=== PATIENT | female | born 2000 | race Caucasian/White ===

== ENCOUNTER 2023-08-14 15:01 | Emergency (ER) | payer OTHER, SELFPAY ==
[2023-08-14 15:17] VITALS: BP 118/77; PULSE 85; RESP 16; TEMP 36.4; O2SAT 99
--- NOTE | 2023-08-14 15:20 | ED.GENADULT ---
HPI - General Adult General Chief complaint: Ear Stated complaint: Ear Infection Time Seen by Provider: 08/14/23 15:24 Source: patient, RN notes reviewed and old records reviewed Mode of arrival: ambulatory Limitations: no limitations Related Data Home Medications Medication Instructions Recorded Confirmed norethindrone (contraceptive) 0.35 0.35 mg PO DAILY 08/14/23 08/14/23 mg tablet Allergies Allergy/AdvReac Type Severity Reaction Status Date / Time No Known Allergies Allergy Verified 08/14/23 15:32 Review of Systems Review of Systems: 22-year-old female presents to [facility] with complaints of coughing and congestion for about 1 week with bilateral ear pressure and pain for the last 3-4 days. The patient taking rwik-jki-bqgykjt sinus medications with no relief patient denies fever chills headaches myalgias or any other complaints at this time Constitutional: Constitutional: Reports no additional constitutional complaints Eyes: Eyes: Reports no additional eye complaints ENT: Reports system reviewed and no additional complaints, except as documented, Reports otalgia, Reports nasal congestion and Reports nasal discharge Cardiovascular: Cardiovascular: Reports no additional cardiovascular complaints Respiratory: Respiratory: Reports no additional respiratory complaints and Reports cough Neurologic: Reports system reviewed and no additional complaints, except as documented PMFSH Comments At the time of my signature, I reviewed and agree with the nursing past medical, surgical, social, and family history. There is no relevant family history pertinent to the patient complaint. Exam Const: General: cooperative, healthy appearing, no acute distress and well nourished Nutritional Appearance: well nourished Orientation/consciousness: patient oriented x3 Limitations: no limitations HENMT: Head: normal to inspection and normocephalic Ears: external ears normal, EAC's normal, mastoids normal and TM abnormal with fluid behind the TM (Bilaterally) Face/Nose/Sinus: normal facial exam Face and sinus: normal facial exam Mouth: Yes Normal oral and palatal mucosa present, Yes oropharynx normal and Yes moist mucous membranes Throat: posterior oropharynx normal, tonsils normal, uvula midline and no uvular edema Eyes: General: appearance normal, both eyes and all related structures Sclera: sclerae normal Pupils: Equal, round and reactive pupils present Resp: Effort & Inspection: normal respiratory effort, able to speak in complete sentences, no audible wheezes, no cough, no respiratory distress and no retractions Auscultation: clear to auscultation bilaterally, no crackles, no rales, no rhonchi and no wheezes Cardio: Rate: regular rate Rhythm: regular rhythm Skin: General skin exam: normal color and no rashes or lesions noted Neuro: General: patient oriented x3 Cranial nerves: Yes Equal, round and reactive pupils present Psych: Appearance: grossly normal Course Course Emergency Course: Some parts of this dictation were generated by voice recognition software and may contain typographical and/or grammatical inaccuracies. Level of Care: Express Care Visit Vital Signs Vital signs: Vital Signs Temperature 97.6 F 08/14/23 15:17 Pulse Rate 85 08/14/23 15:17 Respiratory Rate 16 08/14/23 15:17 Blood Pressure 118/77 08/14/23 15:17 Pulse Oximetry 99 08/14/23 15:17 Temperature 97.6 F 08/14/23 15:17 Pulse Rate 85 08/14/23 15:17 Respiratory Rate 16 08/14/23 15:17 Blood Pressure 118/77 08/14/23 15:17 Pulse Oximetry 99 08/14/23 15:17 Reviewed Medical Decision Making MDM Narrative Medical decision making narrative: Patient complaining cough and congestion with ear pain and pressure for 1 week, patient denies fever chills shortness of breath productive. Patient's symptoms consistent with viral illness, foot noted and behind both TMs. Patient given S prescription
== END 2023-08-14 15:47 | disposition home or self-care (01) ==
PROVIDERS: Emergency Provider Registered Nurse; PCP Nurse Practitioner Family
DX: H74.8X3 Other specified disorders of middle ear and mastoid, bilateral (principal)
CPT/HCPCS: 99213; G0463

== ENCOUNTER 2025-01-11 03:59 | Emergency (ER) | payer OTHER, SELFPAY ==
--- OUTSIDE RECORDS SUMMARY | 2025-01-11 04:01 | XMS_ITS | Continuity of Care Document ---
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 [facility] [address], [place], [address], [place]. tel:[phone] Family History Family Member Type Diagnosis Age At Onset No Information Payers Payer name Insurance type Covered alliance party ID Authoriza tion(s) No Information Social History Type Description Quantity Date Captured Comments Sex Female Smoking Status No Information Chief Complaint And Reason For Visit No Information Reason For Referral Reason For Referral No Information History Of Present Illness Encounter Date Complaint History Of Prese nt Illness No Information Functional Status Date Functional Assessmen t No Information Instructions Date Instruction Additional Infor mation No Information Assessments Type Assessment Date No Information Patient Care Teams Name Effective Dates (start - stop) Status Members No Information
--- OUTSIDE RECORDS SUMMARY | 2025-01-11 04:01 | XMS_ITS | Data Portability ---
Author Organization [employer] , [facility]uz Address [address] [place] [address] Assessment No assessment recorded. Plan of Treatment Reminders Order Date Submit Date Provider Last Modified By Organization Details Last Modified Time Details Appointments None recorde d. Lab hemoglo bin A1c, QN, blood 2022 023 [facility], [address] [place] [address], [id number], 3 12:14:09 strepto coccus group B, culture , unspeci fied specime n 2022 023 [facility], [address] [facility], [place], [address], 3 11:46:54 Referral None recorde d. Procedures None recorde d. Surgeries None recorde d. Imaging non-str ess test 2022 023 [facility], [address] [place] [address], [id number], 3 14:19:20 non-str ess test 2022 023 [facility], [address] [place] [address], [id number], 3 14:19:20 Medication Orders cephale daren 500 mg tablet 2022 023 [place] [address] [facility][id number] [place], [place], [id number], 3 00:55:07 Slynd 4 mg (28) tablet 2022 023 [email or web address] [facility][id number], [address] [place], [place], [id number], 16:52:10 Ortho Microno r 0.35 mg tablet 2022 023 [id number] [facility][id number], [address] [place], [place], [id number], 15:52:36 Patient TargetsNo targets recorded. Patient Instructions Encounter Date Encounter Id Patient Instructions Last Modified By Organization Details Last Modified Time 11/11/2022 [id number] Care at Home With Your Baby: Care Instructions Not available 11/11/2022 16:28:32 edinburgh depression scale* [email or web address] Not available 11/14/2022 18:22:28 control after counseling Not available 11/11/2022 16:28:32 12/08/2022 [id number] Care at Home With Your Baby: Care Instructions [email or web address] Not available 12/08/2022 15:52:52 control after counseling [email or web address] Not available 12/08/2022 15:52:52 Reason for Referral None Reported. Results Created Date Observation Date Name Description Value Unit Range Abnormal Flag Note LastModifiedBy Organization Detail LastModifiedTime 09/15/20 22 09/16/2022 COMPR EHENS HUGO METAB OLIC PANEL sodium 141 mmol/ L 136 - 145 normal Not Available [facility] [address] [place], [address], 09/16/2022 12:28:22 09/15/20 22 09/16/2022 COMPR EHENS HUGO METAB OLIC PANEL potassium 3.7 mmol/ L 3.5 - 5.1 normal Not Available [facility] [address] [place], [address], 09/16/2022 12:28:22 09/15/20 22 09/16/2022 COMPR EHENS HUGO METAB OLIC PANEL chloride 104 mmol/ L 98 - 107 normal Not Available [address], [address], 09/16/2022 12:28:22 09/15/20 22 09/16/2022 COMPR EHENS HUGO METAB OLIC PANEL glucose 81 mg/dL 74 - 106 normal Not Available [address], [address], 09/16/2022 12:28:22 09/15/20 22 09/16/2022 COMPR EHENS HUGO METAB OLIC PANEL carbon dioxide 23 mmol/ L 20 - 32 normal Not Available [address], [address], 09/16/2022 12:28:22 09/15/20 22 09/16/2022 COMPR EHENS HUGO METAB OLIC PANEL calcium 9.5 mg/dL 8.5 - 10.1 normal Not Available [address], [address], 09/16/2022 12:28:22 09/15/20 22 09/16/2022 COMPR EHENS HUGO METAB OLIC PANEL creatinine 0.62 mg/dL 0.60 - 1.00 normal Not Available [address], [address], 09/16/2022 12:28:22 09/15/20 22 09/16/2022 COMPR EHENS HUGO METAB OLIC PANEL eGFR 129 mL/mi n/1.7 3m2 >60 normal The eGFR is based on the CKD-E PI 2020 annitaat jumana. To calcu late the new eGFR from a previ ous Creat inine or Cysta linden C resul t, go to https ://jaylan [email or web address].christopher yoo/pr ofess ional s/kdo qi/gf r_cal culat or Not Available [address], [address], 09/16/2022 12:28:22 09/15/20 22 09/16/2022 COMPR EHENS HUGO METAB OLIC PANEL AST 27 U/L 32 - 40 low Not Available [address], [address], 09/16/2022 12:28:22 09/15/20 22 09/16/2022 COMPR EHENS HUGO METAB OLIC PANEL ALT 31 U/L 14 - 59 normal Not Available [address], [address], 09/16/2022 12:28:22 09/15/20 22 09/16/2022 COMPR EHENS HUGO METAB OLIC PANEL alk phos 137 U/L 46 - 116 high Not Available [address], [address], 09/16/2022 12:28:22 09/15/20 22 09/16/2022 COMPR EHENS HUGO METAB OLIC PANEL albumin 2.8 g/dL 3.4 - 5.0 low Not Available [address], [address], 09/16/2022 12:28:22 09/15/20 22 09/16/2022 COMPR EHENS HUGO METAB OLIC PANEL protein, total 6.9 g/dL 6.4 - 8.2 normal Not Available [address], [address], 09/16/2022 12:28:22 09/15/20 22 09/16/2022 COMPR EHENS HUGO METAB OLIC PANEL bilirubin, total 0.7 mg/dL 0.2 - 1.0 normal Not Available [address], [address], 09/16/2022 12:28:22 09/15/20 22 09/16/2022 COMPR EHENS HUGO METAB OLIC PANEL urea nitrogen (BUN) 7 mg/dL 6 - 31 normal Not Available [address] [place], [address], 09/16/2022 12:28:22 09/15/20 22 09/16/2022 VAGIN ITIS PANEL bacterial vaginosis BV neg negati ve normal Not Available [address], [address], 09/17/2022 09:48:13 09/15/20 22 09/16/2022 VAGIN ITIS PANEL nathalie species C. spp neg negati ve normal Not Available [address], [address], 09/17/2022 09:48:13 09/15/20 22 09/16/2022 VAGIN ITIS PANEL nathalie glabrata C. gla neg negati ve normal Not Available [address], [address], 09/17/2022 09:48:13 09/15/20 22 09/16/2022 VAGIN ITIS PANEL trichomonas vaginalis CV/TV TRICH neg negati ve normal Not Available [address], [address], 09/17/2022 09:48:13 09/15/20 22 09/20/2022 BILE ACIDS , TOTAL bile acids, total 19 umol/ L 0-19 Not Available [facility] [address] [place], [address], 09/20/2022 04:01:28 09/15/20 22 09/20/2022 CULTU RE, URINE , ROUTI NE culture, urine, routine SEE NOTE CULTU RE, URINE , ROUTI NE Micro Numbe r: [id number] Test Statu s: Final Speci men Sourc e: Urine Speci men Quali ty: Adequ ate Resul t: No Growt h Not Available [address] [facility] [address] [place], [address], 09/20/2022 04:01:30 09/16/20 22 09/17/2022 (100G ) 3HR - GLUCO SE MAK ANCE TEST, GESTA ELVIS L SCREE N glucose (100g) fasting 89 mg/dL 74 - 106 normal Not Available [facility] [address] [place] [address], [address], 09/17/2022 14:50:11 09/16/20 22 09/17/2022 (100G ) 3HR - GLUCO SE MAK ANCE TEST, GESTA ELVIS L SCREE N glucose (100g) 1 hour 208 mg/dL <180 high Not Available [facility] [address] [place] [address], [address], 09/17/2022 14:50:11 09/16/20 22 09/17/2022 (100G ) 3HR - GLUCO SE MAK ANCE TEST, GESTA ELVIS L SCREE N glucose (100g) 2 hour 171 mg/dL <155 high Not Available [facility] [address] [place] [address], [address], 09/17/2022 14:50:11 09/16/20 22 09/17/2022 (100G ) 3HR - GLUCO SE MAK ANCE TEST, GESTA ELVIS L SCREE N glucose (100g) 3 hour 124 mg/dL <140 normal Not Available [facility] [address] [place] [address], [address], 09/17/2022 14:50:11 09/24/19 23 10/25/2022 BILE ACIDS , TOTAL bile acids, total TNP TEST NOT PERFO RMED Test cance lled for reord sameer silvero ses. Not Available [facility] [address] [place], [address], 10/25/2022 21:02:43 09/24/19 23 10/25/2022 BILE ACIDS , FRACT IONAT ED AND TOTAL cholic acid <0.5 umol/ L < or = 1.8 Not Available [address] [facility] [address] [place], [address], 10/25/2022 21:02:43 09/24/19 23 10/25/2022 BILE ACIDS , FRACT IONAT ED AND TOTAL deoxycholic acid <0.5 umol/ L < or = 2.4 Not Available [facility] [place] [address] [place], [address], 10/25/2022 21:02:43 09/24/19 23 10/25/2022 BILE ACIDS , FRACT IONAT ED AND TOTAL chenodeoxych olic acid <0.5 umol/ L < or = 3.1 Not Available [facility] [place] [address] [place], [address], 10/25/2022 21:02:43 09/24/19 23 10/25/2022 BILE ACIDS , FRACT IONAT ED AND TOTAL total bile acids <1.5 umol/ L < or = 6.8 This test was devel krishan and its deja tical perfo rmanc e toby cteri stics have been deter mined by [facility] mckenzie Quintanillai татьяна Edwardsnathanael boles . It has not been clear ed or appro larisa by FDA. This assay has been valid ated pursu ant to the CLIA regul ation s and is used for clini keily purpo ses. Not Available [facility] [place] [address] [place], [address], 10/25/2022 21:02:43 10/13/19 23 10/16/2022 STREP TOCOC CUS, GROUP B CULTU RE streptococcu s, group B culture SEE NOTE STREP TOCOC CUS, GROUP B CULTU RE Micro Numbe r: [id number] Test Statu s: Final Speci men Sourc e: Vagin al anore ctal Speci men Quali ty: Adequ ate Resul t: No group B Strep tococ cus isola cami Note per CDC guide lines optim al recov mraio is achie larisa by swabb ing both the lower vagin a and rectu m (thro ugh the anal sphin cter) . Not Available [facility] [place] [address] [place], [address], 10/16/2022 12:18:31 10/21/19 23 10/21/2022 UA REFLE X TO MICRO specimen type URINE CLEAN CATCH Not Available [facility] (Lab) [address] [place] [place], [address], 10/21/2022 10:46:40 10/21/19 23 10/21/2022 UA REFLE X TO MICRO color YELLOW Not Available [facility] (Lab) [place], [address], 10/21/2022 10:46:40 10/21/19 23 10/21/2022 UA REFLE X TO MICRO clarity CLEAR Not Available [facility] (Lab) [place], [address], 10/21/2022 10:46:40 10/21/19 23 10/21/2022 UA REFLE X TO MICRO specific gravity 1.022 1.001- 1.030 Not Available [facility] (Lab) [place], [address], 10/21/2022 10:46:40 10/21/19 23 10/21/2022 UA REFLE X TO MICRO pH, urine 6.5 5.0-9. 0 Not Available [facility] (Lab) [place], [address], 10/21/2022 10:46:40 10/21/19 23 10/21/2022 UA REFLE X TO MICRO leukocytes NEGATI VE neg Not Available [facility] (Lab) [place], [address], 10/21/2022 10:46:40 10/21/19 23 10/21/2022 UA REFLE X TO MICRO nitrite NEGATI VE neg Not Available [facility] (Lab) [address] [place], [address], 10/21/2022 10:46:40 10/21/19 23 10/21/2022 UA REFLE X TO MICRO protein 10 mg/dL <30 Not Available [facility] (Lab) [place], [address], 10/21/2022 10:46:40 10/21/19 23 10/21/2022 UA REFLE X TO MICRO glucose NORMAL mg/dL norm Not Available [facility] (Lab) [place], [address], 10/21/2022 10:46:40 10/21/19 23 10/21/2022 UA REFLE X TO MICRO ketone NEGATI VE mg/dL neg Not Available [facility] (Lab) [place], [address], 10/21/2022 10:46:40 10/21/19 23 10/21/2022 UA REFLE X TO MICRO urobilinogen NORMAL mg/dL norm Not Available [facility] (Lab) [place], [address], 10/21/2022 10:46:40 10/21/19 23 10/21/2022 UA REFLE X TO MICRO bilirubin NEGATI VE mg/dL neg Not Available [facility] (Lab) [place], [address], 10/21/2022 10:46:40 10/21/19 23 10/21/2022 UA REFLE X TO MICRO blood NEGATI VE neg Not Available [facility] (Lab) [place], [address], 10/21/2022 10:46:40 10/21/19 23 10/21/2022 CBC WITH DIFF WBC 8.0 x10'3 /uL 4.5-11 .0 Not Available [facility] (Lab) [address], [place], [address], 10/21/2022 10:47:40 10/21/19 23 10/21/2022 CBC WITH DIFF RBC 4.10 x10'6 /uL 4.20-5 .40 low Not Available [facility] (Lab) [address] [facility], [place], [address], 10/21/2022 10:47:40 10/21/19 23 10/21/2022 CBC WITH DIFF hemoglobin 13.2 g/dL 12.0-1 6.0 Not Available [facility] (Lab) [address], [place], [address], 10/21/2022 10:47:40 10/21/19 23 10/21/2022 CBC WITH DIFF hematocrit 37.7 % 38.0-4 8.0 low Not Available [facility] (Lab) [address], [place], [address], 10/21/2022 10:47:40 10/21/19 23 10/21/2022 CBC WITH DIFF MCV 92.0 fL 81.0-9 9.0 Not Available [facility] (Lab) [address], [place], [address], 10/21/2022 10:47:40 10/21/19 23 10/21/2022 CBC WITH DIFF MCH 32.2 pg 27.0-3 1.0 high Not Available [facility] (Lab) [address], [place], [address], 10/21/2022 10:47:40 10/21/19 23 10/21/2022 CBC WITH DIFF MCHC 35.0 g/dL 32.0-3 6.0 Not Available [facility] (Lab) [address] [facility], [place], [address], 10/21/2022 10:47:40 10/21/1910/21/2022 CBC WITH DIFF RDW 13.4 % 11.5-1 4.5 Not Available [facility] (Lab) [address] [facility], [place], [address], 10/21/2022 10:47:40 10/21/19 23 10/21/2022 CBC WITH DIFF platelet count 218 x10'3 /uL 130-40 0 Not Available [facility] (Lab) [address], [place], [address], 10/21/2022 10:47:40 10/21/19 23 10/21/2022 CBC WITH DIFF MPV 10.8 fL 9.3-12 .2 Not Available [facility] (Lab) [address] [facility], [place], [address], 10/21/2022 10:47:40 10/21/1910/21/2022 CBC WITH DIFF diff type AUTOMA CAMI DIFFER ENTIAL Not Available [facility] (Lab) [address], [place], [address], 10/21/2022 10:47:40 10/21/19 23 10/21/2022 CBC WITH DIFF neutrophils 70.9 % Not Available [facility] (Lab) [address] [facility], [place], [address], 10/21/2022 10:47:40 10/21/19 23 10/21/2022 CBC WITH DIFF lymphocytes 22.4 % Not Available [facility] (Lab) [address], [place], [address], 10/21/2022 10:47:40 10/21/19 23 10/21/2022 CBC WITH DIFF monocytes 5.4 % Not Available [facility] (Lab) [address], [place], [address], 10/21/2022 10:47:40 10/21/19 23 10/21/2022 CBC WITH DIFF eosinophils 0.6 % Not Available [facility] (Lab) [address], [place], [address], 10/21/2022 10:47:40 10/21/19 23 10/21/2022 CBC WITH DIFF basophils 0.3 % Not Available [facility] (Lab) [address], [place], [address], 10/21/2022 10:47:40 10/21/19 23 10/21/2022 CBC WITH DIFF immature granulocytes 0.4 % Not Available [facility] (Lab) [address], [place], [address], 10/21/2022 10:47:40 10/21/19 23 10/21/2022 CBC WITH DIFF abs. neutrophils 5.65 x10'3 /uL 1.80-7 .70 Not Available [facility] (Lab) [address], [place], [address], 10/21/2022 10:47:40 10/21/19 23 10/21/2022 CBC WITH DIFF abs. lymphocytes 1.78 x10'3 /uL 1.00-4 .80 Not Available [facility] (Lab) [address], [place], [address], 10/21/2022 10:47:40 10/21/19 23 10/21/2022 CBC WITH DIFF abs. monocytes 0.43 x10'3 /uL 0.24-0 .86 Not Available [facility] (Lab) [place], [address], 10/21/2022 10:47:40 10/21/19 23 10/21/2022 CBC WITH DIFF abs. eosinophils 0.05 x10'3 /uL 0.04-0 .36 Not Available [facility] (Lab) [place], [address], 10/21/2022 10:47:40 10/21/19 23 10/21/2022 CBC WITH DIFF abs. basophils 0.02 x10'3 /uL 0.01-0 .08 Not Available [facility] (Lab) [address], [place], [address], 10/21/2022 10:47:40 10/21/19 23 10/21/2022 CBC WITH DIFF abs. immature grans 0.03 x10'3 /uL 0.00-0 .49 Not Available [facility] (Lab) [place], [address], 10/21/2022 10:47:40 10/21/19 23 10/21/2022 TYPE AND SCREE N ABO/Rh(D) O POSITI VE Not Available [facility] (Lab) [place], [address], 10/21/2022 11:24:23 10/21/19 23 10/21/2022 TYPE AND SCREE N antibody screen NEGATI VE Not Available [facility] (Lab) [place], [address], 10/21/2022 11:24:23 10/21/19 23 10/21/2022 TYPE AND SCREE N xm expiration 2022,2 359 Not Available [facility] (Lab) [address] [facility], [place], [address], 10/21/2022 11:24:23 10/21/19 23 10/21/2022 DRUGS OF ABUSE PANEL , URINE amphetamines , urine NEGATI VE neg Not Available [facility] (Lab) [address] [facility], [place], [address], 10/21/2022 11:41:20 10/21/19 23 10/21/2022 DRUGS OF ABUSE PANEL , URINE barbituates, urine NEGATI VE neg Not Available [facility] (Lab) [address], [place], [address], 10/21/2022 11:41:20 10/21/19 23 10/21/2022 DRUGS OF ABUSE PANEL , URINE benzodiazapi bradly, urine NEGATI VE neg Not Available [facility] (Lab) [address] [facility], [place], [address], 10/21/2022 11:41:20 10/21/19 23 10/21/2022 DRUGS OF ABUSE PANEL , URINE cannabinoids /THC, urine NEGATI VE neg Not Available [facility] (Lab) [address] [facility], [place], [address], 10/21/2022 11:41:20 10/21/19 23 10/21/2022 DRUGS OF ABUSE PANEL , URINE cocaine, urine NEGATI VE neg Not Available [facility] (Lab) [place], [address], 10/21/2022 11:41:20 10/21/19 23 10/21/2022 DRUGS OF ABUSE PANEL , URINE methadone, urine NEGATI VE neg Not Available [facility] (Lab) [place], [address], 10/21/2022 11:41:20 10/21/19 23 10/21/2022 DRUGS OF ABUSE PANEL , URINE opiates, urine NEGATI VE neg Not Available [facility] (Lab) [address], [place], [address], 10/21/2022 11:41:20 10/21/19 23 10/21/2022 DRUGS OF ABUSE PANEL , URINE phencyclidin es, urine NEGATI VE neg NOTE: RESUL TS OF THIS DRUG SCREE N SHOUL D BE USED FOR MEDIC AL PURPO SES ONLY AND NOT FOR LEGAL OR EMPLO YMENT PURPO SES. POSIT HUGO RESUL TS ARE NOT CONFI RMED. MEDIC ATION S CONTA INING EPHED RINE MAY CAUSE FALSE POSIT HUGO AMPHE TAMIN E CALL [phone], LAB, TO REQUE ST CONFI RMATI ON TESTI NG. IF CREAT ININE IS <40 mg/dL . RECOL LECTI ON IS IFEOMA MCCORD. AMPHE TAMIN E- 500 NG/ML HAMMAD TURAT E- 200 NG/ML BENZO DIAZE PINES - 200 NG/ML THC- 50 NG/ML COCAI NE- 150 NG/ML METHA DONE- 300 NG/ML OPIAT E- 300 MG/ML PCP- 25 NG/ML Not Available [facility] (Lab) [place], [address], 10/21/2022 11:41:20 10/21/19 23 10/21/2022 DRUGS OF ABUSE PANEL , URINE creatinine, urine 185.0 mg/dL 28-217 Not Available [facility] (Lab) [place], [address], 10/21/2022 11:41:20 10/22/19 23 10/26/2022 TYRON SURGI KEILY PATHO LOGY path report [facility] [address] [place] [address] Phone : [phone] Fax: Depar tment of Patho logy Patho logy Repor t SURGI KEILY FINAL REPOR T Celia nt Name: JEANA NORIEGA Accaleshia amado# : [id number] : [birth year] (Age: 22) Locat ion: [facility] IF Gende r: F Colle cted Date: 023 Med Rec #: [id number] Date Recei larisa: 023 Date Repor cami: 023 Provi uriel: ANGEL MONTES DO ALMA ENGEL MD Speci men(s ) Place nta and Umbil ical Cord Final Patho logic Diagn osis PLACE NTA AND UMBIL ICAL CORD, VAGIN AL DELIV MARIO: 432-G [address] NTA (NORM AL WEIGH T FOR GESTA ELVIS L AGE) THREE -VESS EL UMBIL ICAL CORD WITH NO HISTO PATHO LOGIC ABNOR MALIT Y MEMBR ANES WITH NO HISTO PATHO LOGIC ABNOR MALIT Y MATUR E VILLO US MORPH OLOGY María ctron icall y Lillie d Out JADIEL LANGLEY MD Patho logis t SMO:p b Micro scopi c Descr iptio n: Micro scopi c exami natio n subst antia amanda the above diagn osis. Clini keily Histo ry GDM, robin stasi s, 37w4d ega Gross Descr iptio n Recei larisa is a singl e forma shady-f illed conta iner label ed with the patie nt's name (Melinda jimenez), date of (08/19 1200 0) (mayda ectio n time 10/22 at 2307) and addit ional ly label ed plac enta. The speci men consi sts of a singl eton place nta, measu ring 19.5 x 16.5 x 3.5 cm with an eccen trica lly inser cami umbil ical cord that is 3 cm from the disc edge and measu res 34.5 cm in lengt h with a diame ter up to 1.7 cm. The cord appea rs sligh tly edema tous. Secti oning of the cord revea ls three -vess els and there are no ident ifiab le true or false knots prese nt. The membr anes are purpl e-ruth semit ransl ucent and have benson nal inser tion. The surfa ce is purpl e-ruth with marian l to sligh tly narro wed vascu latur e. The mater nal surfa ce is red-t an with intac t cotyl edons . The noy ed disc weigh s 432 grams . Secti oning of the disc revea ls a prima rily red-t an homog enous cut surfa ce. There are areas of pin-p oint white -ruth, gritt y calci fied tissu e upon secti oning , equal ing less than 5% of the place ntal disc gross ly. Repre senta tive secti ons are submi tted as follo ws: 1 - Membr ane roll 2 - Repre senta tive cord 3 - Repre senta tive full thick ness place ntal disc to inclu de repre senta tive areas of pin-p oint calci fied tissu e 4-5 - Repre senta tive remai hammad place ntal disc :pb Ld ng Fee Code( s): 84507 Not Available [facility] (Lab) [address] [facility], [place], [address], 10/26/2022 16:23:58 12/09/19 23 12/09/2022 HEMOG LOBIN A1C hemoglobin A1C 5.8 % <5.7 high The refer ence range for HbA1c is indic ated in the table below . Sugge sted Diagn osis =6.5% Consi stent with diabe amanda 5.7 6.4% Consi stent with incre ased risk for diabe amanda (pred iabet ic) <5.7% Consi stent with the absen ce of diabe amanda Not Available Pierce Jose L [address] [facility], [place], [address], 12/09/2022 12:14:09 09/22/19 US, obste tric, bioph ysica l profi le No observ ation record ed. [facility] [address] [place], [address], 09/24/2022 09:48:14 09/27/19 23 09/24/2022 US, obste tric, bioph ysica l profi le No observ ation record ed. joycelyn Becke [address], [place], [address], 09/27/2022 21:44:45 09/27/19 23 09/27/2022 US, obste tric, bioph ysica l profi le No observ ation record ed. [facility] [address], [address], 09/28/2022 10:21:20 09/27/19 23 09/27/2022 US, obste tric No observ ation record ed. [facility] [address], [address], 09/28/2022 10:21:48 10/04/19 23 10/04/2022 US, obste tric No observ ation record ed. [facility] [address], [address], 10/05/2022 15:30:12 10/04/19 23 10/04/2022 US, obste tric, limit ed No observ ation record ed. janen Sharlene [address], [place], [address], 10/06/2022 08:07:18 10/08/19 23 10/08/2022 US, obste tric No observ ation record ed. [facility] [place] [address] [place] [address], [address], 10/11/2022 08:54:51 10/14/19 23 10/14/2022 US, obste tric No observ ation record ed. [facility] [address] [place] [address], [address], 10/15/2022 11:03:01 Result Notes None recorded. Problems Name Problem SNOMED Code Status Onset Date Resolution Date Notes Provider Name and Address Organization Details Recorded Time Pregnanc y 96594504 Completed 202112/08/2022 Crystal lee, Pikum IV 3 15:35:31 Cystic fibrosis screenin g Completed +CF screenin g. FOB negative Crystal lee, Pikum IV 3 15:35:27 High risk pregnanc y [id number] Completed O+/RI/NR x4. Last Pap: No pap on file; plan post collecti on. GTT: Failed; see below POC. GBS: Aneuploi dy screenin g: QNatal WNL. Anatomy Scan: Complete as of 07/02/22 . Crystal lee, [facility] IV 3 15:35:27 Gestatio nal diabetes mellitus [id number] Completed H/O PCOS. Early screenin g recommen ded. HgA1C on intake 4.7. Early 1 hr GTT 122. 28 wk 1 hr GTT: 156, Failed 3 hr GTT. U/S: 07/02 86.2%, 07/13 63%, 08/10 66%. --> Update 09/24/22: GDM Ed visit done. BG log reviewed . All readings WNL except for single pp reading at 140. Discusse d dietary recommen dations and plan to review at each visit. 12. 7%. Serial growth U/S needed. LD ASA daily [facility] ed. Crystal lee, Pik[facility] IV 3 15:35:27 Cholesta sis of pregnanc y [id number] Completed Bile acids 19 on 09/15/22 ; lab received 09/20/22. AST 27 (L), ALT 31, Alk Phos 137 (H). --> Updated on 09/24/22: Pt states itching much improved since last visit, and urine is not as dark. Pt reports focusing on pushing p.o. water intake daily. Pt has not used any medicati on for ICP sx. Repeat bile acids ordered. Antenata l testing twice weekly and serial growth U/S through remainde r of pregnanc y. [facility] contacte d to schedule imaging appts with their office per pt request. BPP 04/26. Pt educated on [facility] and discusse d when to notify HCP/go to L&D. Pt to see MD's for remainde r of pregnanc y and discuss delivery POC. Crystal Maciel rosa, [employer] 3 15:35:27 Cervical incompet ence [id number] Completed C.L. 1.6 cm with rebekah roman on anatomy. Prometri um Rx'd. S/P MFM Referral . 07/13/22 C.L. 2.3 cm. Recommen dation for vag progeste susanna through 36 wks. Crystal Maciel rosa, [facility] IV 3 15:35:27 Anti-nuc lear factor detected [id number] Completed Saw Rheumato logist in 03/2022. Labs all WNL except for elevated CRP. --> Update 09/24/22: Pt states no official autoimmu ne diagnosi s. Pt [facility] ed F/U with provider after pregnanc y has ended. Crystal Raheem rosa, [facility] IV 3 15:35:27 COVID-19 [id number] Completed Dx in 01/2022. 03/31/22: Pt [facility] ed to take LD ASA daily in 2nd trimeste r and to consider booster MAIKOL. --> Update 09/24/22: Boosters recommen ded, LD ASA daily [facility] ed. Crystal lee, [facility] IV 3 15:35:27 Influenz a [id number] Completed Dx 09/07/22 . Discusse d Influenz a vaccine. --> Update 09/24/22: Influenz a vaccine [facility] ed. Crystal Raheem lee, [employer] [facility] IV 3 15:35:27 Varicell a non-immu ne [id number] Completed plan for Varicell a vaccine post . notified 05/03/22. Crystal lee, [employer] [facility] IV 3 15:35:27 Carrier of cystic fibrosis gene mutation [id number] Completed Fam Hx of CF. Pt is a carrier. FOB is not a carrier; his serum testing reviewed and discusse d at 05/17/22 OBV. Crystal lee, [employer] [facility] IV 3 15:35:27 Family history of trisomy 18 [id number] 108 Completed QNatal WNL. Crystal lee, [employer] [facility] IV 3 15:35:27 Family history of Spina bifida [id number] Completed Fam H/O Spina Bifida - X 2 on FOB side. Crystal Maciel rosa, [employer] [facility] IV 3 15:35:27 Problem Notes None recorded. Procedures Surgical History Date Name Laterality Status Provider Name and Address Organization Details Recorded Time 3 NST completed ISAC TALAMANTES MD [address] [place] [address], [phone], [employer] [facility] IV 10/13/2022 16:33:43 3 NST completed ISAC TALAMANTES MD [address] [place] [address], [phone], [employer] [facility] IV 10/13/2022 16:28:41 2 Date of Last Pap Smear completed Chelsea Cornell [employer] [facility] IV 03/31/2022 14:06:05 extraction of wisdom tooth completed Crystal Maciel [facility] 03/15/2022 15:21:10 Imaging Results Imaging Date Name Status LastModified by Organiz ation Details LastModified Time 09/22/2022 US, obstetric, biophysical profile [facility] [address] [place], [address], 09/24/2022 09:48:14 09/24/2022 US, obstetric, biophysical profile completed [facility] [address]arlene [address] [place], [address], 09/27/2022 21:44:45 09/27/2022 US, obstetric, biophysical profile completed [facility] [address], [address], 09/28/2022 10:21:20 09/27/2022 US, obstetric completed [facility] [address], [address], 09/28/2022 10:21:48 10/04/2022 US, obstetric completed [facility] [address], [address], 10/05/2022 15:30:12 10/04/2022 US, obstetric, limited completed [facility] Sharlene [address], [place], [address], 10/06/2022 08:07:18 10/08/2022 US, obstetric completed [facility] [address], [address], 10/11/2022 08:54:51 10/14/2022 US, obstetric completed [facility] [address], [address], 10/15/2022 11:03:01 Procedure Notes None recorded. Medical Equipment None Reported. Allergies No known drug allergies Medications Name Sig Start Date Stop Date Status Note LastModified by Organization Details LastModified Time multivitami n tablet TAKE 1 TABLET BY MOUTH EVERY DAY active Not Available Not Available No t Available metformin 500 mg tablet TAKE 1 TABLET BY MOUTH TWICE DAILY 03/31 completed Not Available Not Available Not Available ibuprofen 800 mg tablet TAKE 1 TABLET BY MOUTH EVERY 6 HOURS FOR 5 DAYS THEN 1 EVERY 6 HOURS NEEDED FOR PAIN 03/15 completed Not Available Not Available Not Available fluconazole 150 mg tablet TAKE 1 TABLET BY MOUTH NOW 07/30 completed Not Available Not Available Not Available ondansetron HCl 4 mg tablet TAKE 1 TABLET BY MOUTH EVERY DAY NEEDED 03/15 completed Not Available Not Available Not Available simvastatin 10 mg tablet TAKE 1 TABLET BY MOUTH EVERY DAY 03/15 completed Not Available Not Available Not Available metronidazo le 500 mg tablet TAKE 1 TABLET BY MOUTH TWICE DAILY. DO NOT CONSUME ALCOHOL WHILE TAKING THIS MEDICATIO N 03/15 completed Not Available Not Available Not Available acetaminoph en 300 mg-codeine 30 mg tablet TAKE 1-2 TABLETS BY MOUTH EVERY 6 HOURS NEEDED FOR PAIN 03/15 completed Not Available Not Available Not Available hydrocortis one 2.5 % topical cream with perineal applicator APPLY THIN LAYER TOPICALLY TO THE AFFECTED AREA 2 TO 4 TIMES DAILY NEEDED 03/31 completed Not Available Not Available Not Available OneTouch Ultra Test strips 11/11 completed Not Available Not Available Not Available cephalexin 500 mg capsule TAKE 1 TABLET BY MOUTH EVERY 8 HOURS FOR 10 DAYS active Not Available Not Available No t Available simvastatin 20 mg tablet TAKE 1 TABLET BY MOUTH EVERY DAY 03/31 completed Not Available Not Available Not Available progesteron e micronized 200 mg capsule TAKE 1 CAPSULE BY MOUTH EVERY DAY 11/11 completed Not Available Not Available Not Available docusate sodium 100 mg capsule TAKE 1 CAPSULE BY MOUTH EVERY 12 HOURS FOR 10 DAYS 11/11 completed Not Available Not Available Not Available omeprazole 20 mg capsule,del ayed release TAKE 1 CAPSULE BY MOUTH TWICE DAILY BEFORE MEALS 03/31 completed Not Available Not Available Not Available cephalexin 500 mg tablet Take 1 tablet every 8 hours by oral route for 10 days. 2022 active Not Available Not Available Not Avai lable ibuprofen 600 mg tablet 11/11 completed Not Available Not Available Not Available norethindro ne (contracept hugo) 0.35 mg tablet TAKE 1 TABLET BY MOUTH EVERY DAY 12/08 completed Not Available Not Available Not Available spironolact one 50 mg tablet TAKE 1 TABLET BY MOUTH EVERY MORNING 03/31 completed Not Available Not Available Not Available Vitamin 27 mg iron-0.8 mg tablet TAKE 1 TABLET BY MOUTH EVERY DAY active Not Available Not Available No t Available chlorhexidi ne gluconate 0.12 % mouthwash SWISH AND SPIT 10-15 ML BY MOUTH TWICE DAILY 03/15 completed Not Available Not Available Not Available Oysco 500/D 04/19 completed Not Available Not Available Not Available 04/19 completed Not Available Not Available Not Available Oysco 500/D 500 mg-5 mcg (200 unit) tablet TAKE 1 TABLET BY MOUTH DAILY active Not Available Not Available No t Available 28 mg iron-800 mcg tablet TAKE 1 TABLET BY MOUTH EVERY DAY 11/11 completed Not Available Not Available Not Available 28 mg-800 mcg tablet Take 1 tablet every day by oral route. 12/13 completed Not Available Not Available Not Available OneTouch Ultra2 Meter 11/11 completed Not Available Not Available Not Available OneTouch Delica Plus Lancet 30 gauge 11/11 completed Not Available Not Available Not Available Slynd 4 mg (28) tablet Take 1 tablet every day by oral route. active Not Available Not Available No t Available WesTab Plus 27 mg iron-1 mg tablet TAKE 1 TABLET BY MOUTH EVERY DAY active Not Available Not Available No t Available Zafemy 150 mcg-35 mcg/24 hr transdermal patch 03/15 completed Not Available Not Available Not Available Vitals Date Recorded Body height Provider Name an d Address Organization Details Last Updated DateTime 10/07/2022 154.94 cm Dariela Villaseñor [facility] [employer] IV 10/07/2022 17:17:39 Date Recorded Body mass index (BMI) Body temperature Systolic blood pressure Diastolic blood pressure Provider Name and Address Organization Details Last Updated DateTime 10/07/2022 32.1 kg/m2 96.8 [degF] 110 mm[Hg] 72 mm[Hg] Marlin Pearson [facility] [employer] IV 10/07/2022 17:31:35 Date Recorded Body weight Provider Name an d Address Organization Details Last Updated DateTime 10/07/[phone] jessie TALAMANTES MD [address] [place], [address], [place] [facility] 10/07/2022 18:18:35 Date Recorded Body height Body mass index (BMI) Body temperature Systolic blood pressure Diastolic blood pressure Provider Name and Address Organization Details Last Updated DateTime 10/12/2022 154.94 cm 32.1 kg/m2 97.6 [degF] 102 mm[Hg] 86 mm[Hg] Pamela Eppst [place] [facility] IV 3 17:15:08 Date Recorded Body weight Provider Name an d Address Organization Details Last Updated DateTime 10/12/2022 [id number] jessie TALAMANTES MD [address] [place], [address], [place] [facility] 10/12/2022 17:53:01 Date Recorded Body height Body mass index (BMI) Body weight Body temperature Systolic blood pressure Diastolic blood pressure Provider Name and Address Organization Details Last Updated DateTime 154.94 cm 28.5 kg/m2 61651.4 4787 g 98.7 [degF] 110 mm[Hg] 72 mm[Hg] Dariela Villaseñor [place] [facility] 3 16:11:16 Date Recorded Body height Body mass index (BMI) Body weight Systolic blood pressure Diastolic blood pressure Provider Name and Address Organization Details Last Updated DateTime 12/08/2022 154.94 cm 28.7 kg/m2 11847.04 024 g 122 mm[Hg] 80 mm[Hg] Crystal Maciel [place] [facility] 3 15:34:49 Date Recorded Body height Body mass index (BMI) Body weight Provider Name and Address Organization Details Last Updated DateTime 12/13/2022 154.94 cm 29.1 kg/m2 45179.22 g Asia Maciel [place] [facility] 12/13/2022 13:21:32 Social History Question Answer Notes LastModified by Organizat ion Details LastModified Time Tobacco Smoking Status Never Smoker Chelsea lee, [employer] [facility] 03/31/2022 14:06:06 What Is Your Level Of Alcohol Consumption? None Information not available 03/31/2022 Are You Blind Or Do You Have Difficulty Seeing? No Information not available 05/17/2022 Are You Currently Employed? No Information not available 09/15/2022 Are You Deaf Or Do You Have Serious Difficulty Hearing? No Information not available 05/17/2022 What Type Of Diet Are You Following? REGULAR Information not available 03/31/2022 Do You Or Have You Ever Used E-cigarettes Or Vape? Never Used Electronic Cigarettes Information not available 03/31/2022 How Many Children Do You Have? 0 [email or web address] Information not available 03/15/2022 What Is Your Relationship Status? Single [email or web address] Information not available 03/15/2022 Are You Sexually Active? Yes [email or web address] Information not available 03/15/2022 Do You Use Any Illicit Or Recreational Drugs? No Information not available 05/17/2022 Sex: Female Functional Status Question Answer Note LastModified by Organization D etails LastModified Time What is your exercise level? Moderate Information not available 03/31/2022 Mental Status None recorded. Family History Relationship Description Onset Age of this Age Resolved Age Notes LastModified by Organization Details LastModified Time Father Neoplasm of brain stem Not available 14:20:07 Father Irritable bowel syndrome Not available 03/19 14:06:05 Father Malignant neoplastic disease Not available 03/19 14:06:05 Sister Family history of trisomy 18 awittler Not available 03/31 15:46:06 Mother Carrier of cystic fibrosis gene mutation awittler Not available 2021 15:46:19 Mother Systemic lupus erythematosu s awittler Not available 2022 09:47:54 Medical History Condition Response Other Cancer N High Blood Pressure N Colon Cancer N Cytomegalovirus N Hyperthyroidism N Breast Cancer N Herpes (HSV) N MRSA N Blood Transfusion N Lung Cancer N Hypothyroidism N Depression N Incontinence N Panic Attacks N Neurological Disorder N Deep Vein Thrombosis N Anxiety Disorder N Autoimmune disease Y Arthritis N Tuberculosis/Positive PPD N Shingles N Polycystic Ovarian Syndrome Y Cervical Cancer N Hematuria N Chlamydia N Varicosities N Stroke N Crohn's Disease N Seasonal allergies N Alzheimer's/Dementia N COPD/Emphysema N HPV/Genital Warts N Endometriosis N IBS (Irritable Bowel Syndrome) N History of Abnormal Pap N High Cholesterol N Liver Disease N Fibromyalgia N Kidney Infection N Ulcer N Kidney Disease N HIV N Gallbladder disease N Von Willebrand disease N Sickle Cell Disease/Trait N ADD/ADHD N Eating Disorder N Diabetes Mellitus (non-insulin dependent ) N Anemia N Ovarian Problems N Multiple Sclerosis N Gonorrhea N Frequent Urinary Tract infections N Osteopenia N Headaches/migraines N GERD (reflux) N Ovarian Cancer N Diabetes (insulin dependent) N Seizures/Epilepsy N Fibroids N Asthma N Heart Attack N Endometrial Cancer N Lupus N Rubella N Blood Clotting Disorder N Bipolar Disorder N Diabetes Mellitus (during ) N Ulcerative Colitis N Hepatitis N Heart Disease N Pulmonary Embolism N RPR N Chicken Pox N Osteoporosis N Gynecological History Statement/Question Response Flow Moderate Frequency of Cycle (Q days) 28 Date of LMP 12/02/2022 Date of Last Pap Smear 03/11/2022 Duration of Flow (days) 5-6 Most Recent Mammogram Current Control Method BCPs Age at Menarche 13 Obstetrics History GPAL:G 2 P 1 0 1 1 Type Value Full Term 1 Induced 1 Living 1 Total 2 Past Encounters Encounter ID Performer Location Encounter Start Date Encounter Closed Date Diagnosis/Indication Diagnosis SNOMED-CT Code Diagnosis ICD10 Code Diagnosis Note [id number] HASMUKH De León [facility] [address] [place] [address] 03/15/2022 15:11:23 03/15/2022 15:47:50 test positive 510106535 Z32.01 BSUS revealed yolk sac but unable to determine viability d/t early gestationa l age. Will schedule in [place] for formal scan and confirmati on visit. [id number] HASMUKH Teixeira [facility] h [address] [place] [address] 03/31/2022 13:58:53 04/01/2022 12:39:14 Uncertain viability of 918900017 O36.80X9 UPT in office was +. LMP: 12/22/2021. BSUS on 03/15/22 unable to view FHT's. TVUS today: 8 2/7 wk IUP. EDC based on U/S. Rx for PNV sent. Pt to schedule NOB appt in 2 weeks. S/P Pfizer vaccines; last dose 01/2021. Routine an tenatal care 525534446 Z34.81 COVID-19 517371882 U07.1 Dx in 01/2022. Pt encouraged to take LD ASA daily in 2nd trimester and to consider booster MAIKOL. Family his tory of trisomy 18 [id number] 9108 Z82.79 PA sent for QNatal. Planning sneak peek if not covered. Family his tory of cystic fibrosis 796841252 Z83.49 CF carrier screening added to NOB labs. Polycystic ovary syndrome 650477564 E28.2 HgA1C and Early 1 hr GTT added to NOB labs. Anti-nucle ar factor detected 337327427 R76.8 Pt saw rheumatolo gist on 03/24/22, and given serum labs to have drawn. Pt encouraged to complete with NOB serum testing before next visit. If r/i for autoimmune disorder, plan referral to MFM at [facility] as Rheumatolo gist already located at [facility]. [id number] Cha Kimbrough CNM [facility] [address] [place] [address] 04/19/2022 14:51:49 04/20/2022 09:12:53 High risk 99771322 O09.90 Routine an tenatal care 011189718 Z34.01 Z34.[id number] [facility] [address] [place] [address] 05/17/2022 16:38:50 05/21/2022 14:50:32 Gestation period, 14 weeks 04554225 Z3A.14 Normal pre gnancy in multigravida 5174330847 52913 Z34.82 [id number] HASMUKH De León [facility] [address] [place] [address] 06/16/2022 14:44:25 06/16/2022 15:15:23 Routine care 256640979 Z34.02 [id number]M [facility] [address] [place] [address] 07/02/2022 16:04:23 07/02/2022 17:55:21 Venereal disease screening 731595656 Z11.3 thick white vaginal discharge rx and swab sent,. Gestation period, 21 weeks 05914296 Z3A.21 anatomy complete, cervix 1.6cm with funneling with fundal pressure.d enies s/s of ptl.[facility] referral sent and prometrium started. Short cerv ical length in 903532058 O26.879 plan per roxy. [facility] referral and progestero ne daily [id number] MELINA AMRITALulu SOUZA, [facility] [address] [place] [address] 07/30/2022 15:50:15 07/30/2022 16:53:26 Gestation period, 25 weeks 10261628 Z3A.25 Normal pre gnancy in multigravida 6882269149 28298 Z34.82 [id number] HASMUKH [facility] [address] [facility] [address] 08/27/2022 16:07:04 08/30/2022 10:47:39 Routine care 705190939 Z34.83 Depression screening 171 849508 Z13.31 Gestation period, 29 weeks 19862163 Z3A.29 [id number] Cha Kimbrough, [facility] [address] [facility] [place] [address] 09/15/2022 15:10:02 09/15/2022 15:59:38 Gestation period, 32 weeks 5095401 Z3A.32 Pruritic disorder 637273 002 L29.9 Vaginal discharge 475539 006 N89.8 Dark yellow urine 357840 001 R39.89 [id number] HASMUKH Teixeira [facility] [address] [facility] [place] [address] 09/24/2022 09:48:10 09/24/2022 13:54:13 High risk 57845526 O09.93 1. IUP FWB reassuring by BPP 04/26 in office today. Aneuploidy screening: QNatal WNL. Anatomy Scan: Complete as of 07/02/22.2 . O+/RI/NRx4 . Last Pap: No pap on file; plan post collection . GTT: Failed; see below POC. GBS:3. GDM - H/O PCOS. Early screening recommende d. HgA1C on intake 4.7. Early 1 hr GTT 122. 28 wk 1 hr GTT: 156, Failed 3 hr GTT. U/S: 07/02 86.2%, 07/13 63%, 08/10 66%. --> Update 09/24/22: GDM Ed visit done. BG log reviewed. All readings WNL except for single pp reading at 140. Discussed dietary recommenda tions and plan to review at each visit. 12. 7%. Serial growth U/S needed. LD ASA daily reinforced .4. Cholestasi s - Bile acids 19 on 09/15/22; lab received 09/20/22. AST 27 (L), ALT 31, Alk Phos 137 (H). --> Updated on 09/24/22: Pt states itching much improved since last visit, and urine is not as dark. Pt reports focusing on pushing p.o. water intake daily. Pt has not used any medication for ICP sx. Repeat bile acids ordered. testing twice weekly and serial growth U/S through remainder of . MFM contacted to schedule imaging appts with their office per pt request. BPP 04/26. Pt educated on FKC and discussed when to notify HCP/go to L&D. Pt to see MD's for remainder of and discuss delivery POC.5. Cervical Incompeten ce - C.L. 1.6 cm with funneling on anatomy. Prometrium Rx'd. S/P MFM Referral. 07/13/22 C.L. 2.3 cm. Recommenda tion for vag progestero ne through 36 wks.6. KOTA+ - Saw Rheumatolo gist in 03/2022. Labs all WNL except for elevated CRP. --> Update 09/24/22: Pt states no official autoimmune diagnosis. Pt encouraged F/U with provider after has ended.7. COVID-19 - Dx in 01/2022. 03/31/22: Pt encouraged to take LD ASA daily in 2nd trimester and to consider booster MAIKOL. --> Update 09/24/22: Boosters recommende d, LD ASA daily reinforced .8. Influenza - Dx 09/07/22. Discussed Influenza vaccine.-- > Update 09/24/22: Influenza vaccine reinforced .9. VZV NI - plan for Varicella vaccine post . notified 05/03/22.10 . CF Carrier - Fam Hx of CF. Pt is a carrier. FOB is not a carrier; his serum testing reviewed and discussed at 05/17/22 OBV.11. Fam H/O Trisomy 18 - QNatal WNL.12. Fam H/O Spina Bifida - X 2 on FOB side.13. TDap vaccinatio n education given on 08/27/22.-- > Update 09/24/22: TDap vaccinatio n reinforced .14. Delivery Plans: Pt to see MD's for remainder of and discuss delivery POC.15. PP Contracept ion Plans: Follow up in 4 days. Gestationa l diabetes mellitus complicating 3487710111 9106 O24.419 Cholestasi s of 606438496 O26.878 [id number] Sebastián Triplett DO [facility] [address] [place] [address] 10/04/2022 17:12:26 10/06/2022 09:43:52 79930921 Z33.1 [id number] ISAC KWAN MD [address] [address] 10/07/2022 17:16:44 10/19/2022 12:21:36 High risk 46570038 O09.93 Gestationa l diabetes mellitus complicating 9173101652 9106 O24.419 Cholestasi s of 431073728 O26.619 Gestation period, 36 weeks 98391237 Z3A.36 [id number] ISAC KWAN MD [address] [address] 10/12/2022 16:57:23 10/19/2022 12:27:55 Gestation period, 36 weeks 54967957 Z3A.36 Routine an tenatal care 235303298 Z34.83 High risk 4720 0007 O09.93 Gestationa l diabetes mellitus complicating 6088455820 9106 O24.419 Cholestasi s of 871912396 O26.532 [id number] Sebastián Triplett DO [facility] [address] [place] [address] 11/11/2022 15:55:22 11/11/2022 17:02:03 state 20411798 Z39.2 [id number] HASMUKH De León [address] [address] 12/08/2022 15:19:25 12/08/2022 15:57:11 state 25975632 Z39.2 Contracept ion care management 904089023 Z30.9 Maternal p ostpartum depression screening 7827738084 04852 Z13.32 EPDS: Pt educated on normal EPDS scoring, and discussed depression precaution s and when to notify HCP/go to ER. Past pregn andrei history of gestational diabetes mellitus 733534318 Z86.32 [id number] Vangie Nuñez MD [address] [address] 12/13/2022 12:41:36 12/14/2022 00:57:49 Mastitis associated with 768526213 O91.23 discussed mastitis assoc with breast feeding. possible blocked duct, urged to continue pumping and massage, warm compresses . Will begin abx and urge follow up 10 - 14 d Health Concerns Section Related Observation LastModified by Organization Detai ls LastModified Time None Recorded Concern Status LastModified by Organization Details LastModified Time None Recorded Advance Directives Directive None Recorded Payers Encounter Date Sequence Insurance Name Policy Number Policy Hung Covered Member ID Hung Member ID Guarantor Name 10/07/2022 1 [facility] (MEDICAID HM) [id number] Jenniffer Gustafson [id number] Jenniffer Gustafson 10/12/2022 1 [facility] ([employer]ICAID [place]) [id number] Jenniffer Gustafson [id number] Jenniffer Gustafson 11/11/2022 1 [facility] (MEDICAID [place]) [id number] 0003 Jenniffer Gustafson [id number] Jenniffer Gustafson 12/08/2022 1 [facility] (MEDICAID HMO) [id number] Jenniffer Gustafson [id number] Jenniffer Gustafson 12/13/2022 1 [facility] (MEDICAID HMO) [id number] 0003 Jenniffer Gustafson [id number] Jenniffer Sj Notes Date Note Type Note Provider Name and Address Organization Details Recorded Time 10/07/2022 text/html 22 year old [id number] and cholestasis of - routine OB visit.She is currently at 35.2 weeks gestation. She is taking vitamins. She has felt movement. She denies the presence of vaginal bleed, leaking fluid, abdominal cramps, nausea, vomiting. Pt has NST today prior visit. Pt had US and NST with MFM on 10/04/22 with BPP 10/10 and amniotic fluids is within normal limits and FHR is 130 bpm.Pt have a follow up with MFM for BPP and NST on 10/07/22. Pt states this morning when she woke up half her underwear was wet and she has been having some cramps. ISAC TALAMANTES MD [address] [place] [address], [place], [address], [employer] [facility] 10/13/2022 16:29:52 10/12/2022 text/html 36.1 weeks 10 here for SANJEEV.Perceives active movements. Denies contractions, vaginal bleeding or leakage of fluid. No s/s of PIH. ISAC TALAMANTES MD [address] [place] [address], [place], [address], [facility] [employer] IV 10/13/2022 16:34:02 11/11/2022 text/html VisitReported bypatient.Associate d Symptoms:no abnormal bleeding; no vaginal discharge; no pelvic pain; laceration well healed; no constipation; no fecal incontinence; no dysuria; no urinary incontinence; no fever; no problems; no mastitis; normal mood Jenniffer is here for her post check up. She is now _3_ weeks . She delivered with Cha Kimbrough CNM 's assistance on _10/22/22 _via spontaneous vaginal delivery. Episiotomy was not performed . Labor was __induced_ and her labor course was uncomplicated. She had _epidural_anesthesi a. Her course was uncomplicated. She delivered a female named Janell weight was _6_ pounds and _8_ ounces. _No__complications were encountered, and no anomalies were identified. The was sent home with mother.Pt is .Pt has no concerns today. Sebastián Triplett DO [facility], [place], [address], [facility] [employer] 11/11/2022 16:28:49 12/08/2022 text/html VisitReported bypatient.Associate d Symptoms:no abnormal bleeding; no vaginal discharge; no pelvic pain; laceration well healed; no constipation; no fecal incontinence; no dysuria; no urinary incontinence; no fever; no problems; no mastitis; normal mood Jenniffer is here for her post visit. She is currently on Ana Paula for control but would like to switch to Slynd d/t 24hr shannon period if she misses an OCP. She was GDM, diet controlled. She denies post depression. She is UTD on her pap. She is currently breast feeding. HASMUKH De León [facility], [place], [address], [facility] [employer] 12/08/2022 16:52:16 12/13/2022 text/html Jenniffer 22 y/o h ere due to right breast pain, patient is breast feeding, delivery was on 10/22/2022, patient states on Tuesday12/10/2022 was c/o cold sweats and rt breast tender on the inner area. She has applied warm compresses. She notes decr production of milk from that breast also Vangie Nuñez MD [address] [place] [address], [place], [address], [facility] [employer] 12/14/2022 00:57:39 OBGyn Episode Ob Episode Information Episode Created Date Number of Fetuses Patient Bloodtype Patient rh Status Prepregnancy Weight lbs Domestic Partner Domestic Partner Phone Father Name Digital Marketing Officer Status 04/29/20 22 1 O Positive CLOSED Fetus Data First Name Last Name Admitted to NICU Weight (g) Sex Living Outcome Pediatric Complications Fetus ID Race Codes Race Delivery Type Janell false 2954.01 79 F true Full Term [id number] Problems Problem Notes Problem Name Start Date End Date Resolution Snomed Code Not e Cystic fibrosis screening 769916405 +CF screening. FOB negative High risk 25753531 O+/RI/NRx4. Las t Pap: No pap on file; plan post collection. GTT: Failed; see below POC. GBS: Aneuploidy screening: QNatal WNL. Anatomy Scan: Complete as of 07/02/22. Varicella non-immune [id number] plan for Varice lla vaccine post . notified 05/03/22. Family history of Spina bifida [id number] Fam H/O Spina B ifida - X 2 on FOB side. Gestational diabetes mellitus 40033024 H/O PCOS. Early screening recommended. HgA1C on intake 4.7. Early 1 hr GTT 122. 28 wk 1 hr GTT: 156, Failed 3 hr GTT. U/S: 07/02 86.2%, 07/13 63%, 08/10 66%. --> Update 09/24/22: GDM Ed visit done. BG log reviewed. All readings WNL except for single pp reading at 140. Discussed dietary recommendations and plan to review at each visit. 12. 7%. Serial growth U/S needed. LD ASA daily reinforced. Family history of trisomy 18 [id number] QNatal WNL. Influenza [id number] Dx 2. Discussed Influenza vaccine.--> Update 09/24/22: Influenza vaccine reinforced. Cervical incompetence [id number] C.L. 1.6 cm wit h funneling on anatomy. Prometrium Rx'd. S/P MFM Referral. 07/13/22 C.L. 2.3 cm. Recommendation for vag progesterone through 36 wks. Anti-nuclear factor detected [id number] Saw Rheumato logist in 03/2022. Labs all WNL except for elevated CRP. --> Update 09/24/22: Pt states no official autoimmune diagnosis. Pt encouraged F/U with provider after has ended. Cholestasis of [id number] Bile acids 19 o n 09/15/22; lab received 09/20/22. AST 27 (L), ALT 31, Alk Phos 137 (H). --> Updated on 09/24/22: Pt states itching much improved since last visit, and urine is not as dark. Pt reports focusing on pushing p.o. water intake daily. Pt has not used any medication for ICP sx. Repeat bile acids ordered. testing twice weekly and serial growth U/S through remainder of . MFM contacted to schedule imaging appts with their office per pt request. BPP 04/26. Pt educated on [facility] and discussed when to notify HCP/go to L&D. Pt to see MD's for remainder of and discuss delivery POC. COVID-19 [id number] Dx in 02/05 22. 03/31/22: Pt encouraged to take LD ASA daily in 2nd trimester and to consider booster MAIKOL. --> Update 09/24/22: Boosters recommended, LD ASA daily reinforced. Carrier of cystic fibrosis gene mutation [id number] Fam Hx of CF. P t is a carrier. FOB is not a carrier; his serum testing reviewed and discussed at 05/17/22 OBV. Som Calculation Initial Som Date Initial Exam Date Initial Exam Provider Initial Ultrasound Date Last Menstrual Period Date Ultra Sound Weeks Gestation 11/08/2022 04/29/2022 03/31/2022 12/22/2021 8 Eighteen To Twenty Week Som Update Ultra Sound Date Fundal Height At Umbil Quickening Date Ultra Sound Latest Weeks Gestation Final Som Confirmed By Final Som Confirmed Date Final Som Date Ultra Sound Latest Days Gestation 0 [email or web address] 09/22/2022 11/08/19 23 0 Pre-hope Flowsheet Flowsheet Date 04/19/2022 Gallegos Score Blood Edema Fundus Height Fundus Units Glucose Ketones Leukocytes Nitrite Labor Signs Protein Cervic Dilation Cervic Effacement Cervic Station Type Weight in lbs Pre/Post Dialysis Refused Weight 155.78029482728 BP Diastolic BP Location Tested BP Systolic BP Type 70 112 Fetus Heart Rate Present A 164 Fetus Movement Comments Denies questions or concerns . NOB labs today. Flowsheet Date 05/17/2022 Gallegos Score Blood Edema Fundus Height Fundus Units Glucose Ketones Leukocytes Nitrite Labor Signs Protein Cervic Dilation Cervic Effacement Cervic Station none none none neg Type Weight in lbs Pre/Post Dialysis Refused Weight 154.567053408603 BP Diastolic BP Location Tested BP Systolic BP Type 70 110 sitting Fetus Heart Rate Present A 156 Present Fetus Movement A Yes Comments Reviewed CF partner screen n egative. SAB precautions reviewed. RTC 5 weeks SANJEEV and anatomy. PA sent. Flowsheet Date 06/16/2022 Gallegos Score Blood Edema Fundus Height Fundus Units Glucose Ketones Leukocytes Nitrite Labor Signs Protein Cervic Dilation Cervic Effacement Cervic Station none none none neg Type Weight in lbs Pre/Post Dialysis Refused With clothes 156.405067245070 BP Diastolic BP Location Tested BP Systolic BP Type 78 L arm 116 sitting Fetus Heart Rate Present A 149 Fetus Movement Comments Early 1hr 122Anatomy scan ne xt visitPatient is KOTA+. 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 Labs were drawn with NOB panel. No results in chart. Message sent to obtain results Flowsheet Date 07/02/2022 Gallegos Score Blood Edema Fundus Height Fundus Units Glucose Ketones Leukocytes Nitrite Labor Signs Protein Cervic Dilation Cervic Effacement Cervic Station none none Type Weight in lbs Pre/Post Dialysis Refused Weight 158.173391725615 BP Diastolic BP Location Tested BP Systolic BP Type 68 122 Fetus Heart Rate Present A Present Fetus Movement A Yes Comments anatomy complete, cervix 1.6 cm with funneling with fundal pressure. denies s/s of ptl. MFM referral sent and perimetrium started. 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 encouraged to discuss with job MAIKOL and stop high risk activity immediately. PTL and preeclampsia precautions reviewed. Flowsheet Date 08/27/2022 Gallegos Score Blood Edema Fundus Height Fundus Units Glucose Ketones Leukocytes Nitrite Labor Signs Protein Cervic Dilation Cervic Effacement Cervic Station 29 cm none Type Weight in lbs Pre/Post Dialysis Refused With clothes 166.588908787515 BP Diastolic BP Location Tested BP Systolic BP Type 70 R arm 110 sitting Fetus Heart Rate Present A 135 Present Fetus Movement A Yes Comments No complaints. 28 week labs today. TDAP education given. Failed 1 hour gtt- will need to do 3 hour. Flowsheet Date 09/15/2022 Gallegos Score Blood Edema Fundus Height Fundus Units Glucose Ketones Leukocytes Nitrite Labor Signs Protein Cervic Dilation Cervic Effacement Cervic Station 31 cm Type Weight in lbs Pre/Post Dialysis Refused With clothes 166.781973270077 BP Diastolic BP Location Tested BP Systolic BP Type 80 R arm 110 sitting Fetus Heart Rate Present A 140 Fetus Movement A Yes Comments Requesting swab to make sure yeast is gone. Complains of dark colored urine this morning and requesting test for UTI. Also noted increased itching of hands and feet. CMP and CBC today. Stressed importance of returning for fasting 3 hour gtt. Needs 4d ultrasound scheduled. Flowsheet Date 09/24/2022 Gallegos Score Blood Edema Fundus Height Fundus Units Glucose Ketones Leukocytes Nitrite Labor Signs Protein Cervic Dilation Cervic Effacement Cervic Station none none Other (see comments ) neg Type Weight in lbs Pre/Post Dialysis Refused With clothes 169.390285233589 BP Diastolic BP Location Tested BP Systolic BP Type 70 102 sitting Fetus Heart Rate Present A 144 Present Fetus Movement A Yes Comments See Visit Plan. GDMA1 & ICP. BPP 04/26. Flowsheet Date 10/04/2022 Gallegos Score Blood Edema Fundus Height Fundus Units Glucose Ketones Leukocytes Nitrite Labor Signs Protein Cervic Dilation Cervic Effacement Cervic Station Type Weight in lbs Pre/Post Dialysis Refused BP Diastolic BP Location Tested BP Systolic BP Type Fetus Heart Rate Present A 144 Present Fetus Movement Comments Flowsheet Date 10/07/2022 Gallegos Score Blood Edema Fundus Height Fundus Units Glucose Ketones Leukocytes Nitrite Labor Signs Protein Cervic Dilation Cervic Effacement Cervic Station 35 wks none 0cm Type Weight in lbs Pre/Post Dialysis Refused With clothes 170.634827591090 BP Diastolic BP Location Tested BP Systolic BP Type 72 110 sitting Fetus Heart Rate Present A 140 Present Fetus Movement A Yes Comments ROM ruled out. Nitrazine neg GDMA1: BS reviewed on glucometer- all wnl. Cholestasis- clinically asymptomatic. Plan IOL @ 37 weeks- req St.E. Flowsheet Date 10/12/2022 Gallegos Score Blood Edema Fundus Height Fundus Units Glucose Ketones Leukocytes Nitrite Labor Signs Protein Cervic Dilation Cervic Effacement Cervic Station none 1cm Type Weight in lbs Pre/Post Dialysis Refused With clothes 169.608160697419 BP Diastolic BP Location Tested BP Systolic BP Type 86 L arm 102 sitting Fetus Heart Rate Present A 140 Present Fetus Movement A Yes Comments nst categ 1BS reviewed- wnl- rare 140GBS done todayAwaiting induction date.Labor/ PIH precautionsDFKC Flowsheet Date 11/11/2022 Gallegos Score Blood Edema Fundus Height Fundus Units Glucose Ketones Leukocytes Nitrite Labor Signs Protein Cervic Dilation Cervic Effacement Cervic Station Type Weight in lbs Pre/Post Dialysis Refused With clothes 151.145664900536 BP Diastolic BP Location Tested BP Systolic BP Type 72 L arm 110 sitting Fetus Heart Rate Present Fetus Movement Comments Flowsheet Date 12/08/2022 Gallegos Score Blood Edema Fundus Height Fundus Units Glucose Ketones Leukocytes Nitrite Labor Signs Protein Cervic Dilation Cervic Effacement Cervic Station Type Weight in lbs Pre/Post Dialysis Refused Weight 152.931383202701 BP Diastolic BP Location Tested BP Systolic BP Type 80 122 Fetus Heart Rate Present Fetus Movement Comments Menstrual History Last Menstrual Date Menses Monthly On Bcp Conception Prior Menses Frequency Hcg Plus Date Menarche Onset Age 0412/22/2021 Genetic Screening And Infection History Question Response Note Recent Travel History Outside of Country false Cystic Fibrosis false Any Other Genetic History false Miguel Angel Disease false Other Infection History false Thalassemia (Sami, Uzbek, Mediterranean, Or Background): MCV < 80 false Patient Or Baby's Father Had A Child With Defects Not Listed Above false Live With Someone With TB Or Exposed To TB false Patient's Age Will Be 35 Years Or Older At Estim ated Date of Delivery false Recurrent Loss, Or A Stillbirth false Hemoglobinopathy Or Carrier false Patient Or Partner Has History Of Genital Herpes false Intellectual Disability/Autism false Maternal Metabolic Disorder (eg, Type 1 Diabetes , PKU) false History of Hepatitis false Arnaldo-Sachs (eg, Taoism, Cajun, Burmese-Fortine) f alse History Of STD, Gonorrhea, Chlamydia, HPV, Syphi lis false Prior GBS-infected child false History of HIV false Personal or Family History o f Neural Tube Defect (Meningomyelocele, Spina Bifida, Or Anencephaly) false Hemophilia Or Other Blood Disorders false Mental Retardation/Autism false Carole's Chorea false If Yes, Was Person Tested For Fragile X? false Other Inherited Genetic Or Chromosomal Disorder false If Yes, Agent(s) And Strength/Dosage false Sickle Cell Disease Or Trait () false Personal or Family History of Congenital Heart D efect false Rash Or Viral Illness Since Last Menstrual Perio d false Muscular Dystrophy false Medications (including Suppl ements, Vitamins, Herbs, OTC Drugs), Illicit/Recreational Drugs, Alcohol false Other Structural Defect false Down Syndrome false Delivery Information Delivery Date Delivery Type Labor Anesthesia Weeks Gestation Incision Type Labor Labor Length Hrs Delivered By Post Complications Tubal Sterilization Discharge Date Comments 3 Induce d Regional-Ep idural 37.4 false Cha Kimbrough CNM None false 10/24/2022 Discharge Information Feeding Method Contraceptive Method Maternal HG B and HCT Levels Breast
--- OUTSIDE RECORDS SUMMARY | 2025-01-11 04:01 | XMS_ITS | Data Portability ---
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 Lab HbA1c (hemoglobi n A1c), blood 2023 024 [facility], [address] [place], [address], 4 08:41:43 vitamin D, 25-hydroxy , total, serum 2023 024 [facility], [address] [place], [address], 4 08:41:43 lipid panel, serum 2023 024 [facility], [address] [place], [address], 4 08:41:42 CMP, serum or plasma 2023 024 [facility], [address] [place], [address], 4 08:41:42 CBC w/ auto diff 2023 024 [facility], [address] [place], [address], 4 08:41:42 TSH + free T4, serum 2023 024 [facility], [address] [place], [address], 4 08:41:42 vitamin D, 25-hydroxy , total, serum [address] (Lab), [address] [place], [address], 3 09:21:08 glycohemog lobin, total, blood [address] (Lab), [address] [place], [address], 3 09:21:08 lipid panel, serum [address] (Lab), [address] [place], [address], 3 09:21:07 TSH, serum or plasma [address] (Lab), [address] [place], [address], 3 09:21:08 CBC w/ auto diff [address] (Lab), [address] [place], [address], 3 09:21:07 CMP, serum or plasma [address] (Lab), [address] [place], [address], 3 09:21:07 Referral None recorded. Procedures None recorded. Surgeries None recorded. Imaging None recorded. Medication Orders metformin ER 500 mg tablet,ext ended release 24 hr 2023 024 [facility] #[id number], [address] [place], [address], 4 15:19:49 omeprazole 20 mg capsule,de layed release 2023 [facility] #[id number], [address] [place], [address], 4 15:19:49 Oysco 500/D 500 mg-5 mcg (200 unit) tablet 2023 [facility]armacy #[id number], [address] [place], [address], 4 15:19:48 Patient TargetsNo targets recorded. Patient Instructions Encounter Date Encounter Id Patient Instructions Last Modified By Organization Details Last Modified Time 12/28/2022 [id number] INFLUENZA VACCIN E TD/TDAP Recommended today, patient declined Ordered P atient will get at local pharmacy/health department MAMMOGRAM Recommended today, but patient declined Ordered N o screening indicated at this time/ no family history CERVICAL SCREENING/PELVIC EXAMINATION No screening necessary patient is up to date COLORECTAL SCREENING Recommended today, but patient declined Ordered C olonoscopy declined. Cologuard ordered No screening necessary until age 45 DEPRESSION SCREENING Negative BMI Overweight Appropr iate Continue healthy eating & exercise NUTRITION Continue healthy eating & exercise PHYSICAL ACTIVITY Need more activity Recommendation of 10-20 minutes of activity that causes mild breathlessness daily Recommendati on of 30 minutes of daily activity VISION Ordered Recommende d today ALCOHOL USE No alcohol use Occasional/Soc ial Use TOBACCO USE non smoker SEXUALLY ACTIVE Yes, Patient is in monogamous relationship GLUCOSE SCREENING Ordered LIPID SCREENING Ordered [email or web address] Not available 12/28/2022 15:09:38 02/23/2024 [id number] Follow up in 4 months Obtain labs Prescriptions sent to pharmacy [email or web address] Not available 02/23/2024 15:15:31 Reason for Referral None Reported. Results Created Date Observation Date Name Description Value Unit Range Abnormal Flag Note LastModifiedBy Organization Detail LastModifiedTime 11/06/19 22 11/07/2021 THYRO ID PEROX IDASE (TPO) AB thyroid peroxidase (tpo) Ab <8 IU/mL 0-34 Perfo rmed at: [facility] n [address] [place] [address] Lab Direc tor: Josue mireles PhD, Phone : [phone] Not Available [facility] (Lab) [address] [place] [address], [address], 11/07/2021 08:14:21 11/06/19 22 11/09/2021 KOAT/A NTINU CLEAR ANTIB ODIES ,IFA antinuclear antibodies, ifa positi ve abnormal Negat hugo <1:80 Borde rline 1:80 Posit hugo >1:80 Perfo rmed at: [facility] [address] [place] [address] Lab Direc tor: Josue mireles PhD, Phone : [phone] Not Available [facility] (Lab) [address] [place] [address], [address], 11/09/2021 22:06:56 11/06/19 22 11/09/2021 KOTA/A NTINU CLEAR ANTIB ODIES ,IFA homogeneous pattern 1:160 high ICAP nomen clatu re: AC-1 Not Available [facility] (Lab) [address] [place], [address], 11/09/2021 22:06:56 11/06/19 22 11/09/2021 KOTA/A NTINU CLEAR ANTIB ODIES ,IFA note: franklin Hoffman For more infor jennifer n about Hep-2 cell patte rns use ANApa ttern s.org , the offic iahosea gonzalez te for the Inter natio nal Conse nsus on Antin uclea r Antib serena (KOTA) Patte rns (ICAP ). ----- ----- ----- ----- ----- ----- ----- ----- ----- ----- ----- ----- A posit hugo KOTA resul t may occur in healt hy indiv idual s (low titer ) or be assoc iated with a varie ty of disea ses. See inter preta tion chart which is not all inclu sive: . Stella dickinson Antig en Detec kiah Sugelisabet sted Disea se Assoc iatio n ----- ----- - ----- ----- ----- - ----- ----- ----- ----- ----- ---- Homog eneou s DNA(d s,ss) , SLE - High titer s Nucle osome s, Histo bradly Drug- induc ed SLE ----- ----- - ----- ----- ----- - ----- ----- ----- ----- ----- ---- Speck led Sm, MEAT APPRENTICE, SCL-7 0, SLE,M CTD,P SS (diff use form) , SS-A/ SS-B Sjogr ens ----- ----- - ----- ----- ----- - ----- ----- ----- ----- ----- ---- Nucle olar SCL-7 0, PM-1/ SCL High titer s Scler oderm a, PM/DM ----- ----- - ----- ----- ----- - ----- ----- ----- ----- ----- ---- Centr omere Centr omere PSS (limi kiah form) w/Cre st syndr ome varia ble ----- ----- - ----- ----- ----- - ----- ----- ----- ----- ----- ---- Nucle ar Dot Sp100 ,p80- coili n Prima ry Cezaria ry Cirrh osis ----- ----- - ----- ----- ----- - ----- ----- ----- ----- ----- ---- Nucle ar GP210 , Prima ry Cezaria ry Cirrh osis Membr ane raiela A,B,C ----- ----- - ----- ----- ----- - ----- ----- ----- ----- ----- ---- Perfo rmed at: [facility] [id number] [place] [address] Lab Direc tor: Josue mireles PhD, Phone : [phone] Not Available [facility] (Lab) [address] [place], [address], 11/09/2021 22:06:56 11/06/19 22 11/07/2021 INSUL IN insulin 12.0 uIU/m L 2.6-24 .9 Perfo rmed at: [facility] [id number] [place] [address] Lab Direc tor: Josue mireles PhD, Phone : [phone] Not Available [facility] (Lab) [address] [place], [address], 11/07/2021 12:10:03 11/06/19 22 11/06/2021 FOLAT E, SERUM /PLAS MA folate 11.1 NG/mL 2.76- Not Available [facility] (Lab) [address] [place], [address], 11/06/2021 17:28:34 11/06/19 22 11/06/2021 VITAM IN B12 (VIRIDIANA ARIELA ) vb12 >1000 pg/mL 239-93 1 high RESUL T IS GREAT ER THAN REPOR TABLE RANGE OF ASSAY . Not Available [facility] (Lab) [address] [place], [address], 11/06/2021 17:28:29 11/06/19 22 11/06/2021 VITAM IN D 25-HY DROXY vd25oh 40.5 NG/mL 30-100 Vitam in D Statu s: Defic ient: <20 ng/mL Insuf ficie nt: 20-29 ng/mL Suffi cient : 30-10 0 ng/mL Not Available [facility] (Lab) [address] [place], [address], 11/06/2021 16:38:55 11/06/19 22 11/06/2021 DANIELLE TIN ferritin 37 NG/mL 6.24-1 37 Not Available [facility] (Lab) [address] [place], [address], 11/06/2021 16:37:09 11/06/19 22 11/06/2021 TSH thyroid-stim ulating hormone 1.030 uIU/m L 0.465- 4.680 Not Available [facility] (Lab) [address] [place], [address], 11/06/2021 16:37:05 11/06/19 22 11/06/2021 T3 FREE free T3 4.2 pg/mL 2.77-5 .27 Not Available [facility] (Lab) [address] [place], [address], 11/06/2021 16:27:46 11/06/19 22 11/06/2021 T4 FREE free T4 1.15 NG/dL 0.78-2 .19 Not Available [facility] (Lab) [address] [place], [address], 11/06/2021 16:27:44 11/06/19 22 11/06/2021 IRON/ TIBC PANEL total iron binding capacity 372 mcg/d L 265-47 5 Not Available [facility] (Lab) [address] [place], [address], 11/06/2021 16:26:29 11/06/19 22 11/06/2021 IRON/ TIBC PANEL % transferrin saturation 51 % 20-55 Not Available [facility] (Lab) [address] [place], [address], 11/06/2021 16:26:29 11/06/19 22 11/06/2021 IRON/ TIBC PANEL unsaturated iron bind capacity 182 mcg/d L 126-38 2 Not Available [facility] (Lab) [address] [place], [address], 11/06/2021 16:26:29 11/06/19 22 11/06/2021 IRON/ TIBC PANEL iron 190 mcg/d L 42-175 high Not Available [facility] (Lab) [address] [place], [address], 11/06/2021 16:26:29 11/06/19 22 11/06/2021 LIPAS E SERUM lipase 71 U/L 23-300 Not Available [facility] (Lab) [address] [place], [address], 11/06/2021 16:23:01 11/06/19 22 11/06/2021 COMPR EHENS HUGO METAB OLIC PANEL carbon dioxide 26 mmol/ L 22-30 Not Available [facility] (Lab) [address] [place], [address], 11/06/2021 16:22:57 11/06/19 22 11/06/2021 COMPR EHENS HUGO METAB OLIC PANEL sodium 141 mmol/ L 137-14 5 Not Available [facility] (Lab) [address] [place], [address], 11/06/2021 16:22:57 11/06/19 22 11/06/2021 COMPR EHENS HUGO METAB OLIC PANEL potassium 4.3 mmol/ L 3.5-5. 1 Not Available [facility] (Lab) [address] [place], [address], 11/06/2021 16:22:57 11/06/19 22 11/06/2021 COMPR EHENS HUGO METAB OLIC PANEL chloride 104 mmol/ L 98-107 Not Available [facility] (Lab) [address] [place], [address], 11/06/2021 16:22:57 11/06/19 22 11/06/2021 COMPR EHENS HUGO METAB OLIC PANEL agap 15.3 mmol/ L 14-22 Not Available [facility] (Lab) [address] [place], [address], 11/06/2021 16:22:57 11/06/19 22 11/06/2021 COMPR EHENS HUGO METAB OLIC PANEL glucose 87 mg/dL 70-99 Not Available [facility] (Lab) [address] [place], [address], 11/06/2021 16:22:57 11/06/19 22 11/06/2021 COMPR EHENS HUGO METAB OLIC PANEL alkaline phosphatase 73 U/L 38-126 Not Available [facility] (Lab) [address] [place], [address], 11/06/2021 16:22:57 11/06/19 22 11/06/2021 COMPR EHENS HUGO METAB OLIC PANEL BUN 13 mg/dL 8-19 Not Available [facility] (Lab) [address] [place], [address], 11/06/2021 16:22:57 11/06/19 22 11/06/2021 COMPR EHENS HUGO METAB OLIC PANEL creatinine 0.78 mg/dL 0.66-1 .25 Not Available [facility] (Lab) [address] [place], [address], 11/06/2021 16:22:57 11/06/19 22 11/06/2021 COMPR EHENS HUGO METAB OLIC PANEL GFR >60 Refer ence Range : [place] ge GFR Healt hy Adult : >60 mL/mi n/1.7 3 m2 Chron ic Kidne y Disea se: 15-60 mL/mi n/1.7 3 m2 Kidne y Failu re: <15/m L/min /1.73 m2 www.n iddk. nih.g ov The MDRD study equat ion has not been valid ated in child chen <18 years of age; pregn ant women ; the elder ly >85 years of age; or in some racia l or ethni c subgr oups, such as Effie nics. Outsi de the valid ated tory eters , estim ated GFR is less accur ate, requi ring clini nell judgm ent on a case- by-ca se basis . Clini nell inter preta tion for other races and ages must be made by the clini rafael. The MDRD study equat ion has not been valid ated for the evalu ation of serum creat inine relat ed to nutri senia l statu s or medic ation usage . For perso ns <18 years of age, a pedia tric GFR calcu lator is avail able on the [facility] websi te: https :[email or web address] bautista.christopher rg/pr ofess ional s/kdo qi/gf r_cal culat or Not Available [facility] (Lab) [address] [place], [address], 11/06/2021 16:22:57 11/06/19 22 11/06/2021 COMPR EHENS HUGO METAB OLIC PANEL alanine aminotransfe rase 31 U/L 0-[address] [facility] (Lab) [address] [place], [address], 11/06/2021 16:22:57 11/06/19 22 11/06/2021 COMPR EHENS HUGO METAB OLIC PANEL aspartate aminotransfe rase 28 U/L 15-[address] [facility] (Lab) [address] [place], [address], 11/06/2021 16:22:57 11/06/19 22 11/06/2021 COMPR EHENS HUGO METAB OLIC PANEL bilirubin, total 0.90 mg/dL 0.20-1 .30 Not Available [facility] (Lab) [address] [place], [address], 11/06/2021 16:22:57 11/06/19 22 11/06/2021 COMPR EHENS HUGO METAB OLIC PANEL calcium 9.5 mg/dL 8.4-10 .2 Not Available [facility] (Lab) [address] [place], [address], 11/06/2021 16:22:57 11/06/19 22 11/06/2021 COMPR EHENS HUGO METAB OLIC PANEL total protein 7.6 g/dL 6.3-8. 2 Not Available [facility] (Lab) [address] [place], [address], 11/06/2021 16:22:57 11/06/19 22 11/06/2021 COMPR EHENS HUGO METAB OLIC PANEL albumin 4.8 g/dL 3.4-5. 0 Not Available [facility] (Lab) [address] [place], [address], 11/06/2021 16:22:57 11/06/19 22 11/06/2021 COMPR EHENS HUGO METAB OLIC PANEL globulin 2.8 g/dL 2.6-4. 2 Not Available [facility] (Lab) [address] [place], [address], 11/06/2021 16:22:57 11/06/19 22 11/06/2021 COMPR EHENS HUGO METAB OLIC PANEL A/G ratio 1.7 ratio 1.0-2. 0 Not Available [facility] (Lab) [address] [place], [address], 11/06/2021 16:22:57 11/06/19 22 11/06/2021 LIPID PANEL LDL cholesterol, calculated 21 mg/dL 0-130 NIH SAM NSUS REPOR T RECOM MENDA TIONS FOR LDL: ADULT CHILD LOW RISK <130 <110 (OPTI MAL LDL) <100 ----- BORDE RLINE : 130-1 59 ----- HIGH RISK: >160 >130 A TRIGL YCERI DE RESUL T >400 INVAL IDATE S THE CALCU LATIO N FOR LDL FRACT IONAT ION - THE LDL RESUL T WILL NOT BE REPOR KIAH. Not Available [facility] (Lab) [address] [place], [address], 11/06/2021 16:22:55 11/06/19 22 11/06/2021 LIPID PANEL cholesterol 106 mg/dL 140-19 9 low NIH SAM NSUS RECOM MENDA TION FOR JOHN STERO L: ADULT CHILD LOW RISK: <200 <170 BORDE RLINE : <200- 239 ----- HIGH RISK: >240 >200 Not Available [facility] (Lab) [address] [place], [address], 11/06/2021 16:22:55 11/06/19 22 11/06/2021 LIPID PANEL triglyceride s 93 mg/dL 0-150 NIH SAM NSUS REPOR T RECOM MENDA TION FOR TRIGL YCERI LETITIA: ADULT CHILD LOW RISK: <150 ----- BODER LINE: 150-1 99 ----- HIGH RISK: >200 ----- Not Available [facility] (Lab) [address] [place], [address], 11/06/2021 16:22:55 11/06/19 22 11/06/2021 LIPID PANEL HDL cholesterol 66 mg/dL 40- Not Available [facility] (Lab) [address] [place], [address], 11/06/2021 16:22:55 11/06/19 22 11/06/2021 HEMOG LOBIN A1C HA1C 4.9 % 4.0-6. 0 Diabe amanda Scree hammad Crite zhao: <5.7% Consi stent with absen ce of diabe amanda 5.7-6 .4% Consi stent with incre ased risk for diabe amanda (pred iabet es) >OR=6 .5% Consi stent with diabe amanda REFER ENCE: Diabe amanda Care 2016, 39( ppl.1 ):s13 -s22 Not Available [facility] (Lab) [address] [place], [address], 11/06/2021 16:11:00 11/06/19 22 11/06/2021 URINA LYSIS COMPL ETE/I RIS W/RFX pH 6.5 pH_un its 5.0-9. 0 Not Available [facility] (Lab) [address] [place], [address], 11/06/2021 15:56:12 11/06/19 22 11/06/2021 URINA LYSIS COMPL ETE/I RIS W/RFX color yellow Not Available [facility] (Lab) [address] [place], [address], 11/06/2021 15:56:12 11/06/19 22 11/06/2021 URINA LYSIS COMPL ETE/I RIS W/RFX appear clear Not Available [facility] (Lab) [address] [place], [address], 11/06/2021 15:56:12 11/06/19 22 11/06/2021 URINA LYSIS COMPL ETE/I RIS W/RFX specific gravity 1.028 1.001- 1.030 Not Available [facility] (Lab) [address] [place], [address], 11/06/2021 15:56:12 11/06/19 22 11/06/2021 URINA LYSIS COMPL ETE/I RIS W/RFX leukocytes negati ve magdalena/u L negati ve- Not Available [facility] (Lab) [address] [place], [address], 11/06/2021 15:56:12 11/06/19 22 11/06/2021 URINA LYSIS COMPL ETE/I RIS W/RFX nitrite negati ve negati ve- Not Available [facility] (Lab) [address] [place], [address], 11/06/2021 15:56:12 11/06/19 22 11/06/2021 URINA LYSIS COMPL ETE/I RIS W/RFX protein 10 mg/dL negati ve- abnormal Not Available [facility] (Lab) [address] [place], [address], 11/06/2021 15:56:12 11/06/19 22 11/06/2021 URINA LYSIS COMPL ETE/I RIS W/RFX glucose normal mg/dL normal - Not Available [facility] (Lab) [address] [facility] [place], [address], 11/06/2021 15:56:12 11/06/19 22 11/06/2021 URINA LYSIS COMPL ETE/I RIS W/RFX ketones negati ve mg/dL negati ve- Not Available [facility] (Lab) [address] [place], [address], 11/06/2021 15:56:12 11/06/19 22 11/06/2021 URINA LYSIS COMPL ETE/I RIS W/RFX urobilinogen normal mg/dL normal - Not Available [facility] (Lab) [address] [place], [address], 11/06/2021 15:56:12 11/06/19 22 11/06/2021 URINA LYSIS COMPL ETE/I RIS W/RFX bilirubin negati ve mg/dL negati ve- Not Available [facility] (Lab) [address] [place], [address], 11/06/2021 15:56:12 11/06/19 22 11/06/2021 URINA LYSIS COMPL ETE/I RIS W/RFX blood negati ve mg/dL negati ve- Not Available [facility] (Lab) [address] [place], [address], 11/06/2021 15:56:12 11/06/19 22 11/06/2021 URINA LYSIS COMPL ETE/I RIS W/RFX white blood cells 0-8 /i??h pfi?? 0-8 Not Available [facility] (Lab) [address] [place], [address], 11/06/2021 15:56:12 11/06/19 22 11/06/2021 URINA LYSIS COMPL ETE/I RIS W/RFX red blood cells 0-4 /i??h pfi?? 0-4 Not Available [facility] (Lab) [address] [place], [address], 11/06/2021 15:56:12 11/06/19 22 11/06/2021 URINA LYSIS COMPL ETE/I RIS W/RFX bacteria none Not Available [facility] (Lab) [address] [place], [address], 11/06/2021 15:56:12 11/06/19 22 11/06/2021 URINA LYSIS COMPL ETE/I RIS W/RFX mucous modera te /i??l pfi?? abnormal Not Available [facility] (Lab) [address] [place], [address], 11/06/2021 15:56:12 11/06/19 22 11/06/2021 URINA LYSIS COMPL ETE/I RIS W/RFX squamous epithelial few /i??l pfi?? abnormal Not Available [facility] (Lab) [address] [place], [address], 11/06/2021 15:56:12 11/06/19 22 11/06/2021 URINA LYSIS COMPL ETE/I RIS W/RFX hyaline cast occasi onal /i??l pfi?? none seen- abnormal Not Available [facility] (Lab) [address] [place], [address], 11/06/2021 15:56:12 11/06/19 22 11/06/2021 CBC/C OMPLE TE BLD COUNT W/DIF F mean red cell volume 91.7 fL 82.0-9 9.0 Not Available [facility] (Lab) [address] [place], [address], 11/06/2021 15:44:55 11/06/19 22 11/06/2021 CBC/C OMPLE TE BLD COUNT W/DIF F white blood cells 7.7 x10'3 /uL 4.2-10 .8 Not Available [facility] (Lab) [address] [facility] [place], [address], 11/06/2021 15:44:55 11/06/19 22 11/06/2021 CBC/C OMPLE TE BLD COUNT W/DIF F red blood cells 4.80 x10'6 /uL 3.80-5 .20 Not Available [facility] (Lab) [address] [place], [address], 11/06/2021 15:44:55 11/06/19 22 11/06/2021 CBC/C OMPLE TE BLD COUNT W/DIF F hemoglobin 15.0 g/dL 12.0-1 5.6 Not Available [facility] (Lab) [address] [place], [address], 11/06/2021 15:44:55 11/06/19 22 11/06/2021 CBC/C OMPLE TE BLD COUNT W/DIF F hematocrit 44.0 % 35.7-4 5.7 Not Available [facility] (Lab) [address] [place], [address], 11/06/2021 15:44:55 11/06/19 22 11/06/2021 CBC/C OMPLE TE BLD COUNT W/DIF F mean red cell hemoglobin 31.3 pg 27.0-3 3.0 Not Available [facility] (Lab) [address] [place], [address], 11/06/2021 15:44:55 11/06/19 22 11/06/2021 CBC/C OMPLE TE BLD COUNT W/DIF F mean RBC HGB concentratio n 34.1 g/dL 31.0-3 6.0 Not Available [facility] (Lab) [address] [place], [address], 11/06/2021 15:44:55 11/06/19 22 11/06/2021 CBC/C OMPLE TE BLD COUNT W/DIF F red cell distribution width 11.9 % 11.8-1 5.5 Not Available [facility] (Lab) [address] [place], [address], 11/06/2021 15:44:55 11/06/19 22 11/06/2021 CBC/C OMPLE TE BLD COUNT W/DIF F platelets 229 x10'3 /uL 150-40 0 Not Available [facility] (Lab) [address] [place], [address], 11/06/2021 15:44:55 11/06/19 22 11/06/2021 CBC/C OMPLE TE BLD COUNT W/DIF F mean platelet volume 11.0 fL 9.0-12 .4 Not Available [facility] (Lab) [address] [place], [address], 11/06/2021 15:44:55 11/06/19 22 11/06/2021 CBC/C OMPLE TE BLD COUNT W/DIF F neutrophils 63.1 % 39.0-7 2.0 Not Available [facility] (Lab) [address] [place], [address], 11/06/2021 15:44:55 11/06/19 22 11/06/2021 CBC/C OMPLE TE BLD COUNT W/DIF F basophils 0.3 % 0.0-2. 0 Not Available [facility] (Lab) [address] [place], [address], 11/06/2021 15:44:55 11/06/19 22 11/06/2021 CBC/C OMPLE TE BLD COUNT W/DIF F lymphocytes 27.3 % 16.0-4 7.0 Not Available [facility] (Lab) [address] [place], [address], 11/06/2021 15:44:55 11/06/19 22 11/06/2021 CBC/C OMPLE TE BLD COUNT W/DIF F monocytes 6.2 % 5.0-12 .0 Not Available [facility] (Lab) [address] [place], [address], 11/06/2021 15:44:55 11/06/19 22 11/06/2021 CBC/C OMPLE TE BLD COUNT W/DIF F eosinophils 2.7 % 1.0-7. 0 Not Available [facility] (Lab) [address] [place], [address], 11/06/2021 15:44:55 11/06/19 22 11/06/2021 CBC/C OMPLE TE BLD COUNT W/DIF F immature granulocytes 0.4 % 0.00-0 .50 Not Available [facility] (Lab) [address] [place], [address], 11/06/2021 15:44:55 11/06/19 22 11/06/2021 CBC/C OMPLE TE BLD COUNT W/DIF F neutrophils, absolute count 4.86 x10'3 /uL 1.5-8. 0 Not Available [facility] (Lab) [address] [place], [address], 11/06/2021 15:44:55 11/06/19 22 11/06/2021 CBC/C OMPLE TE BLD COUNT W/DIF F lymphocytes, absolute count 2.10 x10'3 /uL 1.07-3 .43 Not Available [facility] (Lab) [address] [facility] [place], [address], 11/06/2021 15:44:55 11/06/19 22 11/06/2021 CBC/C OMPLE TE BLD COUNT W/DIF F monocytes, absolute count 0.48 x10'3 /uL 0.29-0 .99 Not Available [facility] (Lab) [address] [place], [address], 11/06/2021 15:44:55 11/06/19 22 11/06/2021 CBC/C OMPLE TE BLD COUNT W/DIF F eosinophils, absolute count 0.21 x10'3 /uL 0.02-0 .53 Not Available [facility] (Lab) [address] [place], [address], 11/06/2021 15:44:55 11/06/19 22 11/06/2021 CBC/C OMPLE TE BLD COUNT W/DIF F basophils, absolute count 0.02 x10'3 /uL 0.01-0 .08 Not Available [facility] (Lab) [address] [place], [address], 11/06/2021 15:44:55 11/06/19 22 11/06/2021 CBC/C OMPLE TE BLD COUNT W/DIF F immature granulocytes ,absolute 0.03 x10'3 /uL 0.00-0 .05 Not Available [facility] (Lab) [address] [place], [address], 11/06/2021 15:44:55 11/06/19 22 11/06/2021 CBC/C OMPLE TE BLD COUNT W/DIF F nucleated red blood cells 0.0 % -[address] [facility] (Lab) [address] [place], [address], 11/06/2021 15:44:55 11/06/19 22 11/06/2021 CBC/C OMPLE TE BLD COUNT W/DIF F NRBC# 0.00 x10'3 /uL Not Available [facility] (Lab) [address] [place], [address], 11/06/2021 15:44:55 11/21/19 22 11/20/2021 US, pelvi s, trans abdom inal + trans vagin al [facility] [address] [place] [address] Patien t Name: SHILOH MEADE E Access ion #: [id number] Sex: F : 1999 2 Locati on: RAD Attend ing Physic niesha: HAYLEE RUTHERFORD Orderi Physic niesha: HAYLEE RUTHERFORD Exam Date: 11/21/19 22 8:58 AM Exam Name: US PELVIS NON OB TRANSV AGINAL Admitt ing Diagno sis(es ): RADIOL OGY REPORT - FINAL EXAM: US PELVIS NON OB TRANSV AGINAL HISTOR Y: pcos COMPAR PHIL: None availa ble. TECHNI QUE: Transv aginal and transa bdomin al pelvic ultras ound was perfor med. FINDIN GS: Uterus : The uterus measur es 7.2 x 3.2 x 4.2 cm. The myomet rial echo appear ance ishomo geneou s. The endome trium measur es 4.4 mm in thickn ess. Right ovary: The right ovary measur es 3.2 x 2.5 x 1.9 cm cm. Multip le tiny follic les are presen t the right ovary is otherw ise normal in appear ance and demons trates normal color Dopple r blood flow. Page 1 of 2 [facility] Patien t Name: SHILOH MEADE Access ion #: [id number] Sex: F : 1999 2 Exam Date: 11/21/19 8:58 AM Exam Name: US PELVIS NON OB TRANSV AGINAL Admitt ing Diagno sis(es ): Left ovary: The area of the right adnexa demons trates a domina nt cyst measur ing 4.7 cm, left ovaria n tissue appear s to outlin e this cyst, these dimens ions would measur e 5.8 x 3.8 cm. Normal color flow. Cul-de -sac: No free fluid. IMPRES KOLBY: 1. The right ovary demons trates findin gs consis tent with PCOS, correl ate. 2. There is a large domina nt cyst presen t on the right Create d and electr onical ly signed by: Carlos ashley MD Signed Date: 11/21/19 2:10 PM (CT) Dictat ed by: Carlos ashley MD (CT) (CT) Page 2 of 2 [id number] [facility] (Imaging) [address] [place], [address], 11/18/2022 00:32:53 11/21/19 22 11/20/2021 US, abdom en, limit ed [facility] [address] [place] [address] Patien t Name: SHILOH MEADE Access ion #: [id number] Sex: F : 1999 2 Locati on: RAD Attend ing Physic niesha: HAYLEE RUTHERFORD Orderi ng Physic niesha: HAYLEE RUTHERFORD Exam Date: 11/21/19 8:58 AM Exam Name: US ABDOME N SINGLE ORGAN Admitt ing Diagno sis(es ): RADIOL OGY REPORT - FINAL EXAM: US ABDOME N SINGLE ORGAN HISTOR Y: abd pain/n ausea COMPAR PHIL: None. TECHNI QUE: Abdomi nal ultras ound imagin g of the right upper quadra nt is perfor med. Dopple r imagin g of the vascul ar struct ures is perfor med. FINDIN GS: Liver: Echoge tg liver. Biliar y system : The common bile duct measur ement is 0.48 cm, the upper limit of normal is 0.6 cm Page 1 of 2 [facility] Name: SHILOH MEADE Access ion #: [id number] Sex: F : 1999 2 Exam Date: 11/21/19 8:58 AM Exam Name: US ABDOME N SINGLE ORGAN Admitt ing Diagno sis(es ): Gallbl adder: The gallbl adder wall measur ement is 0.198 cm. The gallbl adder appear s within normal limits Marcum 's sign was Absent . Pancre as: Screen ing, within normal limits Right kidney : Dimens ions of the right kidney are 10.4 x 4 x 5.1 cm. The right kidney appear s unrema rkable . Vascul ature: The aorta and inferi or vena cava are unrema rkable . Portal vein: Hepato petal flow IMPRES KOLBY: Fatty liver parenc hymal replac ement residu als. Create d and electr onical ly signed by: Carlos ashley MD Signed Date: 11/21/19 2:06 PM (CT) Dictat ed by: Carlos ashley MD (CT) (CT) Page 2 of 2 [id number] [facility] (Imaging) [address] [place], [address], 11/18/2022 00:32:53 04/22/20 22 01/08/2022 NM, hepat obili christian scan, w/pha rm [facility] [address], [place] [address] Yen t Name: SHILOH MEADE Access ion #: [id number] Sex: F : 1999 8 Locati on: RAD Attend ing Physic niesha: HAYLEE RUTHERFORD Orderi ng Physic niesha: HAYLEE RUTHERFORD Exam Date: 9:39 AM Exam Name: NM HEPATO BILIAR Y W PHARM Admitt ing Diagno sis(es ): RADIOL OGY REPORT - FINAL EXAM: NM HEPATO BILIAR Y W PHARM HISTOR Y: nausea COMPAR PHIL: None. Dose: 8.0 mCi techne tium labele d Cholet ec. Five mcg Kineva c. TECHNI QUE: Imagin g of the right upper quadra nt is perfor med follow ing the intrav enous inject ion of the above activi ty does. 1 hour follow ing the inject ion of the above dose of activi ty, the Kineva c dose was inject ed and a gallbl adder ejecti on fracti on calcul ated. FINDIN GS: Uptake in activi ty by the liver is noted with prompt excret ion of activi ty Page 1 of 2 [facility] Yen t Name: SHILOH MEADE Access ion #: [id number] Sex: F : 1999 8 Exam Date: 9:39 AM Exam Name: NM HEPATO BILIAR Y W PHARM Admitt ing Diagno sis(es ): the of the biliar y system . The small bowel is visual ized at the approp riate time withou t eviden ce of obstru ction. The cystic duct is patent . The gallbl adder is visual ized appear ing grossl y within limits . A gallbl adder ejecti on fracti on is calcul ated follow ing the inject ion of the Kineva c dose. The gallbl adder ejecti on fracti on is 86% %. The normal range is 35% or greate r. IMPRES KOLBY: 1. Normal hepato biliar y scan withou t eviden ce of cystic duct obstru ction. 2. Normal gallbl adder ejecti on fracti on value of 86% %. See above. Create d and electr onical ly signed by: Carlos ashley MD Signed Date: 12:33 PM (CT) Dictat ed by: Carlos ashley MD DD: 12:33 PM (CT) DT: 12:33 PM (CT) Page 2 of 2 [id number] [facility] (Imaging) [address], [place], [address], 11/18/2022 00:32:53 Result Notes None recorded. Problems Name Problem SNOMED Code Status Onset Date Resolution Date Notes Provider Name and Address Organization Details Recorded Time Nausea 465949213 Active 2021 Not Available [facility] 3 00:30:02 Hyperlipidemi a 85908323 Active 2022 Maria Dockery APRN [address], [address], [place], [address] , [employer] [facility] [employer] 4 14:42:33 Polycystic ovary syndrome 354228088 Active 2022 Maria Dockery APRN [address], [place] [address], [place], [address] , [employer] [place] 4 14:42:37 Anti-nuclear factor detected 752495950 Active 2022 CHAPARRO Palacios [address], [address], [place], [address] , [employer] [facility] [employer] 3 20:53:14 Hemorrhoids 81474993 Active 2022 Maria Dockery APRN [address], [address], [place], [address] , [employer] [facility] [employer] 4 14:42:30 Gastroesophag eal reflux disease 826951729 Active 2023 Maria OMAR Dockery [address] [facility], [address], [place], [address] , [facility] 15:11:00 Problem Notes None recorded. Procedures Surgical History None recorded. Imaging Results Imaging Date Name Status LastModified by Organization Details LastModified Time 01/08/2022 NM, hepatobiliary scan, w/pharm completed [id number] [facility] (Imaging) [address] [place], [address], 11/18/2022 00:32:53 11/20/2021 US, pelvis, transabdominal + transvaginal completed [id number] [facility] (Imaging) [address] [place], [address], 11/18/2022 00:32:53 11/20/2021 US, abdomen, limited completed [id number] [facility] (Imaging) [address] [place], [address], 11/18/2022 00:32:53 Procedure Notes None recorded. Medical Equipment None Reported. Allergies No known drug allergies Medications Name Sig Start Date Stop Date Status Note LastModified by Organization Details LastModified Time multivitami n tablet TAKE 1 TABLET BY MOUTH EVERY DAY active Not Available Not Available No t Available metformin 500 mg tablet TAKE 1 TABLET BY MOUTH TWICE DAILY 04/02 completed Not Available Not Available Not Available cetirizine 10 mg tablet 10 MG ORALLY DAILY 02/22 completed Not Available Not Available Not Available ibuprofen 800 mg tablet TAKE 1 TABLET BY MOUTH EVERY 6 HOURS FOR 5 DAYS THEN 1 EVERY 6 HOURS NEEDED FOR PAIN 11/06 completed Not Available Not Available Not Available fluconazole 150 mg tablet TAKE 1 TABLET BY MOUTH NOW 12/28 completed Not Available Not Available Not Available ondansetron HCl 4 mg tablet TAKE 1 TABLET BY MOUTH EVERY DAY NEEDED 2023 active Not Available Not Available Not Avai lable simvastatin 10 mg tablet TAKE 1 TABLET BY MOUTH EVERY DAY 12/04 completed Not Available Not Available Not Available metronidazo le 500 mg tablet TAKE 1 TABLET BY MOUTH TWICE DAILY. DO NOT CONSUME ALCOHOL WHILE TAKING THIS MEDICATIO N 04/02 completed Not Available Not Available Not Available acetaminoph en 300 mg-codeine 30 mg tablet TAKE 1-2 TABLETS BY MOUTH EVERY 6 HOURS NEEDED FOR PAIN 11/06 completed Not Available Not Available Not Available sulfamethox azole 800 mg-trimetho prim 160 mg tablet TAKE 1 TABLET BY MOUTH TWICE DAILY FOR 7 DAYS 11/06 completed Not Available Not Available Not Available hydrocortis one 2.5 % topical cream with perineal applicator APPLY THIN LAYER TOPICALLY TO THE AFFECTED AREA 2 TO 4 TIMES DAILY NEEDED 04/02 completed Not Available Not Available Not Available OneTouch Ultra Test strips 12/28 completed Not Available Not Available Not Available cephalexin 500 mg capsule TAKE 1 TABLET BY MOUTH EVERY 8 HOURS FOR 10 DAYS 12/28 completed Not Available Not Available Not Available simvastatin 20 mg tablet TAKE 1 TABLET BY MOUTH DAILY 12/04 completed Not Available Not Available Not Available progesteron e micronized 200 mg capsule TAKE 1 CAPSULE BY MOUTH EVERY DAY 12/28 completed Not Available Not Available Not Available docusate sodium 100 mg capsule TAKE 1 CAPSULE BY MOUTH EVERY 12 HOURS FOR 10 DAYS 12/28 completed Not Available Not Available Not Available omeprazole 20 mg capsule,del ayed release TAKE 1 CAPSULE BY MOUTH TWICE DAILY BEFORE MEALS active Not Available Not Available No t Available ibuprofen 600 mg tablet 12/28 completed Not Available Not Available Not Available norethindro ne (contracept hugo) 0.35 mg tablet TAKE 1 TABLET BY MOUTH EVERY DAY active Not Available Not Available No t Available fluticasone propionate 50 mcg/actuati on nasal spray,suspe nsion 2 SPRAY INTRANASA LLY DAILY ADMINISTE R INTO EACH NOSTRIL 02/22 completed Not Available Not Available Not Available metformin ER 500 mg tablet,exte nded release 24 hr TAKE 1 TABLET BY MOUTH EVERY DAY DIRECTED active Not Available Not Available No t Available spironolact one 50 mg tablet TAKE 1 TABLET BY MOUTH EVERY DAY active Not Available Not Available No t Available Vitamin 27 mg iron-0.8 mg tablet TAKE 1 TABLET BY MOUTH EVERY DAY 12/28 completed Not Available Not Available Not Available metronidazo le 1 % topical gel APPLY SMALL AMOUNT TO FACE TWICE PER DAY 02/22 completed Not Available Not Available Not Available chlorhexidi ne gluconate 0.12 % mouthwash SWISH AND SPIT 10-15 ML BY MOUTH TWICE DAILY 11/06 completed Not Available Not Available Not Available Oysco 500/D 500 mg-5 mcg (200 unit) tablet TAKE 1 TABLET BY MOUTH EVERY DAY DIRECTED active Not Available Not Available No t Available 28 mg iron-800 mcg tablet TAKE 1 TABLET BY MOUTH EVERY DAY 12/28 completed Not Available Not Available Not Available OneTouch Ultra2 Meter 12/28 completed Not Available Not Available Not Available OneTouch Delica Plus Lancet 30 gauge 12/28 completed Not Available Not Available Not Available Slynd 4 mg (28) tablet TAKE 1 TABLET BY MOUTH EVERY DAY 02/22 completed Not Available Not Available Not Available WesTab Plus 27 mg iron-1 mg tablet TAKE 1 TABLET BY MOUTH EVERY DAY 02/22 completed Not Available Not Available Not Available Zafemy 150 mcg-35 mcg/24 hr transdermal patch APPLY 1 PATCH TO THE SKIN ONCE EVERY WEEK FOR 3 WEEKS THEN OFF FOR 1 WEEK. 11/06 completed Not Available Not Available Not Available Vitals Date Recorded Body mass index (BMI) Body height Oxygen saturation Oxygen saturation in Arterial blood by Pulse oximetry Heart rate Body temperature Body weight Systolic blood pressure Diastolic blood pressure Provider Name and Address Organization Details Last Updated DateTime 2 29.7 kg/m2 154.94 cm 98 % 98 % 74 /min 97.6 [degF] 33554 g 116 mm[Hg] 78 mm[Hg] Not Available [facility] 3 00:29:38 Date Recorded Body mass index (BMI) Body height Oxygen saturation Oxygen saturation in Arterial blood by Pulse oximetry Heart rate Body temperature Body weight Systolic blood pressure Diastolic blood pressure Provider Name and Address Organization Details Last Updated DateTime 2 30.2 kg/m2 154.94 cm 98 % 98 % 108 /min 97.6 [degF] 54431.7 8 g 122 mm[Hg] 80 mm[Hg] Not Available [facility] 3 00:29:38 Date Recorded Body mass index (BMI) Body height Oxygen saturation Oxygen saturation in Arterial blood by Pulse oximetry Heart rate Body temperature Body weight Systolic blood pressure Diastolic blood pressure Provider Name and Address Organization Details Last Updated DateTime 2 29.1 kg/m2 154.94 cm 99 % 99 % 104 /min 97.6 [degF] 42618.2 2 g 114 mm[Hg] 72 mm[Hg] Not Available [facility] 3 00:29:38 Date Recorded Body height Body mass index (BMI) Body weight Body temperature Heart rate Oxygen saturation Oxygen saturation in Arterial blood by Pulse oximetry Systolic blood pressure Diastolic blood pressure Provider Name and Address Organization Details Last Updated DateTime 3 154.94 cm 29.9 kg/m2 21340.5 9 g 97.6 [degF] 98 /min 99 % 99 % 126 mm[Hg] 78 mm[Hg] Gabriella Ragland MA [employer] [place] 3 14:50:49 Date Recorded Body height Body mass index (BMI) Body weight Body temperature Heart rate Oxygen saturation Oxygen saturation in Arterial blood by Pulse oximetry Systolic blood pressure Diastolic blood pressure Provider Name and Address Organization Details Last Updated DateTime 4 154.94 cm 34 kg/m2 03170.6 3 g 97.5 [degF] 107 /min 97 % 97 % 104 mm[Hg] 66 mm[Hg] Nancy Meade MA [employer] [place] 4 14:41:47 Social History Question Answer Notes LastModified by Organization Details LastModified Time Tobacco Smoking Status Never Smoker Not Available [facility] 11/18/2022 00:27:49 What Is Your Level Of Alcohol Consumption? None MIGRATION.0301 [id number] Information not available 11/18/2022 Do You Wear A Helmet When Biking? No Doesn't Bike MIGRATION.030 [id number] Information not available 11/18/2022 What Is Your Level Of Caffeine Consumption? None MIGRATION.0301 [id number] Information not available 11/18/2022 In The 14 Days Before Symptom Onset, Have You Had Close Contact With A Laboratory-confi rmed COVID-19 While That Case Was Ill? No MIGRATION.0301 [id number] Information not available 11/18/2022 In The 14 Days Before Symptom Onset, Have You Had Close Contact With A Person Who Is Under Investigation For COVID-19 While That Person Was Ill? No MIGRATION.0301 [id number] Information not available 11/18/2022 Are You Currently Employed? Yes Information not available 02/23/2024 What Type Of Diet Are You Following? REGULAR MIGRATION.0301 [id number] Information not available 11/18/2022 What Is The Highest Grade Or Level Of School You Have Completed Or The Highest Degree You Have Received? 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 No MIGRATION.0301 [id number] Information not available 11/18/2022 Are There Any Guns Present In Your Home? No MIGRATION.0301 [id number] Information not available 11/18/2022 Do You Use Insect Repellent Routinely? No MIGRATION.0301 [id number] Information not available 11/18/2022 Where Do You Live? SingleLevelHouse MIGRATION.0301 [id number] Information not available 11/18/2022 Are You Following A Low Salt Diet? Yes MIGRATION.0301 553326 Information not available 11/18/2022 What Was The Date Of Your Most Recent Tobacco Screening? 02/23/2024 Information not available 02/23/2024 How Many Children Do You Have? 1 Information not available 02/23/2024 Do You Have Any Pets? Yes Dog And Cat MIGRATION.0301 205473 Information not available 11/18/2022 What Is Your Relationship Status? Single MIGRATION.0301 630793 Information not available 11/18/2022 Do You Use Your Seat Belt Or Car Seat Routinely? Yes MIGRATION.0301 407011 Information not available 11/18/2022 Do You Have Smoke And Carbon Monoxide Detectors In Your Home? Yes MIGRATION.0301 702729 Information not available 11/18/2022 Are You Passively Exposed To Smoke? No MIGRATION.0301 978515 Information not available 11/18/2022 Are There Any Smokers In Your House? No MIGRATION.0301 840812 Information not available 11/18/2022 Do You Feel Stressed (tense, Restless, Nervous, Or Anxious, Or Unable To Sleep At Night)? 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 No MIGRATION.0301 970865 Information not available 11/18/2022 Do You Use Sunscreen Routinely? No MIGRATION.0301 132229 Information not available 11/18/2022 Has Tobacco Cessation Counseling Been Provided? No MIGRATION.0301 549227 Information not available 11/18/2022 Have You Recently Traveled Abroad? No MIGRATION.0301 330961 Information not available 11/18/2022 Do You Have Any Dietary Restrictions? Yes Has Pcos MIGRATION.0301 892660 Information not available 11/18/2022 Do You Or Have You Ever Used Any Other Forms Of Tobacco Or Nicotine? No MIGRATION.0301 911702 Information not available 11/18/2022 Sex: Female Functional Status Question Answer Note LastModified by Organizat ion Details LastModified Time What is your exercise level? None [id number] Information not available 11/18/2022 Mental Status None recorded. Family History Relationship Description Onset Age of this Age Resolved Age Notes LastModified by Organization Details LastModified Time Father Family history of malignant neoplasm of brain [id number] Not available 11/18/2022 00:28:01 Medical History No medical history recorded. Gynecological History Statement/Question Response How many live births 1 Date of Last Pap Current Control Method BCPs Date of LMP Obstetrics History GPAL:G 1 P 1 0 0 1 Type Value Multiple Births 0 Full Term 1 Induced 0 Spontaneous 0 Premature 0 Living 1 Ectopics 0 Total 1 Immunizations Vaccine Type Date Status Note Provider Nam e and Address Organization Details Recorded Time COVID-19, mRNA, LNP-S, PF, 30 mcg/0.3 mL dose 1 completed Maira Dockery APRN [address] [facility], [place] [address] [address], [place], [address], [employer] [facility] [employer] 02/22/2024 14:42:46 COVID-19, mRNA, LNP-S, PF, 30 mcg/0.3 mL dose 1 completed Maria Dockery APRN [address], [place], [address], [facility] [employer] 02/22/2024 14:42:46 Hib, unspecified formulation 1 completed Maria Dockery, DIRECTOR OF FUNDRAISING [address], [place], [address], [employer] 02/22/2024 14:42:46 Hib, unspecified formulation 1 completed Maria Dockery, DIRECTOR OF [employer]DR[employer]ISING [address], [address], [place], [address], [employer] 02/22/2024 14:42:46 Hib, unspecified formulation 2 completed Maria Dockery, DIRECT[employer] OF [employer]ISING [address], [address], [place], [address], [employer] 02/22/2024 14:42:46 Hib, unspecified formulation 1 completed Maria Dockery, [employer] [address], [address], [place], [address], [employer] 02/22/2024 14:42:46 HPV9 0 completed Maria Dockery, [employer] [address], [address], [place], [address], [employer] 02/22/2024 14:42:46 HPV9 0 completed Maria Dockery, DIRECT[employer]ISING [address], [address], [place], [address], [employer] 02/22/2024 14:42:46 HPV9 5 completed Maria Dockery DIRECTOR OF [employer]DRAISING [address], [address], [place], [address], [employer] [facility] 02/22/2024 14:42:46 HPV9 6 completed Maria Dockery DIRECTOR OF FUNDRAISING [address], [address], [place], [address], [employer] 02/22/2024 14:42:46 HPV9 5 completed Maria Dockery DIRECTOR OF [employer]DRAISING [address], [address], [place], [address], [facility] 02/22/2024 14:42:46 IPV 1 completed Maria Dockery APRN [address], [address], [place], [address], [facility] [employer] [facility] 02/22/2024 14:42:46 IPV 1 completed Maria Dockery APRN [address], [address], [place], [address], [facility] [employer] [facility] 02/22/2024 14:42:46 IPV 6 completed Maria Dockery APRN [address], [address], [place], [address], [facility] [employer] [facility] 02/22/2024 14:42:46 IPV 2 completed Maria Dockery APRN [address], [address], [place], [address], [facility] [employer] [facility] 02/22/2024 14:42:46 Influenza, live, trivalent, intranasal 2 completed Maria Dockery APRN [address], [address], [place], [address], [facility] [employer] [facility] 02/22/2024 14:42:46 MMR [address], [place], [address], [facility] [employer] [facility] 02/22/2024 14:42:46 MMR 6 completed Maria Dockery APRN [address], [address], [place], [address], [facility] [employer] [facility] 02/22/2024 14:42:46 pneumococcal conjugate PCV 7 1 completed Maria Dockery APRN [address], [address], [place], [address], [facility] [employer] [facility] 02/22/2024 14:42:46 pneumococcal conjugate PCV 7 2 scott Dockery APRN [address], [address], [place], [address], [facility] [employer] [facility] 02/22/2024 14:42:46 pneumococcal conjugate PCV 7 1 completed Maria Dockery APRN [address], [address], [place], [address], [facility] [employer] [facility] 02/22/2024 14:42:46 pneumococcal conjugate PCV 7 1 completed Maria Dockery APRN [address], [address], [place], [address], [facility] [employer] [facility] 02/22/2024 14:42:46 Tdap 3 completed Maria Dockery APRN [address], [address], [place], [address], [facility] [employer] [facility] 02/22/2024 14:42:46 Tdap [address], [place], [address], [facility] [employer] [facility] 02/22/2024 14:42:46 varicella 2 completed Maria Dockery APRN [address], [address], [place], [address], [employer] [facility] [employer] [facility] 05/01/2024 13:51:11 varicella 8 completed [address]MAR [address], [place], [address], [employer] [facility] 02/22/2024 14:42:46 influenza, split (incl. purified surface antigen) 9 completed Maria Dockrey APRN [address], [address], [place], [address], [facility] [employer] [facility] 02/22/2024 14:42:46 Hep B, adolescent or pediatric [address], [place], [address], [facility] [employer] [facility] 02/22/2024 14:42:46 Hep B, adolescent or pediatric 1 scott Dockery APRN [address], [address], [place], [address], [employer] [facility] 02/22/2024 14:42:46 Hep B, adolescent or pediatric 0 completed Maria Dockery APRN [address], [place], [address], [place] [facility] [employer] [facility] 02/22/2024 14:42:46 Hep A, pediatric, unspecified formulation 4 completed Maria Dockery APRN [address], [address], [place], [address], [employer] [facility] 02/22/2024 14:42:46 Hep A, pediatric, unspecified formulation 3 completed Maria Dockery APRN [address], [address], [place], [address], [employer] [facility] 02/22/2024 14:42:46 meningococcal MCV4P 5 completed Maria Dockery APRN [address], [address], [place], [address], [employer] 02/22/2024 14:42:46 DTaP 1 completed Maria Dockery APRN [address], [place], [address], [employer] [facility] 02/22/2024 14:42:46 DTaP 1 completed Maria Dockery APRN [address], [address], [place], [address], [employer] [facility] 02/22/2024 14:42:46 DTaP 6 completed Maria Dockery APRN [address], [place], [address], [employer] [facility] 02/22/2024 14:42:46 DTaP 2 completed Maria Dockery APRN [address], [place], [address], [facility]I [facility] [employer] 02/22/2024 14:42:46 DTaP 1 completed Maria Dockery APRN [address], [place], [address], [facility] [employer] [facility] [employer] 02/22/2024 14:42:46 Influenza, split virus, quadrivalent, PF 3 completed Maria Dockery APRN [address], [place], [address], [facility] 02/22/2024 14:42:46 IPV 1 completed Maria Dockery APRN [address], [place], [address], [facility] [employer] 05/01/2024 13:51:11 pneumococcal conjugate PCV 7 1 completed Maria Dockery APRN [address], [place], [address], [employer] [facility] [employer] 05/01/2024 13:51:11 Hib (HbOC) 1 completed Maria Dockery APRN [address], [place], [address], [employer] 05/01/2024 13:51:11 DTaP 1 scott Dockery APRN [address], [place], [address], [employer] [facility] [employer] 05/01/2024 13:51:11 Past Encounters Encounter ID Performer Location Encounter Start Date Encounter Closed Date Diagnosis/Indication Diagnosis SNOMED-CT Code Diagnosis ICD10 Code Diagnosis Note [id number] Guillermo hernandez MD [facility] [address] [place] [address] 11/06/2021 00:00:00 11/06/2021 13:59:58 [id number] MD NURIA Teixeira_G Internal [facility] [address] [place] [address] 12/04/2021 00:00:00 12/04/2021 13:52:17 [id number] Guillermo hernandez MD [facility] Internal Med [facility] [address] [facility] [address] [address] 12/29/2021 00:00:00 12/29/2021 16:19:39 [id number] CHAPARRO Palacios [facility] Internal Med [facility] [address] [place], [place] [address]e., [address] [address] 04/02/2022 00:00:00 04/02/2022 13:16:25 [id number] Guillermo hernandez MD [facility] Internal Med [facility] [address] [facility] [address] [address] 12/28/2022 14:42:17 12/28/2022 15:10:48 Hyperlipidemia 26187223 E78.5 now off the simvastati n Polycystic ovary syndrome 560567408 E28.2 follows [facility], on POPs Nausea 767830731 R11.0 s/p gallbladde r u/shas order for HIDA-she decided not to get this done as her nausea was improved Anti-nucle ar factor detected [id number] R76.8 [facility] follow [facility]- has orders Hemorrhoids 68080701 K64 .9 on anusollife style measures discussed- wet wipes with tolieting, avoid straining, push fluid and fiber in diet, avoid soap to rectal area, avoid shaving Adult heal th examination 603533109 Z00.01 Screening for disorder 904267333 Z13.9 check labs in about 2 months to recheck her A1c/check other screening labs Depression screening 171 171851 Z13.31 Body mass index 25-29 - overweight 180416640 Z68.29 encouraged her to be gentle with herself as she is still in the periodfocu s on getting good nutritious food with lots of vitamins and minerals to helps support breastfeed ingrecomme nd healthy, well balanced mealsfocus on lean meats, fresh vegetables , fresh fruits, whole grainsredu ce fast/proce ssed foods or eating out to no more than 1-2 times per weekaim to get 30 min of exercise most days of the week- walking is a great choicealso recommend resistance training 2-3 times per week [id number] Guillermo hernandez MD [facility] Internal Med [facility] 15 [address] [facility], [address] [place] [address] 02/23/2024 14:27:24 02/23/2024 15:23:17 Polycystic ovary syndrome 458512735 E28.2 Hyperlipidemia 83822072 E78.5 Gastroesop hageal reflux disease 363652156 K21.9 Screening for disorder 672994303 Z13.9 Health Concerns Section Related Observation LastModified by Organization Detai ls LastModified Time None Recorded Concern Status LastModified by Organization Details LastModified Time None Recorded Advance Directives Directive None Recorded Payers Encounter Date Sequence Insurance Name Policy Number Policy Hung Covered Member ID Hung Member ID Guarantor Name 12/28/2022 1 [facility] (MEDICAID HMO) [id number] Jenniffer Meade [id number] Jenniffer Meade 02/23/2024 1 [facility] (MEDICAID HMO) [id number] Jenniffer Meade [id number] Jenniffer Meade Notes Date Note Type Note Provider Name and Address Organization Details Recorded Time 12/28/2022 text/html Jenniffer presents for follow-up. She is also due for annual wellness exam. She delivered her daughter, Janell, in early October. Baby is here today as well. She has been doing well. She is nursing the baby. Feeding has been going well. She feels like she is coping well in adjusting well. Baby is growing, initial weight was 6 lb and she is now up to 10 lb. She reports she did have gestational diabetes during . She reports her vocational nurse lvn did check her A1c at her 6 week follow-up and she was in the prediabetic range. She notes her eating has not been the best, so she plans to try to work on cleaning up her diet. She is still taking her vitamin. She did have mastitis a few weeks ago, but that is now resolved. She did get started on progesterone only pills. For now, she remains off the statin. She has not had any more nausea after eating. She is due for her regular screening labs. SUZY Palacios-C [address], [facility] [address], [place], [address], [employer] 12/28/2022 15:10:25 02/23/2024 text/html Jenniffer presents today to establish care. She states that her CARCASS SPLITTER and her previous provider had all of her straightened out and then she became and needs to place back on her medications so she can feel better again. Maria Dockery APRN [address], [facility] [address], [place], [address], [employer] 02/23/2024 15:21:50 OBGyn Episode No OBEpisode recorded.
--- NOTE | 2025-01-11 04:07 | ED.GENADULT ---
HPI - General Adult General Chief complaint: Ear Stated complaint: ear pain Time Seen by Provider: 01/11/25 04:03 History of Present Illness HPI narrative: This is a 24-year-old female presenting with left ear pain. Patient has had URI symptoms for last 2 or 3 days. This evening she developed a sharp pain in her ear with a sensation of fullness. She denies fevers chills chest pain difficulty breathing nausea vomiting diarrhea. Related Data Home Medications ?Medication ?Instructions ?Recorded ?Confirmed ?Last Taken ?Type norethindrone (contraceptive) 0.35 0.35 mg PO DAILY 08/14/23 08/14/23 Unknown History mg tablet Allergies Allergy/AdvReac Type Severity Reaction Status Date / Time No Known Allergies Allergy Verified 01/11/25 04:00 Exam Narrative: APPEARANCE: No apparent distress. Ears: Left tympanic membrane is erythematous and bulging, right tympanic membrane is normal EYES: EOMI, NOSE: Atraumatic NECK: Trachea midline RESPIRATORY: No increased rate of breathing CARDIOVASCULAR: RRR, ABDOMINAL: Non-distended MUSCULOSKELETAl: No obvious deformities NEURO: Alert. Moving 4/4 extremities SKIN:: Warm, dry. Normal color PSYCHIATRIC: Normal affect Medical Decision Making MDM Narrative Medical decision making narrative: -Course: 24-year-old female presenting with left ear pain. TM is erythematous and edematous on the left side. Findings consistent with acute otitis media. She will be treated with a 10 day course of Augmentin. Primary care follow-up return precautions given. -DDX includes but is not limited to: Acute otitis media, serous effusion, bullous myringitis Discharge Plan Discharge Clinical Impression: Otitis media Patient Disposition: Home Condition: Stable Instructions: Antibiotic Form, Ear Infection (ED) Additional Instructions: You were seen in the emergency department for an ear infection. Please use Motrin Tylenol for pain. Complete a 10 day course of Augmentin. Follow-up with your primary care physician for further management. If you develop severe pain loss of hearing return to the ED. Patient Language: Chinese Prescriptions: New ibuprofen 800 mg tablet 800 mg PO TID PRN (Reason: pain) 7 Days Qty: 21 0RF acetaminophen 500 mg tablet 1,000 mg PO TID PRN (Reason: loi) 7 Days Qty: 42 0RF amoxicillin-pot clavulanate 875-125 mg tablet 1 tablet PO Q12H Qty: 20 0RF No Action norethindrone (contraceptive) 0.35 mg tablet 0.35 mg PO DAILY fluticasone propionate [Flonase Allergy Relief] 50 mcg/actuation spray,suspension 2 spray intranasal DAILY Qty: 16 0RF Rx Instructions: administer into each nostril cetirizine 10 mg tablet 10 mg PO DAILY Qty: 14 0RF Follow-up/Referrals: PHYSICIAN,ROUGHER [facility] [Primary Care Provider] -
[2025-01-11 04:13] VITALS: BP 113/76; PULSE 88; RESP 16; TEMP 36.8; O2SAT 100
--- OUTSIDE RECORDS SUMMARY | 2025-01-11 04:15 | XMS_ITS | Continuity of Care Document ---
Author Organization [facility] Address [address] [place] [address] [facility] [address] [place] [address] Phone Care Team Providers Care Hedis Specialist Name Role Phone Neil Bryant Unavailable Unavailable Procedures Procedure Date Office/outpatient Visit, Est Advance Directives Directive Yes / No Effective Date File Name No Information Encounters Encounter Description Practice Location Reason(s) For Visit Diagnoses Date Provider Providers Copied on Encounter Office/outpat ient Visit, Est [facility], [address], [place], [place], [id number], [place] tel:[phone] [facility] No Information [address] [facility] [address], [place], [address], [place]. tel:[phone] Family History Family Member Type Diagnosis Age At Onset No Information Payers Payer name Insurance type Covered libertarian ID Authoriza tion(s) No Information Social History [...]
--- OUTSIDE RECORDS SUMMARY | 2025-01-11 04:15 | XMS_ITS | Clinical Summary ---
Author Organization [facility] [employer] Address [address] [place] [address] Care Team Providers Care Supervisor Customer Records Division Name Role Phone Radha Mahan OMAR-REWINDER OPERATOR HELPER Primary Care Provider [phone] Source Comments [facility],non-owned Affiliates and Associated Physician Practices is amultiple site organization consisting of ambulatory clinics and hospital sitesin [place], [place], [place] and [place]. This disclosure is being madepursuant to the Care Everywhere program and may not contain all information available regarding this patient. Last updated 18.[facility] [employer] Allergies No known active allergies Medications * Be aware that medications may not be up to date on this document. Alwaysverify current medications with the patient. multivitamin (OPURITY) CHEW tablet multivitamin tablet TAKE 1 TABLET BY MOUTH EVERY DAY Active Vit-Fe Fumarate-FA ( VITAMINS PO) Active magnesium oxide (Mag-Ox) 400 MG tablet Take 1 (one) tablet by mouth once daily Active aspirin EC (Ecotrin) 81 MG tablet Take 1 (one) tablet by mouth once daily Active oyster shell calcium 500 MG tablet Take 1 (one) tablet by mouth 2 times daily Active Progesterone 100 MG capsule Take 2 (two) capsules by mouth at bedtime Active Active Problems Problem Noted Date Diagnosed Date Second 10/08/2022 Gestational diabetes mellitus (GDM), antepartum 10/08/2022 COVID-19 affecting in first trimester 10/08/2022 Short cervix, antepartum 10/08/2022 PCOS (polycystic ovarian syndrome) 10/08/2022 Cholestasis during in third trimester 10/08/2022 KOTA positive 10/08/2022 Family History Medical History Relation Name Comments Cancer - Other Father Other Father brain tumor Lupus Mother Other - Genetic Sister Relation Name Status Comments Father Mother Alive Sister Social History Tobacco Use Types Packs/Day Years Used Date Smoking Tobacco: Never Smokeless Tobacco: Never Tobacco Cessation:Counseling Given: Not Answered Comments:non smoking home Alcohol Use Standard Drinks/Week Comments Not Currently 0 (1 standard drink = 0.6 oz pur e alcohol) Comments No Sex and Gender Information Value Date Recorded Sex Assigned at Not on file Legal Sex Female 5:42 AM MANAGER BIOSTATISTICS Gender Identity Not on file Sexual Orientation Not on file Last Filed Vital Signs Vital Sign Reading Time Taken Comments Blood Pressure 131/64 10/18/2022 1:08 PM MANAGER [employer]IOSTATISTICS Pulse 115 10/18/2022 1:08 PM MANAGER [employer]STATISTICS Temperature 37.2 C (98.9 F) 03/24/2022 2:18 PM CDT Respiratory Rate 18 10/11/2022 11:24 AM MANAGER BIOSTATISTICS Oxygen Saturation 98% 01/16/2018 12:05 PM CDT Inhaled Oxygen Concentration - - Weight 75.8 kg (167 lb) 10/14/2022 10:00 AM MANAGER BIOSTATISTICS Height 154.9 cm (5' 1 ) 09/30/2022 1:40 PM MANAGER BIOSTATISTICS Body Mass Index 31.55 09/30/2022 1:40 PM MANAGER [employer]IOSTATISTICS Plan of Treatment Health Maintenance Due Date Last Done Comments PAP SMEAR 2000 HPV VACCINE (1 - 3-dose series) 2015 DTAP/TDAP/TD VACCINES (1 - Tdap) 2019 HEPATITIS B VACCINE (1 of 3 - 19+ 3-dose series) 2019 CHLAMYDIA/GONORRHEA SCREENING 10/13/2023 10/13/2022 COVID-19 VACCINE (3 - 2023-2 5 season) 2024 02/08/2021, 01/16/2021 DEPRESSION SCREENING 09/19/2024 INFLUENZA VACCINE (Season Ended) 2025 10/24/2022 ZOSTER VACCINE (1 of 2) 2050 HEPATITIS C SCREENING Completed 04/19/2022 HIV SCREENING Completed 09/15/2022, 08/26/2022, 04/19/2022 HIB VACCINE Aged Out No longer eligi ble based on patient's age to complete this topic MENINGOCOCCAL (Group B) VACCINE SHARED DECISION-MAKING Aged Out No longer eligible based on patient's age to complete this topic MENINGOCOCCAL GROUPS A/C/Y/W VACCINE Aged Out No longer eligible b ased on patient's age to complete this topic PNEUMOCOCCAL VACCINE Aged Out No long er eligible based on patient's age to complete this topic Insurance MEDICAID - OUT OF STATE MEDICAID - OUT OF [facility] MEDICAID - OUT OF STATE [address] Care Teams Supervisor Customer Records Division Relationship Specialty Start Date End Date Radha Mahan APRN-YONATAN [address] [phone] PCP - General Nurse Practitioner Family 04/14/22
--- OUTSIDE RECORDS SUMMARY | 2025-01-11 04:15 | XMS_ITS | Clinical Summary ---
Author Organization [facility] Address [facility] [place] [place] [address] Care Team Providers Care Clerical Proofreader Name Role Phone Jacinta Herron MD Primary Care Provider + Allergies No known active allergies Medications Blood Glucose Monitoring Suppl (ONE TOUCH ULTRA 2) w/Device Kit 09/21/2022 Act rosalina OYSCO 500 + D 500-5 MG-MCG Tab tablet Take 1 tablet by mouth daily. 10/01/2022 Active calcium carbonate-vitami n D (OYSCO 500 + D) 500-5 MG-MCG Tab tablet Oysco 500/D 500 mg-5 mcg (200 unit) tablet TAKE 1 TABLET BY MOUTH DAILY Active magnesium oxide (MAG-OX) 400 MG tablet Take 400 mg by mouth daily. Active Vit-Fe Fumarate-FA (WESTAB PLUS) 27-1 MG Tab Take 1 tablet by mouth daily. 09/03/2022 Active Active Problems Problem Noted Date Diagnosed Date ([facility]) 10/21/2022 Immunizations Immunization Administration Dates Next Due Fluzone 6 Months+ Quad (0.5 mL Prefilled Syringe ) 10/24/2022 Tdap (Boostrix) 10/24/2022 Family History Medical History Relation Comments Brain cancer Father Relation Status Comments Father Social History Tobacco Use Types Packs/Day Years Used Date Smoking Tobacco: Never Smokeless Tobacco: Never Tobacco Cessation:Counseling Given: Not Answered Alcohol Use Standard Drinks/Week Comments Not Currently 0 (1 standard drink = 0.6 oz pur e alcohol) Humiliation, Afraid, Rape, and Kick questionnair e Answer Date Recorded Within the last year, have y ou been afraid of your partner or ex-partner? No 10/21/2022 Within the last year, have y ou been humiliated or emotionally abused in other ways by your partner or ex-partner? No Within the last year, have y ou been kicked, hit, slapped, or otherwise physically hurt by your partner or ex-partner? No 10/21/2022 Within the last year, have y ou been raped or forced to have any kind of sexual activity by your partner or ex-partner? No 10/21/2022 Social Connection and Isolat ion Panel [NHANES] Answer Date Recorded In a typical week, how many times do you talk on the phone with family, friends, or neighbors? More than three times a week 10/21/2022 How often do you get togethe r with friends or relatives? More than three times a week 10/21/2022 How often do you attend chur or holiness services? Never 10/21/2022 Do you belong to any clubs o r organizations such as jewish groups, unions, fraternal or athletic groups, or school groups? Yes 10/21/2022 How often do you attend meet ings of the clubs or organizations you belong to? Never 10/21/2022 Are you , , di vorced, , never , or living with a partner? Living with partner 10/21/2022 AUDIT-C Answer Date Recorded Q1: How often do you have a drink containing alcohol? Never 10/21/2022 Q2: How many drinks containi ng alcohol do you have on a typical day when you are drinking? Patient does not drink Q3: How often do you have si x or more drinks on one occasion? Never 10/21/2022 Overall Financial Resource Strain (CARDIA) Answe r Date Recorded How hard is it for you to pa y for the very basics like food, housing, medical care, and heating? Not hard at all 10/21/2022 [facility] - Occupational Stress Questionnaire Answer Date Recorded Do you feel stress - tense, restless, nervous, or anxious, or unable to sleep at night because your mind is troubled all the time - these days? Only a little 10/21/2022 Exercise Vital Sign Answer Date Recorde d On average, how many days pe r week do you engage in moderate to strenuous exercise (like a brisk walk)? 0 days 10/21/2022 On average, how many minutes do you engage in exercise at this level? 0 min 10/21/2022 Hunger Vital Sign Answer Date Recorded Within the past 12 months, y ou worried that your food would run out before you got the money to buy more. Never true 10/21/19 23 Within the past 12 months, t he food you bought just didn't last and you didn't have money to get more. Never true 10/21/2022 PRAPARE - Transportation Answer Date Re corded In the past 12 months, has l ack of transportation kept you from medical appointments or from getting medications? No 10/2022 In the past 12 months, has l ack of transportation kept you from meetings, work, or from getting things needed for daily living? No 10/21/2022 Housing Stability Vital Sign Answer Arturo e Recorded In the last 12 months, was t here a time when you were not able to pay the mortgage or rent on time? No 10/21/2022 In the last 12 months, how many places have you lived? 1 10/21/2022 In the last 12 months, was t here a time when you did not have a steady place to sleep or slept in a residential (including now)? No 10/21/2022 Comments No Sex and Gender Information Value Date Recorded Sex Assigned at Not on file Legal Sex Female 1:54 PM CDT Gender Identity Not on file Sexual Orientation Not on file Last Filed Vital Signs Vital Sign Reading Time Taken Comments Blood Pressure 114/80 10/24/2022 7:05 AM FLAVORING OIL FILTERER Pulse 100 10/24/2022 7:05 AM FLAVORING OIL FILTERER Temperature 36.7 C (98 F) 10/24/2022 7:05 AM FLAVORING OIL FILTERER Respiratory Rate 16 10/24/2022 7:05 AM FLAVORING OIL FILTERER Oxygen Saturation 100% 10/24/2022 7:05 AM FLAVORING OIL FILTERER Inhaled Oxygen Concentration - - Weight 72.6 kg (160 lb) 10/21/2022 8:00 AM FLAVORING OIL FILTERER Height 154.9 cm (5' 1 ) 10/21/2022 8:00 AM FLAVORING OIL FILTERER Body Mass Index 30.23 10/21/2022 8:00 AM FLAVORING OIL FILTERER Plan of Treatment Health Maintenance Due Date Last Done Comments Cervical Cancer Screening Pap Smear (Age 21 to 29) Every 3 Years 2000 Cervical Cancer Screening 2000 Annual Physical 2003 Chlamydia Screening Females ages 16-24 2016 Hepatitis C 2018 Hepatitis B Vaccines (1 of 3 - 19+ 3-dose series) 2019 COVID-19 Vaccine ( - 2023- season) 2024 DTaP, Tdap and Td Vaccines (7 - Td or Tdap) 10/24/2032 10/24/2022, 02/09/2006, 02/28/2002, Additional history exists Meningococcal Vaccine Aged Out 03/24/2015 No iggy mariana eligible based on patient's age to complete this topic HPV Vaccines Completed 10/31/2019, 09/19, 04/01/2016, Additional history exists Meningococcal B Vaccine Aged Out No l onger eligible based on patient's age to complete this topic Pneumococcal Vaccine: Pediatrics (0 to 5 Years) and At-Risk Patients (6 to 49 Years) Aged Out No longer eligible based on patient's age to complete this topic RSV Immunizations Under 20 Months Aged Out No longer eligible based on patient's age to complete this topic Insurance [employer] Advance Directives * Full Code (Latest Code Status on File) Date Activated Date Inactivated Comments 10/21/2022 7:47 AM 10/24/2022 5:35 PM Care Teams Clerical Proofreader Relationship Specialty Start Date End Date Jacinta Herron MD [address] [place] [id number] [facility] - General OBGYN 12/31/20
[2025-01-11] MEDS: KETOROLAC 30 MG/ML VIAL (*BKC) IM (04:16)
[2025-01-11] MEDS: ACETAMINOPHEN 500 MG TABLET 1000 MG PO (04:16)
[2025-01-11] MEDS: AMOXICILLIN/CLAVULANATE K 875-125 MG TAB 1 TABLET PO (04:16)
[2025-01-11 04:24] VITALS: BP 113/74; PULSE 64; RESP 16; TEMP 36.6; O2SAT 98
== END 2025-01-11 04:25 | disposition home or self-care (01) ==
LOC: ANHED 04:13
PROVIDERS: Emergency Provider Emergency Medicine
DX: H66.91 Otitis media, unspecified, right ear (principal)
CPT/HCPCS: 99283; A9270; J1885

== ENCOUNTER 2025-02-13 16:31 | Emergency (ER) | payer OTHER, SELFPAY ==
--- OUTSIDE RECORDS SUMMARY | 2025-02-13 16:35 | XMS_ITS | Continuity of Care Document ---
Author Organization [facility] Address [address] [place] [address] [facility] [address] [place] [address] Phone Care Team Providers Care Smoking Tobacco Packing Machine Hand Name Role Phone Neil Bryant Unavailable Unavailable Procedures Procedure Date Office/outpatient Visit, Est Advance Directives Directive Yes / No Effective Date File Name No Information Encounters Encounter Description Practice Location Reason(s) For Visit Diagnoses Date Provider Providers Copied on Encounter Office/outpat ient Visit, Est [facility], [address], [place], [place], [id number], [place] tel:[phone] [facility] No Information [address] [facility] [address], [address], [place]. tel:[phone] Family History Family Member Type Diagnosis Age At Onset No Information Payers Payer name Insurance type Covered green party ID Authoriza tion(s) No Information Social [...]
--- OUTSIDE RECORDS SUMMARY | 2025-02-13 16:35 | XMS_ITS | Data Portability ---
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 Lab HbA1c (hemoglobi n A1c), blood 2023 024 [facility], [address] [place], [address], 4 08:41:43 vitamin D, 25-hydroxy , total, serum 2023 024 [facility], [address] [place], [address], 4 08:41:43 lipid panel, serum 2023 024 [facility], [address] [place], [address], 4 08:41:42 CMP, serum or plasma 2023 024 [facility], [address] [place], [address], 4 08:41:42 CBC w/ auto diff 2023 024 [facility], [address] [place], [address], 4 08:41:42 TSH + free T4, serum 2023 024 [facility], [address] [place], [address], 4 08:41:42 vitamin D, 25-hydroxy , total, serum [address] (Lab), [address] [place], [address], 3 09:21:08 glycohemog lobin, total, blood [address] (Lab), [address] [place], [address], 3 09:21:08 lipid panel, serum [address] (Lab), [address] [place], [address], 3 09:21:07 TSH, serum or plasma [address] (Lab), [address] [place], [address], 3 09:21:08 CBC w/ auto diff [address] (Lab), [address] [place], [address], 3 09:21:07 CMP, serum or plasma [address] (Lab), [address] [place], [address], 3 09:21:07 Referral None recorded. Procedures None recorded. Surgeries None recorded. Imaging None recorded. Medication Orders metformin ER 500 mg tablet,ext ended release 24 hr 2023 [facility]/Pharmacy #[id number], [address] [place], [address], 4 15:19:49 omeprazole 20 mg capsule,de layed release 2023 [facility]/Pharmacy #[id number], [address] [place], [address], 4 15:19:49 Oysco 500/D 500 mg-5 mcg (200 unit) tablet 2023 [facility]/Pharmacy #[id number], [address] [place], [address], 4 15:19:48 Patient TargetsNo targets recorded. Patient Instructions Encounter Date Encounter Id Patient Instructions Last Modified By Organization Details Last Modified Time 12/28/2022 [id number] INFLUENZA VACCIN E Recommended today, but patient declined Ordered P atient will get at local pharmacy/health department Patient has egg allergy Your next one in the fall of Your next one in the fall of 2022 TD/TDAP Patient will get at local pharmacy/health department MAMMOGRAM No screening indicated at this time/ no family history CERVICAL SCREENING/PELVIC EXAMINATION No screening necessary patient is up to date COLORECTAL SCREENING No screening necessary until age 45 DEPRESSION SCREENING Negative BMI Appropriate Continue healthy eating & exercise NUTRITION Continue healthy eating & exercise PHYSICAL ACTIVITY Need more activity Recommendation of 30 minutes of daily activity VISION Recommended today ALCOHOL USE Occasional/Social Use TOBACCO USE non smoker SEXUALLY ACTIVE Yes, Patient is in monogamous relationship GLUCOSE SCREENING Ordered LIPID SCREENING Ordered [email or web address] Not available 12/28/2022 15:09:38 02/23/2024 [id number] Follow up in 4 months Obtain labs Prescriptions sent to pharmacy [email or web address] Not available 02/23/2024 15:15:31 Reason for Referral None Reported. Results Created Date Observation Date Name Description Value Unit Range Abnormal Flag Note LastModifiedBy Organization Detail LastModifiedTime 11/06/19 22 11/07/2021 THYRO ID PEROX IDASE (TPO) AB thyroid peroxidase (tpo) Ab <8 IU/mL 0-34 Perfo rmed at: [facility] n [address] [place] [address] Lab Direc tor: Josue mireles PhD, Phone : [phone] Not Available [facility] (Lab) [address] [place], [address], 11/07/2021 08:14:21 11/06/19 22 11/09/2021 KOTA/A NTINU CLEAR ANTIB ODIES ,IFA antinuclear antibodies, ifa positi ve abnormal Negat hugo <1:80 Borde rline 1:80 Posit hugo >1:80 Perfo rmed at: [facility] [address] [place] [address] Lab Direc tor: Josue mireles PhD, Phone : [phone] Not Available [facility] (Lab) [address] [place], [address], 11/09/2021 22:06:56 11/06/19 22 11/09/2021 KOTA/A NTINU CLEAR ANTIB ODIES ,IFA homogeneous pattern 1:160 high ICAP nomen estelatu re: AC-1 Not Available [facility] (Lab) [address] [place], [address], 11/09/2021 22:06:56 11/06/19 22 11/09/2021 KOTA/A NTINU CLEAR ANTIB ODIES ,IFA note: franklin Hoffman For more infor jennifer jimenez about Hep-2 cell patte rns use ANApa ttern s.org , the offic arron sandra for the Inter natio nal Conse nsus [...] Stella dickinson Antig en Detec kiah Sugelisabet miranda Disea se Assoc iatio n ----- ----- - ----- ----- ----- - ----- ----- ----- ----- ----- ---- Homog eneou s DNA(d s,ss) , SLE - High titer s Nucle osome s, Histo bradly Drug- induc ed SLE ----- ----- - ----- ----- ----- - ----- ----- ----- ----- ----- ---- Speck led Sm, BLINTZE ROLLER, SCL-7 0, SLE,M CTD,P SS (diff use [...] Dot Sp100 ,p80- coili n Prima ry Bilia ry Cirrh osis ----- ----- - ----- ----- ----- - ----- ----- ----- ----- ----- ---- Nucle ar GP210 , Prima ry Bilia ry Cirrh osis Membr ane ariela A,B,C ----- ----- - ----- ----- ----- - ----- ----- ----- ----- ----- ---- Perfo rmed at: [address] [address] Lab Direc tor: Josue mireles PhD, Phone : [phone] Not Available [facility] (Lab) [address] [place], [address], 11/09/2021 22:06:56 11/06/19 22 11/07/2021 INSUL IN insulin 12.0 uIU/m L 2.6-24 .9 Perfo rmed at: [address] [address] Lab Direc tor: Josue mireles PhD, Phone : [phone] Not Available [facility] (Lab) [address] [place], [address], 11/07/2021 12:10:03 11/06/19 22 11/06/2021 FOLAT E, SERUM /PLAS MA folate 11.1 NG/mL 2.76- Not Available [facility] (Lab) [address] [place], [address], 11/06/2021 17:28:34 11/06/19 22 11/06/2021 VITAM IN B12 (VIRIDIANA ARIELA ) vb12 >1000 pg/mL 239-93 1 high RESUL T IS GREAT ER THAN REPOR TABLE RANGE OF ASSAY . Not Available [facility] (Lab) [address] [place], [address], 11/06/2021 17:28:29 11/06/19 22 11/06/2021 VITAM IN D 25-HY DROXY vd25oh 40.5 NG/mL 30-100 Vitam in D Statu s: Defic ient: <20 ng/mL Insuf ficie nt: 20-29 ng/mL Suffi cient : 30-10 0 ng/mL Not Available [facility] (Lab) [address] [place], [address], 11/06/2021 16:38:55 11/06/19 22 11/06/2021 DANIELLE TIN ferritin 37 NG/mL 6.24-1 37 Not Available [facility] (Lab) [address] [place], [address], 11/06/2021 16:37:09 11/06/19 22 11/06/2021 TSH thyroid-stim ulating hormone 1.030 uIU/m L 0.465- 4.680 Not Available [facility] (Lab) [address] [place], [address], 11/06/2021 16:37:05 11/06/19 22 11/06/2021 T3 FREE free T3 4.2 pg/mL 2.77-5 .27 Not Available [facility] (Lab) [address] [place], [address], 11/06/2021 16:27:46 11/06/19 22 11/06/2021 T4 FREE free T4 1.15 NG/dL 0.78-2 .19 Not Available [facility] (Lab) [address] [place], [address], 11/06/2021 16:27:44 11/06/19 22 11/06/2021 IRON/ TIBC PANEL total iron binding capacity 372 mcg/d L 265-47 5 Not Available [facility] (Lab) [address] [place], [address], 11/06/2021 16:26:29 11/06/19 22 11/06/2021 IRON/ TIBC PANEL % transferrin saturation 51 % 20-55 Not Available [facility] (Lab) [address] [place], [address], 11/06/2021 16:26:29 11/06/19 22 11/06/2021 IRON/ TIBC PANEL unsaturated iron bind capacity 182 mcg/d L 126-38 2 Not Available [facility] (Lab) [address] [place], [address], 11/06/2021 16:26:29 11/06/19 22 11/06/2021 IRON/ TIBC PANEL iron 190 mcg/d L 42-175 high Not Available [facility] (Lab) [address] [place], [address], 11/06/2021 16:26:29 11/06/19 22 11/06/2021 LIPAS E SERUM lipase 71 U/L 23-300 Not Available [facility] (Lab) [address] [place], [address], 11/06/2021 16:23:01 11/06/19 22 11/06/2021 COMPR EHENS HUGO METAB OLIC PANEL carbon dioxide 26 mmol/ L 22-30 Not Available [facility] (Lab) [address] [place], [address], 11/06/2021 16:22:57 11/06/19 22 11/06/2021 COMPR EHENS HUGO METAB OLIC PANEL sodium 141 mmol/ L 137-14 5 Not Available [facility] (Lab) [address] [place], [address], 11/06/2021 16:22:57 11/06/19 22 11/06/2021 COMPR EHENS HUGO METAB OLIC PANEL potassium 4.3 mmol/ L 3.5-5. 1 Not Available [facility] (Lab) [address] [place], [address], 11/06/2021 16:22:57 11/06/19 22 11/06/2021 COMPR EHENS HUGO METAB OLIC PANEL chloride 104 mmol/ L 98-107 Not Available [facility] (Lab) [address] [place], [address], 11/06/2021 16:22:57 11/06/19 22 11/06/2021 COMPR EHENS HUGO METAB OLIC PANEL agap 15.3 mmol/ L 14-22 Not Available [facility] (Lab) [address] [place], [address], 11/06/2021 16:22:57 11/06/19 22 11/06/2021 COMPR EHENS HUGO METAB OLIC PANEL glucose 87 mg/dL 70-99 Not Available [facility] (Lab) [address] [place], [address], 11/06/2021 16:22:57 11/06/19 22 11/06/2021 COMPR EHENS HUGO METAB OLIC PANEL alkaline phosphatase 73 U/L 38-126 Not Available [facility] (Lab) [address] [place], [address], 11/06/2021 16:22:57 11/06/19 22 11/06/2021 COMPR EHENS HUGO METAB OLIC PANEL BUN 13 mg/dL 8-19 Not Available [facility] (Lab) [address] [place], [address], 11/06/2021 16:22:57 11/06/19 22 11/06/2021 COMPR EHENS HUGO METAB OLIC PANEL creatinine 0.78 mg/dL 0.66-1 .25 Not Available [facility] (Lab) [address] [place], [address], 11/06/2021 16:22:57 11/06/19 22 11/06/2021 COMPR EHENS HUGO METAB OLIC PANEL GFR >60 Refer ence Range : [place] ge GFR Healt hy Adult : >60 mL/mi n/1.7 3 m2 Chron ic Kidne y Disea se: 15-60 mL/mi n/1.7 3 m2 Kidne y Failu re: <15/m L/min /1.73 m2 www.n iddk. [facility].g ov The MDRD study equat ion has not been valid ated in child chen <18 years of age; pregn ant women ; the elder ly >85 years of age; or in some racia l or ethni c subgr oups, such as Hisjazmín nics. Outsi de the valid ated tory [...] calcu lator is avail able on the [facility] websi te: https ://jaylan bautista.o fredo/pr ofess ional s/kdo qi/gf r_cal culat or Not Available [facility] (Lab) [address] [place], [address], 11/06/2021 16:22:57 11/06/19 22 11/06/2021 COMPR EHENS HUGO METAB OLIC PANEL alanine aminotransfe rase 31 U/L 0-35 Not Available [facility] (Lab) [address] [place], [address], 11/06/2021 16:22:57 11/06/19 22 11/06/2021 COMPR EHENS HUGO METAB OLIC PANEL aspartate aminotransfe rase 28 U/L 15-37 Not Available [facility] (Lab) [address] [place], [address], 11/06/2021 16:22:57 11/06/19 22 11/06/2021 COMPR EHENS HUGO METAB OLIC PANEL bilirubin, total 0.90 mg/dL 0.20-1 .30 Not Available [facility] (Lab) [address] [place], [address], 11/06/2021 16:22:57 11/06/19 22 11/06/2021 COMPR EHENS HUGO METAB OLIC PANEL calcium 9.5 mg/dL 8.4-10 .2 Not Available [facility] (Lab) [address] [place], [address], 11/06/2021 16:22:57 11/06/19 22 11/06/2021 COMPR EHENS HUGO METAB OLIC PANEL total protein 7.6 g/dL 6.3-8. 2 Not Available [facility] (Lab) [address] [place], [address], 11/06/2021 16:22:57 11/06/19 22 11/06/2021 COMPR EHENS HUGO METAB OLIC PANEL albumin 4.8 g/dL 3.4-5. 0 Not Available [facility] (Lab) [address] [place], [address], 11/06/2021 16:22:57 11/06/19 22 11/06/2021 COMPR EHENS HUGO METAB OLIC PANEL globulin 2.8 g/dL 2.6-4. 2 Not Available [facility] (Lab) [address] [place], [address], 11/06/2021 16:22:57 11/06/19 22 11/06/2021 COMPR EHENS HUGO METAB OLIC PANEL A/G ratio 1.7 ratio 1.0-2. 0 Not Available [facility] (Lab) [address] [place], [address], 11/06/2021 16:22:57 11/06/19 22 11/06/2021 LIPID PANEL [...] WILL NOT BE REPOR KIAH. Not Available [facility] (Lab) [address] [place], [address], 11/06/2021 16:22:55 11/06/19 22 11/06/2021 LIPID PANEL cholesterol 106 mg/dL 140-19 9 low NIH SAM NSUS RECOM MENDA TION FOR JOHN STERO L: ADULT CHILD LOW RISK: <200 <170 BORDE RLINE : <200- 239 ----- HIGH RISK: >240 >200 Not Available [facility] (Lab) [address] [place], [address], 11/06/2021 16:22:55 11/06/19 22 11/06/2021 LIPID PANEL triglyceride s 93 mg/dL 0-150 NIH SAM NSUS REPOR T RECOM MENDA TION FOR TRIGL YCERI LETITIA: ADULT CHILD LOW RISK: <150 ----- BODER LINE: 150-1 99 ----- HIGH RISK: >200 ----- Not Available [facility] (Lab) [address] [place], [address], 11/06/2021 16:22:55 11/06/19 22 11/06/2021 LIPID PANEL HDL cholesterol 66 mg/dL 40- Not Available [facility] (Lab) [address] [place], [address], 11/06/2021 16:22:55 02/18/20 22 11/06/2021 HEMOG LOBIN A1C HA1C 4.9 % 4.0-6. 0 Diabe amanda Scree hammad Crite zhao: <5.7% Consi stent with absen ce of diabe amanda 5.7-6 .4% Consi stent with incre ased risk for diabe amanda (pred iabet es) >OR=6 .5% Consi stent with diabe amanda REFER ENCE: Diabe amanda Care 2016, 39(Howell ppl.1 ):s13 -s22 Not Available [facility] (Lab) [address] [place], [address], 11/06/2021 16:11:00 11/06/19 22 11/06/2021 URINA LYSIS COMPL ETE/I RIS W/RFX pH 6.5 pH_un its 5.0-9. 0 Not Available [facility] (Lab) [address] [place], [address], 11/06/2021 15:56:12 11/06/19 22 11/06/2021 URINA LYSIS COMPL ETE/I RIS W/RFX color yellow Not Available [facility] (Lab) [address] [place], [address], 11/06/2021 15:56:12 11/06/19 22 11/06/2021 URINA LYSIS COMPL ETE/I RIS W/RFX appear clear Not Available [facility] (Lab) [address] [place], [address], 11/06/2021 15:56:12 11/06/19 22 11/06/2021 URINA LYSIS COMPL ETE/I RIS W/RFX specific gravity 1.028 1.001- 1.030 Not Available [facility] (Lab) [address] [place], [address], 11/06/2021 15:56:12 11/06/19 22 11/06/2021 URINA LYSIS COMPL ETE/I RIS W/RFX leukocytes negati ve magdalena/u L negati ve- Not Available [facility] (Lab) [address] [place], [address], 11/06/2021 15:56:12 11/06/19 22 11/06/2021 URINA LYSIS COMPL ETE/I RIS W/RFX nitrite negati ve negati ve- Not Available [facility] (Lab) [address] [place], [address], 11/06/2021 15:56:12 11/06/19 22 11/06/2021 URINA LYSIS COMPL ETE/I RIS W/RFX protein 10 mg/dL negati ve- abnormal Not Available [facility] (Lab) [address] [facility] [place], [address], 11/06/2021 15:56:12 11/06/19 22 11/06/2021 URINA LYSIS COMPL ETE/I RIS W/RFX glucose normal mg/dL normal - Not Available [facility] (Lab) [address] [place], [address], 11/06/2021 15:56:12 11/06/19 22 11/06/2021 URINA LYSIS COMPL ETE/I RIS W/RFX ketones negati ve mg/dL negati ve- Not Available [facility] (Lab) [address] [place], [address], 11/06/2021 15:56:12 11/06/19 22 11/06/2021 URINA LYSIS COMPL ETE/I RIS W/RFX urobilinogen normal mg/dL normal - Not Available [facility] (Lab) [address] [place], [address], 11/06/2021 15:56:12 11/06/19 22 11/06/2021 URINA LYSIS COMPL ETE/I RIS W/RFX bilirubin negati ve mg/dL negati ve- Not Available [facility] (Lab) [address] [place], [address], 11/06/2021 15:56:12 11/06/19 22 11/06/2021 URINA LYSIS COMPL ETE/I RIS W/RFX blood negati ve mg/dL negati ve- Not Available [facility] (Lab) [address] [place], [address], 11/06/2021 15:56:12 11/06/19 22 11/06/2021 URINA LYSIS COMPL ETE/I RIS W/RFX white blood cells 0-8 /i??h pfi?? 0-8 Not Available [facility] (Lab) [address] [place], [address], 11/06/2021 15:56:12 11/06/19 22 11/06/2021 URINA LYSIS COMPL ETE/I RIS W/RFX red blood cells 0-4 /i??h pfi?? 0-4 Not Available [facility] (Lab) [address] [place], [address], 11/06/2021 15:56:12 11/06/19 22 11/06/2021 URINA LYSIS COMPL ETE/I RIS W/RFX bacteria none Not Available [facility] (Lab) [address] [place], [address], 11/06/2021 15:56:12 11/06/19 22 11/06/2021 URINA LYSIS COMPL ETE/I RIS W/RFX mucous modera te /i??l pfi?? abnormal Not Available [facility] (Lab) [address] [place], [address], 11/06/2021 15:56:12 11/06/19 22 11/06/2021 URINA LYSIS COMPL ETE/I RIS W/RFX squamous epithelial few /i??l pfi?? abnormal Not Available [facility] (Lab) [address] [place], [address], 11/06/2021 15:56:12 11/06/19 22 11/06/2021 URINA LYSIS COMPL ETE/I RIS W/RFX hyaline cast occasi onal /i??l pfi?? none seen- abnormal Not Available [facility] (Lab) [address] [place], [address], 11/06/2021 15:56:12 11/06/19 22 11/06/2021 CBC/C OMPLE TE BLD COUNT W/DIF F mean red cell volume 91.7 fL 82.0-9 9.0 Not Available [facility] (Lab) [address] [place], [address], 11/06/2021 15:44:55 11/06/19 22 11/06/2021 CBC/C OMPLE TE BLD COUNT W/DIF F white blood cells 7.7 x10'3 /uL 4.2-10 .8 Not Available [facility] (Lab) [address] [place], [address], 11/06/2021 15:44:55 11/06/19 22 11/06/2021 CBC/C OMPLE TE BLD COUNT W/DIF F red blood cells 4.80 x10'6 /uL 3.80-5 .20 Not Available [facility] (Lab) [address] [place], [address], 11/06/2021 15:44:55 11/06/19 22 11/06/2021 CBC/C OMPLE TE BLD COUNT W/DIF F hemoglobin 15.0 g/dL 12.0-1 5.6 Not Available [facility] (Lab) [address] [place], [address], 11/06/2021 15:44:55 11/06/19 22 11/06/2021 CBC/C OMPLE TE BLD COUNT W/DIF F hematocrit 44.0 % 35.7-4 5.7 Not Available [facility] (Lab) [address] [place], [address], 11/06/2021 15:44:55 11/06/19 22 11/06/2021 CBC/C OMPLE TE BLD COUNT W/DIF F mean red cell hemoglobin 31.3 pg 27.0-3 3.0 Not Available [facility] (Lab) [address] [place], [address], 11/06/2021 15:44:55 11/06/19 22 11/06/2021 CBC/C OMPLE TE BLD COUNT W/DIF F mean RBC HGB concentratio n 34.1 g/dL 31.0-3 6.0 Not Available [facility] (Lab) [address] [place], [address], 11/06/2021 15:44:55 11/06/19 22 11/06/2021 CBC/C OMPLE TE BLD COUNT W/DIF F red cell distribution width 11.9 % 11.8-1 5.5 Not Available [facility] (Lab) [address] [place], [address], 11/06/2021 15:44:55 11/06/19 22 11/06/2021 CBC/C OMPLE TE BLD COUNT W/DIF F platelets 229 x10'3 /uL 150-40 0 Not Available [facility] (Lab) [address] [place], [address], 11/06/2021 15:44:55 11/06/19 22 11/06/2021 CBC/C OMPLE TE BLD COUNT W/DIF F mean platelet volume 11.0 fL 9.0-12 .4 Not Available [facility] (Lab) [address] [place], [address], 11/06/2021 15:44:55 11/06/19 22 11/06/2021 CBC/C OMPLE TE BLD COUNT W/DIF F neutrophils 63.1 % 39.0-7 2.0 Not Available [facility] (Lab) [address] [place], [address], 11/06/2021 15:44:55 11/06/19 22 11/06/2021 CBC/C OMPLE TE BLD COUNT W/DIF F basophils 0.3 % 0.0-2. 0 Not Available [facility] (Lab) [address] [place], [address], 11/06/2021 15:44:55 11/06/19 22 11/06/2021 CBC/C OMPLE TE BLD COUNT W/DIF F lymphocytes 27.3 % 16.0-4 7.0 Not Available [facility] (Lab) [address] [place], [address], 11/06/2021 15:44:55 11/06/19 22 11/06/2021 CBC/C OMPLE TE BLD COUNT W/DIF F monocytes 6.2 % 5.0-12 .0 Not Available [facility] (Lab) [address] [place], [address], 11/06/2021 15:44:55 11/06/19 22 11/06/2021 CBC/C OMPLE TE BLD COUNT W/DIF F eosinophils 2.7 % 1.0-7. 0 Not Available [facility] (Lab) [address] [place], [address], 11/06/2021 15:44:55 11/06/19 22 11/06/2021 CBC/C OMPLE TE BLD COUNT W/DIF F immature granulocytes 0.4 % 0.00-0 .50 Not Available [facility] (Lab) [address] [place], [address], 11/06/2021 15:44:55 11/06/19 22 11/06/2021 CBC/C OMPLE TE BLD COUNT W/DIF F neutrophils, absolute count 4.86 x10'3 /uL 1.5-8. 0 Not Available [facility] (Lab) [address] [place], [address], 11/06/2021 15:44:55 11/06/19 22 11/06/2021 CBC/C OMPLE TE BLD COUNT W/DIF F lymphocytes, absolute count 2.10 x10'3 /uL 1.07-3 .43 Not Available [facility] (Lab) [address] [place], [address], 11/06/2021 15:44:55 11/06/19 22 11/06/2021 CBC/C OMPLE TE BLD COUNT W/DIF F monocytes, absolute count 0.48 x10'3 /uL 0.29-0 .99 Not Available [facility] (Lab) [address] [place], [address], 11/06/2021 15:44:55 11/06/19 22 11/06/2021 CBC/C OMPLE TE BLD COUNT W/DIF F eosinophils, absolute count 0.21 x10'3 /uL 0.02-0 .53 Not Available [facility] (Lab) [address] [place], [address], 11/06/2021 15:44:55 11/06/19 22 11/06/2021 CBC/C OMPLE TE BLD COUNT W/DIF F basophils, absolute count 0.02 x10'3 /uL 0.01-0 .08 Not Available [facility] (Lab) [address] [place], [address], 11/06/2021 15:44:55 11/06/19 22 11/06/2021 CBC/C OMPLE TE BLD COUNT W/DIF F immature granulocytes ,absolute 0.03 x10'3 /uL 0.00-0 .05 Not Available [facility] (Lab) [address] [place], [address], 11/06/2021 15:44:55 11/06/19 22 11/06/2021 CBC/C OMPLE TE BLD COUNT W/DIF F nucleated red blood cells 0.0 % -0 Not Available [facility] (Lab) [address] [place], [address], 11/06/2021 15:44:55 11/06/19 22 11/06/2021 CBC/C OMPLE TE BLD COUNT W/DIF F NRBC# 0.00 x10'3 /uL Not Available [facility] (Lab) [address] [place], [address], 11/06/2021 15:44:55 11/21/19 22 11/20/2021 US, pelvi s, trans abdom inal + trans vagin al [facility] [address] [place] [address] [phone] Patien t Name: CHERYLE MEADEIAN Irvin E Access ion #: [id number] Sex: F : 1999 2 Locati [...] r blood flow. Page 1 of 2 [facility] Patikamryn t Name: SHILOH MEADE Access ion #: [id number] Sex: F : 1999 2 Exam Date: [...] MD (CT) (CT) Page 2 of 2 [id number] [facility] ([facility]) [address] [place], [address], 11/18/2022 00:32:53 11/21/19 22 11/20/2021 US, abdom en, limit ed [facility] [address] [facility] [place] [address] Patikamryn t Name: SHILOH MEADE E Access ion #: [id number] Sex: F : 1999 2 Locati on: RAD Attend ing Physic niesha: HAYLEE RUTHERFORD Orderi ng Physic niesha: HAYLEE RUTHERFORD Exam Date: 11/21/19 22 8:58 AM Exam Name: US ABDOME N [...] is 0.6 cm Page 1 [facility] 2 [facility] Patikamryn t Name: SHILOH MEADE Access ion #: [id number] Sex: F : 1999 2 Exam [...] MD (CT) (CT) Page 2 of 2 [id number] [place] ([facility]) [address] [place], [address], 11/18/2022 00:32:53 01/09/20 22 01/08/2022 NM, hepat obili christian scan, w/pha rm [facility] [address] [facility] [place] [address] Yen t Name: SHILOH MEADE Access ion #: [id number] Sex: F : 1999 8 Locati on: RAD Attend ing Physic niesha: HAYLEE RUTHERFORD Orderi ng Physic niesha: HAYLEE RUTHERFORD Exam Date: 022 9:39 AM Exam Name: NM HEPATO BILIAR [...] of activi ty Page 1 of 2 [facility] Yen t Name: SHILOH MEADE Access ion #: [id number] Sex: F : 1999 8 Exam Date: 022 9:39 AM Exam Name: NM HEPATO BILIAR [...] 12:33 PM (CT) Page 2 of 2 [id number] [place] [facility] [address] [place], [address], 11/18/2022 00:32:53 Result Notes None recorded. Problems Name Problem SNOMED Code Status Onset Date Resolution Date Notes Provider Name and Address Organization Details Recorded Time Nausea 533185565 Active 2021 Not Available [employer] 3 00:30:02 Hyperlipidemi a 89777764 Active 2022 Maria Dockery APRN [address] [facility], [address], [address] , [employer] 4 14:42:33 Polycystic ovary syndrome 215194990 Active 2022 Maria Dockery APRN [address] [facility], [address], [address] , [employer] 4 14:42:37 Anti-nuclear factor detected 475555711 Active 2022 CHAPARRO Palacios [address] [facility], [place] [address], [place], [address] , [place] [facility] [employer] 3 20:53:14 Hemorrhoids 48007056 Active 2022 Maria Dockery APRN [address] [facility], [address], [address] , [place] [facility] [employer] [facility] 4 14:42:30 Gastroesophag eal reflux disease 337850563 Active 2023 Maria Dockery APRN [address] [facility], [address], [place], [address] , [place] [facility] 15:11:00 Problem Notes None recorded. Medical Equipment None Reported. [...] % 98 % 74 /min 97.6 [degF] 15911 g 116 mm[Hg] 78 mm[Hg] Not Available [facility] 3 00:29:38 Date Recorded Body height Body mass index (BMI) Body weight Body temperature Heart rate Oxygen saturation Oxygen saturation in Arterial blood by Pulse oximetry Systolic blood pressure Diastolic blood pressure Provider Name and Address Organization Details Last Updated DateTime 3 154.94 cm 29.9 kg/m2 59640.5 9 g 97.6 [degF] 98 /min 99 % 99 % 126 mm[Hg] 78 mm[Hg] Gabriella Ragland MA [facility] [employer] 3 14:50:49 Date Recorded Body mass index (BMI) Body height Oxygen saturation Oxygen saturation in Arterial blood by Pulse oximetry Heart rate Body temperature Body weight Systolic blood pressure Diastolic blood pressure Provider Name and Address Organization Details Last Updated DateTime 2 30.2 kg/m2 154.94 cm 98 % 98 % 108 /min 97.6 [degF] 47242.7 8 g 122 mm[Hg] 80 mm[Hg] Not Available [facility] 3 00:29:38 Date Recorded Body height Body mass index (BMI) Body weight Body temperature Heart rate Oxygen saturation Oxygen saturation in Arterial blood by Pulse oximetry Systolic blood pressure Diastolic blood pressure Provider Name and Address Organization Details Last Updated DateTime 4 154.94 cm 34 kg/m2 40357.6 3 g 97.5 [degF] 107 /min 97 % 97 % 104 mm[Hg] 66 mm[Hg] Nancy Meade MA [facility] [employer] 4 14:41:47 Date Recorded Body mass index (BMI) Body height Oxygen saturation Oxygen saturation in Arterial blood by Pulse oximetry Heart rate Body temperature Body weight Systolic blood pressure Diastolic blood pressure Provider Name and Address Organization Details Last Updated DateTime 2 29.1 kg/m2 154.94 cm 99 % 99 % 104 /min 97.6 [degF] 67776.2 2 g 114 mm[Hg] 72 mm[Hg] Not Available [facility] 00:29:38 Social History Question Answer Notes LastModified by Organizat ion Details LastModified Time Tobacco Smoking Status Never Smoker Not Available [facility] 11/18/2022 00:27:49 Do You Wear A Helmet When Biking? No Doesn't Bike MIGRATION.63613 [id number] Information not available 11/18/2022 What Is Your Level Of Caffeine Consumption? None MIGRATION.07824 60208 Information not available 11/18/2022 In The 14 Days Before Symptom Onset, Have You Had Close Contact With A Laboratory-confi rmed COVID-19 While That Case Was Ill? No MIGRATION.89655 82895 Information not available 11/18/2022 In The 14 Days Before Symptom Onset, Have You Had Close Contact With A Person Who Is Under Investigation For COVID-19 While That Person Was Ill? No MIGRATION.59973 94805 Information not available 11/18/2022 What Type Of Diet Are You Following? REGULAR MIGRATION.18356 63008 Information not available 11/18/2022 What Is The Highest Grade Or Level Of School You Have Completed Or The Highest Degree You Have Received? [id number] MIGRATION.94786 40505 Information not available 11/18/2022 Have There Been Any Changes To Your Family Or Social Situation? No MIGRATION.92003 23008 Information not available 11/18/2022 Are There Any Guns Present In Your Home? No MIGRATION.27297 33891 Information not available 11/18/2022 Do You Use Insect Repellent Routinely? No MIGRATION.22824 50866 Information not available 11/18/2022 Where Do You Live? [place]House MIGRATION.96035 86474 Information not available 11/18/2022 Are You Following A Low Salt Diet? Yes MIGRATION.38162 60731 Information not available 11/18/2022 What Was The Date Of Your Most Recent Tobacco Screening? 02/23/2024 Information not available 02/23/2024 How Many Children Do You Have? 1 Information not available 02/23/2024 Do You Have Any Pets? Yes Dog And Cat MIGRATION.78294 75275 Information not available 11/18/2022 What Is Your Relationship Status? Single MIGRATION.25230 40186 Information not available 11/18/2022 Do You Use Your Seat Belt Or Car Seat Routinely? Yes MIGRATION.07909 26547 Information not available 11/18/2022 Do You Have Smoke And Carbon Monoxide Detectors In Your Home? Yes MIGRATION.29833 52110 Information not available 11/18/2022 Are You Passively Exposed To Smoke? No MIGRATION.61425 46443 Information not available 11/18/2022 Are There Any Smokers In Your House? No MIGRATION.07115 25607 Information not available 11/18/2022 Do You Use Sunscreen Routinely? No MIGRATION.28542 75343 Information not available 11/18/2022 Has Tobacco Cessation Counseling Been Provided? No MIGRATION.64009 34707 Information not available 11/18/2022 Have You Recently Traveled Abroad? No MIGRATION.11999 19071 Information not available 11/18/2022 Do You Have Any Dietary Restrictions? Yes Has Pcos MIGRATION.50272 50823 Information not available 11/18/2022 Sex: Female Functional Status Question Answer Note LastModified by Organizat ion Details LastModified Time Do you use any illicit or recreational drugs? No MIGRATION.1002125 026 Information not available 11/18/2022 Do you or have you ever used any other forms of tobacco or nicotine? No MIGRATION.4701558 026 Information not available 11/18/2022 What is your level of alcohol consumption? None MIGRATION.6366079 026 Information not available 11/18/2022 Are you currently employed? Yes Information not available 02/23/2024 What is your occupation? [employer] Information not available 02/23/2024 What is your exercise level? None MIGRATION.7764316 026 Information not available 11/18/2022 Mental Status Question Answer Note LastModified by Organizat ion Details LastModified Time Do you feel stressed (tense, restless, nervous, or anxious, or unable to sleep at night)? 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 MIGRATION.[id number] 026 Information not available 11/18/2022 Family History Relationship Description Onset Age of this Age Resolved Age Notes LastModified by Organization Details LastModified Time Father Family history of malignant neoplasm of brain MIGRATION.[id number] Not available 11/18/2022 00:28:01 Medical History No [...] dose 1 completed Maria Dockery APRN [address], [address], [place], [address], [employer] [facility] [employer] 02/22/2024 14:42:46 COVID-19, mRNA, LNP-S, PF, 30 mcg/0.3 mL dose 1 completed Maria Dockery APRN [address], [address], [place], [address], [employer] [facility] [employer] 02/22/2024 14:42:46 Hib, unspecified formulation 1 completed Maria Dockery APRN [address], [address], [place], [address], [employer] [facility] [employer] [facility] 02/22/2024 14:42:46 Hib, unspecified formulation 1 completed Maria Dockery APRN [address], [address], [place], [address], [employer] [facility] [employer] [facility] 02/22/2024 14:42:46 Hib, unspecified formulation 2 completed Maria Dockery APRN [address], [address], [place], [address], [employer] [facility] [employer] 02/22/2024 14:42:46 Hib, unspecified formulation 1 completed Maria Dockery APRN [address], [address], [place], [address], [employer] [facility] [employer] [facility] 02/22/2024 14:42:46 HPV9 0 completed Maria Dockery, VENTILATION EQUIPMENT TENDER [address], [address], [place], [address], [facility] [employer] [facility] 02/22/2024 14:42:46 HPV9 0 completed Maria Dockery, VENTILATION EQUIPMENT TENDER [address], [address], [place], [address], [facility] 02/22/2024 14:42:46 HPV9 5 completed Maria Dockery, VENTILATION EQUIPMENT TENDER [address], [address], [place], [address], [facility] [employer] [facility] [employer] [facility] 02/22/2024 14:42:46 HPV9 6 completed Maria Dockery APRN [address], [address], [place], [address], [facility] [employer] [facility] [employer] [facility] 02/22/2024 14:42:46 HPV9 5 completed Maria Dockery APRN [address], [address], [place], [address], [facility] [employer] [facility] [employer] [facility] 02/22/2024 14:42:46 IPV 1 completed Maria Dockery APRN [address], [place], [address], [facility] [employer] [facility] 02/22/2024 14:42:46 IPV 1 completed Maria Dockery APRN [address], [address], [place], [address], [facility] [employer] [facility] 02/22/2024 14:42:46 IPV 6 completed Maria Dockery VENTILATION EQUIPMENT TENDER [address], [address], [place], [address], [facility] [employer] [facility] 02/22/2024 14:42:46 IPV 2 completed Maria Dockery APRN [address], [address], [place], [address], [facility] [employer] [facility] 02/22/2024 14:42:46 Influenza, live, trivalent, intranasal 2 completed Maria Dockery APRN [address], [address], [place], [address], [employer] [facility] 02/22/2024 14:42:46 MMR 2 completed Maria Dockery APRN [address], [place], [address], [employer] [facility] 02/22/2024 14:42:46 MMR 6 completed Maria Dockery APRN [address], [place], [address], [employer] [place] [facility] 02/22/2024 14:42:46 pneumococcal conjugate PCV 7 1 completed Maria Dockery APRN [address], [place], [address], [employer] [place] [facility] 02/22/2024 14:42:46 pneumococcal conjugate PCV 7 2 completed Maria Dockery APRN [address], [place], [address], [employer] [place] [facility] 02/22/2024 14:42:46 pneumococcal conjugate PCV 7 1 completed Maria Dockery APRN [address], [place], [address], [employer] [place] [employer] [facility] 02/22/2024 14:42:46 pneumococcal conjugate PCV [address], [place], [address], [employer] [facility] 02/22/2024 14:42:46 Tdap [address], [place], [address], [employer] [facility] 02/22/2024 14:42:46 Tdap [address], [place], [address], [employer] [facility] 02/22/2024 14:42:46 varicella 2 completed Maria Dockery APRN [address], [place], [address], [employer] [facility] 05/01/2024 13:51:11 varicella 8 completed Maria Dockery APRN [address], [place], [address], [employer] [facility] 02/22/2024 14:42:46 influenza, split (incl. purified surface antigen) 9 completed Maria Dockery APRN [address], [place], [address], [employer] [facility] 02/22/2024 14:42:46 Hep B, adolescent or pediatric 1 completed Maria Dockery APRN [address], [place], [address], [employer] [facility] 02/22/2024 14:42:46 Hep B, adolescent or pediatric 1 completed Maria Dockery APRN [address], [place], [address], [employer] [facility] 02/22/2024 14:42:46 Hep B, adolescent or pediatric 0 completed Maria Dockery APRN [address], [place], [address], [employer] [facility] 02/22/2024 14:42:46 Hep A, pediatric, unspecified formulation 4 completed Maria Dockery APRN [address], [place], [address], [employer] [facility] 02/22/2024 14:42:46 Hep A, pediatric, unspecified formulation 3 completed Maria Dockery APRN [address], [place], [address], [employer] [facility] 02/22/2024 14:42:46 meningococcal MCV4P 5 completed Maria Dockery APRN [address], [place], [address], [facility] [employer] [facility] [employer] [facility] 02/22/2024 14:42:46 DTaP 1 completed Maria Dockery APRN [address], [place], [address], [facility] [employer] [facility] 02/22/2024 14:42:46 DTaP 1 completed Maria Dockery APRN [address], [place], [address], [facility] [employer] [facility] [employer] [facility] 02/22/2024 14:42:46 DTaP 6 completed Maria Dockery APRN [address], [place], [address], [facility] [employer] [facility] [employer] [facility] 02/22/2024 14:42:46 DTaP 2 completed Maria Dockery APRN [address], [place], [address], [employer] [facility] [employer] [facility] 02/22/2024 14:42:46 DTaP 1 scott Dockery APRN [address], [place], [address], [employer] [facility] [employer] [facility] 02/22/2024 14:42:46 Influenza, split virus, quadrivalent, PF 3 scott Dockery APRN [address], [place], [address], [employer] [facility] [employer] [facility] 02/22/2024 14:42:46 IPV 1 scott Dockery APRN [address], [place], [address], [employer] [facility] [employer] [facility] 05/01/2024 13:51:11 pneumococcal conjugate PCV 7 1 scott Dockery APRN [address], [place], [address], [employer] [facility] [employer] [facility] 05/01/2024 13:51:11 Hib (HbOC) 1 completed Maria Dockery, VENTILATION EQUIPMENT TENDER [address], [place], [address], [facility] [employer] [facility] [employer] [facility] 05/01/2024 13:51:11 DTaP 1 completed Maria Dockery APRN [address], [place], [address], [facility] [employer] [facility] 05/01/2024 13:51:11 Past Encounters Encounter ID Performer Location Encounter Start Date Encounter Closed Date Diagnosis/Indication Diagnosis SNOMED-CT Code Diagnosis ICD10 Code Diagnosis Note [id number] Guillermo hernandez MD S_[facility] Internal Med [facility] [address] [place] [address] [address] [address] 11/06/2021 00:00:00 11/06/2021 13:59:58 [id number] Guillermo hernandez MD [facility] Internal Med [facility] [address] [place] [address] [address] [address] 12/04/2021 00:00:00 12/04/2021 13:52:17 [id number] Guillermo hernandez MD [facility] Internal Med [facility] [address] [place] [address] [address] [address] 12/29/2021 00:00:00 12/29/2021 16:19:39 [id number] CHAPARRO Palacios S_[facility] Internal Med [facility] [address] [place] [address] [address] [address] 04/02/2022 00:00:00 04/02/2022 13:16:25 [id number] Guillermo hernandez MD S_[facility] Internal Med [facility] [address] [place] [address] [address] [address] 12/28/2022 14:42:17 12/28/2022 15:10:48 Hyperlipidemia 84624459 E78.5 now off the simvastati n Polycystic ovary syndrome 979340320 E28.2 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 SCANNING TECH, on POPs Nausea 097259175 R11.0 s/p gallbladde r u/shas order for HIDA-she decided not to get this done as her nausea was improved Anti-nucle ar factor detected 361518689 R76.8 now follow [facility] get [facility] labs done from them- has orders Hemorrhoids 56352992 K64 .9 on anusollife style measures discussed- wet wipes with tolieting, avoid straining, push fluid and fiber in diet, avoid soap to rectal area, avoid shaving Adult heal th examination 917147080 Z00.01 Screening for disorder 249336735 Z13.9 check labs in about 2 months to recheck her A1c/check other screening labs Depression screening 171 669970 Z13.31 Body mass index 25-29 - overweight 448131014 Z68.29 encouraged her to be gentle with [...] recommend resistance training 2-3 times per week [id number] Guillermo hernandez MD S_[facility] Internal Med [facility] [address] [facility] [address] [place] [address] 02/23/2024 14:27:24 02/23/2024 15:23:17 Polycystic ovary syndrome 121412644 E28.2 Hyperlipidemia 54781231 E78.5 Gastroesop hageal reflux disease 630498975 K21.9 Screening for disorder 755158170 Z13.9 Health Concerns Section Related Observation LastModified by Organization Detai ls LastModified Time None Recorded Concern Status LastModified by Organization Details LastModified Time None Recorded Advance Directives Directive None Recorded Payers Encounter Date Sequence Insurance Name Policy Number Policy Hung Covered Member ID Hung Member ID Guarantor Name 12/28/2022 1 [facility] (MEDICAID HMO) [id number] Jenniffer Meade [id number] Jenniffer Meade 02/23/2024 1 [facility] (MEDICAID HMO) [id number] Jenniffer Meade [id number] Jenniffer Meade Notes Date Note Type Note [...] gestational diabetes during . She reports her scale model maker did check her A1c at her 6 [...] is due for her regular screening labs. CHAPARRO Palacios [address], [address], [place], [address], [employer] 12/28/2022 15:10:25 02/23/2024 text/html Jenniffer presents today to establish care. 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 Maria Dockery APRN [email or web address], [address], [place], [address], [employer] 02/23/2024 15:21:50 OBGyn Episode No OBEpisode recorded.
--- OUTSIDE RECORDS SUMMARY | 2025-02-13 16:35 | XMS_ITS | Referral Summary ---
Author Organization [facility] Address [facility] [place] [address] Care Team Providers Care Medical Device Name Role Phone Gabriella Beckham NP Primary Care Provider Jacinta Herron MD Unavailable [phone]- [phone] Encounters Date Type Department Care Team Description 01/31/2025 Results Follow-Up [facility] Medical [facility] Primary Care at [address] [id number] Gabriella Beckham NP Hepatitis C antibody Blood, Hemoglobin A1c, Thyroid Function [place], Additional followed-up results: 4 01/30/2025 1:20 PM CDT Lab [facility] Outpatient Lab - Outpatient Center at [place] [id number] Encounter for hepatitis C screening test for low risk patient; Screening for diabetes mellitus; Screening for thyroid disorder; Screening for hyperlipidemia; Moderate major depression (HCC); Polycystic ovary syndrome 01/30/2025 12:30 PM CDT Office Visit [facility] Primary Care at [address] [place] [phone] Gabriella Beckham NP Moderate major depression (HCC) (Primary Dx); Irritability; Polycystic ovary syndrome; Antinuclear antibody (KOTA) positive; Screening for hyperlipidemia; Screening for thyroid disorder; Screening for diabetes mellitus; Encounter for hepatitis C screening test for low risk patient from Last 3 Months Allergies No known active allergies Medications norethindrone (MICRONOR) 0.35 mg tabletIndications: Contraception Take 1 tablet (0.35 mg total) by mouth daily Active multivitamin tabletIndications: Vitamin Deficiency Prevention Take 1 tablet by mouth daily Active escitalopram (LEXAPRO) 5 mg tabletIndications: Moderate major depression (HCC) Take 1 tablet (5 mg total) by mouth daily 30 tablet 3 Active Active Problems Problem Noted Date Diagnosed Date Moderate major depression 01/30/2025 Assessment & Plan (01/30/2025 2:11 PM CDT): Ongoing, and affecting relationships currently. Reports a lot of irritability. We will trial Lexapro 5 mg daily. Irritability 01/30/2025 Assessment & Plan (01/30/2025 2:11 PM CDT): We will start Lexapro 5 mg daily. Educated that it may take 4-6 weeks to take full effect. Hemorrhoids 12/12/2022 Hyperlipidemia 12/12/2022 Antinuclear antibody (KOTA) positive 10/08/2022 Assessment & Plan (01/30/2025 2:11 PM CDT): This was found a few years ago, and she was seeing a specialist at [facility], but stopped seeing them due to her getting . She reports her symptoms and issues at that time have resolved. Gastroesophageal reflux disease 10/22/2020 Polycystic ovary syndrome 10/22/2020 Assessment & Plan (01/30/2025 2:10 PM CDT): Patient follows with Dr. Jacinta Herron, in [facility]. Was previously on metformin and spironolactone, but not anymore. She does take the mini pill control pill, and thinking about stopping to try to get . Resolved Problems Problem Noted Date Diagnosed Date Resolved Date Gestational diabetes mellitu s (GDM), antepartum 10/08/2022 01/30/2025 Immunizations Immunization Administration Dates Next Due DTaP 02/09/2006, 2,03/06/2001,01/03,2000,2000 HPV9 10/31/2019, 0,04/01/2016,05/29,03/24/2015 Hep A, Ped Unspecified 02/06/2004,08/08/2003 Hep B, Adolescent or Pediatric 06/06/2001,2000,2000 HiB 02/28/2002, 1,01/03/2001,11/02 Hib (HbOC) 03/06/2001,2000,2000 IPV 02/09/2006, 2,01/03/2001,12/24,2000 Influenza LAIV (Nasal) 07/27/2012 Influenza, Live, Trivalent, Intranasal 2 Influenza, Quadrivalent, Spl it, Preservative Free, Intramuscular 10/24/2022 Influenza, Split 07/01/2009 MMR 02/09/2006,11/30/2001 Meningococcal MCV4P (Menactra) 03/24/2015 Pneumococcal Conjugate 7-Valent 12/01/19 02,03/06/2001,01/03/2001,12/24,2000 Tdap 10/24/2022,07/27/2012 Varicella 08/27/2008,09/21/2001 Social History Tobacco Use Types Packs/Day Years Used Date Smoking Tobacco: Never Tobacco Cessation:Counseling Given: Not Answered PHQ-2 Answer Date Recorded PHQ-2 Total Score (If total score is 3 or more points, staff should administer the PHQ-9) 2 01/30/2025 PHQ-9 Answer Date Recorded PHQ-9 Total Score 11 01/30/2025 Comments Unknown Sex and Gender Information Value Date Recorded Sex Assigned at Not on file 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 Gender Identity Not on file Sexual Orientation Not on file Last Filed Vital Signs Vital Sign Reading Time Taken Comments Blood Pressure 110/76 01/30/2025 12:40 PM CDT Pulse 108 01/30/2025 12:40 PM CDT Temperature 36.7 C (98 F) 01/30/2025 12:40 PM CDT Respiratory Rate - - Oxygen Saturation 98% 01/30/2025 12:40 PM CDT Inhaled Oxygen Concentration - - Weight 59.4 kg (131 lb) 01/30/2025 12:40 PM CDT Height 157.5 cm (5' 2) 01/30/2025 12:40 PM CDT Body Mass Index 23.96 01/30/2025 12:40 PM CDT Plan of Treatment Not on file Procedures Procedure Name Priority Date/Time Associated Diagnosis Comments EGFR Routine 01/30/2025 1:16 PM CDT Moderate major depression (HCC) Polycystic ovary syndrome CBC WITHOUT DIFFERENTIAL Routine 01/30/2025 1:16 PM CDT Moderate major depression (HCC) Polycystic ovary syndrome COMPREHENSIVE METABOLIC PANEL Routine 01/30/2025 1:16 PM CDT Moderate major depression (HCC) Polycystic ovary syndrome LIPID PANEL Routine 01/30/2025 1:16 PM CDT Screening for hyperlipidemia THYROID FUNCTION CASCADE Routine 01/30/2025 1:16 PM CDT Screening for thyroid disorder HEMOGLOBIN A1C Routine 01/30/2025 1:16 PM CDT Screening for diabetes mellitus HEPATITIS C ANTIBODY Routine 01/30/2025 1:16 PM CDT Encounter for hepatitis C screening test for low risk patient from Last 3 Months Results * eGFR (01/30/2025 1:16 PM CDT) eGFR >90 >=60 mL/min/1. 73 m2 Comment: Interpretive Data Reference Interval Normal >/= 90 mL/min/1.73m2 Mildly decreased* 60 - 89 mL/min/1.73m2 Mildly to moderately decreased 45 - 59 mL/min/1.73m2 Moderately to severely decreased 30 - 44 mL/min/1.73m2 Severely decreased 15 - 29 mL/min/1.73m2 Kidney Failure < 15 mL/min/1.73m2 *Relative to young adult level Estimated glomerular filtration rate is determined by the 2020 CKD-EPI equation recommended by the National Kidney Foundation (A Unifying Approach to GFR Estimation: Recommendations of the NKF-ASK Task Force on Reassessing the Inclusion of Race in Diagnosing Kidney Disease, JASN 2020). The CKD-EPI equation should not be used for patients with unstable renal function and has not been validated in children and those over 70. Current interpretive data was last reviewed 2021. Testing performed by: [facility], [address] [place] [address]., [address] Blood 01/30/2025 1:16 PM CDT 01/30/2025 9:47 PM CDT Gabriella Beckahm HR PAYROLL COORDINATOR LAB BLOOD ORDERABLES Fi nal Result Performing Organization Address [facility] Co de Phone Number [place] [phone] [facility] [place] [place] [address] * Thyroid Function [place] (01/30/2025 1:16 PM CDT) TSH 0.66 0.30 - 4.20 mcIUnit/mL Comment:Testing performed by : [facility], [address] [place] [address]., [id number] Blood 01/30/2025 1:16 PM CDT 01/30/2025 9:40 PM CDT Gabriella Beckham HR PAYROLL COORDINATOR LAB BLOOD ORDERABLES Fi nal Result Performing Organization Address [facility] de Phone Number [place] [phone] [place] [address] * Hepatitis C antibody Blood (01/30/2025 1:16 PM CDT) Hep C Ab Nonreactive Nonreactive Comment: Interpretive Data Nonreactive: Antibodies to HCV not detected. Does NOT exclude the possibility of recent exposure to HCV. Equivocal: Equivocal for HCV antibodies. Supplemental molecular testing will be automatically performed to determine infection status in accordance with current CDC screening recommendations. Reactive: Positive for HCV antibodies. This may represent current or past HCV infection. Supplemental molecular testing will be automatically performed to determine current infection status in accordance with current CDC screening recommendations. Interpretive data was last revised on 2019. Testing performed by: [facility], [address] [place] [address]., [address] Blood 01/30/2025 1:16 PM CDT 01/30/2025 9:40 PM CDT Gabriella Beckham HR PAYROLL COORDINATOR LAB MICROBIOLOGY - GENE RAL ORDERABLES Final Result [address] Department [place] [address] * CBC without differential (01/30/2025 1:16 PM CDT) WBC 6.62 3.80 - 9.90 K/cumm Comment:Testing performed by : [address], [address] Hgb 13.7 11.9 - 15.5 g/dL CERNER CH Comment:Testing performed by : [address], [address] Hct 42.1 35.6 - 45.5 % [facility] CH Comment:Testing performed by : [address], [address] Plt 238 150 - 400 K/cumm [facility] CH Comment:Testing performed by : [address], [address] MPV 11.4 9.1 - 12.3 fL [facility] Comment:Testing performed by : [address], [address] RBC 4.49 3.90 - 5.20 M/cumm [facility] CH Comment:Testing performed by : [address], [address] MCV 93.8 81.3 - 96.4 fL [facility] CH Comment:Testing performed by : [address], [address] MCH 30.5 27.1 - 33.3 pg [facility] CH Comment:Testing performed by : [address], [address] MCHC 32.5 32.3 - 35.7 g/dL [facility] CH Comment:Testing performed by : [address], [address] RDW CV 12.7 11.1 - 14.9 % [facility] CH Comment:Testing performed by : [address] [place] [address] [address] RDW SD 43.7 35.7 - 48.1 fL TRICIA YAP Comment:Testing performed by : [address] [place] [address] [address] NRBC abs 0.00 0.00 - 0.01 K/cumm TR[facility]IA YAP Comment:Testing performed by : [address] [place] [address] [address] Blood 01/30/2025 1:16 PM CDT 01/30/2025 9:40 PM CDT Gabriella Beckham HR PAYROLL COORDINATOR LAB BLOOD ORDERABLES Fi nal Result Performing Organization Address [facility] Co de Phone Number [address] [place] [address] * Hemoglobin A1c (01/30/2025 1:16 PM CDT) Hgb A1C 4.9 4.0 - 5.6 % Comment:Testing performed by : [address] [place] [address] [address] Estimated Average Glucose 94 mg/dL TR[facility]IA YAP Comment: The ADA recommends reporting an estimated Average Glucose (eAG) with all Hemoglobin A1c results using the equation derived from a study of 507 normal and diabetic adults. Minority populations were underrepresented and children were not included. (Diabetes Care 31:6968-6018, 2008). The eAG is not equivalent to a fasting glucose. Testing performed by: [address] [place] [address] [address] Blood 01/30/2025 1:16 PM CDT 01/30/2025 9:40 PM CDT Gabriella Beckham HR PAYROLL COORDINATOR LAB BLOOD ORDERABLES Fi nal Result Performing Organization Address [facility] Co de Phone Number [facility] [address] [facility] [place] [employer] [place] [address] * Lipid panel (01/30/2025 1:16 PM CDT) Pathologist [facility] Cholesterol 108 30 - 199 mg/dL Comment: Interpretive Data Ages < or = 19 years Acceptable: <170 mg/dL Borderline high: 170-199 mg/dL High: >or= 200 mg/dL Ages > or = 20 years Desirable: <200 mg/dL Borderline high: 200-239 mg/dL High: >or= 240 mg/dL Literature References: 1. Expert Panel on Integrated Guidelines for Cardiovascular Health and Risk Reduction in Children and Adolescents. Pediatrics 2011;128:S213 2. NCEP Expert Panel. Circulation 2004;110:227 Current Interpretive Data was last revised on 2018. Testing performed by: [facility], [address] [place] [address]., [address] Triglycerides 62 <=149 mg/dL TRICIA Comment: Interpretive Data Ages < or = 9 years Acceptable: <75 mg/dL Borderline high: 75-99 mg/dL High: >or= 100 mg/dL Ages 10 to 20 years Acceptable: <90 mg/dL Borderline high: 90-129 mg/dL High: >or= 130 mg/dL Ages > or = 20 years Desirable: <150 mg/dL Borderline high: 150-199 mg/dL High: 200-499 mg/dL Very high: >or= 499 mg/dL Literature References: 1. Expert Panel on Integrated Guidelines for Cardiovascular Health and Risk Reduction in Children and Adolescents. Pediatrics 2011;128:S213 2. NCEP Expert Panel. Circulation 2004;110:227 Current Interpretive Data was last revised on 2018. Testing performed by: [facility], [address] [place] [address]., [address] HDL 48 >=40 mg/dL TRICIA Comment: Interpretive Data Ages < or = 19 years Acceptable: >45 mg/dL Borderline low: 40-45 mg/dL Low: <40 mg/dL Ages > or = 20 years Desirable: >or= 60 mg/dL Low: <40 mg/dL Literature References: 1. Expert Panel on Integrated Guidelines for Cardiovascular Health and Risk Reduction in Children and Adolescents. Pediatrics 2011;128:S213 2. NCEP Expert Panel. Circulation 2004;110:227 Current Interpretive Data was last revised on 2018. Testing performed by: [address] [place] [address] [address] LDL, calculated 46 <=129 mg/dL TRICIA Comment: Interpretive Data Ages < or = 19 years Acceptable: <110 mg/dL Borderline high: 110-129 mg/dL High: >or= 130 mg/dL Ages > or = 20 years Optimal: <100 mg/dL Near optimal: 100-129 mg/dL Borderline high: 130-159 mg/dL High: >160 mg/dL Calculated using the Junito LDL-C estimating equation. This equation was implemented on 2024. Prior to this date LDL-C was estimated using the Friedewald equation. Literature References: 1. Expert Panel on Integrated Guidelines for Cardiovascular Health and Risk Reduction in Children and Adolescents. Pediatrics 2011;128:S213 2. NCEP Expert Panel. Circulation 2004;110:227 3. Junito Castrejon et al. MARISA Cardiol. 2020 January 17;5(5):540-548. doi: 10.1001/jamacardio.2020.0013 Current Interpretive Data was last revised on 2024. Testing performed by: [address] [place] [address] [address] Non-HDL Cholesterol 60 mg/dL TRICIA Comment: Interpretive Data Ages < or = 19 years Acceptable: <120 mg/dL Borderline high: 120-144 mg/dL High: >145 mg/dL Ages > or = 20 years When triglycerides are >200 mg/dL, Non-HDL cholesterol is a secondary target of therapy with treatment goals that are 30 mg/dL greater than the LDL cholesterol target. Literature References: 1. Expert Panel on Integrated Guidelines for Cardiovascular Health and Risk Reduction in Children and Adolescents. Pediatrics 2011;128:S213 2. NCEP Expert Panel. Circulation 2004;110:227 Current Interpretive Data was last revised on 2018. Testing performed by: [address] [place] [address] [address] Chol/HDL ratio 2 TRICIA Comment:Testing performed by : [address] [place] [address] [address] Blood 01/30/2025 1:16 PM CDT 01/30/2025 9:40 PM CDT Gabriella Beckham HR PAYROLL COORDINATOR LAB BLOOD ORDERABLES Fi nal Result TRICIA [address] Department [place] [address] * (ABNORMAL) Comprehensive metabolic panel (01/30/2025 1:16 PM CDT) Sodium 141 135 - 145 mmol/L Comment:Testing performed by : [facility], [address] [place] [address]., [address] Potassium, pl 3.8 3.3 - 4.9 mmol/L [facility] Comment:Testing performed by : [facility], [address] [place] [address]., [address] Chloride 105 97 - 110 mmol/L [facility] Comment:Testing performed by : [address] [address] CO2 27 22 - 32 mmol/L [facility] Comment:Testing performed by : [address] [address] Anion gap 9 2 - 15 mmol/L [facility] Comment:Testing performed by : [address] [address] BUN 9 6 - 25 mg/dL [facility] Comment:Testing performed by : [address], [address] Creatinine 0.72 0.60 - 1.10 mg/dL [facility] Comment:Testing performed by : [address] [place] [address] [address] Glucose 81 70 - 199 mg/dL [facility] Comment: Interpretive Data Fasting glucose >/= 126 mg/dl is diagnostic for diabetes. Fasting is defined as no caloric intake for at least 8 hours. Fasting glucose between 100 mg/dl to 125 mg/dl is diagnostic of prediabetes. In a patient with classic symptoms of hyperglycemia or hyperglycemic crisis, a random glucose >/= 200 mg/dl is diagnostic for diabetes. In the absence of unequivocal hyperglycemia, results should be confirmed by repeat testing. The classification and Diagnosis of Diabetes Diabetes Care 202; 46: S19-S40. Current interpretive data was last revised 2022. Testing performed by: [facility], [address] [place] [address]., [address] Calcium 9.4 8.5 - 10.3 mg/dL [facility] Comment:Testing performed by : [address], [place]., [address] Bilirubin, total 0.5 0.1 - 1.2 mg/dL [facility] Comment:Testing performed by : [address], [address] Protein, pl 7.7 6.5 - 8.5 g/dL [facility] Comment:Testing performed by : [facility], [address] [place] [address], [address] Albumin 4.6 3.5 - 5.0 g/dL [facility] Comment:Testing performed by : [facility], [address] [place] [address], [address] Alk phos 59 40 - 130 Units/L [facility] Comment:Testing performed by : [address], [address] ALT 5(L) 7 - 45 Units/L [facility] Comment:Testing performed by : [address], [address] AST 24 10 - 45 Units/L [facility] Comment:Testing performed by : [address], [address] Blood 01/30/2025 1:16 PM CDT 01/30/2025 9:40 PM CDT Gabriella Beckham HR PAYROLL COORDINATOR LAB BLOOD ORDERABLES Fi nal Result Performing Organization Address City/State/[facility] de Phone Number [address] [place] [address] from Last 3 Months Insurance [facility] Care Teams Medical Device Relationship Specialty Start Date End Date Gabriella Beckham NP [address] [facility] [address] [place] [address] PCP - General Nurse Practitioner 01/30/25 Jacinta Herron MD [address] [place] [address] Consulting Physician Obstetrics and Gynecology 01/30/25
--- OUTSIDE RECORDS SUMMARY | 2025-02-13 16:35 | XMS_ITS | Encounter Summary ---
Author Organization [facility] Healthcare Address [address] [place] [address] Care Team Providers Care Product Advisor Name Role Phone Gabriella Beckham NP Primary Care Provider Jacinta Herron MD Unavailable [phone]- [phone] Encounter Details Date Type Department Care Team (Late st Contact Info) Description 01/31/2025 Results Follow-Up [facility] Medical Group Primary Care at [place] [address] [place] [address] [address] [place] [id number] Gabriella Beckham NP [address] [place] [address] Hepatitis C antibody Blood, Hemoglobin A1c, Thyroid Function [place], Additional followed-up results: 4 Social History Tobacco Use Types Packs/Day Years Used Date Smoking Tobacco: Never PHQ-2 Answer Date Recorded PHQ-2 Total Score (If total score is 3 or more points, staff should administer the PHQ-9) 2 01/30/2025 PHQ-9 Answer Date Recorded PHQ-9 Total Score 11 01/30/2025 Comments Unknown Sex and Gender Information Value Date Recorded Sex Assigned at Not on file 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 Gender Identity Not on file Sexual Orientation Not on file documented as of this encounter Plan of Treatment Not on file documented as of this encounter Visit Diagnoses Not on filedocumented in this encounter Care Teams Product Advisor Relationship Specialty Start Date End Date Gabriella Beckham NP [address] [place] [address] PCP - General Nurse Practitioner 01/30/25 Jacinta Herron MD [address] 234 BEDS AT [facility] [address] [place] [address] Consulting Physician Obstetrics and Gynecology 01/30/25 documented as of this encounter
--- OUTSIDE RECORDS SUMMARY | 2025-02-13 16:35 | XMS_ITS | Data Portability ---
Author Organization [employer] , [facility] Address [address] [place] [address] Assessment No assessment recorded. Plan of Treatment Reminders Order Date Submit Date Provider Last Modified By Organization Details Last Modified Time Details Appointments None recorde d. Lab hemoglo bin A1c, QN, blood [address] [facility], [address] [place] [address], [address], 3 12:14:09 strepto coccus group B, culture , unspeci fied specime n 2022 023 [facility], [address] [facility], [place], [address], 3 11:46:54 Referral None recorde d. Procedures None recorde d. Surgeries None recorde d. Imaging non-str ess test 2022 023 [facility], [address] [place] [address], [phone], 3 14:19:20 non-str ess test 2022 023 [facility], [address] [place] [address], [phone], 3 14:19:20 Medication Orders cephale daren 500 mg tablet 2022 023 [place] [address] [employer] [facility] [facility][id number] [place], [place], [id number], 3 00:55:07 Slynd 4 mg (28) tablet 2022 023 [email or web address] [facility] #53875, [address] [place], [place], [id number], 16:52:10 Ortho Microno r 0.35 mg tablet 2022 023 [email or web address] [facility] #50369, [address] [place], [place], [id number], 15:52:36 Patient TargetsNo targets recorded. Patient Instructions Encounter Date Encounter Id Patient Instructions Last Modified By Organization Details Last Modified Time 11/11/2022 [id number] Care at Home With Your Baby: Care Instructions Not available 11/11/2022 16:28:32 edinburgh depression scale* [email or web address] Not available 11/14/2022 18:22:28 control after counseling Not available 11/11/2022 16:28:32 12/08/2022 [id number] Care at Home With Your Baby: Care Instructions [email or web address] Not available 12/08/2022 15:52:52 control after counseling [email or web address] Not available 12/08/2022 15:52:52 Reason for Referral None Reported. Results Created Date Observation Date Name Description Value Unit Range Abnormal Flag Note LastModifiedBy Organization Detail LastModifiedTime 09/15/20 22 09/16/2022 COMPR EHENS HUGO METAB OLIC PANEL sodium 141 mmol/ L 136 - 145 normal Not Available [facility] [address] [place], [address], 09/16/2022 12:28:22 09/15/20 22 09/16/2022 COMPR EHENS HUGO METAB OLIC PANEL potassium 3.7 mmol/ L 3.5 - 5.1 normal Not Available [facility] [address] [place], [address], 09/16/2022 12:28:22 09/15/20 22 09/16/2022 COMPR EHENS HUGO METAB OLIC PANEL chloride 104 mmol/ L 98 - 107 normal Not Available [address], [address], 09/16/2022 12:28:22 09/15/20 22 09/16/2022 COMPR EHENS HUGO METAB OLIC PANEL glucose 81 mg/dL 74 - 106 normal Not Available [address], [address], 09/16/2022 12:28:22 09/15/20 22 09/16/2022 COMPR EHENS HUGO METAB OLIC PANEL carbon dioxide 23 mmol/ L 20 - 32 normal Not Available [address], [address], 09/16/2022 12:28:22 09/15/20 22 09/16/2022 COMPR EHENS HUGO METAB OLIC PANEL calcium 9.5 mg/dL 8.5 - 10.1 normal Not Available [address], [address], 09/16/2022 12:28:22 09/15/20 22 09/16/2022 COMPR EHENS HUGO METAB OLIC PANEL creatinine 0.62 mg/dL 0.60 - 1.00 normal Not Available [address], [address], 09/16/2022 12:28:22 09/15/20 22 09/16/2022 COMPR EHENS HUGO METAB OLIC PANEL eGFR 129 mL/mi n/1.7 3m2 >60 normal The eGFR is based on the CKD-E PI 2020 annitaat jumana. To calcu late the new eGFR from a previ ous Creat inine or Cysta linden C resul t, go to https ://jaylan bautista.christopher yoo/pr ofess ional s/kdo qi/gf r_cal culat or Not Available [address], [address], 09/16/2022 12:28:22 09/15/20 22 09/16/2022 COMPR EHENS HUGO METAB OLIC PANEL AST 27 U/L 32 - 40 low Not Available [address], [address], 09/16/2022 12:28:22 09/15/20 22 09/16/2022 COMPR EHENS UHGO METAB OLIC PANEL ALT 31 U/L 14 - 59 normal Not Available [address], [address], 09/16/2022 12:28:22 09/15/20 22 09/16/2022 COMPR EHENS HUGO METAB OLIC PANEL alk phos 137 U/L 46 - 116 high Not Available [address], [address], 09/16/2022 12:28:22 09/15/20 22 09/16/2022 COMPR EHENS HUGO METAB OLIC PANEL albumin 2.8 g/dL 3.4 - 5.0 low Not Available [address], [address], 09/16/2022 12:28:22 09/15/20 22 09/16/2022 COMPR EHENS HUGO METAB OLIC PANEL protein, total 6.9 g/dL 6.4 - 8.2 normal Not Available [address], [address], 09/16/2022 12:28:22 09/15/20 22 09/16/2022 COMPR EHENS HUGO METAB OLIC PANEL bilirubin, total 0.7 mg/dL 0.2 - 1.0 normal Not Available [address], [address], 09/16/2022 12:28:22 09/15/20 22 09/16/2022 COMPR EHENS HUGO METAB OLIC PANEL urea nitrogen (BUN) 7 mg/dL 6 - 31 normal Not Available [address] [place], [address], 09/16/2022 12:28:22 09/15/20 22 09/16/2022 VAGIN ITIS PANEL bacterial vaginosis BV neg negati ve normal Not Available [address], [address], 09/17/2022 09:48:13 09/15/20 22 09/16/2022 VAGIN ITIS PANEL nathalie species C. spp neg negati ve normal Not Available [address], [address], 09/17/2022 09:48:13 09/15/20 22 09/16/2022 VAGIN ITIS PANEL nathalie glabrata C. gla neg negati ve normal Not Available [address], [address], 09/17/2022 09:48:13 09/15/20 22 09/16/2022 VAGIN ITIS PANEL trichomonas vaginalis CV/TV TRICH neg negati ve normal Not Available [address], [address], 09/17/2022 09:48:13 09/15/20 22 09/20/2022 BILE ACIDS , TOTAL bile acids, total 19 umol/ L 0-19 Not Available [facility] [address] [place], [address], 09/20/2022 04:01:28 09/15/20 22 09/20/2022 CULTU RE, URINE , ROUTI NE culture, urine, routine SEE NOTE CULTU RE, URINE , ROUTI NE Micro Numbe r: [id number] Test Statu s: Final Speci men Sourc e: Urine Speci men Quali ty: Adequ ate Resul t: No Growt h Not Available [employer] [facility] [address] [place], [address], 09/20/2022 04:01:30 09/16/20 22 09/17/2022 (100G ) 3HR - GLUCO SE MAK ANCE TEST, GESTA ELVIS L SCREE N glucose (100g) fasting 89 mg/dL 74 - 106 normal Not Available [facility] [address] [place] [address], [address], 09/17/2022 14:50:11 09/16/20 22 09/17/2022 (100G ) 3HR - GLUCO SE MAK ANCE TEST, GESTA ELVIS L SCREE N glucose (100g) 1 hour 208 mg/dL <180 high Not Available [facility] [address] [place] [address], [address], 09/17/2022 14:50:11 09/16/20 22 09/17/2022 (100G ) 3HR - GLUCO SE MAK ANCE TEST, GESTA ELVIS L SCREE N glucose (100g) 2 hour 171 mg/dL <155 high Not Available [facility] [address] [place] [address], [address], 09/17/2022 14:50:11 09/16/20 22 09/17/2022 (100G ) 3HR - GLUCO SE MAK ANCE TEST, GESTA ELVIS L SCREE N glucose (100g) 3 hour 124 mg/dL <140 normal Not Available [facility] [address] [place] [address], [address], 09/17/2022 14:50:11 09/24/19 23 10/25/2022 BILE ACIDS , TOTAL bile acids, total TNP TEST NOT PERFO RMED Test cance lled for reord sameer silvero ses. Not Available [facility] [address] [place], [address], 10/25/2022 21:02:43 09/24/19 23 10/25/2022 BILE ACIDS , FRACT IONAT ED AND TOTAL cholic acid <0.5 umol/ L < or = 1.8 Not Available [employer] [facility] [address] [place], [address], 10/25/2022 21:02:43 09/24/19 23 10/25/2022 BILE ACIDS , FRACT IONAT ED AND TOTAL deoxycholic acid <0.5 umol/ L < or = 2.4 Not Available [facility] [place] [address] [place], [address], 10/25/2022 21:02:43 09/24/19 23 10/25/2022 BILE ACIDS , FRACT IONAT ED AND TOTAL chenodeoxych olic acid <0.5 umol/ L < or = 3.1 Not Available [facility] [place] [address] [place], [address], 10/25/2022 21:02:43 09/24/19 23 10/25/2022 BILE ACIDS , FRACT IONAT ED AND TOTAL total bile acids <1.5 umol/ L < or = 6.8 This test was devel krishan and its deja tical perfo rmanc e toby cteri stics have been deter mined by [facility] mckenzie Quintanillai татьяна Amitenathanael boles . It has not been clear ed or appro larisa by FDA. This assay has been valid ated pursu ant to the CLIA regul ation s and is used for clini keily purpo ses. Not Available [facility] [place] [address] [place], [address], 10/25/2022 21:02:43 10/13/19 23 10/16/2022 STREP TOCOC CUS, GROUP B CULTU RE streptococcu s, group B culture SEE NOTE STREP TOCOC CUS, GROUP B CULTU RE Micro Numbe r: [id number] Test Statu s: Final Speci men Sourc e: Vagin al anore ctal Speci men Quali ty: Adequ ate Resul t: No group B Strep tococ cus isola cami Note per CDC guide lines optim al recov mario is achie larisa by swabb ing both the lower vagin a and rectu m (thro ugh the anal sphin cter) . Not Available [facility] [place] [address] [place], [address], 10/16/2022 12:18:31 10/21/19 23 10/21/2022 UA REFLE X TO MICRO specimen type URINE CLEAN CATCH Not Available [facility] (Lab) [address] [place], [address], 10/21/2022 10:46:40 10/21/19 23 10/21/2022 UA REFLE X TO MICRO color YELLOW Not Available [facility] (Lab) [place], [address], 10/21/2022 10:46:40 10/21/19 23 10/21/2022 UA REFLE X TO MICRO clarity CLEAR Not Available [facility] (Lab) [place], [address], 10/21/2022 10:46:40 10/21/19 23 10/21/2022 UA REFLE X TO MICRO specific gravity 1.022 1.001- 1.030 Not Available [facility] (Lab) [place], [address], 10/21/2022 10:46:40 10/21/19 23 10/21/2022 UA REFLE X TO MICRO pH, urine 6.5 5.0-9. 0 Not Available [facility] (Lab) [place], [address], 10/21/2022 10:46:40 10/21/19 23 10/21/2022 UA REFLE X TO MICRO leukocytes NEGATI VE neg Not Available [facility] (Lab) [place], [address], 10/21/2022 10:46:40 10/21/19 23 10/21/2022 UA REFLE X TO MICRO nitrite NEGATI VE neg Not Available [facility] (Lab) [address] [place], [address], 10/21/2022 10:46:40 10/21/19 23 10/21/2022 UA REFLE X TO MICRO protein 10 mg/dL <30 Not Available [facility] (Lab) [place], [address], 10/21/2022 10:46:40 10/21/19 23 10/21/2022 UA REFLE X TO MICRO glucose NORMAL mg/dL norm Not Available [facility] (Lab) [place], [address], 10/21/2022 10:46:40 10/21/19 23 10/21/2022 UA REFLE X TO MICRO ketone NEGATI VE mg/dL neg Not Available [facility] (Lab) [place], [address], 10/21/2022 10:46:40 10/21/19 23 10/21/2022 UA REFLE X TO MICRO urobilinogen NORMAL mg/dL norm Not Available [facility] (Lab) [place], [address], 10/21/2022 10:46:40 10/21/19 23 10/21/2022 UA REFLE X TO MICRO bilirubin NEGATI VE mg/dL neg Not Available [facility] (Lab) [place], [address], 10/21/2022 10:46:40 10/21/19 23 10/21/2022 UA REFLE X TO MICRO blood NEGATI VE neg Not Available [facility] (Lab) [place], [address], 10/21/2022 10:46:40 10/21/19 23 10/21/2022 CBC WITH DIFF WBC 8.0 x10'3 /uL 4.5-11 .0 Not Available [facility] (Lab) [address], [place], [address], 10/21/2022 10:47:40 10/21/19 23 10/21/2022 CBC WITH DIFF RBC 4.10 x10'6 /uL 4.20-5 .40 low Not Available [facility] (Lab) [address] [facility], [place], [address], 10/21/2022 10:47:40 10/21/19 23 10/21/2022 CBC WITH DIFF hemoglobin 13.2 g/dL 12.0-1 6.0 Not Available [facility] (Lab) [address], [place], [address], 10/21/2022 10:47:40 10/21/19 23 10/21/2022 CBC WITH DIFF hematocrit 37.7 % 38.0-4 8.0 low Not Available [facility] (Lab) [address], [place], [address], 10/21/2022 10:47:40 10/21/19 23 10/21/2022 CBC WITH DIFF MCV 92.0 fL 81.0-9 9.0 Not Available [facility] (Lab) [address], [place], [address], 10/21/2022 10:47:40 10/21/19 23 10/21/2022 CBC WITH DIFF MCH 32.2 pg 27.0-3 1.0 high Not Available [facility] (Lab) [address], [place], [address], 10/21/2022 10:47:40 10/21/19 23 10/21/2022 CBC WITH DIFF MCHC 35.0 g/dL 32.0-3 6.0 Not Available [facility] (Lab) [address] [facility], [place], [address], 10/21/2022 10:47:40 10/21/1910/21/2022 CBC WITH DIFF RDW 13.4 % 11.5-1 4.5 Not Available [facility] (Lab) [address] [facility], [place], [address], 10/21/2022 10:47:40 10/21/19 23 10/21/2022 CBC WITH DIFF platelet count 218 x10'3 /uL 130-40 0 Not Available [facility] (Lab) [address], [place], [address], 10/21/2022 10:47:40 10/21/19 23 10/21/2022 CBC WITH DIFF MPV 10.8 fL 9.3-12 .2 Not Available [facility] (Lab) [address] [facility], [place], [address], 10/21/2022 10:47:40 10/21/1910/21/2022 CBC WITH DIFF diff type AUTOMA CAMI DIFFER ENTIAL Not Available [facility] (Lab) [address], [place], [address], 10/21/2022 10:47:40 10/21/19 23 10/21/2022 CBC WITH DIFF neutrophils 70.9 % Not Available [facility] (Lab) [address] [facility], [place], [address], 10/21/2022 10:47:40 10/21/19 23 10/21/2022 CBC WITH DIFF lymphocytes 22.4 % Not Available [facility] (Lab) [address], [place], [address], 10/21/2022 10:47:40 10/21/19 23 10/21/2022 CBC WITH DIFF monocytes 5.4 % Not Available [facility] (Lab) [address], [place], [address], 10/21/2022 10:47:40 10/21/19 23 10/21/2022 CBC WITH DIFF eosinophils 0.6 % Not Available [facility] (Lab) [address], [place], [address], 10/21/2022 10:47:40 10/21/19 23 10/21/2022 CBC WITH DIFF basophils 0.3 % Not Available [facility] (Lab) [address], [place], [address], 10/21/2022 10:47:40 10/21/19 23 10/21/2022 CBC WITH DIFF immature granulocytes 0.4 % Not Available [facility] (Lab) [address], [place], [address], 10/21/2022 10:47:40 10/21/19 23 10/21/2022 CBC WITH DIFF abs. neutrophils 5.65 x10'3 /uL 1.80-7 .70 Not Available [facility] (Lab) [address], [place], [address], 10/21/2022 10:47:40 10/21/19 23 10/21/2022 CBC WITH DIFF abs. lymphocytes 1.78 x10'3 /uL 1.00-4 .80 Not Available [facility] (Lab) [address], [place], [address], 10/21/2022 10:47:40 10/21/19 23 10/21/2022 CBC WITH DIFF abs. monocytes 0.43 x10'3 /uL 0.24-0 .86 Not Available [facility] (Lab) [place], [address], 10/21/2022 10:47:40 10/21/19 23 10/21/2022 CBC WITH DIFF abs. eosinophils 0.05 x10'3 /uL 0.04-0 .36 Not Available [facility] (Lab) [place], [address], 10/21/2022 10:47:40 10/21/19 23 10/21/2022 CBC WITH DIFF abs. basophils 0.02 x10'3 /uL 0.01-0 .08 Not Available [facility] (Lab) [address], [place], [address], 10/21/2022 10:47:40 10/21/19 23 10/21/2022 CBC WITH DIFF abs. immature grans 0.03 x10'3 /uL 0.00-0 .49 Not Available [facility] (Lab) [place], [address], 10/21/2022 10:47:40 10/21/19 23 10/21/2022 TYPE AND SCREE N ABO/Rh(D) O POSITI VE Not Available [facility] (Lab) [place], [address], 10/21/2022 11:24:23 10/21/19 23 10/21/2022 TYPE AND SCREE N antibody screen NEGATI VE Not Available [facility] (Lab) [place], [address], 10/21/2022 11:24:23 10/21/19 23 10/21/2022 TYPE AND SCREE N xm expiration 2022,2 359 Not Available [facility] (Lab) [address] [facility], [place], [address], 10/21/2022 11:24:23 10/21/19 23 10/21/2022 DRUGS OF ABUSE PANEL , URINE amphetamines , urine NEGATI VE neg Not Available [facility] (Lab) [address] [facility], [place], [address], 10/21/2022 11:41:20 10/21/19 23 10/21/2022 DRUGS OF ABUSE PANEL , URINE barbituates, urine NEGATI VE neg Not Available [facility] (Lab) [address], [place], [address], 10/21/2022 11:41:20 10/21/19 23 10/21/2022 DRUGS OF ABUSE PANEL , URINE benzodiazapi bradly, urine NEGATI VE neg Not Available [facility] (Lab) [address] [facility], [place], [address], 10/21/2022 11:41:20 10/21/19 23 10/21/2022 DRUGS OF ABUSE PANEL , URINE cannabinoids /THC, urine NEGATI VE neg Not Available [facility] (Lab) [address] [facility], [place], [address], 10/21/2022 11:41:20 10/21/19 23 10/21/2022 DRUGS OF ABUSE PANEL , URINE cocaine, urine NEGATI VE neg Not Available [facility] (Lab) [place], [address], 10/21/2022 11:41:20 10/21/19 23 10/21/2022 DRUGS OF ABUSE PANEL , URINE methadone, urine NEGATI VE neg Not Available [facility] (Lab) [place], [address], 10/21/2022 11:41:20 10/21/19 23 10/21/2022 DRUGS OF ABUSE PANEL , URINE opiates, urine NEGATI VE neg Not Available [facility] (Lab) [address], [place], [address], 10/21/2022 11:41:20 10/21/19 23 10/21/2022 DRUGS OF [...] 300 MG/ML PCP- 25 NG/ML Not Available [facility] (Lab) [place], [address], 10/21/2022 11:41:20 10/21/19 23 10/21/2022 DRUGS OF ABUSE PANEL , URINE creatinine, urine 185.0 mg/dL 28-217 Not Available [facility] (Lab) [place], [address], 10/21/2022 11:41:20 10/22/19 23 10/26/2022 TYRON SURGI KEILY PATHO LOGY path report [facility] [address] [facility] [address] [place] [address] Phone : [phone] Fax: Depar tment of Patho logy Patho logy Repor t SURGI KEILY FINAL REPOR T Celia nt Name: JEANA NORIEGA Accaleshia amado# : [id number] : [birth year] (Age: 22) Locat ion: [facility] IF Gende r: F Colle cted Date: 023 Med Rec #: [id number] Date Recei larisa: 023 Date Repor [...] disc :pb Ld ng Fee Code( s): 12585 Not Available [facility] (Lab) [facility], [place], [address], 10/26/2022 16:23:58 12/09/19 23 12/09/2022 HEMOG LOBIN [...] absen ce of diabe amanda Not Available [facility] [address] [facility], [place], [address], 12/09/2022 12:14:09 09/22/19 US, obste tric, bioph ysica l profi le No observ ation record ed. [facility] [address] [place], [address], 09/24/2022 09:48:14 09/27/19 23 09/24/2022 US, obste tric, bioph ysica l profi le No observ ation record ed. joycelyn Becke [address], [place], [address], 09/27/2022 21:44:45 09/27/19 23 09/27/2022 US, obste tric, bioph ysica l profi le No observ ation record ed. [facility] [address], [address], 09/28/2022 10:21:20 09/27/19 23 09/27/2022 US, obste tric No observ ation record ed. [facility] [address], [address], 09/28/2022 10:21:48 10/04/19 23 10/04/2022 US, obste tric No observ ation record ed. [facility] [address], [address], 10/05/2022 15:30:12 10/04/19 23 10/04/2022 US, obste tric, limit ed No observ ation record ed. janen Sharlene [address], [place], [address], 10/06/2022 08:07:18 10/08/19 23 10/08/2022 US, obste tric No observ ation record ed. [facility] [place] [address] [place] [address], [address], 10/11/2022 08:54:51 10/14/19 23 10/14/2022 US, obste tric No observ ation record ed. [facility] [address] [place] [address], [address], 10/15/2022 11:03:01 Result Notes None recorded. Problems Name Problem SNOMED Code Status Onset Date Resolution Date Notes Provider Name and Address Organization Details Recorded Time Pregnanc y 34687963 Completed 202112/08/2022 Crystal lee, CIBDO IV 3 15:35:31 Cystic fibrosis screenin g Completed +CF screenin g. FOB negative Crystal lee, CIBDO IV 3 15:35:27 High risk pregnanc y 27750939 Completed O+/RI/NR x4. Last Pap: No pap on file; plan post collecti on. GTT: Failed; see below POC. GBS: Aneuploi dy screenin g: QNatal WNL. Anatomy Scan: Complete as of 07/02/22 . Crystal lee, CIBDO IV 3 15:35:27 Gestatio nal diabetes mellitus 19362013 Completed H/O PCOS. Early screenin g recommen [...] Serial growth U/S needed. LD A[facility]. Crystal lee, CIBDO IV 3 15:35:27 Cholesta sis of pregnanc y 744001907 Completed Bile acids 19 on 09/15/22 ; [...] and discuss delivery POC. Crystal Maciel rosa, CIBDO 3 15:35:27 Cervical incompet ence [id number] Completed C.L. 1.6 cm with rebekah roman on anatomy. Prometri um Rx'd. S/P MFM Referral . 07/13/22 C.L. 2.3 cm. Recommen dation for vag progeste susanna through 36 wks. Crystal Maciel rosa, CIBDO IV 3 15:35:27 Anti-nuc lear factor detected [id number] Completed Saw Rheumato logist in 03/2022. Labs all WNL except for elevated CRP. --> Update 09/24/22: Pt states no official autoimmu ne diagnosi s. Pt [facility] ed F/U with provider after pregnanc y has ended. Crystal Raheem rosa, CIBDO IV 3 15:35:27 COVID-19 [id number] Completed Dx in 01/2022. 03/31/22: Pt [facility] ed to take LD ASA daily in 2nd trimeste r and to consider booster MAIKOL. --> Update 09/24/22: Boosters recommen ded, LD ASA daily [facility]. Crystal lee, CIBDO IV 3 15:35:27 Influenz a [id number] Completed Dx 09/07/22 . Discusse d Influenz a vaccine. --> Update 09/24/22: Influenz a vaccine [facility]. Crystal lee, [facility] IV 3 15:35:27 Varicell a non-immu ne [id number] Completed plan for Varicell a vaccine post . notified 05/03/22. Crystal lee, [facility] [employer] IV 3 15:35:27 Carrier of cystic fibrosis gene mutation [id number] Completed Fam Hx of CF. Pt is a carrier. FOB is not a carrier; his serum testing reviewed and discusse d at 05/17/22 OBV. Crystal Maciel rosa, [facility] IV 3 15:35:27 Family history of trisomy 18 [id number] 108 Completed QNatal WNL. Crystal lee, [employer] [employer] IV 3 15:35:27 Family history of Spina bifida [id number] Completed Fam H/O Spina Bifida - X 2 on FOB side. Crystalkaila Maciel rosa, [facility] IV 3 15:35:27 Problem Notes None recorded. Procedures Surgical History Date Name Laterality Status Provider Name and Address Organization Details Recorded Time 3 NST completed ISAC TALAMANTES MD [address] [place] [address], [phone], [email or web address] [facility] IV 10/13/2022 16:33:43 3 NST completed ISAC TALAMANTES MD [address] [place] [address], [phone], CIBDO IV 10/13/2022 16:28:41 2 Date of Last Pap Smear completed Chelsea Cornell CIBDO IV 03/31/2022 14:06:05 extraction of wisdom tooth completed Crystal Maciel CIBDO IV 03/15/2022 15:21:10 Imaging Results None recorded. Procedure Notes None recorded. Medical Equipment None [...] Available Not Available Vitals Date Recorded Body weight Provider Name an d Address Organization Details Last Updated DateTime 10/07/2022 96592.7029 g ISAC TALAMANTES MD [address] [facility], [place], [address], [facility] [employer] IV 10/07/2022 18:18:35 Date Recorded Body height Provider Name an d Address Organization Details Last Updated DateTime 10/07/2022 154.94 cm Dariela Villaseñor [facility] [employer] [facility] 10/07/2022 17:17:39 Date Recorded Body mass index (BMI) Body temperature Systolic blood pressure Diastolic blood pressure Provider Name and Address Organization Details Last Updated DateTime 10/07/2022 32.1 kg/m2 96.8 [degF] 110 mm[Hg] 72 mm[Hg] Marlin Pearson [facility] 10/07/2022 17:31:35 Date Recorded Body weight Provider Name an d Address Organization Details Last Updated DateTime 10/12/2022 78788.360470 g ISAC TALAMANTES MD [address] [place], [address], [place] - [facility] 10/12/2022 17:53:01 Date Recorded Body height Body mass index (BMI) Body temperature Systolic blood pressure Diastolic blood pressure Provider Name and Address Organization Details Last Updated DateTime 10/12/2022 154.94 cm 32.1 kg/m2 97.6 [degF] 102 mm[Hg] 86 mm[Hg] Pamela Eppst [facility] 17:15:08 Date Recorded Body height Body mass index (BMI) Body weight Body temperature Systolic blood pressure Diastolic blood pressure Provider Name and Address Organization Details Last Updated DateTime 154.94 cm 28.5 kg/m2 73796.4 4787 g 98.7 [degF] 110 mm[Hg] 72 mm[Hg] Darieladavid Villaseñor [place] [facility] 16:11:16 Date Recorded Body height Body mass index (BMI) Body weight Systolic blood pressure Diastolic blood pressure Provider Name and Address Organization Details Last Updated DateTime 12/08/2022 154.94 cm 28.7 kg/m2 70992.04 024 g 122 mm[Hg] 80 mm[Hg] Crystal Raheem [facility] 15:34:49 Date Recorded Body height Body mass index (BMI) Body weight Provider Name and Address Organization Details Last Updated DateTime 12/13/2022 154.94 cm 29.1 kg/m2 [address]5924.[address] [facility] 12/13/2022 13:21:32 Social History Question Answer Notes LastModified by Organizat ion Details LastModified Time Tobacco Smoking Status Never Smoker Chelsea lee, [place] [facility] 03/31/2022 14:06:06 Are You Blind Or Do You Have Difficulty Seeing? No Information not available 05/17/2022 Are You Deaf Or Do You Have Serious Difficulty Hearing? No Information not available 05/17/2022 What Type Of Diet Are You Following? REGULAR Information not available 03/31/2022 How Many Children Do You Have? 0 [email or web address] Information not available 03/15/2022 What Is Your Relationship Status? Single [email or web address] Information not available 03/15/2022 Are You Sexually Active? Yes [email or web address] Information not available 03/15/2022 Sex: Female Functional Status Question Answer Note LastModified by Organizat ion Details LastModified Time Do you use any illicit or recreational drugs? No Information not available 05/17/2022 What is your level of alcohol consumption? None Information not available 03/31/2022 Are you currently employed? No [email or web address] Information not available 09/15/2022 Do you or have you ever used e-cigarettes or vape? Never used electronic cigarettes Information not available 03/31/2022 What is your exercise level? Moderate Information [...] Colon Cancer N Cytomegalovirus N Hyperthyroidism N MRSA N Blood Transfusion N Herpes (HSV) N Breast Cancer N Lung Cancer N Depression N Hypothyroidism N Incontinence N Panic Attacks N Neurological Disorder N Deep Vein Thrombosis N Anxiety Disorder N Autoimmune disease Y Arthritis N Shingles N Tuberculosis/Positive PPD N Polycystic Ovarian Syndrome Y Cervical Cancer N Chlamydia N Hematuria N Stroke N Varicosities N Seasonal allergies N Crohn's Disease N Alzheimer's/Dementia N COPD/Emphysema N Endometriosis N HPV/Genital Warts N IBS (Irritable Bowel Syndrome) N History of Abnormal Pap N High Cholesterol N Liver Disease N Kidney Infection N Fibromyalgia N Ulcer N Kidney Disease N HIV [...] SNOMED-CT Code Diagnosis ICD10 Code Diagnosis Note [id number] HASMUKH De León [facility] [address] [place] [address] 03/15/2022 15:11:23 03/15/2022 15:47:50 test positive 843854391 Z32.01 BSUS revealed yolk sac but unable to determine viability d/t early gestationa l age. Will schedule in [place] for formal scan and confirmati on visit. [id number] HASMUKH Teixeira [facility] [address] [place] [address] 03/31/2022 13:58:53 04/01/2022 12:39:14 Uncertain viability of 479463438 O36.80X9 UPT in office was +. LMP: 12/22/2021. BSUS on 03/15/22 unable to view FHT's. TVUS today: 8 2/7 wk IUP. EDC based on U/S. Rx for PNV sent. Pt to schedule NOB appt in 2 weeks. S/P Pfizer vaccines; last dose 01/2021. Routine an tenatal care 591922254 Z34.81 COVID-19 097683511 U07.1 Dx in 01/2022. Pt encouraged to take LD ASA daily in 2nd trimester and to consider booster MAIKOL. Family his tory of trisomy 18 [id number] 9108 Z82.79 PA sent for QNatal. Planning sneak peek if not covered. Family his tory of cystic fibrosis 801218530 Z83.49 CF carrier screening added to NOB labs. Polycystic ovary syndrome 953187865 E28.2 HgA1C and Early 1 hr GTT added to NOB labs. Anti-nucle ar factor detected 177657185 R76.8 Pt saw rheumatolo gist on 03/24/22, and given serum labs to have drawn. Pt encouraged to complete with NOB serum testing before next visit. If r/i for autoimmune disorder, plan referral to MFM at [facility] as Rheumatolo gist already located at [facility]. [id number] Cha Kimbrough CNM [facility] [address] [place] [address] 04/19/2022 14:51:49 04/20/2022 09:12:53 High risk 02527893 O09.90 Routine an tenatal care 222178183 Z34.01 Z34.81 [id number] MELINA AMRITA SOUZA CNM [facility] [address] [place] [address] 05/17/2022 16:38:50 05/21/2022 14:50:32 Gestation period, 14 weeks 17539170 Z3A.14 Normal pre gnancy in multigravida 7449157655 57465 Z34.82 [id number] HASMUKH De León [facility] [address] [place] [address] 06/16/2022 14:44:25 06/16/2022 15:15:23 Routine care 174388672 Z34.02 [id number] YAS SORIANOM [facility] [address] [facility] [place] [address] 07/02/2022 16:04:23 07/02/2022 17:55:21 Venereal disease screening 254665746 Z11.3 thick white vaginal discharge rx and swab sent,. Gestation period, 21 weeks 53607883 Z3A.21 anatomy complete, cervix 1.6cm with funneling with fundal pressure.d enies s/s of ptl.MFM referral sent and prometrium started. Short cerv ical length in 006730719 O26.879 plan per roxy. mfm referral and progestero ne daily [id number] MELINASHELBY SOUZA, [facility] [address] [facility] [place] [address] 07/30/2022 15:50:15 07/30/2022 16:53:26 Gestation period, 25 weeks 77728467 Z3A.25 Normal pre gnancy in multigravida 8834367438 13163 Z34.82 [id number] [facility] [address] [facility] [place] [address] 08/27/2022 16:07:04 08/30/2022 10:47:39 Routine care 993669263 Z34.83 Depression screening 171 028712 Z13.31 Gestation period, 29 weeks 58072015 Z3A.29 [id number] Cha Kimbrough, [facility] [address] [facility] [place] [address] 09/15/2022 15:10:02 09/15/2022 15:59:38 Gestation period, 32 weeks 4278595 Z3A.32 Pruritic disorder 596272 002 L29.9 Vaginal discharge 161481 006 N89.8 Dark yellow urine 935006 001 R39.89 [id number] Melissa Marte EDUARDO [facility] [address] [place] [address] 09/24/2022 09:48:10 09/24/2022 13:54:13 High risk 21792811 O09.93 1. IUP FWB reassuring by [facility] 04/26 in office today. Aneuploidy screening: QNatal [...] appts with their office per pt request. [facility] 04/26. Pt educated on FKC and discussed [...] 4 days. Gestationa l diabetes mellitus complicating 0699991394 9106 O24.419 Cholestasi s of 806766249 O26.189 [id number] Sebastián Triplett DO [facility] [address] [place] [address] 10/04/2022 17:12:26 10/06/2022 09:43:52 57737951 Z33.1 [id number] ISAC KWAN MD [address] [address] 10/07/2022 17:16:44 10/19/2022 12:21:36 High risk 68807950 O09.93 Gestationa l diabetes mellitus complicating 6408744729 9106 O24.419 Cholestasi s of 817797921 O26.619 Gestation period, 36 weeks 06499337 Z3A.36 [id number] ISAC KWAN MD [facility] [address] [place] [address] 10/12/2022 16:57:23 10/19/2022 12:27:55 Gestation period, 36 weeks 69500838 Z3A.36 Routine an tenatal care 712888595 Z34.83 High risk 4720 0007 O09.93 Gestationa l diabetes mellitus complicating 5806133785 9106 O24.419 Cholestasi s of 456114409 O26.763 [id number] Sebastián Triplett, [facility] h [address] [place] [address] 11/11/2022 15:55:22 11/11/2022 17:02:03 state 81000752 Z39.2 [id number] HASMUKH De León [address] [address] 12/08/2022 15:19:25 12/08/2022 15:57:11 state 01881482 Z39.2 Contracept ion care management 516724617 Z30.9 Maternal p ostpartum depression screening 8231199387 58372 Z13.32 EPDS: Pt educated on normal EPDS scoring, and discussed depression precaution s and when to notify HCP/go to ER. Past pregn andrei history of gestational diabetes mellitus 012840034 Z86.32 [id number] Vangie Nuñez MD [address] [address] 12/13/2022 12:41:36 12/14/2022 00:57:49 Mastitis associated with 184243991 O91.23 discussed mastitis assoc with breast feeding. possible blocked duct, urged to continue pumping and massage, warm compresses . Will begin abx and urge follow up 10 - 14 d Health Concerns Section Related Observation LastModified by Organization Detai ls LastModified Time None Recorded Concern Status LastModified by Organization Details LastModified Time None Recorded Advance Directives Directive None Recorded Payers Insurance Date Sequence Insurance Name Policy Number Policy Hung Covered Member ID Hung Member ID Guarantor Name 12/13/2022 1 [facility] (MEDICAID HMO) [id number] Jenniffer Gustafson [id number] Jenniffer Gustafson Notes Date Note Type Note Provider Name and Address Organization Details Recorded Time 10/07/2022 text/html 22 year old [id number] and cholestasis of - routine OB [...] been having some cramps. ISAC TALAMANTES MD [address] [place] [address], [phone], [facility] 10/13/2022 16:29:52 10/12/2022 text/html 36.1 weeks 10 here for SANJEEV.Perceives active movements. Denies contractions, vaginal bleeding or leakage of fluid. No s/s of PIH. ISAC TALAMANTES MD [address] [place] [address], [phone], [facility] 10/13/2022 16:34:02 11/11/2022 text/html VisitReported bypatient.Associate [...] course was uncomplicated. She delivered a female infant named Janell weight was _6_ pounds and _8_ ounces. _No__complications were encountered, and no anomalies were identified. The was sent home with mother.Pt is .Pt has no concerns today. Sebastián Triplett DO [address] [place] [address], [phone], [facility] 11/11/2022 16:28:49 12/08/2022 text/html VisitReported bypatient.Associate [...] HASMUKH De León [facility], [place], [address], [facility] [employer] [facility] 12/08/2022 16:52:16 12/13/2022 text/html Jenniffer 22 y/o h ere due to right breast pain, patient is breast feeding, delivery was on 10/22/2022, patient states on Tuesday12/10/2022 was c/o cold sweats and rt breast tender on the inner area. She has applied warm compresses. She notes decr production of milk from that breast also Vangie Nuñez MD [address] [place] [address], [place], [address], [facility] [employer] [facility] 12/14/2022 00:57:39 OBGyn Episode Ob Episode Information Episode Created Date Number of Fetuses Patient Bloodtype Patient rh Status Prepregnancy Weight lbs Domestic Partner Domestic Partner Phone Father Name Scout Status 04/29/20 22 1 O Positive CLOSED Fetus Data First Name Last Name Admitted to NICU Weight (g) Sex Living Outcome Pediatric Complications Fetus ID Race Codes Race Delivery Type [place] false 2954.01 79 F true Full Term [id number] Problems Problem Notes Problem Name Start Date End Date Resolution Snomed Code Not e Cystic fibrosis screening 742182839 +CF screening. FOB negative High risk 28669277 O+/RI/NRx4. Las t Pap: No pap on file; plan post collection. GTT: Failed; see below POC. GBS: Aneuploidy screening: QNatal WNL. Anatomy Scan: Complete as of 07/02/22. Varicella non-immune 013310018 plan for Varice lla vaccine post . notified 05/03/22. Family history of Spina bifida 461409832 Fam H/O Spina B ifida - X 2 on FOB side. Gestational diabetes mellitus 34054158 H/O PCOS. Early screening recommended. HgA1C on [...] daily reinforced. Family history of trisomy 18 [id number] QNatal WNL. Influenza 6865359 Dx 2. Discussed Influenza vaccine.--> Update 09/24/22: Influenza vaccine reinforced. Cervical incompetence 98431661 C.L. 1.6 cm wit h funneling on anatomy. Prometrium Rx'd. S/P MFM Referral. 07/13/22 C.L. 2.3 cm. Recommendation for vag progesterone through 36 wks. Anti-nuclear factor detected 080333867 Saw Rheumato logist in 03/2022. Labs all WNL except for elevated CRP. --> Update 09/24/22: Pt states no official autoimmune diagnosis. Pt encouraged F/U with provider after has ended. Cholestasis of 668812489 Bile acids 19 o n 09/15/22; lab [...] with their office per pt request. BPP 8/8. Pt educated on FKC and discussed when to notify HCP/go to L&D. Pt to see MD's for remainder of and discuss delivery POC. COVID-19 896770764 Dx in 02/05 22. 03/31/22: Pt encouraged to take LD ASA daily in 2nd trimester and to consider booster MAIKOL. --> Update 09/24/22: Boosters recommended, LD ASA daily reinforced. Carrier of cystic fibrosis gene mutation 986120381 Fam Hx of CF. P t is [...] Gestation 0 [email or web address] 09/22/2022 11/08/19 23 0 Pre- Flowsheet Flowsheet Date 04/19/2022 Gallegos Score Blood Edema Fundus Height Fundus Units Glucose Ketones Leukocytes Nitrite Labor Signs Protein Cervic Dilation Cervic Effacement Cervic Station Type Weight in lbs Pre/Post Dialysis Refused Weight 155.50848111742 BP Diastolic BP Location Tested BP Systolic [...] Weight in lbs Pre/Post Dialysis Refused Weight 154.415697759307 BP Diastolic BP Location Tested BP Systolic [...] in lbs Pre/Post Dialysis Refused With clothes 156.115575974236 BP Diastolic BP Location Tested BP Systolic BP Type 78 L arm 116 sitting Fetus Heart Rate Present A 149 Fetus Movement Comments Early 1hr 122Anatomy scan ne xt visitPatient is KOTA+. She saw Metal Dealer. Labs were drawn with NOB panel. No results in chart. Message sent to obtain results Flowsheet Date 07/02/2022 Gallegos Score Blood Edema Fundus Height Fundus Units Glucose Ketones Leukocytes Nitrite Labor Signs Protein Cervic Dilation Cervic Effacement Cervic Station none none Type Weight in lbs Pre/Post Dialysis Refused Weight 158.089718399157 BP Diastolic BP Location Tested BP Systolic [...] in lbs Pre/Post Dialysis Refused With clothes 164.498070442225 BP Diastolic BP Location Tested BP Systolic [...] in lbs Pre/Post Dialysis Refused With clothes 166.092652348384 BP Diastolic BP Location Tested BP Systolic [...] in lbs Pre/Post Dialysis Refused With clothes 166.771386543750 BP Diastolic BP Location Tested BP Systolic [...] in lbs Pre/Post Dialysis Refused With clothes 169.880328028268 BP Diastolic BP Location Tested BP Systolic [...] in lbs Pre/Post Dialysis Refused With clothes 170.368221990926 BP Diastolic BP Location Tested BP Systolic [...] in lbs Pre/Post Dialysis Refused With clothes 169.685710871278 BP Diastolic BP Location Tested BP Systolic [...] in lbs Pre/Post Dialysis Refused With clothes 151.727730270256 BP Diastolic BP Location Tested BP Systolic BP Type 72 L arm 110 sitting Fetus Heart Rate Present Fetus Movement Comments Flowsheet Date 12/08/2022 Gallegos Score Blood Edema Fundus Height Fundus Units Glucose Ketones Leukocytes Nitrite Labor Signs Protein Cervic Dilation Cervic Effacement Cervic Station Type Weight in lbs Pre/Post Dialysis Refused Weight 152.457782559006 BP Diastolic BP Location Tested BP Systolic [...] Disease false Other Infection History false Thalassemia (Bolivian, Kittitian, Mediterranean, Or Background): MCV < 80 false [...] false History of Hepatitis false Arnaldo-Sachs (eg, Faith, Cajun, Turkmen-[place]) f alse History Of STD, Gonorrhea, Chlamydia, HPV, Syphi lis false Prior GBS-infected child false History of HIV false Personal or Family History o f Neural Tube Defect (Meningomyelocele, Spina Bifida, Or Anencephaly) false Hemophilia Or Other Blood Disorders false Mental Retardation/Autism false Mon[place]'s Chorea false If Yes, Was Person Tested [...]
--- OUTSIDE RECORDS SUMMARY | 2025-02-13 16:35 | XMS_ITS | Clinical Summary ---
Author Organization [facility] Address [address] [place] [address] Care Team Providers Care Is Architect Name Role Phone Bhavani, Gabriella Nunez NP Primary Care Provider Jacinta Herron MD Unavailable [phone] Allergies No known active allergies Medications norethindrone [...] and she was seeing a specialist at [facility], but stopped seeing them due to her getting . She reports her symptoms and issues at that time have resolved. Gastroesophageal reflux disease 10/22/2020 Polycystic ovary syndrome 10/22/2020 Assessment & Plan (01/30/2025 2:10 PM CDT): Patient follows with Dr. Jacinta Herron, in [facility]. Was previously on metformin and spironolactone, but not anymore. She does take the mini pill control pill, and thinking about stopping to try to get . Resolved Problems Problem Noted Date Diagnosed Date Resolved Date Gestational diabetes mellitu s (GDM), antepartum 10/08/2022 01/30/2025 Encounters Date Type Department Care Team Description 01/31/2025 Results Follow-Up [facility] Medical [facility] Primary Care at [address] [phone] Gabriella Beckham NP Hepatitis C antibody Blood, Hemoglobin A1c, Thyroid Function Posey, Additional followed-up results: 4 01/30/2025 1:20 PM CDT Lab [facility] - Outpatient Center at [address] [address] Encounter for hepatitis C screening test for low risk patient; Screening for diabetes mellitus; Screening for thyroid disorder; Screening for hyperlipidemia; Moderate major depression (HCC); Polycystic ovary syndrome 01/30/2025 12:30 PM CDT Office Visit [facility] Primary Care at [address] [phone] Gabriella Beckham NP Moderate major depression (HCC) (Primary Dx); Irritability; Polycystic ovary syndrome; Antinuclear antibody (KOTA) positive; Screening for hyperlipidemia; Screening for thyroid disorder; Screening for diabetes mellitus; Encounter for hepatitis C screening test for low risk patient from Last 3 Months Immunizations Immunization Administration Dates Next Due DTaP [...] 7-Valent 12/01/19 02,03/06/2001,01/03/2001,12/24,2000 Tdap 10/24/2022,07/27/2012 Varicella 08/27/2008,09/21/2001 Medical History Medical History Date Comments Gestational diabetes mellitus (GDM), antepartum 10/08/2022 Social History Tobacco Use Types Packs/Day Years [...] on file 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 Gender Identity Not on file Sexual Orientation Not on file Obstetrics History Last Filed Vital Signs Vital Sign Reading [...] 01/30/2025 12:40 PM CDT Plan of Treatment Health Maintenance Due Date Last Done Comments Cervical Cancer Screening 2000 Regular Well Visit/Exam 18-64 2018 Covid-19 Vaccine (2023-2 5 season) 2024 02/08/2021, 01/16/2021 Influenza Vaccine (Season Ended) 2025 10/24/2022, 07/27/2012, 07/27/2012, Additional history exists Depression Screening 01/30/2026 01/30/2025, 01/31/20 25 DTaP/Tdap/Td Vaccine (8 - Td or Tdap) 10/24/2032 10/24/2022, 07/27/2012, 02/09/2006, Additional history exists Hepatitis B Screening Completed 06/06/2001 , 2000, 2000 Pneumococcal vaccine <65 Completed 002, 03/06/2001, 01/03/2001, Additional history exists Varicella Vaccines Completed 08/27/2008, 09/21/2001 HPV Vaccines Completed 10/31/2019, 09/19, 04/01/2016, Additional history exists Hepatitis C Screening Completed 01/30/2025 Procedures Procedure Name Priority Date/Time Associated Diagnosis [...] was last reviewed 2021. Testing performed by: [address] [address] Blood 01/30/2025 1:16 PM CDT 01/30/2025 9:47 PM CDT us Gabriella Beckham MICROARRAY ANALYST LAB BLOOD ORDERABLES Fi nal Result TRICIA [id number] [facility] Department [place] [address] * Thyroid Function Posey (01/30/2025 1:16 PM CDT) TSH 0.66 0.30 - 4.20 mcIUnit/mL Comment:Testing performed by : [address] [address] Blood 01/30/2025 1:16 PM CDT 01/30/2025 9:40 PM CDT Gabriella Beckham MICROARRAY ANALYST LAB BLOOD ORDERABLES Fi nal Result Performing Organization Address [facility] Co de Phone Number [place] [phone] [facility] [place] [address] * Hepatitis C antibody Blood (01/30/2025 1:16 [...] last revised on 2019. Testing performed by: [address], [address] Blood 01/30/2025 1:16 PM CDT 01/30/2025 9:40 PM CDT Gabriella Beckham NP LAB MICROBIOLOGY - GENE RAL ORDERABLES Final Result Performing Organization Address [facility] Co de Phone Number [place] [phone] [facility] [place] [address] * CBC without differential (01/30/2025 1:16 PM CDT) Pathologist [facility] WBC 6.62 3.80 - 9.90 K/cumm Comment:Testing performed by : [address], [address] Hgb 13.7 11.9 - 15.5 g/dL TRICIA Comment:Testing performed by : [address], [address] Hct 42.1 35.6 - 45.5 % TRICIA Comment:Testing performed by : [address] [place]., [address] Plt 238 150 - 400 K/cumm CERNER Comment:Testing performed by : [facility], [address] [place] [address], [address] MPV 11.4 9.1 - 12.3 fL CERNER CH Comment:Testing performed by : [address], [address] RBC 4.49 3.90 - 5.20 M/cumm CERNER CH Comment:Testing performed by : [facility], [address] [place] [address], [address] MCV 93.8 81.3 - 96.4 fL CERNER CH Comment:Testing performed by : [address], [address] MCH 30.5 27.1 - 33.3 pg CERNER Comment:Testing performed by : [address], [address] MCHC 32.5 32.3 - 35.7 g/dL CERNER Comment:Testing performed by : [address], [address] RDW CV 12.7 11.1 - 14.9 % CERNER Comment:Testing performed by : [address], [address] RDW SD 43.7 35.7 - 48.1 fL CERNER Comment:Testing performed by : [address], [address] NRBC abs 0.00 0.00 - 0.01 K/cumm CERNER Comment:Testing performed by : [address], [address] Blood 01/30/2025 1:16 PM CDT 01/30/2025 9:40 PM CDT Gabriella Beckham MICROARRAY ANALYST LAB BLOOD ORDERABLES Fi nal Result [address] Department [place] [address] * Hemoglobin A1c (01/30/2025 1:16 PM CDT) Hgb A1C 4.9 4.0 - 5.6 % Comment:Testing performed by : [facility], [address] [place] [address]., [address] Estimated Average Glucose 94 mg/dL TRICIA YAP Comment: The ADA recommends reporting an estimated Average Glucose (eAG) with all Hemoglobin A1c results using the equation derived from a study of 507 normal and diabetic adults. Minority populations were underrepresented and children were not included. (Diabetes Care 31:1992-5050, 2008). The eAG is not equivalent to a fasting glucose. Testing performed by: [facility], [address] [place] [address]., [address] Blood 01/30/2025 1:16 PM CDT 01/30/2025 9:40 PM CDT Gabriella Beckham MICROARRAY ANALYST LAB BLOOD ORDERABLES Fi nal Result TRICIA [address] Department of Laboratories [place], [place] [id number] * Lipid panel (01/30/2025 1:16 PM CDT) Cholesterol 108 30 - 199 mg/dL Comment: [...] last revised on 2018. Testing performed by: [facility], [address] [place] [address]., [address] Triglycerides 62 <=149 mg/dL TRICIA YAP Comment: Interpretive Data Ages < or = [...] last revised on 2018. Testing performed by: [address] [address] HDL 48 >=40 mg/dL [facility] Comment: Interpretive Data Ages < or = [...] last revised on 2018. Testing performed by: [address] [address] LDL, calculated 46 <=129 mg/dL [facility] Comment: Interpretive Data Ages < or = [...] NCEP Expert Panel. Circulation 2004;110:227 3. Junito Ball al. MARISA Cardiol. 2020 January 17;5(5):540-548. doi: 10.1001/[email or web address].[email or web address] Current Interpretive Data was last revised on 2024. Testing performed by: [address] [address] Non-HDL Cholesterol 60 mg/dL CERNER Comment: Interpretive Data Ages < or = [...] last revised on 2018. Testing performed by: [address] [address] Chol/HDL ratio 2 CERNER Comment:Testing performed by : [address] [address] Blood 01/30/2025 1:16 PM CDT 01/30/2025 9:40 PM CDT Gabriella Beckham MICROARRAY ANALYST LAB BLOOD ORDERABLES nal Result [address] Department [place] [address] * (ABNORMAL) Comprehensive metabolic panel (01/30/2025 1:16 PM CDT) Sodium 141 135 - 145 mmol/L Comment:Testing performed by : [address] [address] Potassium, pl 3.8 3.3 - 4.9 mmol/L CERNER Comment:Testing performed by : [address] [address] Chloride 105 97 - 110 mmol/L CERNER Comment:Testing performed by : [address] [address] CO2 27 22 - 32 mmol/L CERNER CH Comment:Testing performed by : [address] [address] Anion gap 9 2 - 15 mmol/L CERNER Comment:Testing performed by : [facility], [address] [place] [address]., [address] BUN 9 6 - 25 mg/dL CERNER CH Comment:Testing performed by : [address] [address] Creatinine 0.72 0.60 - 1.10 mg/dL CERNER CH Comment:Testing performed by : [address], [address] Glucose 81 70 - 199 mg/dL CERNER CH Comment: Interpretive Data Fasting glucose >/= 126 [...] classification and Diagnosis of Diabetes Diabetes Care 2021; 46: S19-S40. Current interpretive data was last revised 2022. Testing performed by: [address] [address] Calcium 9.4 8.5 - 10.3 mg/dL CERNER CH Comment:Testing performed by : [address] [address] Bilirubin, total 0.5 0.1 - 1.2 mg/dL CERNER CH Comment:Testing performed by : [address] [address] Protein, pl 7.7 6.5 - 8.5 g/dL CERNER CH Comment:Testing performed by : [address] [address] Albumin 4.6 3.5 - 5.0 g/dL CERNER CH Comment:Testing performed by : [address] [address] Alk phos 59 40 - 130 Units/L CERNER CH Comment:Testing performed by : [address], [address] ALT 5(L) 7 - 45 Units/L CERNER CH Comment:Testing performed by : [address], [address] AST 24 10 - 45 Units/L CERNER CH Comment:Testing performed by : [facility], [address] [facility] [place]., [address] Blood 01/30/2025 1:16 PM CDT 01/30/2025 9:40 PM CDT Gabriella Beckham MICROARRAY ANALYST LAB BLOOD ORDERABLES Fi nal Result TRICIA YAP [address] [address] Department [place] [address] from Last 3 Months Insurance [facility] Care Teams Is Architect Relationship Specialty Start Date End Date Gabriella Beckham NP [address] [place] [address] PCP - General Nurse Practitioner 01/30/25 Jacinta Herron MD [address] [place] [address] Consulting Physician Obstetrics and Gynecology 01/30/25
--- OUTSIDE RECORDS SUMMARY | 2025-02-13 16:35 | XMS_ITS | Clinical Summary ---
Author Organization [facility] Address [address] [place] [address] Care Team Providers Care Prison Guard Supervisor Name Role Phone Radha Mahan OMAR-FENCE MANUFACTURE SUPERVISOR Primary Care Provider [phone] Source Comments [facility],non-owned Affiliates and Associated Physician Practices is amultiple site organization consisting of ambulatory clinics and hospital sitesin [place], [place], [place] and [place]. This disclosure is being madepursuant to the Care Everywhere program and may not contain all information available regarding this patient. 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 Gender Identity Not on file Sexual Orientation Not on file Last Filed Vital Signs Vital Sign Reading Time Taken Comments Blood Pressure 131/64 10/18/2022 1:08 PM SHANK BREAKER Pulse 115 10/18/2022 1:08 PM SHANK BREAKER Temperature 37.2 C (98.9 F) 03/24/2022 2:18 PM CDT Respiratory Rate 18 10/11/2022 11:24 AM SHANK BREAKER Oxygen Saturation 98% 01/16/2018 12:05 PM CDT Inhaled Oxygen Concentration - - Weight 75.8 kg (167 lb) 10/14/2022 10:00 AM SHANK BREAKER Height 154.9 cm (5' 1) 09/30/2022 1:40 PM SHANK BREAKER Body Mass Index 31.55 09/30/2022 1:40 PM SHANK BREAKER Plan of Treatment Health Maintenance Due Date [...] OUT OF STATE MEDICAID - OUT OF [facility] MEDICAID - OUT OF STATE [address] Care Teams Prison Guard Supervisor Relationship Specialty Start Date End Date Radha Mahan APRN-YONATAN [address] [phone] PCP - General Nurse Practitioner Family 04/14/22
--- OUTSIDE RECORDS SUMMARY | 2025-02-13 16:39 | XMS_ITS | Continuity of Care Document ---
Author Organization [facility] Address [address] [place] [address] [facility] [address] [place] [address] Phone Care Team Providers Care Mapping Engineer Name Role Phone Neil Bryant Unavailable Unavailable Procedures Procedure Date Office/outpatient Visit, Est Advance Directives Directive Yes / No Effective Date File Name No Information Encounters Encounter Description Practice Location Reason(s) For Visit Diagnoses Date Provider Providers Copied on Encounter Office/outpat ient Visit, Est [facility], [address] [place], [place], [id number], [place] tel:[phone] [facility] No Information [address] [facility] [address] [place], [address], [place]. tel:[phone] Family History Family Member Type Diagnosis Age At Onset No Information Payers Payer name Insurance type Covered constitution party ID Authoriza tion(s) No Information Social [...]
[2025-02-13 16:40] VITALS: BP 108/67; PULSE 92; RESP 20; TEMP 36.6; O2SAT 100
--- NOTE | 2025-02-13 16:47 | ED.EAR ---
HPI - Ear Problem General Chief complaint: Ear Stated complaint: lt ear pain Time Seen by Provider: 02/13/25 16:47 Source: patient Mode of arrival: ambulatory Limitations: no limitations History of Present Illness HPI Narrative: 24-year-old female presents with complaint of left ear pain. Patient reports that she has some mild pain to right ear but left ear is worse. Had similar symptoms at the beginning month and took Augmentin. All systems reviewed and negative except as noted above. Related Data Home Medications ?Medication ?Instructions ?Recorded ?Confirmed ?Last Taken ?Type norethindrone (contraceptive) 0.35 0.35 mg PO DAILY 08/14/23 08/14/23 Unknown History mg tablet Allergies Allergy/AdvReac Type Severity Reaction Status Date / Time No Known Allergies Allergy Verified 02/13/25 16:44 Review of Systems Review of Systems: CONSTITUTIONAL: Denies fever, chills, or sweats. EYES: Denies visual changes, redness, or discharge. ENT: Denies rhinorrhea, congestion, sore throat . Reports bilateral ear pain CARDIOVASCULAR: Denies chest pain, palpitations, or edema. RESPIRATORY: Denies cough or dyspnea. GASTROINTESTINAL: Denies abdominal pain, nausea, vomiting, or diarrhea. GENITOURINARY: Denies dysuria or hematuria. SKIN: Denies rash or itching. MUSCULOSKELETAL: Denies back pain, joint pain, or myalgia. NEUROLOGIC: Denies headache, numbness, or weakness. PSYCHIATRIC: Denies anxiety or depression. All other systems reviewed are negative, except as documented in HPI. PMFSH Comments At time of signature, agree with nursing past medical, surgical, social and family history. There is no relevant family history pertinent to the presenting complaint. Exam Narrative: GENERAL: This is a well-nourished, well-developed patient, in no apparent distress. HEAD: normocephalic, atraumatic. EYES: PERRL. Sclera clear/white. Vision is grossly intact. EARS: External ears normal, auditory canals clear and without drainage, fluid, air bubbles and erythema to bilateral TMs, worse to left TM. No perforation bilaterally. Hearing grossly intact. NOSE: External nose normal with no obvious nasal discharge, nares without redness, no rhinorrhea. THROAT: Mucous membranes moist, posterior pharynx clear. NECK: Neck supple, non-tender without lymphadenopathy, masses or thyromegaly. CARDIOVASCULAR: Regular rate and rhythm without murmurs, gallops, or rubs. RESPIRATORY: Clear to auscultation. Breath sounds equal bilaterally. No wheezes, rales, or rhonchi. SKIN: warm, Dry, intact with no suspicious lesions or rash, good texture and turgor. NEURO: awake, alert, and oriented to person, place and time. There were no obvious focal neurologic abnormalities. EXTREMITIES: No joint tenderness, effusion, or edema noted. Course Course Level of Care: Express Care Visit Vital Signs Vital signs: Vital Signs Temperature 36.6 C 02/13/25 16:40 Pulse Rate 92 02/13/25 16:40 Respiratory Rate 20 02/13/25 16:40 Blood Pressure 108/67 02/13/25 16:40 Pulse Oximetry 100 02/13/25 16:40 Oxygen Delivery Room Air 02/13/25 16:40 Temperature 36.6 C 02/13/25 16:40 Pulse Rate 92 02/13/25 16:40 Respiratory Rate 20 02/13/25 16:40 Blood Pressure 108/67 02/13/25 16:40 Pulse Oximetry 100 02/13/25 16:40 Oxygen Delivery Room Air 02/13/25 16:40 Review Medical Decision Making MDM Narrative Medical decision making narrative: will treat bilateral serous otitis media with amoxicillin. Recommend Claritin and Flonase daily. Patient is well-appearing, nontoxic. Afebrile. Vital Signs Vital Signs: Vital Signs Temperature 36.6 C 02/13/25 16:40 Pulse Rate 92 02/13/25 16:40 Respiratory Rate 20 02/13/25 16:40 Blood Pressure 108/67 02/13/25 16:40 Pulse Oximetry 100 02/13/25 16:40 Oxygen Delivery Room Air 02/13/25 16:40 Temperature 36.6 C 02/13/25 16:40 Pulse Rate 92 02/13/25 16:40 Respiratory Rate 20 02/13/25 16:40 Blood Pressure 108/67 02/13/25 16:40 Pulse Oximetry 100 02/13/25 16:40 Oxygen Delivery Room Air 02/13/25 16:40 Discharge Plan Discharge Clinical Impression: Acute serous otitis media of both ears Patient Disposition: Home Condition: Stable Instructions: Antibiotic Form, Fluid In The Ear (Serous Otitis Media) (ED) Additional Instructions: Take medications as prescribed. Take ibuprofen or Tylenol every 6-8 hours as needed for pain. Drink at least 64 oz of water a day. See your doctor if symptoms are not improving. Patient Language: Ecuadorean Prescriptions: New amoxicillin 875 mg tablet 875 mg PO Q12H 10 Days Qty: 20 0RF fluticasone propionate [Flonase Allergy Relief] 50 mcg/actuation spray,suspension 1 spray intranasal BID Qty: 16 0RF Rx Instructions: administer into each nostril loratadine [Allerclear] 10 mg tablet 10 mg PO DAILY Qty: 30 0RF No Action norethindrone (contraceptive) 0.35 mg tablet 0.35 mg PO DAILY Follow-up/Referrals: Bhavani,Gabriella Mccollum [Other] Time of Disposition: 16:53
== END 2025-02-13 16:56 | disposition home or self-care (01) ==
PROVIDERS: Emergency Provider Nurse Practitioner Family
DX: H65.03 Acute serous otitis media, bilateral (principal)
CPT/HCPCS: 99213; G0463

== ENCOUNTER 2025-07-24 09:45 | Emergency (ER) | payer OTHER, SELFPAY ==
--- NOTE | 2025-07-24 09:52 | ED_ITS ---
HPI - Ear Problem General Chief complaint: Ear Stated complaint: EARACHE Source: patient Mode of arrival: ambulatory Limitations: no limitations History of Present Illness HPI Narrative: Patient is a 24-year-old female presenting with complaint earache. Patient reports cold symptoms beginning on Tuesday, left otalgia thickening over the last 24 hours. Voices concern for ear infection. States she is approximately 5 months . Treatments initiated prior to arrival include Mucinex. does not wish to have any POC testing performed today. No additional complaints. Related Data Allergies Allergy/AdvReac Type Severity Reaction Status Date / Time No Known Allergies Allergy Verified 07/24/25 09:52 Review of Systems Review of Systems: CONSTITUTIONAL: Denies body aches, fever, chills, or sweats. EYES: Denies visual changes, redness, or discharge. ENT: Reports rhinorrhea, congestion, left otalgia, denies sore throat CARDIOVASCULAR: Denies chest pain, palpitations, or edema. RESPIRATORY: Denies cough or dyspnea. GASTROINTESTINAL: Denies abdominal pain, nausea, vomiting, or diarrhea. GENITOURINARY: Denies dysuria or hematuria. SKIN: Denies rash, itching, or wounds. MUSCULOSKELETAL: Denies back pain, joint pain, or myalgia. NEUROLOGIC: Denies headache, numbness, tingling, or weakness. PSYCH: Denies depression or anxiety. All systems reviewed & are unremarkable except as noted in HPI and below Exam Narrative: GENERAL: Well-appearing, well-nourished, and in no acute distress. HEAD: Normocephalic, atraumatic. EYES: EOMI. No redness or drainage. Conjunctivae normal. ENT: Mucous membranes pink and moist. Nares clear. No rhinorrhea. right TM normal. left TM is mildly erythematous. TMs intact bilaterally. External auditory canals are normal. No mastoid tenderness. Throat normal. Uvula midline. NECK: Normal AROM. Supple. No lymphadenopathy. CHEST: No respiratory distress. Clear to auscultation. HEART: Regular rate and rhythm. No murmur appreciated. Normal peripheral pulses. EXTREMITIES: Normal range of motion. SKIN: Warm, dry, no rash. Capillary refill normal. Normal skin turgor. NEURO: No focal deficits. Alert and oriented x3. Gait steady. PSYCH: Normal affect. No signs of depression or anxiety. Course Course Level of Care: Express Care Visit Discharge Plan Discharge Clinical Impression: Otitis media Qualifiers: Otitis media type: other nonsuppurative Chronicity: acute Laterality: left Recurrence: non-recurrent Qualified Code(s): H65.192 - Other acute nonsuppurative otitis media, left ear Upper respiratory infection Qualifiers: URI type: unspecified URI Qualified Code(s): J06.9 - Acute upper respiratory infection, unspecified Patient Disposition: Home Condition: Stable Instructions: Antibiotic Form, Ear Infection (ED), Upper Respiratory Infection (DC) Additional Instructions: Go straight to ER should your symptoms become worse or should any new symptoms develop Patient Language: [place] Prescriptions: New amoxicillin 500 mg capsule 500 mg PO Q12H Qty: 14 0RF fluticasone propionate [Allergy Relief (fluticasone)] 50 mcg/actuation spray,suspension 1 spray intranasal BID Qty: 16 0RF Rx Instructions: administer into each nostril Follow-up/Referrals: UNKNOWN,DOCTOR [Primary Care Provider] - 07/25/25 Time of Disposition: 09:57
[2025-07-24 09:53] VITALS: BP 107/76; PULSE 97; RESP 16; TEMP 36.4; O2SAT 98
== END 2025-07-24 10:03 | disposition home or self-care (01) ==
PROVIDERS: Emergency Provider Registered Nurse
DX: O26.899 Other specified pregnancy related conditions, unspecified trimester (principal); H65.192 Other acute nonsuppurative otitis media, left ear; J06.9 Acute upper respiratory infection, unspecified; Z3A.00 Weeks of gestation of pregnancy not specified
CPT/HCPCS: 99213; G0463

== ENCOUNTER 2025-08-20 17:16 | Emergency (ER) | payer OTHER, SELFPAY ==
--- OUTSIDE RECORDS SUMMARY | 2025-08-20 17:21 | XMS_ITS | Data Portability ---
Author Organization [place] - [facility], Main Office Address [address] [place] [address] Assessment Encounter Date Assessment Date Assessment LastModified by Organization Details LastModified Time 12/28/2022 12/28/2022 [employer]- [employer] REPA[employer]ER- [facility] [place] office WEA- 12/28/22 Call office if worse, ER if life threatening illness RTC in 6 months and PRN She voices understanding of plan and agrees [email or web address] Not available 12/28/2022 15:08:11 Plan of Treatment Reminders Order Date Submit Date Provider Last Modified By Organization Details Last Modified Time Details Appointments None recorded. Lab HbA1c (hemoglobi n A1c), blood 2023 024 [facility], [address] [place], [address], 08:41:43 vitamin D, 25-hydroxy , total, serum 2023 024 [facility], [address] [place], [address], 4 08:41:43 lipid panel, serum 2023 024 [facility], [address] [place], [address], 4 08:41:42 CMP, serum or plasma 2023 024 [facility], [address] [place], [address], 4 08:41:42 CBC w/ auto diff 2023 024 [facility], [address] [place], [address], 4 08:41:42 TSH + free T4, serum 2023 024 [facility], [address] [place], [address], 4 08:41:42 vitamin D, 25-hydroxy , total, serum [address] (Lab), [address] [place], [address], 3 09:21:08 glycohemog lobin, total, blood [address] (Lab), [address] [place], [address], 3 09:21:08 lipid panel, serum [address] (Lab), [address] [place], [address], 3 09:21:07 TSH, serum or plasma [address] (Lab), [address] [place], [address], 3 09:21:08 CBC w/ auto diff [address] (Lab), [address] [place], [address], 3 09:21:07 CMP, serum or plasma [address] (Lab), [address] [place], [address], 3 09:21:07 Referral None recorded. Procedures None recorded. Surgeries None recorded. Imaging None recorded. Medication Orders metformin ER 500 mg tablet,ext ended release 24 hr 2023 [id number], [address] [place], [address], 4 15:19:49 omeprazole 20 mg capsule,de layed release 2023 024 [id number] [address] [place], [address], 4 15:19:49 Oysco 500/D 500 mg-5 mcg (200 unit) tablet 2023 024 [id number] [address] [place], [address], 4 15:19:48 Patient TargetsNo targets recorded. Patient Instructions Encounter Date Encounter Id Patient Instructions Last Modified By Organization Details Last Modified Time 12/28/2022 [id number] INFLUENZA VACCIN E Your next one in the fall of [...] relationship GLUCOSE SCREENING Ordered LIPID SCREENING Ordered [email or web address] Not available 12/28/2022 15:09:38 02/23/2024 [id number] Follow up in 4 months Obtain labs Prescriptions sent to pharmacy [email or web address] Not available 02/23/2024 15:15:31 Reason for Referral None Reported. Results Created Date Observation Date Name Description Value Unit Range Abnormal Flag Note LastModifiedBy Organization Detail LastModifiedTime 11/06/19 22 11/07/2021 THYRO ID PEROX IDASE (TPO) AB thyroid peroxidase (tpo) Ab <8 IU/mL 0-34 Perfo rmed at: [facility] [address] [place] [address] Lab Direc tor: Josue mierles PhD, Phone : [phone] Not Available [facility] (Lab) [address] [place] [address], [address], 11/07/2021 08:14:21 11/06/19 22 11/09/2021 KOTA/A NTINU CLEAR ANTIB ODIES ,IFA antinuclear antibodies, ifa positi ve abnormal Negat hugo <1:80 Borde rline 1:80 Posit hugo >1:80 Perfo rmed at: [facility] [address] [place] [address] Lab Direc tor: Josue mireles PhD, Phone : [phone] Not Available [facility] (Lab) [address] [place] [address], [address], 11/09/2021 22:06:56 11/06/19 22 11/09/2021 KOTA/A NTINU CLEAR ANTIB ODIES ,IFA homogeneous pattern 1:160 high ICAP nomen clatu re: AC-1 Not Available [facility] (Lab) [address] [place] [address], [address], 11/09/2021 22:06:56 11/06/19 22 11/09/2021 KOTA/A NTINU CLEAR ANTIB ODIES ,IFA note: franklin Hoffman For more infor jennifer jimenez about Hep-2 cell patte rns use [employer]azm[facility]org , the offic arron sandra [...] . Stella dickinson Antig en Detec kiah miranda Disea se Assoc iatio n ----- ----- - ----- ----- ----- - ----- ----- ----- ----- ----- ---- Homog eneou s DNA(d s,ss) , SLE - High titer s Nucle osome s, Histo bradly Drug- induc ed SLE ----- ----- - ----- ----- ----- - ----- ----- ----- ----- ----- ---- Speck led Sm, RECONCILER, SCL-7 0, SLE,M CTD,P SS (diff use [...] ----- ----- ----- ---- Perfo rmed at: - [address] [address] [facility] Lab Direc tor: Josue mireles PhD, Phone : [phone] Not Available [facility] (Lab) [address] [place], [address], 11/09/2021 22:06:56 11/06/19 22 11/07/2021 INSUL IN insulin 12.0 uIU/m L 2.6-24 .9 Perfo rmed at: [address] [address] Lab Direc tor: Josue mireles PhD, Phone : [phone] Not Available [facility] (Lab) [address] [place], [address], 11/07/2021 12:10:03 11/06/19 22 11/06/2021 FOLAT E, SERUM /PLAS MA folate 11.1 NG/mL 2.76- Not Available [facility] (Lab) [address] [place], [address], 11/06/2021 17:28:34 11/06/19 22 11/06/2021 VITAM IN B12 (VIRIDIANA ARIELA ) vb12 >1000 pg/mL 239-93 1 high RESUL T IS GREAT ER THAN REPOR TABLE RANGE OF ASSAY . Not Available [facility] (Lab) [address] [place], [address], 11/06/2021 17:28:29 11/06/19 22 11/06/2021 VITAM IN D 25-HY DROXY vd25oh 40.5 NG/mL 30-100 Vitam in D Statu s: Defic ient: <20 ng/mL Insuf ficie nt: 20-29 ng/mL Suffi cient : 30-10 0 ng/mL Not Available [facility] (Lab) [address] [place], [address], 11/06/2021 16:38:55 11/06/19 22 11/06/2021 DANIELLE TIN ferritin 37 NG/mL 6.24-1 37 Not Available [facility] (Lab) [address] [place], [address], 11/06/2021 16:37:09 11/06/19 22 11/06/2021 TSH thyroid-stim ulating hormone 1.030 uIU/m L 0.465- 4.680 Not Available [facility] (Lab) [address] [place], [address], 11/06/2021 16:37:05 11/06/19 22 11/06/2021 T3 FREE free T3 4.2 pg/mL 2.77-5 .27 Not Available [facility] (Lab) [address] [place], [address], 11/06/2021 16:27:46 11/06/19 22 11/06/2021 T4 FREE free T4 1.15 NG/dL 0.78-2 .19 Not Available [facility] (Lab) [address] [place], [address], 11/06/2021 16:27:44 11/06/19 22 11/06/2021 IRON/ TIBC PANEL total iron binding capacity 372 mcg/d L 265-47 5 Not Available [facility] (Lab) [address] [place], [address], 11/06/2021 16:26:29 11/06/19 22 11/06/2021 IRON/ TIBC PANEL % transferrin saturation 51 % 20-[address] [facility] (Lab) [address] [place], [address], 11/06/2021 16:26:29 11/06/19 22 11/06/2021 IRON/ TIBC PANEL unsaturated iron bind capacity 182 mcg/d L 126-38 2 Not Available [facility] (Lab) [address] [place], [address], 11/06/2021 16:26:29 11/06/19 22 11/06/2021 IRON/ TIBC PANEL iron 190 mcg/d L 42-175 high Not Available [facility] (Lab) [address] [place], [address], 11/06/2021 16:26:29 11/06/19 22 11/06/2021 LIPAS E SERUM lipase 71 U/L 23-300 Not Available [facility] (Lab) [address] [place], [address], 11/06/2021 16:23:01 11/06/19 22 11/06/2021 COMPR EHENS HUGO METAB OLIC PANEL carbon dioxide 26 mmol/ L 22-30 Not Available [facility] (Lab) [address] [place], [address], 11/06/2021 16:22:57 11/06/19 22 11/06/2021 COMPR EHENS HUGO METAB OLIC PANEL sodium 141 mmol/ L 137-14 5 Not Available [facility] (Lab) [address] [place], [address], 11/06/2021 16:22:57 11/06/19 22 11/06/2021 COMPR EHENS HUGO METAB OLIC PANEL potassium 4.3 mmol/ L 3.5-5. 1 Not Available [facility] (Lab) [address] [place], [address], 11/06/2021 16:22:57 11/06/19 22 11/06/2021 COMPR EHENS HUGO METAB OLIC PANEL chloride 104 mmol/ L 98-107 Not Available [facility] (Lab) [address] [place], [address], 11/06/2021 16:22:57 11/06/19 22 11/06/2021 COMPR EHENS HUGO METAB OLIC PANEL agap 15.3 mmol/ L 14-22 Not Available [facility] (Lab) [address] [place], [address], 11/06/2021 16:22:57 11/06/19 22 11/06/2021 COMPR EHENS HUGO METAB OLIC PANEL glucose 87 mg/dL 70-99 Not Available [facility] (Lab) [address] [place], [address], 11/06/2021 16:22:57 11/06/19 22 11/06/2021 COMPR EHENS HUGO METAB OLIC PANEL alkaline phosphatase 73 U/L 38-126 Not Available [facility] (Lab) [address] [place], [address], 11/06/2021 16:22:57 11/06/19 22 11/06/2021 COMPR EHENS HUGO METAB OLIC PANEL BUN 13 mg/dL 8-19 Not Available [facility] (Lab) [address] [place], [address], 11/06/2021 16:22:57 11/06/19 22 11/06/2021 COMPR EHENS HUGO METAB OLIC PANEL creatinine 0.78 mg/dL 0.66-1 .25 Not Available [facility] (Lab) [address] [place], [address], 11/06/2021 16:22:57 11/06/19 22 11/06/2021 COMPR EHENS HUGO METAB OLIC PANEL GFR >60 Refer ence Range : [place] ge GFR Healt hy Adult : >60 [...] or ethni c subgr oups, such as Hispa nics. Outsi de the valid ated tory eters , estim ated GFR is less accur ate, requi ring clini enll judgm ent on a case- by-ca se [...] calcu lator is avail able on the [facility] websi te: [email or web address] :[email or web address] [email or web address] yoo/[email or web address] dent s/shrutio qi/gf r_cal culat or Not Available [facility] (Lab) [address] [place], [address], 11/06/2021 16:22:57 11/06/1911/06/2021 COMPR EHENS HUGO METAB OLIC PANEL alanine aminotransfe rase 31 U/L 0-35 Not Available [facility] (Lab) [address] [place], [address], 11/06/2021 16:22:57 11/06/19 22 11/06/2021 COMPR EHENS HUGO METAB OLIC PANEL aspartate aminotransfe rase 28 U/L 15-37 Not Available [facility] (Lab) [address] [place], [address], 11/06/2021 16:22:57 11/06/19 22 11/06/2021 COMPR EHENS HUGO METAB OLIC PANEL bilirubin, total 0.90 mg/dL 0.20-1 .30 Not Available [facility] (Lab) [address] [place], [address], 11/06/2021 16:22:57 11/06/19 22 11/06/2021 COMPR EHENS HUGO METAB OLIC PANEL calcium 9.5 mg/dL 8.4-10 .2 Not Available [facility] (Lab) [address] [place], [address], 11/06/2021 16:22:57 11/06/19 22 11/06/2021 COMPR EHENS HUGO METAB OLIC PANEL total protein 7.6 g/dL 6.3-8. 2 Not Available [facility] (Lab) [address] [place], [address], 11/06/2021 16:22:57 11/06/19 22 11/06/2021 COMPR EHENS HUGO METAB OLIC PANEL albumin 4.8 g/dL 3.4-5. 0 Not Available [facility] (Lab) [address] [place], [address], 11/06/2021 16:22:57 11/06/19 22 11/06/2021 COMPR EHENS HUGO METAB OLIC PANEL globulin 2.8 g/dL 2.6-4. 2 Not Available [facility] (Lab) [address] [place], [address], 11/06/2021 16:22:57 11/06/19 22 11/06/2021 COMPR EHENS HUGO METAB OLIC PANEL A/G ratio 1.7 ratio 1.0-2. 0 Not Available [facility] (Lab) [address] [place], [address], 11/06/2021 16:22:57 11/06/19 22 11/06/2021 LIPID PANEL [...] WILL NOT BE REPOR KIAH. Not Available [facility] (Lab) [address] [place], [address], 11/06/2021 16:22:55 11/06/19 22 11/06/2021 LIPID PANEL cholesterol 106 mg/dL 140-19 9 low NIH SAM NSUS RECOM MENDA TION FOR JOHN STERO L: ADULT CHILD LOW RISK: <200 <170 BORDE RLINE : <200- 239 ----- HIGH RISK: >240 >200 Not Available [facility] (Lab) [address] [place], [address], 11/06/2021 16:22:55 11/06/19 22 11/06/2021 LIPID PANEL triglyceride s 93 mg/dL 0-150 NIH SAM NSUS REPOR T RECOM MENDA TION FOR TRIGL YCERI LETITIA: ADULT CHILD LOW RISK: <150 ----- BODER LINE: 150-1 99 ----- HIGH RISK: >200 ----- Not Available [facility] (Lab) [address] [place], [address], 11/06/2021 16:22:55 11/06/19 22 11/06/2021 LIPID PANEL HDL cholesterol 66 mg/dL 40- Not Available [facility] (Lab) [address] [place], [address], 11/06/2021 16:22:55 11/06/19 22 11/06/2021 HEMOG LOBIN A1C HA1C 4.9 % 4.0-6. 0 Diabe amanda Samanthae hammad Crite zhao: <5.7% Consi stent with absen ce of diabe amanda 5.7-6 .4% Consi stent with incre ased risk for diabe amanda (pred iabet es) >OR=6 .5% Consi stent with diabe amanda REFER ENCE: Diabe amanda Care 2016, 39( ppl.1 ):s13 -s22 Not Available [facility] (Lab) [address] [place], [address], 11/06/2021 16:11:00 11/06/19 22 11/06/2021 URINA LYSIS COMPL ETE/I RIS W/RFX pH 6.5 pH_un its 5.0-9. 0 Not Available [facility] (Lab) [address] [place], [address], 11/06/2021 15:56:12 11/06/19 22 11/06/2021 URINA LYSIS COMPL ETE/I RIS W/RFX color yellow Not Available [facility] (Lab) [address] [place], [address], 11/06/2021 15:56:12 11/06/19 22 11/06/2021 URINA LYSIS COMPL ETE/I RIS W/RFX appear clear Not Available [facility] (Lab) [address] [place], [address], 11/06/2021 15:56:12 11/06/19 22 11/06/2021 URINA LYSIS COMPL ETE/I RIS W/RFX specific gravity 1.028 1.001- 1.030 Not Available [facility] (Lab) [address] [place], [address], 11/06/2021 15:56:12 11/06/19 22 11/06/2021 URINA LYSIS COMPL ETE/I RIS W/RFX leukocytes negati ve magdalena/u L negati ve- Not Available [facility] (Lab) [address] [place], [address], 11/06/2021 15:56:12 11/06/19 22 11/06/2021 URINA LYSIS COMPL ETE/I RIS W/RFX nitrite negati ve negati ve- Not Available [facility] (Lab) [address] [place], [address], 11/06/2021 15:56:12 11/06/19 22 11/06/2021 URINA LYSIS COMPL ETE/I RIS W/RFX protein 10 mg/dL negati ve- abnormal Not Available [facility] (Lab) [address] [place], [address], 11/06/2021 15:56:12 11/06/19 22 11/06/2021 URINA LYSIS COMPL ETE/I RIS W/RFX glucose normal mg/dL normal - Not Available [facility] (Lab) [address] [place], [address], 11/06/2021 15:56:12 11/06/19 22 11/06/2021 URINA LYSIS COMPL ETE/I RIS W/RFX ketones negati ve mg/dL negati ve- Not Available [facility] (Lab) [address] [place], [address], 11/06/2021 15:56:12 11/06/19 22 11/06/2021 URINA LYSIS COMPL ETE/I RIS W/RFX urobilinogen normal mg/dL normal - Not Available [facility] (Lab) [address] [place], [address], 11/06/2021 15:56:12 11/06/19 22 11/06/2021 URINA LYSIS COMPL ETE/I RIS W/RFX bilirubin negati ve mg/dL negati ve- Not Available [facility] (Lab) [address] [place], [address], 11/06/2021 15:56:12 11/06/19 22 11/06/2021 URINA LYSIS COMPL ETE/I RIS W/RFX blood negati ve mg/dL negati ve- Not Available [facility] (Lab) [address] [place], [address], 11/06/2021 15:56:12 11/06/19 22 11/06/2021 URINA LYSIS COMPL ETE/I RIS W/RFX white blood cells 0-8 /i??h pfi?? 0-8 Not Available [facility] (Lab) [address] [place], [address], 11/06/2021 15:56:12 11/06/19 22 11/06/2021 URINA LYSIS COMPL ETE/I RIS W/RFX red blood cells 0-4 /i??h pfi?? 0-4 Not Available [facility] (Lab) [address] [place], [address], 11/06/2021 15:56:12 11/06/19 22 11/06/2021 URINA LYSIS COMPL ETE/I RIS W/RFX bacteria none Not Available [facility] (Lab) [address] [place], [address], 11/06/2021 15:56:12 11/06/19 22 11/06/2021 URINA LYSIS COMPL ETE/I RIS W/RFX mucous modera te /i??l pfi?? abnormal Not Available [facility] (Lab) [address] [place], [address], 11/06/2021 15:56:12 11/06/19 22 11/06/2021 URINA LYSIS COMPL ETE/I RIS W/RFX squamous epithelial few /i??l pfi?? abnormal Not Available [facility] (Lab) [address] [place], [address], 11/06/2021 15:56:12 11/06/19 22 11/06/2021 URINA LYSIS COMPL ETE/I RIS W/RFX hyaline cast occasi onal /i??l pfi?? none seen- abnormal Not Available [facility] (Lab) [address] [place], [address], 11/06/2021 15:56:12 11/06/19 22 11/06/2021 CBC/C OMPLE TE BLD COUNT W/DIF F mean red cell volume 91.7 fL 82.0-9 9.0 Not Available [facility] (Lab) [address] [place], [address], 11/06/2021 15:44:55 11/06/19 22 11/06/2021 CBC/C OMPLE TE BLD COUNT W/DIF F white blood cells 7.7 x10'3 /uL 4.2-10 .8 Not Available [facility] (Lab) [address] [place], [address], 11/06/2021 15:44:55 11/06/19 22 11/06/2021 CBC/C OMPLE TE BLD COUNT W/DIF F red blood cells 4.80 x10'6 /uL 3.80-5 .20 Not Available [facility] (Lab) [address] [place], [address], 11/06/2021 15:44:55 11/06/19 22 11/06/2021 CBC/C OMPLE TE BLD COUNT W/DIF F hemoglobin 15.0 g/dL 12.0-1 5.6 Not Available [facility] (Lab) [address] [place], [address], 11/06/2021 15:44:55 11/06/19 22 11/06/2021 CBC/C OMPLE TE BLD COUNT W/DIF F hematocrit 44.0 % 35.7-4 5.7 Not Available [facility] (Lab) [address] [place], [address], 11/06/2021 15:44:55 11/06/19 22 11/06/2021 CBC/C OMPLE TE BLD COUNT W/DIF F mean red cell hemoglobin 31.3 pg 27.0-3 3.0 Not Available [facility] (Lab) [address] [place], [address], 11/06/2021 15:44:55 11/06/19 22 11/06/2021 CBC/C OMPLE TE BLD COUNT W/DIF F mean RBC HGB concentratio n 34.1 g/dL 31.0-3 6.0 Not Available [facility] (Lab) [address] [place], [address], 11/06/2021 15:44:55 11/06/19 22 11/06/2021 CBC/C OMPLE TE BLD COUNT W/DIF F red cell distribution width 11.9 % 11.8-1 5.5 Not Available [facility] (Lab) [address] [place], [address], 11/06/2021 15:44:55 11/06/19 22 11/06/2021 CBC/C OMPLE TE BLD COUNT W/DIF F platelets 229 x10'3 /uL 150-40 0 Not Available [facility] (Lab) [address] [place], [address], 11/06/2021 15:44:55 11/06/19 22 11/06/2021 CBC/C OMPLE TE BLD COUNT W/DIF F mean platelet volume 11.0 fL 9.0-12 .4 Not Available [facility] (Lab) [address] [place], [address], 11/06/2021 15:44:55 11/06/19 22 11/06/2021 CBC/C OMPLE TE BLD COUNT W/DIF F neutrophils 63.1 % 39.0-7 2.0 Not Available [facility] (Lab) [address] [place], [address], 11/06/2021 15:44:55 11/06/19 22 11/06/2021 CBC/C OMPLE TE BLD COUNT W/DIF F basophils 0.3 % 0.0-2. 0 Not Available [facility] (Lab) [address] [place], [address], 11/06/2021 15:44:55 11/06/19 22 11/06/2021 CBC/C OMPLE TE BLD COUNT W/DIF F lymphocytes 27.3 % 16.0-4 7.0 Not Available [facility] (Lab) [address] [facility] [place], [address], 11/06/2021 15:44:55 11/06/19 22 11/06/2021 CBC/C OMPLE TE BLD COUNT W/DIF F monocytes 6.2 % 5.0-12 .0 Not Available [facility] (Lab) [address] [place], [address], 11/06/2021 15:44:55 11/06/19 22 11/06/2021 CBC/C OMPLE TE BLD COUNT W/DIF F eosinophils 2.7 % 1.0-7. 0 Not Available [facility] (Lab) [address] [place], [address], 11/06/2021 15:44:55 11/06/19 22 11/06/2021 CBC/C OMPLE TE BLD COUNT W/DIF F immature granulocytes 0.4 % 0.00-0 .50 Not Available [facility] (Lab) [address] [place], [address], 11/06/2021 15:44:55 11/06/19 22 11/06/2021 CBC/C OMPLE TE BLD COUNT W/DIF F neutrophils, absolute count 4.86 x10'3 /uL 1.5-8. 0 Not Available [facility] (Lab) [address] [place], [address], 11/06/2021 15:44:55 11/06/19 22 11/06/2021 CBC/C OMPLE TE BLD COUNT W/DIF F lymphocytes, absolute count 2.10 x10'3 /uL 1.07-3 .43 Not Available [facility] (Lab) [address] [place], [address], 11/06/2021 15:44:55 11/06/19 22 11/06/2021 CBC/C OMPLE TE BLD COUNT W/DIF F monocytes, absolute count 0.48 x10'3 /uL 0.29-0 .99 Not Available [facility] (Lab) [address] [place], [address], 11/06/2021 15:44:55 11/06/19 22 11/06/2021 CBC/C OMPLE TE BLD COUNT W/DIF F eosinophils, absolute count 0.21 x10'3 /uL 0.02-0 .53 Not Available [facility] (Lab) [address] [place], [address], 11/06/2021 15:44:55 11/06/19 22 11/06/2021 CBC/C OMPLE TE BLD COUNT W/DIF F basophils, absolute count 0.02 x10'3 /uL 0.01-0 .08 Not Available [facility] (Lab) [address] [place], [address], 11/06/2021 15:44:55 11/06/19 22 11/06/2021 CBC/C OMPLE TE BLD COUNT W/DIF F immature granulocytes ,absolute 0.03 x10'3 /uL 0.00-0 .05 Not Available [facility] (Lab) [address] [place], [address], 11/06/2021 15:44:55 11/06/19 22 11/06/2021 CBC/C OMPLE TE BLD COUNT W/DIF F nucleated red blood cells 0.0 % -0 Not Available [facility] (Lab) [address] [facility] [place], [address], 11/06/2021 15:44:55 11/06/19 22 11/06/2021 CBC/C OMPLE TE BLD COUNT W/DIF F NRBC# 0.00 x10'3 /uL Not Available [facility] (Lab) [address] [facility] [place], [address], 11/06/2021 15:44:55 11/21/19 22 11/20/2021 US, pelvi s, trans abdom inal + trans vagin al [facility] [address] [place] [address] [phone] Patien t Name: CHERYLE MEADEIAN Irvin E Access ion #: [id number] Sex: F : 1999 2 Locati [...] r blood flow. Page 1 of 2 [facility] Patien t Name: SHILOH MEADE E Access ion #: [id number] Sex: F : 1999 2 Exam [...] MD (CT) (CT) Page 2 of 2 [id number] [facility] (Imaging) [address] [place], [address], 11/18/2022 00:32:53 11/21/19 22 11/20/2021 US, abdom en, limit ed [facility] [address] [place] [address] [phone] Patien t Name: SHILOH MEADE E Access ion #: [id number] Sex: F : 1999 2 Locati [...] is 0.6 cm Page 1 of 2 [facility] Patien t Name: SHILOH MEADE Access ion #: [id number] Sex: F : 1999 2 Exam [...] MD (CT) (CT) Page 2 of 2 [id number] [facility] (Imaging) [address] [place], [address], 11/18/2022 00:32:53 01/09/20 22 01/08/2022 NM, hepat obili christian scan, w[facility] [address] [place] [address] Patien t Name: SHILOH MEADE Access ion #: [id number] Sex: F : 1999 8 Locati on: RAD Attend ing Physic niesha: NUHAEVELYNE FROSTIE Orderi ng Physic niesha: EVELYNE RUTHERFORDIE Exam Date: 022 9:39 AM Exam Name: [...] of activi ty Page 1 of 2 [facility] Patien t Name: SHILOH MEADE Access ion #: [id number] Sex: F : 1999 8 Exam [...] 12:33 PM (CT) Page 2 of 2 [id number] [facility] (Imaging) [address] [place], [address], 11/18/2022 00:32:53 Result Notes Documentation Provider Name and Address Organization Details Recorded Time Nm, Hepatobiliary Scan, W/pharm : [facility] [address] [place], [place] [id number] Patient Name: OSMAN MEADE Sex: F : 2000 Location: [facility] Attending Physician: HAYLEE RUTHERFORD Ordering Physician: HAYLEE RUTHERFORD Exam Date: 01/08/2022 9:39 AM Exam Name: NM HEPATOBILIARY W PHARM Admitting Diagnosis(es): RADIOLOGY REPORT - FINAL EXAM: NM HEPATOBILIARY W PHARM HISTORY: nausea COMPARISON: None. Dose: 8.0 mCi technetium labeled Choletec. Five mcg Kinevac. TECHNIQUE: Imaging of the right upper quadrant is performed following the intravenous injection of the above activity does. 1 hour following the injection of the above dose of activity, the Kinevac dose was injected and a gallbladder ejection fraction calculated. FINDINGS: Uptake in activity by the liver is noted with prompt excretion of activity Page 1 of 2 [facility] Patient Name: OSMAN MEADE Sex: F : 2000 Exam Date: 01/08/2022 9:39 AM Exam Name: JUAN HEPATOBILIARY W PHARM Admitting Diagnosis(es): the of the biliary system. The small bowel is visualized at the appropriate time without evidence of obstruction. The cystic duct is patent. The gallbladder is visualized appearing grossly within limits. A gallbladder ejection fraction is calculated following the injection of the Kinevac dose. The gallbladder ejection fraction is 86% %. The normal range is 35% or greater. IMPRESSION: 1. Normal hepatobiliary scan without evidence of cystic duct obstruction. 2. Normal gallbladder ejection fraction value of 86% %. See above. Created and electronically signed by: Carlos Valle MD Signed Date: 01/08/2022 12:33 PM (CT) Dictated by: Carlos Valle MD (CT) (CT) Page 2 of 2 Not Available [facility] 11/18/2022 00:32:54 Problems Name Problem SNOMED Code Status Onset Date Resolution Date Notes Provider Name and Address Organization Details Recorded Time Nausea 784705486 Active 2021 Not Available [facility] 3 00:30:02 Hyperlipidemi a 13066590 Active 2022 Maria Dockery APRN [address], [place], [address] , [employer] 4 14:42:33 Polycystic ovary syndrome 430993265 Active 2022 Maria Dockery APRN [address], [place], [address] , [employer] 4 14:42:37 Anti-nuclear factor detected 973711638 Active 2022 CHAPARRO Palacios [address], [place], [address] , [employer] 3 20:53:14 Hemorrhoids 21995375 Active 2022 Maria Dockery APRN [address], [place], [address] , [employer] 4 14:42:30 Gastroesophag eal reflux disease 123262789 Active 2023 Maria Dockery APRN [address], [place], [address] , [employer] 4 15:11:00 Problem Notes None recorded. Medical Equipment [...] mass index (BMI) Body height Oxygen saturation Heart rate Body temperature Body weight Systolic And Diastolic Provider Name and Address Organization Details Last Updated DateTime 2 29.7 kg/m2 154.94 cm 98 % 74 /min 97.6 [degF] 80659 g 116/78 mm[Hg] Not Available [facility] 3 00:29:38 Date Recorded Body height Body mass index (BMI) Body weight Body temperature Heart rate Oxygen saturation Systolic And Diastolic Provider Name and Address Organization Details Last Updated DateTime 3 154.94 cm 29.9 kg/m2 15194.5 9 g 97.6 [degF] 98 /min 99 % 126/78 mm[Hg] Gabriella Ragland MA [facility] [employer] [facility] 3 14:50:49 Date Recorded Body mass index (BMI) Body height Oxygen saturation Heart rate Body temperature Body weight Systolic And Diastolic Provider Name and Address Organization Details Last Updated DateTime 2 30.2 kg/m2 154.94 cm 98 % 108 /min 97.6 [degF] 30630.7 8 g 122/80 mm[Hg] Not Available [facility] 3 00:29:38 Date Recorded Body height Body mass index (BMI) Body weight Body temperature Heart rate Oxygen saturation Systolic And Diastolic Provider Name and Address Organization Details Last Updated DateTime 4 154.94 cm 34 kg/m2 27334.6 3 g 97.5 [degF] 107 /min 97 % 104/66 mm[Hg] Nancy Meade MA [facility] [employer] [facility] 4 14:41:47 Date Recorded Body mass index (BMI) Body height Oxygen saturation Heart rate Body temperature Body weight Systolic And Diastolic Provider Name and Address Organization Details Last Updated DateTime 2 29.1 kg/m2 154.94 cm 99 % 104 /min 97.6 [degF] 09817.2 2 g 114/72 mm[Hg] Not Available [facility] 3 00:29:38 Social History Question Answer Notes LastModified by Organizat ion Details LastModified Time Tobacco Smoking Status Never Smoker Not Available [facility] 11/18/2022 00:27:49 Do You Wear A Helmet When Biking? No Doesn't Bike MIGRATION.39722 [id number] Information not available 11/18/2022 What Is Your Level Of Caffeine Consumption? None MIGRATION.17900 02371 Information not available 11/18/2022 In The 14 Days Before Symptom Onset, Have You Had Close Contact With A Laboratory-confi rmed COVID-19 While That Case Was Ill? No MIGRATION.31285 90941 Information not available 11/18/2022 In The 14 Days Before Symptom Onset, Have You Had Close Contact With A Person Who Is Under Investigation For COVID-19 While That Person Was Ill? No MIGRATION.98857 50443 Information not available 11/18/2022 What Type Of Diet Are You Following? REGULAR MIGRATION.19285 75185 Information not available 11/18/2022 What Is The Highest Grade Or Level Of School You Have Completed Or The Highest Degree You Have Received? [id number] MIGRATION.21716 70343 Information not available 11/18/2022 Have There Been Any Changes To Your Family Or Social Situation? No MIGRATION.97174 88211 Information not available 11/18/2022 Are There Any Guns Present In Your Home? No MIGRATION.72903 26401 Information not available 11/18/2022 Do You Use Insect Repellent Routinely? No MIGRATION.14524 59432 Information not available 11/18/2022 Where Do You Live? [place]House MIGRATION.78341 86622 Information not available 11/18/2022 Are You Following A Low Salt Diet? Yes MIGRATION.59218 13987 Information not available 11/18/2022 What Was The Date Of Your Most Recent Tobacco Screening? 02/23/2024 Information not available 02/23/2024 How Many Children Do You Have? 1 Information not available 02/23/2024 Do You Have Any Pets? Yes Dog And Cat MIGRATION.53504 71082 Information not available 11/18/2022 What Is Your Relationship Status? Single MIGRATION.33932 48953 Information not available 11/18/2022 Do You Use Your Seat Belt Or Car Seat Routinely? Yes MIGRATION.38879 14872 Information not available 11/18/2022 Do You Have Smoke And Carbon Monoxide Detectors In Your Home? Yes MIGRATION.01369 93381 Information not available 11/18/2022 Are You Passively Exposed To Smoke? No MIGRATION.15971 95101 Information not available 11/18/2022 Are There Any Smokers In Your House? No MIGRATION.49463 72429 Information not available 11/18/2022 Do You Use Sunscreen Routinely? No MIGRATION.95730 11759 Information not available 11/18/2022 Has Tobacco Cessation Counseling Been Provided? No MIGRATION.40598 83759 Information not available 11/18/2022 Have You Recently Traveled Abroad? No MIGRATION.14987 69936 Information not available 11/18/2022 Do You Have Any Dietary Restrictions? Yes Has Pcos MIGRATION.86461 07699 Information not available 11/18/2022 Sex: Female Functional Status Question Answer Note LastModified by Organizat ion Details LastModified Time Do you use any illicit or recreational drugs? No MIGRATION.2931559 026 Information not available 11/18/2022 Do you or have you ever used any other forms of tobacco or nicotine? No MIGRATION.3434123 026 Information not available 11/18/2022 What is your level of alcohol consumption? None MIGRATION.9855905 026 Information not available 11/18/2022 Are you currently employed? Yes Information not available 02/23/2024 What is your occupation? [employer] Information not available 02/23/2024 What is your exercise level? None MIGRATION.0731942 026 Information not available 11/18/2022 Mental Status Question Answer Note LastModified by Organizat ion Details LastModified Time Do you feel stressed (tense, restless, nervous, or anxious, or unable to sleep at night)? 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 MIGRATION.6950811 026 Information not available 11/18/2022 Family History Relationship Description Onset Age of this Age Resolved Age Notes LastModified by Organization Details LastModified Time Father Family history of malignant neoplasm of brain MIGRATION.303 [id number] Not available 11/18/2022 00:28:01 Medical History No [...] mRNA, LNP-S, PF, 30 mcg/0.3 mL dose 05/23/202 1 completed Maria Dockery APRN [address], [place], [address], [employer] [facility] [employer] [facility] 02/22/2024 14:42:46 COVID-19, mRNA, LNP-S, PF, 30 mcg/0.3 mL dose [address], [place], [address], [employer] [facility] [employer] [facility] 02/22/2024 14:42:46 Hib, unspecified formulation [address], [place], [address], [employer] [facility] [employer] [facility] 02/22/2024 14:42:46 Hib, unspecified formulation [address], [place], [address], [employer] [facility] [employer] [facility] 02/22/2024 14:42:46 Hib, unspecified formulation [address], [place], [address], [employer] [facility] [employer] [facility] 02/22/2024 14:42:46 Hib, unspecified formulation [address], [place], [address], [employer] [facility] [employer] [facility] 02/22/2024 14:42:46 HPV9 [address], [place], [address], [employer] [facility] [employer] [facility] 02/22/2024 14:42:46 HPV9 0 scott Dockery APRN [address], [place], [address], [employer] [facility] [employer] [facility] 02/22/2024 14:42:46 HPV9 5 completed Maria Nahed, FAN BALANCER [address], [place], [address], [facility] [employer] [facility] [employer] [facility] 02/22/2024 14:42:46 HPV9 6 completed Maria Dockery APRN [address], [place], [address], [facility] [place] [facility] [employer] [facility] 02/22/2024 14:42:46 HPV9 5 completed Maria Dockery APRN [address], [place], [address], [employer] [facility] [employer] [facility] 02/22/2024 14:42:46 IPV 1 completed Maria Dockery APRN [address], [place], [address], [employer] [facility] 02/22/2024 14:42:46 IPV 1 completed Maria Dockery APRN [address], [place], [address], [employer] [facility] [employer] [facility] 02/22/2024 14:42:46 IPV 6 completed Maria Dockery APRN [address], [place], [address], [employer] [facility] [employer] [facility] 02/22/2024 14:42:46 IPV 2 completed Maria Dockery APRN [address], [place], [address], [employer] [facility] [employer] [facility] 02/22/2024 14:42:46 Influenza, live, trivalent, intranasal, PF 2 completed Maria Dockery APRN [address], [place], [address], [employer] [facility] [employer] [facility] 02/22/2024 14:42:46 MMR 2 scott Dockery APRN [address], [place], [address], [employer] [facility] [employer] [facility] 02/22/2024 14:42:46 MMR 6 completed Maria Dockery APRN [address], [place], [address], [facility] 02/22/2024 14:42:46 pneumococcal conjugate PCV 7 1 completed Maria Dockery APRN [address], [place], [address], [facility] 02/22/2024 14:42:46 pneumococcal conjugate PCV 7 2 completed Maria Dockery APRN [address], [place], [address], [facility] - [facility] 02/22/2024 14:42:46 pneumococcal conjugate PCV 7 1 completed Maria Dockery APRN [address], [place], [address], [employer] [facility] 02/22/2024 14:42:46 pneumococcal conjugate PCV 7 [address], [place], [address], [employer] - [facility] 02/22/2024 14:42:46 Tdap [address], [place], [address], [employer] - [facility] 02/22/2024 14:42:46 Tdap [address], [place], [address], [facility] 02/22/2024 14:42:46 varicella [address], [place], [address], [facility] 05/01/2024 13:51:11 varicella [address], [place], [address], [facility] - [facility] 02/22/2024 14:42:46 influenza, split (incl. purified surface antigen) 9 completed Maria Dockery APRN [address], [place], [address], [employer] 02/22/2024 14:42:46 Hep B, adolescent or pediatric 1 completed Maria Dockery APRN [address], [place], [address], [employer] 02/22/2024 14:42:46 Hep B, adolescent or pediatric [address], [place], [address], [employer] 02/22/2024 14:42:46 Hep B, adolescent or pediatric 0 completed Maria Dockery APRN [address], [place], [address], [employer] 02/22/2024 14:42:46 Hep A, pediatric, unspecified formulation 4 completed Maria Dockery APRN [address], [place], [address], [employer] 02/22/2024 14:42:46 Hep A, pediatric, unspecified formulation 3 completed Maria Dockery APRN [address], [place], [address], [employer] 02/22/2024 14:42:46 meningococcal MCV4P 5 completed Maria Dockery APRN [address], [place], [address], [employer] 02/22/2024 14:42:46 DTaP 1 completed Maria Dockery APRN [address], [place], [address], [employer] 02/22/2024 14:42:46 DTaP 1 completed Maria Dockery APRN [address], [place], [address], [email or web address] 02/22/2024 14:42:46 DTaP 6 completed Maria Dockery APRN [address], [place], [address], [employer] 02/22/2024 14:42:46 DTaP [address], [place], [address], [employer] 02/22/2024 14:42:46 DTaP [address], [place], [address], [employer] 02/22/2024 14:42:46 Influenza, split virus, quadrivalent, PF [address], [place], [address], [employer] 02/22/2024 14:42:46 IPV [address], [place], [address], [employer] 05/01/2024 13:51:11 pneumococcal conjugate PCV 7 1 OMAR [address], [place], [address], [email or web address] 05/01/2024 13:51:11 Hib (HbOC) [address], [place], [address], [employer] 05/01/2024 13:51:11 DTaP [address], [place], [address], [employer] 05/01/2024 13:51:11 Past Encounters Encounter ID Performer Location Encounter Start Date Encounter Closed Date Diagnosis/Indication Diagnosis SNOMED-CT Code Diagnosis ICD10 Code Diagnosis IMO Codes Diagnosis Note [id number] Guillermo hernandez MD [facility] Internal Med [address] [place] [address] 1 11/06/2021 00:00:00 11/06/2021 13:59:58 [id number] Guillermo hernandez MD [facility] Internal Med [address] [place] [address] 1 12/04/2021 00:00:00 12/04/2021 13:52:17 [id number] Guillermo hernandez MD [facility] Internal Med [address] [address] 12/29/2021 00:00:00 12/29/2021 16:19:39 [id number] CHAPARRO Palacios [facility] Internal Med [address] [address] 04/02/2022 00:00:00 04/02/2022 13:16:25 [id number] Guillermo hernandez MD [facility] Internal Med [address] [address] 12/28/2022 14:42:17 12/28/2022 15:10:48 Hyperlipidemia 22285579 E78.5 now off the simvastati n Polycystic ovary syndrome 671339057 E28.2 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, 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 Nausea 094902171 R11.0 s/p gallbladde r u/shas order for HIDA-she decided not to get this done as her nausea was improved Anti-nucle ar factor detected 360989665 R76.8 now follow [facility] them- has orders Hemorrhoids 42971769 K64 .9 on anusollife style measures discussed- wet wipes with tolieting, avoid straining, push fluid and fiber in diet, avoid soap to rectal area, avoid shaving Adult heal th examination 936172941 Z00.01 Screening for disorder 099729650 Z13.9 check labs in about 2 months to recheck her A1c/check other screening labs Depression screening 171 206103 Z13.31 Body mass index 25-29 - overweight 976905591 Z68.29 encouraged her to be gentle with [...] recommend resistance training 2-3 times per week [id number] Guillermo hernandez MD [facility] Internal Med [facility] [address] [facility] [address] [place] [address] 02/23/2024 14:27:24 02/23/2024 15:23:17 Polycystic ovary syndrome 937421727 E28.2 Hyperlipidemia 89068945 E78.5 Gastroesop hageal reflux disease 754577635 K21.9 Screening for disorder 864690338 Z13.9 Health Concerns Section Related Observation LastModified by Organization Detai ls LastModified Time None Recorded Concern Status LastModified by Organization Details LastModified Time None Recorded Advance Directives Directive None Recorded Payers Insurance Date Sequence Insurance Name Policy Number Policy Hung Covered Member ID Hung Member ID Guarantor Name 06/24/2024 1 [facility] (MEDICAID HMO) [id number] Osman Meade [id number] Osman Meade Notes Date Note Type Note Provider Name and Address Organization Details Recorded Time 12/28/2022 text/html Osman presents for follow-up. She is also due [...] gestational diabetes during . She reports her teamsite developer did check her A1c at her 6 [...] due for her regular screening labs. SUZY Palacios-Maynor [address], [place], [address], [email or web address] 12/28/2022 15:10:25 02/23/2024 text/html Osman presents today to establish care. She states that her DECKER OPERATOR and her previous provider had all of her straightened out and then she became and needs to place back on her medications so she can feel better again. Maria Dockery APRN [address], [place], [address], [email or web address] 02/23/2024 15:21:50 OBGyn Episode No OBEpisode recorded.
--- OUTSIDE RECORDS SUMMARY | 2025-08-20 17:21 | XMS_ITS | Continuity of Care Document ---
Author Organization [facility] [employer] ( [facility] ) , [facility] Address [address] [place] [address] Assessment No assessment recorded. Plan of Treatment Reminders Order Date Submit Date Provider Last Modified By Organization Details Last Modified Time Details Appointments OB 28WK EST 2024 01:00P M ANGELICA BARRETT, DO Not available Not available Not available Lab None recorded. Referral None recorded. Procedures None recorded. Surgeries None recorded. Imaging US, obstetric , transvagi nal 2024 025 EMMA Not available 08/13/2025 08:06:07 Medication Orders None recorded. Patient TargetsNo targets recorded. Patient InstructionsNo instructions recorded. Reason for Referral None Reported. Results Created Date Observation Date Name Description Value Unit Range Abnormal Flag Note LastModifiedBy Organization Detail LastModifiedTime 06/03/2006/04/2025 HEMOG LOBIN A1C hemoglobin A1C 4.8 % <5.7 normal The refer ence range for HbA1c is indic ated in the table below . Sugge sted Diagn osis =6.5% Consi stent with diabe amanda 5.7 6.4% Consi stent with incre ased risk for diabe amanda (pred iabet ic) <5.7% Consi stent with the absen ce of diabe amanda Not Available [facility] [address] [place], [address], 06/04/2025 13:18:14 06/03/20 25 06/04/2025 DRUG ABUSE PANEL 7 W/CON FIRM amphetamines Negati ve negati ve normal Not Available [facility] [address] [place], [address], 06/04/2025 13:18:15 06/03/20 25 06/04/2025 DRUG ABUSE PANEL 7 W/CON FIRM barbiturates Negati ve negati ve normal Not Available [facility] [address] [place], [address], 06/04/2025 13:18:15 06/03/20 25 06/04/2025 DRUG ABUSE PANEL 7 W/CON FIRM benzodiazepi bradly Negati ve negati ve normal Not Available [facility] [address] [place], [address], 06/04/2025 13:18:15 06/03/20 25 06/04/2025 DRUG ABUSE PANEL 7 W/CON FIRM cocaine metabolites Negati ve negati ve normal Not Available [facility] [address] [place], [address], 06/04/2025 13:18:15 06/03/20 25 06/04/2025 DRUG ABUSE PANEL 7 W/CON FIRM cannabinoids Negati ve negati ve normal Not Available [facility] [address] [place], [address], 06/04/2025 13:18:15 06/03/20 25 06/04/2025 DRUG ABUSE PANEL 7 W/CON FIRM methadone Negati ve negati ve normal Not Available [facility] [address] [place], [address], 06/04/2025 13:18:15 06/03/20 25 06/04/2025 DRUG ABUSE PANEL 7 W/CON FIRM opiates Negati ve negati ve normal Not Available [facility] [address] [place], [address], 06/04/2025 13:18:15 06/03/20 25 06/04/2025 DRUG ABUSE PANEL 7 W/CON FIRM creatinine, urine 22 mg/dL 20 - 275 normal Not Available [facility] [address] [place], [address], 06/04/2025 13:18:15 06/03/20 25 06/04/2025 OB PANEL - STD BLOOD WORK hep BS Ag Non-Re active non-re active normal Not Available [address], [address], 06/04/2025 13:54:17 06/03/2006/04/2025 OB PANEL - STD BLOOD WORK hep C Ab Non-Re active non-re active normal Not Available [address], [address], 06/04/2025 13:54:17 06/03/2006/04/2025 OB PANEL - STD BLOOD WORK HIV 1/2 Ag/Ab Non-Re active non-re active normal Not Available [address], [address], 06/04/2025 13:54:17 06/03/2006/04/2025 OB PANEL - STD BLOOD WORK syphilis Ab Non-Re active non-re active normal Not Available [address], [address], 06/04/2025 13:54:17 06/03/2006/04/2025 OB PANEL - STD BLOOD WORK rubella Ab IgG 39.1 IU/mL normal INTER PRETI VE INFOR MATIO N: Rubel la Antib ann, IgG. < 5.0 IU/mL ..... ..... . Not consi stent with immun ity 5.0 - 9.9 IU/mL ..... . Equiv ocal: Indet ermin ate-R epeat testi ng in 10-14 days may be helpf ul. > or = 10.0 IU/mL ... Consi stent with immun ity The prese nce of Rubel la IgG antib ann sugge st respo nse to immun izati on or prior /curr ent expos ure to the Rubel la virus . Not Available [address], [address], 06/04/2025 13:54:17 06/03/2006/04/2025 CBC (INCL UDES DIFF/ PLT) WBC 7.9 thous and/u L 4.0 - 9.8 normal Not Available [address], [address], 06/04/2025 13:59:39 06/03/2006/04/2025 CBC (INCL UDES DIFF/ PLT) RBC 4.3 davy on/uL 3.9 - 4.9 normal Not Available [address], [address], 06/04/2025 13:59:39 06/03/2006/04/2025 CBC (INCL UDES DIFF/ PLT) hemoglobin 13.9 g/dL 11.8 - 14.8 normal Not Available [address], [address], 06/04/2025 13:59:39 06/03/2006/04/2025 CBC (INCL UDES DIFF/ PLT) hematocrit 40.9 % 35.5 - 44.0 normal Not Available [address], [address], 06/04/2025 13:59:39 06/03/2006/04/2025 CBC (INCL UDES DIFF/ PLT) MCV 94.7 fL 82.0 - 99.0 normal Not Available [address], [address], 06/04/2025 13:59:39 06/03/2006/04/2025 CBC (INCL UDES DIFF/ PLT) MCH 32.2 pg 27.2 - 32.6 normal Not Available [facility] [address] [place] [address], [address], 06/04/2025 13:59:39 06/03/2006/04/2025 CBC (INCL UDES DIFF/ PLT) MCHC 34.0 g/dL 31.5 - 35.5 normal Not Available [facility] [address] [place] [address], [address], 06/04/2025 13:59:39 06/03/2006/04/2025 CBC (INCL UDES DIFF/ PLT) RDW-CV 12.0 % 11.5 - 14.5 normal Not Available [address], [address], 06/04/2025 13:59:39 06/03/2006/04/2025 CBC (INCL UDES DIFF/ PLT) platelet 186 thous and/u L 140 - 350 normal Not Available [address], [address], 06/04/2025 13:59:39 06/03/2006/04/2025 CBC (INCL UDES DIFF/ PLT) MPV 12.3 fL 9.3 - 12.4 normal Not Available [address], [address], 06/04/2025 13:59:39 06/03/2006/04/2025 CBC (INCL UDES DIFF/ PLT) absolute neutrophil 5.77 thous and/u L 1.90 - 7.00 normal Not Available [address], [address], 06/04/2025 13:59:39 06/03/2006/04/2025 CBC (INCL UDES DIFF/ PLT) absolute lymphocyte 1.57 thous and/u L 0.70 - 4.50 normal Not Available [address], [address], 06/04/2025 13:59:39 06/03/2006/04/2025 CBC (INCL UDES DIFF/ PLT) absolute monocyte 0.36 thous and/u L 0.10 - 1.30 normal Not Available [address], [address], 06/04/2025 13:59:39 06/03/2006/04/2025 CBC (INCL UDES DIFF/ PLT) absolute eosinophil 0.18 thous and/u L <0.70 normal Not Available [address], [address], 06/04/2025 13:59:39 06/03/20 25 06/04/2025 CBC (INCL UDES DIFF/ PLT) absolute basophil 0.04 thous and/u L <0.20 normal Not Available [address], [address], 06/04/2025 13:59:39 06/03/20 25 06/04/2025 CBC (INCL UDES DIFF/ PLT) absolute immature granulocyte 0.02 thous and/u L <0.03 normal Not Available [address], [address], 06/04/2025 13:59:39 06/03/20 25 06/04/2025 CT/NG chlamydia trachomatis CT neg negati ve normal This repor t is inten ded for us in clini nell monit oring and manag ement of patie nts. It is not inten ded for use in medic al-le gal appli catio n. Not Available [address], [address], 06/04/2025 14:40:18 06/03/2006/04/2025 CT/NG neisseria gonorrhoeae GC neg negati ve normal This repor t is inten ded for us in clini nell monit oring and manag ement of patie nts. It is not inten ded for use in medic al-le gal appli catio n. Not Available [address], [address], 06/04/2025 14:40:18 06/03/2006/08/2025 GLUCO SE, GESTA ELVIS L SCREE N (50G) -135 CUTOF F glucose, gestational screen (50g)-135 cutoff 117 mg/dL <135 normal Not Available [facility] [address] [place], [address], 06/08/2025 14:40:52 06/03/2006/08/2025 VARIC MAURIZIO ZOSTE R VIRUS ANTIB ANN (IGG) varicella zoster virus antibody (IgG) <1.00 S/co low Signa l to Cut-o ff S/CO Inter preta tion ----- ---- ----- ----- ----- ----- -- <1.00 Negat rosalina - Antib ann not detec cami > or = 1.00 Posit rosalina - Antib ann detec cami A posit rosalina resul t indic ates that the patie nt has antib ann to VZV but does not diffe renti ate betwe en an activ e or past infec tion. The clini nell diagn osis must be inter prete d in conju nctio n with the clini nell signs and sympt oms of the patie nt. This assay relia cj measu res immun ity due to previ ous infec tion but may not be sensi tive enoug h to detec t antib odies induc ed by vacci natio n. Thus, a negat rosalina resul t in a vacci nated indiv idual does not neces saril y indic ate susce ptibi lity to VZV infec tion. A more sensi tive test for vacci natio n-ind uced immun ity is Varic maurizio Zoste r Virus Antib ann Immun ity Scree n, ACIF. Not Available [facility] [address] [address] [place], [address], 06/08/2025 14:40:53 06/03/20 25 06/08/2025 HEMOG LOBIN OPATH Y EVALU ATION red blood cell count 4.25 davy on/uL 3.80-5 .10 Not Available [facility] [address] [place], [address], 06/08/2025 14:40:54 06/03/20 25 06/08/2025 HEMOG LOBIN OPATH Y EVALU ATION hemoglobin 13.3 g/dL 11.7-1 5.5 Not Available [address] [address] [place], [address], 06/08/2025 14:40:54 06/03/2006/08/2025 HEMOG LOBIN OPATH Y EVALU ATION hematocrit 41.9 % 35.0-4 5.0 Not Available [address] [address] [place], [address], 06/08/2025 14:40:54 06/03/2006/08/2025 HEMOG LOBIN OPATH Y EVALU ATION MCV 98.6 fL 80.0-1 00.0 Not Available [address], [address], 06/08/2025 14:40:54 06/03/2006/08/2025 HEMOG LOBIN OPATH Y EVALU ATION MCH 31.3 pg 27.0-3 3.0 Not Available [address] [address] [place], [address], 06/08/2025 14:40:54 06/03/2006/08/2025 HEMOG LOBIN OPATH Y EVALU ATION RDW 12.4 % 11.0-1 5.0 Not Available [address] [address] [place], [address], 06/08/2025 14:40:54 06/03/2006/08/2025 HEMOG LOBIN OPATH Y EVALU ATION hemoglobin A 97.2 % >96.0 Not Available [address], [address], 06/08/2025 14:40:54 06/03/2006/08/2025 HEMOG LOBIN OPATH Y EVALU ATION hemoglobin F <1.0 % <2.0 Not Available [address] [place], [address], 06/08/2025 14:40:54 06/03/20 25 06/08/2025 HEMOG LOBIN OPATH Y EVALU ATION hemoglobin A2 (quant) 2.8 % 2.0-3. 2 Not Available [address] [address] [place], [address], 06/08/2025 14:40:54 06/03/20 25 06/08/2025 HEMOG LOBIN OPATH Y EVALU ATION interpretati on Jenna l pheno type. Jenna l hemog lobin distr ibuti on, no HgS, HgC or other abnor mal hemog lobin obser larisa. Not Available [address] [address] [place], [address], 06/08/2025 14:40:54 06/03/20 25 06/08/2025 MEASL ES AB (IGG) , IMMUN E STATU S measles Ab (IgG), immune status >300.0 0 AU/mL normal AU/mL Inter preta tion ----- ----- ----- ---- <13.5 0 Not consi stent with immun ity 13.50 -16.4 9 Equiv ocal >16.4 9 Consi stent with immun ity The prese nce of measl es IgG sugge sts immun izati on or past or curre nt infec tion with measl es virus . For addit ional infor raúl sanchez e refer to http: //[facility] reji adameQue stDia gnost ics.c om/fa q/FAQ 162 (This link is being provi ded for infor jennifer bradford/ educa elvis l purpo ses only. ) Not Available [facility] [address] [place], [address], 06/08/2025 14:40:54 06/03/20 25 06/08/2025 ANTIB ANN SCREE N, RBC W/REF L ID, TITER AND AG antibody screen, RBC w/refl id, titer and Ag NO ANTIBO DIES DETECT ED normal Refer ence range No antib odies detec cami This assay is a scree hammad test for the detec tion of red blood cell antib odies . The test is not to be used for pretr ansfu amado scree hammad or for the medic al manag ement of an alloi mmuni zed pregn andrei. Not Available [facility] [address] [place], [address], 06/08/2025 14:40:55 06/03/2006/08/2025 ABO GROUP AND RH TYPE ABO group O Not Available [facility] [address] [address] [place], [address], 06/08/2025 14:40:55 06/03/2006/08/2025 ABO GROUP AND RH TYPE Rh type RH(D) POSITI VE For addit ional infor raúl sanchez e refer to http: //[facility] reji jimenez.Chase stDia gnost ics.c om/fa q/FAQ 111 (This link is being provi ded for infor jennifer bradford/ educdavid jc purpo ses only. ) Not Available [facility] [address] [address] [place], [address], 06/08/2025 14:40:55 06/03/2006/08/2025 CULTU RE, URINE , ROUTI NE culture, urine, routine SEE NOTE CULTU RE, URINE , ROUTI NE Micro Numbe r: [id number] Test Statu s: Final Speci men Sourc e: Urine Speci men Quali ty: Adequ ate Resul t: No Growt h Not Available [facility] [address] [address] [place], [address], 06/08/2025 14:40:56 06/25/2006/28/2025 MATER NAL SERUM AFP interpretati on: Jana jimenez negat rosalina for open NTD. Not Available [facility] [address] [address] [place], [address], 06/28/2025 06:27:48 06/25/20 25 06/28/2025 MATER NAL SERUM AFP risk for ontd NOT CALCUL ATED Not Available [facility] [address] [place], [address], 06/28/2025 06:27:48 06/25/2006/28/2025 MATER NAL SERUM AFP AFP, serum 35.9 NG/mL Not Available [facility] [address] [place], [address], 06/28/2025 06:27:48 06/25/2006/28/2025 MATER NAL SERUM AFP AFP MOM 1.01 Not Available [facility] [address] [place], [address], 06/28/2025 06:27:48 06/25/2006/28/2025 MATER NAL SERUM AFP comments: You have indic ated that this is a repea t speci men. While repea ting an eleva cami resul t is appro priat e, an accur ate neura l tube defec t risk has not been calcu lated for this repea t speci men. This patie nt's PARVIZ (justyna mated date of fabian khoury) was used to calcu late the gesta elvis l age. The AFP test resul t indic ates that this patie nt is scree n negat rosalina for open NTD. It shoul d be noted that jenna l test resul ts can never guara ntee the of a jenna l baby and that 2-3% of [facility] rns have some type of physi nell or menta l defec t, many of which are undet ectab le throu gh any known prena rekha diagn ostic techn ique. Not Available [facility] [address] [place], [address], 06/28/2025 06:27:48 06/25/2006/28/2025 MATER NAL SERUM AFP comment This is a scree hammad test, not a diagn ostic test. This risk asses sment repor t is based in part on demog raphi c data provi ded by the order ing physi rafael. Pleas e notif y the labor atory promp tly if any data are incor rect. For kelvin tance with recal culat ions, pleas e call your local [facility] . For kelvin tance with inter preta tion of these resul ts, pleas e conta ct your Local [facility] melissa ic couns elor or call [phone]( [phone]). Inter preti ve Cutof fs Scree n Posit rosalina for Open NTD: > or = 2.50 adjus cami MOM > or = 1.90 adjus cami MOM for insul in-de pende nt diabe tics > or = 4.00 adjus cami MOM for twins > or = 3.50 adjus cami MOM for twins insul in-de pende nt diabe tics > or = 4.50 adjus cami MOM for tripl ets For addit ional infor raúl sanchez e refer to http: //[facility] reji robertson stdia gnost ics.c om/fa q/FAQ 74v1 (This link is being provi ded for infor jennifer bradford/ educa elvis l purpo ses only. ) Not Available [facility] [address] [address] [place], [address], 06/28/2025 06:27:48 06/25/2006/28/2025 MATER NAL SERUM AFP calc'd gestational age 16.3 weeks Not Available [facility] [address] [address] [place], [address], 06/28/2025 06:27:48 06/25/2006/28/2025 MATER NAL SERUM AFP maternal weight 148 lbs Not Available [facility] [address] [place], [address], 06/28/2025 06:27:48 06/25/20 25 06/28/2025 MATER NAL SERUM AFP est'd date of delivery 2025 Not Available [facility] [address] [address] [place], [address], 06/28/2025 06:27:48 06/25/20 25 06/28/2025 MATER NAL SERUM AFP parviz determined by LMP Not Available [address], [address], 06/28/2025 06:27:48 06/25/20 25 06/28/2025 MATER NAL SERUM AFP mother's ethnic origin CAUCAS ROSY Not Available [address], [address], 06/28/2025 06:27:48 06/25/2006/28/2025 MATER NAL SERUM AFP number of fetuses 1 Not Available [address], [address], 06/28/2025 06:27:48 06/25/2006/28/2025 MATER NAL SERUM AFP insulin depend diabetic NO Not Available [address], [address], 06/28/2025 06:27:48 06/25/2006/28/2025 MATER NAL SERUM AFP repeat specimen YES Not Available [address], [address], 06/28/2025 06:27:48 06/25/20 25 06/28/2025 MATER NAL SERUM AFP Hx of neural tube defects NO Not Available [address], [address], 06/28/2025 06:27:48 06/25/2006/28/2025 MATER NAL SERUM AFP prev down synd NO Not Available [address], [address], 06/28/2025 06:27:48 06/25/20 25 06/28/2025 MATER NAL SERUM AFP donor egg NO Not Available [address], [address], 06/28/2025 06:27:48 06/25/2006/28/2025 MATER NAL SERUM AFP donor age: egg retrieval NOT GIVEN Not Available [facility] [address] [place], [address], 06/28/2025 06:27:48 06/03/2006/03/2025 US, trans vagin al No observ ation record ed. [email or web address] Sharlene [address], [place], [address], 06/04/2025 11:59:45 06/25/2006/25/2025 US, obste tric, trans vagin al No observ ation record ed. [email or web address] Sharlene [address], [place], [address], 06/26/2025 11:33:24 07/10/20 25 07/10/2025 US, obste tric, trans vagin al No observ ation record ed. [email or web address] Sharlene [address], [place], [address], 07/10/2025 20:00:52 07/30/20 25 07/29/2025 US, obste tric, mater nal evalu ation + anato my No observ ation record ed. [email or web address] Sharlene [address], [place], [address], 07/30/2025 21:56:14 08/13/20 25 08/12/2025 US, obste tric, trans vagin al No observ ation record ed. [email or web address] Sharlene [address], [place], [address], 08/13/2025 08:30:12 Result Notes None recorded. Problems Name Problem SNOMED Code Status Onset Date Resolution Date Notes Provider Name and Address Organization Details Recorded Time Cystic fibrosis screenin g Completed +CF screenin g. FOB negative Crystal Maciel [facility], [facility] IV 3 15:35:27 High risk pregnanc y [id number] Completed O+/RI/NR x4. Last Pap: No pap on file; plan post collecti on. GTT: Failed; see below POC. GBS: Aneuploi dy screenin g: QNatal WNL. Anatomy Scan: Complete as of 07/02/22 . Crystal lee, [facility] [employer] ( [facility] ) 3 15:35:27 Gestatio nal diabetes mellitus [id number] Completed H/O PCOS. Early screenin g recommen [...] Serial growth U/S needed. LD ASA daily [facility] ed. Crystal lee, [facility] [employer] ( [facility] ) IV 3 15:35:27 Cholesta sis of pregnanc y [id number] Completed Bile acids 19 on 09/15/22 ; [...] pt request. BPP 04/26. Pt educated on [facility] and discusse d when to notify HCP/go to L&D. Pt to see MD's for remainde r of pregnanc y and discuss delivery POC. Crystal lee, [facility] [employer] ( [facility] ) IV 3 15:35:27 Cervical incompet ence [id number] Completed C.L. 1.6 cm with funnelmelisa roman on anatomy. Prometri um Rx'd. S/P MFM Referral . 07/13/22 C.L. 2.3 cm. Recommen dation for vag progeste susanna through 36 wks. Crystal lee, [employer] IV 3 15:35:27 Anti-nuc lear factor detected [id number] Completed Saw Rheumato logist in 03/2022. Labs all WNL except for elevated CRP. --> Update 09/24/22: Pt states no official autoimmu ne diagnosi s. [facility] provider after pregnanc y has ended. Crystal lee, [employer] IV 3 15:35:27 COVID-19 [id number] Completed Dx in 01/2022. 03/31/22: [facility] to take LD ASA daily in 2nd trimeste r and to consider booster MAIKOL. --> Update 09/24/22: Boosters recommen ded, LD ASA daily [facility] ed. Crystal lee, [employer] IV 3 15:35:27 Influenz a [id number] Completed Dx 09/07/22 . Discusse d Influenz a vaccine. --> Update 09/24/22: Influenz a vaccine [facility] ed. Crystal lee, [employer] IV 3 15:35:27 Varicell a non-immu ne [id number] Completed plan for Varicell a vaccine post . notified 05/03/22. Crystal lee, [employer] IV 3 15:35:27 Carrier of cystic fibrosis gene mutation 021117849 Completed Fam Hx of CF. Pt is a carrier. FOB is not a carrier; his serum testing reviewed and discusse d at 05/17/22 OBV. Crystal lee, [employer] IV 3 15:35:27 Family history of trisomy 18 [id number] 108 Completed QNatal WNL. Crystal lee [employer] IV 3 15:35:27 Family history of Spina bifida 702854199 Completed Fam H/O Spina Bifida - X 2 on FOB side. 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 RADHA REID [address], [phone], [facility] IV 5 12:20:13 Polycyst ic ovary syndrome 401823632 Active 2024 RADHA REID [address], [phone], [facility] IV 5 12:20:12 Pregnanc y 14577674 Active 2024 Karina Méndez CNM [address] [place] [address], [phone], [facility] IV 5 11:29:02 Carrier of cystic fibrosis gene mutation 358927656 Active 2024 Pt reports FOB Jorge Voegle 8 negative carrier through Pato REID [address], [phone], [facility] IV 5 12:20:01 Carrier of cystic fibrosis gene mutation 995083404 Active 2024 Pt reports FOB Jorge Voegle 8 negative carrier through [employer] RADHA REID [address], [address], [facility] IV 5 12:20:01 Gestatio nal diabetes mellitus 08702063 Active 2024 diet controll ed GDM in prior pregnanc y- early 1 hr passed SILVIO SANCHEZ EDUARDO [address] [place] [address], [phone], [facility] IV 5 17:58:08 Past pregnanc y history of cholesta sis in pregnanc y [id number] 200106 Active 2024 HASMUKH ALMANZA [address] [place], [phone], [facility] IV 5 17:58:17 Problem Notes None recorded. Procedures Surgical History Date Name Laterality Status Provider Name and Address Organization Details Recorded Time 5 Date of Last Pap Smear completed Britney Clemente [facility] [employer] [facility] ) IV 05/06/2025 15:51:39 3 NST completed ISAC TALAMANTES MD [address] [place], [address], [facility] [employer] [facility] ) IV 10/13/2022 16:33:43 3 NST completed ISAC TALAMANTES MD [address] [place], [address], [facility] [employer] [facility] ) IV 10/13/2022 16:28:41 extraction of wisdom tooth completed Crystal [facility] [employer] [facility] ) IV 03/15/2022 15:21:10 Imaging Results None recorded. Procedure Notes None recorded. Medical Equipment None Reported. Allergies No known drug allergies Medications Name Sig Start Date Stop Date Status Note LastModified by Organization Details LastModified Time multivitami n tablet TAKE 1 TABLET BY MOUTH EVERY DAY 05/06 completed Not Available Not Available Not Available amoxicillin 500 mg capsule TAKE 1 CAPSULE BY MOUTH EVERY 12 HOURS active Not Available Not Available No t Available metformin 500 mg tablet TAKE 1 TABLET BY MOUTH TWICE DAILY 03/31 completed Not Available Not Available Not Available ibuprofen 800 mg tablet 800 MG ORALLY THREE TIMES A DAY NEEDED FOR PAIN FOR 7 DAYS 05/06 completed Not Available Not Available Not Available fluconazole 150 mg tablet TAKE 1 TABLET BY MOUTH NOW 07/30 completed Not Available Not Available Not Available ondansetron HCl 4 mg tablet TAKE 1 TABLET BY MOUTH EVERY DAY NEEDED 06/25 completed Not Available Not Available Not Available simvastatin 10 mg tablet TAKE 1 TABLET BY MOUTH EVERY DAY 03/15 completed Not Available Not Available Not Available metronidazo le 500 mg tablet TAKE 1 TABLET BY MOUTH TWICE A DAY 04/09 completed Not Available Not Available Not Available acetaminoph en 300 mg-codeine 30 mg tablet TAKE 1-2 TABLETS BY MOUTH EVERY 6 HOURS NEEDED FOR PAIN 03/15 completed Not Available Not Available Not Available acetaminoph en 500 mg tablet TAKE 2 TABLETS BY MOUTH 3 TIMES A DAY NEEDED FOR PAIN FOR 7 DAYS 05/06 completed Not Available Not Available Not Available hydrocortis one 2.5 % topical cream with perineal applicator APPLY THIN LAYER TOPICALLY TO THE AFFECTED AREA 2 TO 4 TIMES DAILY NEEDED 03/31 completed Not Available Not Available Not Available amoxicillin 875 mg tablet TAKE 1 TABLET BY MOUTH EVERY 12 HOURS FOR 10 DAYS 04/09 completed Not Available Not Available Not Available OutsparkTouch Ultra Test strips 11/11 completed Not Available Not Available Not Available cephalexin 500 mg capsule TAKE 1 TABLET BY MOUTH EVERY 8 HOURS FOR 10 DAYS 05/06 completed Not Available Not Available Not Available [...] CAPSULE BY MOUTH TWICE DAILY BEFORE MEALS 05/06 completed Not Available Not Available Not Available cephalexin 500 mg tablet Take 1 tablet every 8 hours by oral route for 10 days. 05/06 completed Not Available Not Available Not Available ibuprofen 600 mg tablet 11/11 completed Not Available Not Available Not Available fluticasone propionate 50 mcg/actuati on nasal spray,suspe nsion 1 SPRAY INTRANASA LLY TWICE A DAY ADMINISTE R INTO EACH NOSTRIL active Not Available Not Available No t Available metformin ER 500 mg tablet,exte nded release 24 hr TAKE 1 TABLET BY MOUTH EVERY DAY DIRECTED 05/06 completed Not Available Not Available Not Available loratadine 10 mg tablet TAKE 1 TABLET BY MOUTH EVERY DAY 05/06 completed Not Available Not Available Not Available spironolact one 50 mg tablet TAKE 1 TABLET BY MOUTH EVERY DAY 05/06 completed Not Available Not Available Not Available amoxicillin 875 mg-potassiu m clavulanate 125 mg tablet TAKE 1 TABLET BY MOUTH EVERY 12 HOURS 04/09 completed Not Available Not Available Not Available Vitamin 27 mg iron-0.8 mg tablet TAKE 1 TABLET BY MOUTH EVERY DAY active Not Available Not Available No t Available escitalopra m 5 mg tablet TAKE 1 TABLET (5 MG TOTAL) BY MOUTH DAILY. 05/06 completed Not Available Not Available Not Available [...] 1 TABLET BY MOUTH EVERY DAY DIRECTED 05/06 completed Not Available Not Available Not Available 28 mg iron-800 mcg tablet TAKE 1 TABLET BY MOUTH EVERY DAY 11/11 completed Not Available Not Available Not Available Jencycla 0.35 mg tablet TAKE 1 TABLET BY MOUTH EVERY DAY 05/06 completed Not Available Not Available Not Available [...] 1 tablet every day by oral route. 05/06 completed Not Available Not Available Not Available WesTab Plus 27 mg iron-1 mg tablet TAKE 1 TABLET BY MOUTH EVERY DAY 07/29 completed Not Available Not Available Not Available Zafemy 150 mcg-35 mcg/24 hr transdermal patch 03/15 completed Not Available Not Available Not Available Vitals Date Recorded Body height Body mass index (BMI) Body weight Systolic And Diastolic Provider Name and Address Organization Details Last Updated DateTime 08/12/2025 154.94 cm 29.7 kg/m2 45562.44 g 110/60 mm[Hg] Tom Bae [employer] [facility] 08/12/2025 12:55:47 Social History Question Answer Notes LastModified by [email or web address] Details LastModified Time Tobacco Smoking Status Never Smoker Chelsea lee, [employer] [facility] 03/31/2022 14:06:06 Are You Blind Or Do You Have Difficulty Seeing? No Information not available 05/17/2022 Are You Deaf Or Do You Have Serious Difficulty Hearing? No Information not available 05/17/2022 What Type Of Diet Are You Following? REGULAR Information not available 03/31/2022 How Many Children Do You Have? 0 [email or web address] Information not available 03/15/2022 What Is Your Relationship Status? Single [email or web address] Information not available 03/15/2022 Are You Sexually Active? Yes [email or web address] Information not available 03/15/2022 Sex: Female Functional Status Question Answer Note LastModified by [employer] Details LastModified Time Do you use any illicit or recreational drugs? No Information not available 05/17/2022 What is your level of alcohol consumption? None Information not available 03/31/2022 Are you currently employed? No [email or web address] Information not available 09/15/2022 Do you or [...] N Gynecological History Statement/Question Response Flow Moderate Date of last HPV Date of LMP 03/03/2025 Duration of Flow (days) 5 Most Recent Mammogram Current Control Method Age at Menarche 13 Date of Last Colonoscopy Most Recent Bone Density Frequency of Cycle (Q days) 28 Date of Last Pap Smear 02/17/2025 Obstetrics History GPAL:G 3 P 1 0 1 1 Type Value Full Term 1 Induced 1 Living 1 Total 3 Past Encounters Encounter ID Performer Location Encounter Start Date Encounter Closed Date Diagnosis/Indication Diagnosis SNOMED-CT Code Diagnosis ICD10 Code Diagnosis IMO Codes Diagnosis Note [id number] HASMUKH ALMANZA [facility] [address] [place] [address] 07/29/2025 15:09:58 07/30/2025 13:17:14 Multigravida 615409526 Z34.82 52467511 Gestation period, 21 weeks 60252472 Z3A.21 0513898 Gestation period, 20 weeks 84699286 Z3A.20 screening 2437 88935 Z36.3 hear t echogenicity on obstetric ultrasound scan 303673685 O28.3 [id number] -Discussed EIF at length with patient and significan t other An EIF is the presence of a small (< 6mm) echogenic area in one or both of the cardiac ventricles , observed in at least two planes (ex. 4 chamber view, left ventricula r outflow tract view) and as bright as bone. EIF may also be referred to as a papillary muscle microcalci fication. EIFs are a fairly common second trimester finding, seen in 3 to 5% of euploid fetuses. Older studies described EIF as a soft marker for Trisomy 21, but subsequent literature has suggested a minimal risk with an isolated EIF. -Low associatio n with Trisomy 21 in the absence of other markers/an omalies -Follow-up sonogram is not indicated for an isolated echogenic intracardi ac focus with normal aneuploidy screening results -EIFs are considered a normal variant and have no associatio n with cardiac anomalies -Negative aneuploidy screening discussed No further aneuploidy evaluation , follow up ultrasound or evaluation is recommende d [id number] Karina Méndez CNM [facility] [address] 08/12/2025 12:24:14 08/12/2025 13:32:28 History of gynecological disorder 793637133 O09.299 90540975 Gestation period, 23 weeks 20441168 Z3A.23 6831811 labor precaution s given. FM counts discussed. F/u in L&D if experienci ng decreased movement, leaking fluid, 4 or more contractio ns in 1 hour not relieved by rest and fluids, or regular uterine contractio ns increasing in frequency and/or intensity. Health Concerns Section Related Observation LastModified by Organization Detai ls LastModified Time None Recorded Concern Status LastModified by Organization Details LastModified Time None Recorded Payers None recorded. Notes Date Note Type Note Provider Name and Address Organization Details Recorded Time 08/12/2025 text/html Patient is here today for a routine OB visit. She is currently at 23.1 weeks gestation. vitamins: yes She has felt movement. She denies any complaints of the presence of vaginal bleed, leaking fluid, abdominal cramps, nausea, vomiting, headache or visual disturbances. 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 06/03/20 25 1 O Positive OPEN Fetus Data First Name Last Name Admitted to NICU Weight (g) Sex Living Outcome Pediatric Complications Fetus ID Race Codes Race Delivery Type [id number] Problems Problem Notes History of cervical shorteni ng with prior Problem Name Start Date End Date Resolution Snomed Code Not e Polycystic ovary syndrome 05/06/2025 093003914 Past history of cholestasis in 07/29/2025 [id number] Gestational diabetes mellitus 07/29/2025 18544014 diet contr olled GDM in prior - early 1 hr passed Carrier of cystic fibrosis gene mutation 06/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 [id number] Pt reports FOB Jorge Dang 03/05/1998 negative carrier through [facility] Parviz Calculation Initial Parviz Date Initial Exam Date Initial Exam Provider Initial Ultrasound Date Last Menstrual Period Date Ultra Sound Weeks Gestation 06/03/2025 05/06/2025 03/03/2025 8 Eighteen To Twenty Week Parviz Update Ultra Sound Date Fundal Height At Umbil Quickening Date Ultra Sound Latest Weeks Gestation Final Parviz Confirmed By Final Parviz Confirmed Date Final Parviz Date Ultra Sound Latest Days Gestation 0 06/03/2025 12/09/19 26 0 Pre- Flowsheet Flowsheet Date 06/03/2025 Gallegos Score Blood Edema Fundus Height Fundus Units Glucose Ketones Leukocytes Nitrite Labor Signs Protein Cervic Dilation Cervic Effacement Cervic Station Type Weight in lbs Pre/Post Dialysis Refused With clothes 147.013847124877 BP Diastolic BP Location Tested BP Systolic BP Type 60 110 sitting Fetus Heart Rate Present A 147 Fetus Movement Comments NOB labs & early 1 hr GTT co llected. CL 3.57 cm. repeat CL in 2-3 wks. Flowsheet Date 06/25/2025 Gallegos Score Blood Edema Fundus Height Fundus Units Glucose Ketones Leukocytes Nitrite Labor Signs Protein Cervic Dilation Cervic Effacement Cervic Station none none neg Type Weight in lbs Pre/Post Dialysis Refused Weight 148.465326728101 BP Diastolic BP Location Tested BP Systolic BP Type 64 116 Fetus Heart Rate Present A 140 Present Fetus Movement A No Comments Cervical check today, long a nd closed. Anterior/marginal previa. Accepts Maternal Serum AFP. Flowsheet Date 07/10/2025 Gallegos Score Blood Edema Fundus Height Fundus Units Glucose Ketones Leukocytes Nitrite Labor Signs Protein Cervic Dilation Cervic Effacement Cervic Station none neg Type Weight in lbs Pre/Post Dialysis Refused With clothes 149.084245777880 BP Diastolic BP Location Tested BP Systolic BP Type 60 102 sitting Fetus Heart Rate Present A 131 Fetus Movement A No Comments CL WNL- Placenta previa reso lvedWill recheck cervical length at anatomy scanPTL precautions reviewedRTC in 2 weeks Flowsheet Date 07/29/2025 Gallegos Score Blood Edema Fundus Height Fundus Units Glucose Ketones Leukocytes Nitrite Labor Signs Protein Cervic Dilation Cervic Effacement Cervic Station none neg Type Weight in lbs Pre/Post Dialysis Refused With clothes 155.243874089247 BP Diastolic BP Location Tested BP Systolic BP Type 70 L arm 118 sitting Fetus Heart Rate Present Fetus Movement A Yes Comments cx length 4.7cmEIF left vent ricle of heart- Normal NIPT, discussed at length with pt and FOBanatomy completeon Abx for ear infection has 2 days left- discussed safety of short course of sudafed for sinus congestion and to finish Abxrepeat cervical length in 2 wks if normal can discontinue, PTL precautions reviewed Flowsheet Date 08/12/2025 Gallegos Score Blood Edema Fundus Height Fundus Units Glucose Ketones Leukocytes Nitrite Labor Signs Protein Cervic Dilation Cervic Effacement Cervic Station Type Weight in lbs Pre/Post Dialysis Refused With clothes 157.464722491847 BP Diastolic BP Location Tested BP Systolic BP Type 60 110 sitting Fetus Heart Rate Present A 138 Fetus Movement A Yes Comments CL > 4 cm. No OB concerns. r epeat CL in 2 wks. Menstrual History Last Menstrual Date Menses Monthly On Bcp Conception Prior Menses Frequency Hcg Plus Date Menarche Onset Age 0603/03/20[birth year] Delivery Information Delivery Date Delivery Type Labor Anesthesia Weeks Gestation Incision Type Labor Labor Length Hrs Delivered By Post Complications Tubal Sterilization Discharge Date Comments Discharge Information Feeding Method Contraceptive Method Maternal HG B and HCT Levels
--- OUTSIDE RECORDS SUMMARY | 2025-08-20 17:21 | XMS_ITS | Clinical Summary ---
Author Organization [facility] Address [address] [place] [address] Care Team Providers Care Social Worker Delinquency Prevention Name Role Phone Bhavani, Gabriella Nunez NP Primary Care Provider Jacinta Herron MD Unavailable [phone] Allergies No known active allergies Medications norethindrone (MICRONOR) 0.35 mg tabletIndications: Contraception Take 1 tablet (0.35 mg total) by mouth daily Active multivitamin tabletIndications: Vitamin Deficiency Prevention Take 1 tablet by mouth daily Active escitalopram (LEXAPRO) 5 mg tabletIndications: Moderate major depression (HCC) Take 1 tablet (5 mg total) by mouth daily 30 tablet 3 Active Active Problems Problem Noted Date Diagnosed Date 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 Pt is a carrier. FOB is not a carrier; his serum testing reviewed and discussed at 05/17/22 OBV. Cholestasis of 04/01/2025 Overview (04/01/2025): Bile acids 19 on 09/15/22; lab received [...] for remainder of and discuss delivery POC. Cervical incompetence 04/01/2025 Overview (04/01/2025): C.L. 1.6 cm with funneling on anatomy. Prometrium Rx'd. S/P MFM Referral. 07/13/22 C.L. 2.3 cm. Recommendation for vag progesterone through 36 wks. Supervision of high-risk 04/01/2025 Overview (04/01/2025): O+/RI/NRx4. Last Pap: No pap on file; plan post collection. GTT: Failed; see below POC. GBS: Aneuploidy screening: QNatal WNL. Anatomy Scan: Complete as of 07/02/22. Moderate major depression 01/30/2025 Assessment & Plan [...] Hyperlipidemia 12/12/2022 Antinuclear antibody (KOTA) positive 10/08/2022 Overview (04/01/2025): Saw [employer] in 03/2022. Labs all WNL except for elevated CRP. --> Update 09/24/22: Pt states no official autoimmune diagnosis. Pt encouraged F/U with provider after has ended. Assessment & Plan (01/30/2025 2:11 PM CDT): This was found a few years ago, and she was seeing a specialist at [facility], but stopped seeing them due to her getting . She reports her symptoms and issues at that time have resolved. Gastroesophageal reflux disease 10/22/2020 Polycystic ovary syndrome 10/22/2020 Assessment & Plan (01/30/2025 2:10 PM CDT): Patient follows with Dr. Jacinta Herron, in [facility]. Was previously on metformin and spironolactone, but [...] on file Legal Sex Female 3:33 AM [employer] Gender Identity Not on file Sexual Orientation [...] Regular Well Visit/Exam 18-64 2018 Covid-19 Vaccine (2 6 season) 2025 02/08/2021, 01/16/2021 Influenza Vaccine (#1) 2025 , 07/27/2012, 07/27/2012, Additional history exists Depression Screening [...] Procedure Name Priority Date/Time Associated Diagnosis Comments HEPATITIS C ANTIBODY Routine 01/30/2025 1:16 PM CDT Encounter for hepatitis C screening test for low risk patient from Last 3 Months or Most Recently Relevant to Health Maintenance Results * Hepatitis C antibody Blood (01/30/2025 1:16 [...] last revised on 2019. Testing performed by: [facility], [address] [place] [address]., [id number] Blood 01/30/2025 1:16 PM CDT 01/30/2025 9:40 PM CDT Gabriella Beckham NP LAB MICROBIOLOGY - [facility] ORDERABLES Final Result [facility] [id number] [facility] Department [place] [address] from Last 3 Months or Most Recently Relevant to Health Maintenance Insurance [facility] Care Teams Social Worker Delinquency Prevention Relationship Specialty Start Date End Date Gabriella Beckham NP [address] [place] [address] PCP - General Nurse Practitioner 01/30/25 Jacinta Herron MD [address] [facility] [address] [place] [address] Consulting Physician Obstetrics and Gynecology 01/30/25
--- OUTSIDE RECORDS SUMMARY | 2025-08-20 17:22 | XMS_ITS | Continuity of Care Document ---
Author Organization [facility] [address] , [facility] Address [address] [place] [address] Assessment No assessment recorded. Plan of Treatment Reminders Order Date Submit Date Provider Last Modified By Organization Details Last Modified Time Details Appointments OB 28WK EST 2024 01:00P M ANGELICA BARRETT, DO Not available Not available Not available Lab hemoglobi n A1c, QN, blood 2024 025 [facility], [address] [place], [address], 06/04/2025 13:18:14 abo group + rh type, blood 2024 025 [facility], [address] [place], [address], 06/08/2025 14:40:55 CBC w/ auto diff 2024 025 [facility] Jose L, [address] [place] [address], [address], 06/04/2025 13:59:39 CT + NG DNA, PCR, unspecifi ed specimen 2024 025 [facility], [address] [place], [address], 06/04/2025 14:40:18 drug of abuse panel, urine 2024 025 [facility], [address] [place], [address], 06/04/2025 13:18:15 obstetric screen + HIV, serum or blood 2024 025 [facility] Jose L, [address] [place] [address], [address], 06/04/2025 13:54:17 measles igg Ab, serum 2024 025 [employer] [facility], [address] [place], [address], 06/08/2025 14:40:54 culture, urine 2024 025 [employer] [facility], [address] [place], [address], 06/08/2025 14:40:56 varicella -zoster igg Ab screen, serum 2024 025 [employer] [facility], [address] [place], [address], 06/08/2025 14:40:53 hemoglobi nopathy profile, blood 2024 025 [employer] [facility], [address] [place], [address], 06/08/2025 14:40:54 antibody screen, serum or plasma 2024 025 [employer] [facility], [address] [place], [address], 06/08/2025 14:40:55 glucose tolerance test, gestation al, 1-hour 2024 025 [employer] [facility], [address] [place], [address], 06/08/2025 14:40:53 Referral None recorded. Procedures None recorded. Surgeries None recorded. Imaging US, transvagi nal 2024 025 [email or web address] Not available 06/04/2025 09:06:40 Medication Orders None recorded. Patient TargetsNo targets [...] absen ce of diabe amanda Not Available [facility] Jose L [address] [place], [address], 06/04/2025 13:18:14 06/03/20 25 06/04/2025 DRUG ABUSE PANEL 7 W/CON FIRM amphetamines Negati ve negati ve normal Not Available [facility] Jose L [address] [place], [address], 06/04/2025 13:18:15 06/03/20 25 06/04/2025 DRUG ABUSE PANEL 7 W/CON FIRM barbiturates Negati ve negati ve normal Not Available [facility] Jose L [address] [place], [address], 06/04/2025 13:18:15 06/03/20 25 06/04/2025 DRUG ABUSE PANEL 7 W/CON FIRM benzodiazepi bradly Negati ve negati ve normal Not Available [facility] Jose L [address] [place], [address], 06/04/2025 13:18:15 06/03/20 25 06/04/2025 DRUG ABUSE PANEL 7 W/CON FIRM cocaine metabolites Negati ve negati ve normal Not Available [facility] Jose L [address] [place], [address], 06/04/2025 13:18:15 06/03/20 25 06/04/2025 DRUG ABUSE PANEL 7 W/CON FIRM cannabinoids Negati ve negati ve normal Not Available [facility] Jose L [address] [place], [address], 06/04/2025 13:18:15 06/03/20 25 06/04/2025 DRUG ABUSE PANEL 7 W/CON FIRM methadone Negati ve negati ve normal Not Available [facility] Jose L [address] [place] [address], [address], 06/04/2025 13:18:15 06/03/20 25 06/04/2025 DRUG ABUSE PANEL 7 W/CON FIRM opiates Negati ve negati ve normal Not Available [facility], [address], 06/04/2025 13:18:15 06/03/20 25 06/04/2025 DRUG ABUSE PANEL 7 W/CON FIRM creatinine, urine 22 mg/dL 20 - 275 normal Not Available [address], [address], 06/04/2025 13:18:15 06/03/2006/04/2025 OB PANEL - STD BLOOD WORK hep BS Ag Non-Re active non-re active normal Not Available [address], [address], 06/04/2025 13:54:17 06/03/20 25 06/04/2025 OB PANEL - STD BLOOD WORK hep C Ab Non-Re active non-re active normal Not Available [address], [address], 06/04/2025 13:54:17 06/03/2006/04/2025 OB PANEL - STD BLOOD WORK HIV 1/2 Ag/Ab Non-Re active non-re active normal Not Available [address], [address], 06/04/2025 13:54:17 06/03/20 25 06/04/2025 OB PANEL - STD BLOOD WORK syphilis Ab Non-Re active non-re active normal Not Available [address], [address], 06/04/2025 13:54:17 06/03/2006/04/2025 OB PANEL - STD [...] the Rubel la virus . Not Available [facility] [address], [address], 06/04/2025 13:54:17 06/03/2006/04/2025 CBC (INCL UDES DIFF/ PLT) WBC 7.9 thous and/u L 4.0 - 9.8 normal Not Available [facility] [address] [place] [address], [address], 06/04/2025 13:59:39 06/03/2006/04/2025 CBC (INCL UDES DIFF/ PLT) RBC 4.3 davy on/uL 3.9 - 4.9 normal Not Available [facility] [address] [place] [address], [address], 06/04/2025 13:59:39 06/03/2006/04/2025 CBC (INCL UDES DIFF/ PLT) hemoglobin 13.9 g/dL 11.8 - 14.8 normal Not Available [facility] [address] [place] [address], [address], 06/04/2025 13:59:39 06/03/2006/04/2025 CBC (INCL UDES DIFF/ PLT) hematocrit 40.9 % 35.5 - 44.0 normal Not Available [facility] [address] [place] [address], [address], 06/04/2025 13:59:39 06/03/20 25 06/04/2025 CBC (INCL UDES DIFF/ PLT) MCV 94.7 fL 82.0 - 99.0 normal Not Available [address], [address], 06/04/2025 13:59:39 06/03/20 25 06/04/2025 CBC (INCL UDES DIFF/ PLT) MCH 32.2 pg 27.2 - 32.6 normal Not Available [address], [address], 06/04/2025 13:59:39 06/03/20 25 06/04/2025 CBC (INCL UDES DIFF/ PLT) MCHC 34.0 g/dL 31.5 - 35.5 normal Not Available [address], [address], 06/04/2025 13:59:39 06/03/2006/04/2025 CBC (INCL UDES DIFF/ PLT) RDW-CV 12.0 % 11.5 - 14.5 normal Not Available [address], [address], 06/04/2025 13:59:39 06/03/20 25 06/04/2025 CBC (INCL UDES DIFF/ PLT) platelet 186 thous and/u L 140 - 350 normal Not Available [address], [address], 06/04/2025 13:59:39 06/03/20 25 06/04/2025 CBC (INCL UDES DIFF/ PLT) MPV 12.3 fL 9.3 - 12.4 normal Not Available [address], [address], 06/04/2025 13:59:39 06/03/20 25 06/04/2025 CBC (INCL UDES DIFF/ PLT) absolute neutrophil 5.77 thous and/u L 1.90 - 7.00 normal Not Available [address], [address], 06/04/2025 13:59:39 06/03/2006/04/2025 CBC (INCL UDES DIFF/ PLT) absolute lymphocyte 1.57 thous and/u L 0.70 - 4.50 normal Not Available [address], [address], 06/04/2025 13:59:39 06/03/20 25 06/04/2025 CBC (INCL UDES DIFF/ PLT) absolute monocyte 0.36 thous and/u L 0.10 - 1.30 normal Not Available [address], [address], 06/04/2025 13:59:39 06/03/2006/04/2025 CBC (INCL UDES DIFF/ PLT) absolute eosinophil 0.18 thous and/u L <0.70 normal Not Available [address], [address], 06/04/2025 13:59:39 06/03/2006/04/2025 CBC (INCL UDES DIFF/ PLT) absolute basophil 0.04 thous and/u L <0.20 normal Not Available [address], [address], 06/04/2025 13:59:39 06/03/2006/04/2025 CBC (INCL UDES DIFF/ PLT) absolute immature granulocyte 0.02 thous and/u L <0.03 normal Not Available [address], [address], 06/04/2025 13:59:39 06/03/2006/04/2025 CT/NG chlamydia trachomatis CT neg negati ve normal This repor t is inten ded for us in clini nell monit oring and manag ement of patie nts. It is not inten ded for use in medic al-le gal appli catio n. Not Available [address] [place], [address], 06/04/2025 14:40:18 06/03/2006/04/2025 CT/NG neisseria gonorrhoeae GC neg negati ve normal This repor t is inten ded for us in clini nell monit oring and manag ement of patie nts. It is not inten ded for use in medic al-le gal appli catio n. Not Available [address], [place], [address], 06/04/2025 14:40:18 06/03/20 25 06/08/2025 GLUCO SE, GESTA ELVIS L SCREE N (50G) -135 CUTOF F glucose, gestational screen (50g)-135 cutoff 117 mg/dL <135 normal Not Available [facility] [address] [address] [address], [place], [address], 06/08/2025 14:40:52 06/03/2006/08/2025 VARIC MAURIZIO BUTTS R VIRUS ANTIB ANN (IGG) varicella zoster [...] Immun ity Scree n, ACIF. Not Available [address] [address] [place], [address], 06/08/2025 14:40:53 06/03/2006/08/2025 HEMOG LOBIN OPATH Y EVALU ATION red blood cell count 4.25 davy on/uL 3.80-5 .10 Not Available [address], [address], 06/08/2025 14:40:54 06/03/20 25 06/08/2025 HEMOG LOBIN OPATH Y EVALU ATION hemoglobin 13.3 g/dL 11.7-1 5.5 Not Available [address] [address] [place], [address], 06/08/2025 14:40:54 06/03/2006/08/2025 HEMOG LOBIN OPATH Y EVALU ATION hematocrit 41.9 % 35.0-4 5.0 Not Available [address], [address], 06/08/2025 14:40:54 06/03/2006/08/2025 HEMOG LOBIN OPATH Y EVALU ATION MCV 98.6 fL 80.0-1 00.0 Not Available [address] [address] [place], [address], 06/08/2025 14:40:54 06/03/20 25 06/08/2025 HEMOG LOBIN OPATH Y EVALU ATION MCH 31.3 pg 27.0-3 3.0 Not Available [address] [address] [place], [address], 06/08/2025 14:40:54 06/03/20 25 06/08/2025 HEMOG LOBIN OPATH Y EVALU ATION RDW 12.4 % 11.0-1 5.0 Not Available [address], [address], 06/08/2025 14:40:54 06/03/2006/08/2025 HEMOG LOBIN OPATH Y EVALU ATION hemoglobin A 97.2 % >96.0 Not Available [address], [address], 06/08/2025 14:40:54 06/03/2006/08/2025 HEMOG LOBIN OPATH Y EVALU ATION hemoglobin F <1.0 % <2.0 Not Available [address], [address], 06/08/2025 14:40:54 06/03/2006/08/2025 HEMOG LOBIN OPATH Y EVALU ATION hemoglobin A2 (quant) 2.8 % 2.0-3. 2 Not Available [address], [address], 06/08/2025 14:40:54 06/03/2006/08/2025 HEMOG LOBIN OPATH Y EVALU ATION interpretati on Jenna l pheno type. Jenna l hemog lobin distr ibuti on, no HgS, HgC or other abnor mal hemog lobin obser larisa. Not Available [address], [address], 06/08/2025 14:40:54 06/03/2006/08/2025 MEASL ES AB (IGG) , IMMUN E [...] measl es virus . For addit ional raúl takins e refer to http: //[facility] jim[facility].Que stDia gnost ics.c om/fa q/FAQ 162 (This link is being provi ded for infor matio nal/ educa elvis l purpo ses only. ) Not Available [address], [address], 06/08/2025 14:40:54 06/03/2006/08/2025 ANTIB ANN SCREE N, RBC W/REF L [...] alloi mmuni zed pregn andrei. Not Available [address], [address], 06/08/2025 14:40:55 06/03/2006/08/2025 ABO GROUP AND RH TYPE ABO group O Not Available [address], [address], 06/08/2025 14:40:55 06/03/2006/08/2025 ABO GROUP AND RH TYPE Rh type RH(D) POSITI VE For addit ional infor raúl sanchez e refer to http: //[facility] adameQue stDia gnost ics.c om/fa q/FAQ 111 (This link is being provi ded for infor matio nal/ educa elvis l purpo ses only. ) Not Available [employer] [address], [address], 06/08/2025 14:40:55 06/03/20 25 06/08/2025 CULTU RE, URINE , ROUTI NE culture, urine, routine SEE NOTE CULTU RE, URINE , ROUTI NE Micro Numbe r: [id number] Test Statu s: Final Speci men Sourc e: Urine Speci men Quali ty: Adequ ate Resul t: No Growt h Not Available [address] [address] [place], [address], 06/08/2025 14:40:56 06/03/20 25 06/03/2025 US, trans vagin al No observ ation record ed. Sharlene [address], [place], [address], 06/04/2025 11:59:45 06/25/20 25 06/25/2025 US, obste tric, trans vagin al No observ ation record ed. [email or web address] Sharlene [address], [place], [address], 06/26/2025 11:33:24 07/10/20 25 07/10/2025 US, obste tric, trans vagin al No observ ation record ed. [email or web address] Sharlene [address], [place], [address], 07/10/2025 20:00:52 07/30/20 25 07/29/2025 US, obste tric, mater nal evalu ation + anato my No observ ation record ed. [email or web address] Sharlene [address], [place], [address], 07/30/2025 21:56:14 08/13/20 25 08/12/2025 US, obste tric, trans vagin al No observ ation record ed. [email or web address] Sharlene [address], [place], [address], 08/13/2025 08:30:12 Result Notes None recorded. Problems Name Problem SNOMED Code Status Onset Date Resolution Date Notes Provider Name and Address Organization Details Recorded Time Cystic fibrosis screenin g Completed +CF screenin g. FOB negative Crystal lee, [facility] [address] 3 15:35:27 High risk pregnanc y 71464520 Completed O+/RI/NR x4. Last Pap: No pap on file; plan post collecti on. GTT: Failed; see below POC. GBS: Aneuploi dy screenin g: QNatal WNL. Anatomy Scan: Complete as of 07/02/22 . Crystal lee, [facility] [address] 3 15:35:27 Gestatio nal diabetes mellitus 51925720 Completed H/O PCOS. Early screenin g recommen [...] Serial growth U/S needed. LD ASA daily [facility] ed. Crystal lee, [facility] [address] IV 3 15:35:27 Cholesta sis of pregnanc y 617769399 Completed Bile acids 19 on 09/15/22 ; [...] pt request. BPP 04/26. Pt educated on C and discusse d when to notify HCP/go to L&D. Pt to see MD's for remainde r of pregnanc y and discuss delivery POC. Crystal lee, [employer] IV 3 15:35:27 Cervical incompet ence 90039666 Completed C.L. 1.6 cm with rebekah roman on anatomy. Prometri um Rx'd. S/P MFM Referral . 07/13/22 C.L. 2.3 cm. Recommen dation for vag progeste susanna through 36 wks. Crystal Horanman rosa, [employer] IV 3 15:35:27 Anti-nuc lear factor detected 397990156 Completed Saw Rheumato logist in 03/2022. Labs all WNL except for elevated CRP. --> Update 09/24/22: Pt states no official autoimmu ne diagnosi s. Pt [facility] ed F/U with provider after pregnanc y has ended. Crystal Horanman rosa, [employer] IV 3 15:35:27 COVID-19 [id number] Completed Dx in 01/2022. 03/31/22: Pt [facility] ed to take LD ASA daily in 2nd trimeste r and to consider booster MAIKOL. --> Update 09/24/22: Boosters recommen ded, LD ASA daily [facility] ed. Crystal lee, [employer] IV 3 15:35:27 Influenz a 0722140 Completed Dx 09/07/22 . Discusse d Influenz a vaccine. --> Update 09/24/22: Influenz a vaccine [facility] ed. Crystal Raheem lee, [employer] IV 3 15:35:27 Varicell a non-immu ne 674574772 Completed plan for Varicell a vaccine post . notified 05/03/22. Crystal lee, [employer] IV 3 15:35:27 Carrier of cystic fibrosis gene mutation 678074245 Completed Fam Hx of CF. Pt is a carrier. FOB is not a carrier; his serum testing reviewed and discusse d at 05/17/22 OBV. Crystal lee, [employer] IV 3 15:35:27 Family history of trisomy 18 [id number] 108 Completed QNatal WNL. Crystal Maciel null, [facility] IV 3 15:35:27 Family history of Spina bifida 386687716 Completed Fam H/O Spina Bifida - X 2 on FOB side. 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 Active 2024 RADHA REID [address], [address], [facility] IV 5 12:20:13 Polycyst ic ovary syndrome 958167038 Active 2024 RADHA REID [address], [address], [place] [facility] IV 5 12:20:12 Pregnanc y 24401160 Active 2024 Karina Méndez CNM [address] [place] [address], [address], [facility] - [facility] IV 5 11:29:02 Carrier of cystic fibrosis gene mutation 615101177 Active 2024 Pt reports FOB Jorge Voegle 8 negative carrier through Pato REID [address], [address], [place] [facility] IV 5 12:20:01 Carrier of cystic fibrosis gene mutation 639191135 Active 2024 Pt reports FOB Jorge Voegle 8 negative carrier through [facility] [address], [address], [facility] IV 5 12:20:01 Gestatio nal diabetes mellitus 37757632 Active 2024 diet controll ed GDM in prior pregnanc y- early 1 hr passed HASMUKH ALMANZA [address] [place], [address], [facility] [employer] [facility] IV 5 17:58:08 Past pregnanc y history of cholesta sis in pregnanc y 16715349240 013846 Active 2024 HASMUKH ALMANZA [address] [place], [address], [facility] [employer] [facility] IV 5 17:58:17 Problem Notes None recorded. Procedures Surgical History Date Name Laterality Status Provider Name and Address Organization Details Recorded Time 5 Date of Last Pap Smear [facility] IV 05/06/2025 15:51:39 3 NST completed ISAC TALAMANTES MD [address] [place] [address], [address], [facility] [employer] IV 10/13/2022 16:33:43 3 NST completed ISAC TALAMANTES MD [address] [place] [address], [address], [facility] [address] IV 10/13/2022 16:28:41 extraction of wisdom tooth completed Crystal [facility] [address] IV 03/15/2022 15:21:10 Imaging Results None recorded. [...] and Address Organization Details Last Updated DateTime 06/03/2025 154.94 cm 27.8 kg/m2 25750.8 g 110/60 mm[Hg] Tom Bae [employer] [facility] IV 06/03/2025 15:28:17 Social History Question Answer Notes LastModified by [employer] Details LastModified Time Tobacco Smoking Status Never Smoker Chelsea Jo null, [employer] IV 03/31/2022 14:06:06 Are You Blind Or Do You Have Difficulty Seeing? No Information not available 05/17/2022 Are You Deaf Or Do You Have Serious Difficulty Hearing? No Information not available 05/17/2022 What Type Of Diet Are You Following? REGULAR Information not available 03/31/2022 How Many Children Do You Have? 0 [email or web address] Information not available 03/15/2022 What Is Your Relationship Status? Single [email or web address] Information not available 03/15/2022 Are You Sexually Active? Yes [email or web address] Information not available 03/15/2022 Sex: Female Functional Status Question Answer Note LastModified by [employer] Details LastModified Time Do you use any illicit or recreational drugs? No Information not available 05/17/2022 What is your level of alcohol consumption? None Information not available 03/31/2022 Are you currently employed? No [email or web address] Information not available 09/15/2022 Do you or [...] ICD10 Code Diagnosis IMO Codes Diagnosis Note [id number] HASMUKH ALMANZA [facility] h [address] [place] [address] 05/06/2025 15:15:40 05/07/2025 11:23:06 test positive [id number] Z32.01 060066 - Routine antepartum care reviewed including visit schedule, ultrasound s, and labs. Care team reviewed. First trimester teaching provided. Reviewed Guide.-Pre vitamins daily-S/S of SAB reviewed and when to seek care Patient was counseled on purpose, process and potential outcomes of NIPT and carrier screening. We discussed benefits, limitation s and accuracy of screenings . Alternativ es including, no testing, were reviewed. Patient was given the opportunit y to ask questions, which were addressed thoroughly . After confirming understand ing, patient provided verbal consent for NIPT and carrier screening. Plan for NIPT at next visit. Gestationa l weight gain during reviewed POC- RTC in 4 weeks plan for-1st OBV labs at next visit -Early 1 hr gtt at next visit due to history of GDM with previous -TVUS for Cervical length due to history of cervical incompeten ce in prior -See MD at next visit due to high risk previous Vaginal discharge 265150 006 N89.8 07929 [id number] Karina Méndez CNM [facility] [address] [address] 06/03/2025 14:28:35 06/04/2025 09:06:40 High risk 52949415 O09.92 [id number] History of gynecological disorder 269080283 Z87.42 [id number] screening 2437 69446 Z36.89 Gestation period, 13 weeks 11923545 Z3A.13 [id number] .sab Health Concerns Section Related Observation LastModified by Organization Detai ls LastModified Time None Recorded Concern Status LastModified by Organization Details LastModified Time None Recorded Payers Encounter Date Sequence Insurance Name Policy Number Policy Hung Covered Member ID Hung Member ID Guarantor Name 06/03/2025 1 [facility] (MEDICAID HMO) [id number] Jenniffer Gustafson [id number] Jenniffer Gustafson Notes Date Note Type Note Provider Name and Address Organization Details Recorded Time 06/03/2025 text/html ROS as noted in the HPI Patient is here today for a routine OB visit. She is currently at weeks gestation. 13..1 vitamins: yes She has not felt movement. She denies any complaints of the presence of vaginal bleed, leaking fluid, abdominal cramps, nausea, vomiting, headache or visual disturbances. Karina Méndez, CNM [address] [facility], [place], [address], [facility] 06/03/2025 15:43:47 OBGyn Episode Ob Episode Information Episode Created Date Number of Fetuses Patient Bloodtype Patient rh Status Prepregnancy Weight lbs Domestic Partner Domestic Partner Phone Father Name Director Of Retail Analytics Status 06/03/20 25 1 O Positive OPEN Fetus Data First Name Last Name Admitted to NICU Weight (g) Sex Living Outcome Pediatric Complications Fetus ID Race Codes Race Delivery Type [id number] Problems Problem Notes History of cervical shorteni ng with prior Problem Name Start Date End Date Resolution Snomed Code Not e Polycystic ovary syndrome 05/06/2025 [id number] Past history of cholestasis in 07/29/2025 [id number] Gestational diabetes mellitus 07/29/2025 92497773 diet contr olled GDM in prior - early 1 hr passed Carrier of cystic fibrosis gene mutation 06/25/2025 585901920 Pt reports FOB Jorge Dang 03/05/1998 negative carrier through [facility] Som Calculation Initial Som Date Initial Exam Date Initial Exam Provider Initial Ultrasound Date Last Menstrual Period Date Ultra Sound Weeks Gestation 06/03/2025 05/06/2025 03/03/2025 8 Eighteen To Twenty Week Som Update Ultra Sound Date Fundal Height At Umbil Quickening Date Ultra Sound Latest Weeks Gestation Final Som Confirmed By Final Som Confirmed Date Final Som Date Ultra Sound Latest Days Gestation 0 [email or web address] 06/03/2025 12/09/19 26 0 Pre-hope Flowsheet Flowsheet Date 06/03/2025 Gallegos Score Blood Edema Fundus Height Fundus Units Glucose Ketones Leukocytes Nitrite Labor Signs Protein Cervic Dilation Cervic Effacement Cervic Station Type Weight in lbs Pre/Post Dialysis Refused With clothes 147.468865251568 BP Diastolic BP Location Tested BP Systolic [...] Weight in lbs Pre/Post Dialysis Refused Weight 148.213090772107 BP Diastolic BP Location Tested BP Systolic [...] in lbs Pre/Post Dialysis Refused With clothes 149.405451816084 BP Diastolic BP Location Tested BP Systolic [...] in lbs Pre/Post Dialysis Refused With clothes 155.675753728562 BP Diastolic BP Location Tested BP Systolic [...] in lbs Pre/Post Dialysis Refused With clothes 157.533582333091 BP Diastolic BP Location Tested BP Systolic [...]
--- OUTSIDE RECORDS SUMMARY | 2025-08-20 17:22 | XMS_ITS | Data Portability ---
Author Organization [employer] , [facility] Address [address] [place] [address] Assessment No assessment recorded. Plan of Treatment Reminders Order Date Submit Date Provider Last Modified By Organization Details Last Modified Time Details Appointments OB 28WK EST 2024 01:00P Lucía BARRETT, DO Not available Not available Not available Lab afp (alpha-fe toprotein ) panel, maternal screen, serum - N/A 2024 025 [facility], [address] [place], [address], 06/28/2025 06:27:48 hemoglobi n A1c, QN, blood 2024 025 [facility] Jose L, [address] [place] [address], [address], 06/04/2025 13:18:14 abo group + rh type, blood 2024 025 [facility], [address] [place], [address], 06/08/2025 14:40:55 CBC w/ auto diff 2024 025 [facility], [address] [place] [address], [address], 06/04/2025 13:59:39 CT + NG DNA, PCR, unspecifi ed specimen 2024 025 [facility], [address] [place] [address], [address], 06/04/2025 14:40:18 drug of abuse panel, urine 2024 025 [facility] Jose L, [address] [place], [address], 06/04/2025 13:18:15 obstetric screen + HIV, serum or blood 2024 025 [facility] Jose L, [address] [place], [address], 06/04/2025 13:54:17 measles igg Ab, serum 2024 025 [facility], [address] [place], [address], 06/08/2025 14:40:54 culture, urine 2024 025 [facility], [address] [place], [address], 06/08/2025 14:40:56 varicella -zoster igg Ab screen, serum 2024 025 [facility], [address] [place], [address], 06/08/2025 14:40:53 hemoglobi nopathy profile, blood 2024 025 [facility], [address] [place], [address], 06/08/2025 14:40:54 antibody screen, serum or plasma 2024 025 [facility], [address] [place], [address], 06/08/2025 14:40:55 glucose tolerance test, gestation al, 1-hour 2024 025 [facility], [address] [place], [address], 06/08/2025 14:40:53 Referral None recorded. Procedures None recorded. Surgeries None recorded. Imaging US, obstetric , transvagi nal 2024 025 [facility] Not available 08/13/2025 08:06:07 US, obstetric , maternal evaluatio n + anatomy 2024 025 [facility], [address] [facility], [place], [address], 07/30/2025 13:17:14 US, obstetric , transvagi nal 2024 025 [email or web address], [address] [facility], [place], [address], 08/06/2025 10:36:47 US, obstetric , transvagi nal 2024 025 [facility] Not available 07/11/2025 12:30:37 US, obstetric , transvagi nal 2024 025 [email or web address] Not available 06/25/2025 13:13:33 US, transvagi nal 2024 025 [email or web address] Not available 06/04/2025 09:06:40 Medication Orders None recorded. Patient TargetsNo targets recorded. Patient InstructionsNo instructions recorded. Reason for Referral None Reported. Results Created Date Observation Date Name Description Value Unit Range Abnormal Flag Note LastModifiedBy Organization Detail LastModifiedTime 05/06/2005/08/2025 VAGIN ITIS PLUS STD PANEL bacterial vaginosis BV neg negati ve normal Not Available [facility] Jose L [address] [place], [address], 05/08/2025 13:49:54 05/06/2005/08/2025 VAGIN ITIS PLUS STD PANEL nathalie species C. spp neg negati ve normal Not Available [facility] Jose L [address] [place], [address], 05/08/2025 13:49:54 05/06/2005/08/2025 VAGIN ITIS PLUS STD PANEL nathalie glabrata C. gla neg negati ve normal Not Available [address], [address], 05/08/2025 13:49:54 05/06/20 25 05/08/2025 VAGIN ITIS PLUS STD PANEL trichomonas vaginalis CV/TV TRICH neg negati ve normal Not Available [address], [address], 05/08/2025 13:49:54 05/06/20 25 05/08/2025 VAGIN ITIS PLUS STD PANEL chlamydia trachomatis CT neg negati ve normal This repor t is inten ded for us in clini nell monit oring and manag ement of patie nts. It is not inten ded for use in medic al-le gal appli catio n. Not Available [address], [address], 05/08/2025 13:49:54 05/06/20 25 05/08/2025 VAGIN ITIS PLUS STD PANEL neisseria gonorrhoeae GC neg negati ve normal This repor t is inten ded for us in clini nell monit oring and manag ement of patie nts. It is not inten ded for use in medic al-le gal appli catio n. Not Available [address], [address], 05/08/2025 13:49:54 05/06/20 25 05/06/2025 pregn andrei test, urine HCG positi ve Not Available [facility] [address] [place], [address], 05/03/2025 15:32:17 05/22/20 25 05/22/2025 CHROM OSOME S 13, 18, 21 + SEX CHROM OSOME DEJA SIS chromosomes 13, 18, 21 + sex chromosome analysis Negati ve normal See PDF for compl ete resul ts. Overa ll Resul t: Negat rosalina Negat rosalina for all order ed condi tions Clini nell Notes : * The resid ual risks provi ded repre sent [facility] that the pregn andrei is affec cami with the indic ated chrom osome aneup loidy in view of a negat rosalina resul t. * This is a scree hammad test; there fore, false posit rosalina and false negat rosalina resul ts can occur . No irrev ersib le decis ion shoul d be made based on these findi ngs alone . Clini nell corre latio n with ultra sound findi ngs and histo ry is indic ated. If defin itive diagn osis is omar ed, chori onic villu s sampl ing or amnio cente sis is neces marianela. fract ion: 23.5% - fract ion is one compo nent of the algor ithm used and is combi coby with other quali ty metri cs to deter mine the aneup loidy scree hammad resul t. Not Available [facility] [address], [place], [address], 05/28/2025 10:24:07 05/23/20 25 05/23/2025 PATRICIA MENTA L (CF + SMA) [871] fundamental (CF + sma) [871] Positi ve: Mellissa r abnormal See PDF for compl ete resul ts. Overa ll Resul t: Posit rosalina: Sofia er [place]IG[place] WATSO N: * Posit rosalina: Sofia er: cysti c fibro sis Clini nell Notes : * A famil y histo ry of cysti c fibro sis sofia er statu s was repor cami for [place]. While [place] is heter ozygo us for a CFTR varia nt, witho ut knowl edge/ confi rmati on of the famil ial varia nt(s) , sofia er statu s for the famil ial varia nt(s) canno t be compl etely asses sed. Melissa ic couns eling is indic ated. * A famil y histo ry of Triso my 18 was repor cami for [place]. Pleas e note that karyo type deja sis is not avail able at [facility]. Melissa ic couns eling is indic ated. Not Available [facility] [address], [place], [address], 06/03/2025 12:49:28 06/03/2006/04/2025 HEMOG LOBIN A1C hemoglobin A1C 4.8 % <5.7 normal The refer ence range for HbA1c is indic ated in the table below . Sugge sted Diagn osis =6.5% Consi stent with diabe amanda 5.7 6.4% Consi stent with incre ased risk for diabe amanda (pred iabet ic) <5.7% Consi stent with the absen ce of diabe amanda Not Available [facility] Jose L [address] [place], [address], 06/04/2025 13:18:14 06/03/20 25 06/04/2025 DRUG ABUSE PANEL 7 W/CON FIRM amphetamines Negati ve negati ve normal Not Available [facility] L [address] [place], [address], 06/04/2025 13:18:15 06/03/20 25 06/04/2025 DRUG ABUSE PANEL 7 W/CON FIRM barbiturates Negati ve negati ve normal Not Available [facility] Jose L [address] [place], [address], 06/04/2025 13:18:15 06/03/20 25 06/04/2025 DRUG ABUSE PANEL 7 W/CON FIRM benzodiazepi bradly Negati ve negati ve normal Not Available [facility] Jose L [address] [place], [address], 06/04/2025 13:18:15 06/03/20 25 06/04/2025 DRUG ABUSE PANEL 7 W/CON FIRM cocaine metabolites Negati ve negati ve normal Not Available [facility] Jose L [address] [place], [address], 06/04/2025 13:18:15 06/03/20 25 06/04/2025 DRUG ABUSE PANEL 7 W/CON FIRM cannabinoids Negati ve negati ve normal Not Available [facility] Jose L [address] [place], [address], 06/04/2025 13:18:15 06/03/20 25 06/04/2025 DRUG ABUSE PANEL 7 W/CON FIRM methadone Negati ve negati ve normal Not Available [facility], [address], 06/04/2025 13:18:15 06/03/20 25 06/04/2025 DRUG ABUSE PANEL 7 W/CON FIRM opiates Negati ve negati ve normal Not Available [address], [address], 06/04/2025 13:18:15 06/03/20 25 06/04/2025 DRUG ABUSE PANEL 7 W/CON FIRM creatinine, urine 22 mg/dL 20 - 275 normal Not Available [address], [address], 06/04/2025 13:18:15 06/03/20 25 06/04/2025 OB PANEL - STD BLOOD WORK hep BS Ag Non-Re active non-re active normal Not Available [address], [address], 06/04/2025 13:54:17 06/03/20 25 06/04/2025 OB PANEL - STD BLOOD WORK hep C Ab Non-Re active non-re active normal Not Available [address], [address], 06/04/2025 13:54:17 06/03/2006/04/2025 OB PANEL - STD BLOOD WORK HIV 1/2 Ag/Ab Non-Re active non-re active normal Not Available [address], [address], 06/04/2025 13:54:17 06/03/2006/04/2025 OB PANEL - STD BLOOD WORK syphilis Ab Non-Re active non-re active normal Not Available [address], [address], 06/04/2025 13:54:17 06/03/2006/04/2025 OB PANEL - STD BLOOD WORK rubella Ab IgG 39.1 IU/mL normal INTER PRETI VE INFOR MATIO N: Rubel la Antib serena, IgG. < 5.0 IU/mL ..... ..... . Not consi stent with immun ity 5.0 - 9.9 IU/mL ..... . Equiv ocal: Indet ermin ate-R epeat testi ng in 10-14 days may be helpf ul. > or = 10.0 IU/mL ... Consi stent with immun ity The prese nce of Rubel la IgG antib serena sugge st respo nse to immun izati on or prior /curr ent expos ure to the Rubel la virus . Not Available [facility] Jose L [address] [place] [address], [address], 06/04/2025 13:54:17 06/03/2006/04/2025 CBC (INCL UDES DIFF/ PLT) WBC 7.9 thous and/u L 4.0 - 9.8 normal Not Available [facility] [employer] [address] [place] [address], [address], 06/04/2025 13:59:39 06/03/20 25 06/04/2025 CBC (INCL UDES DIFF/ PLT) RBC 4.3 davy on/uL 3.9 - 4.9 normal Not Available [facility] [employer] [address] [place] [address], [address], 06/04/2025 13:59:39 06/03/20 25 06/04/2025 CBC (INCL UDES DIFF/ PLT) hemoglobin 13.9 g/dL 11.8 - 14.8 normal Not Available [facility] [employer] [address] [place] [address], [address], 06/04/2025 13:59:39 06/03/2006/04/2025 CBC (INCL UDES DIFF/ PLT) hematocrit 40.9 % 35.5 - 44.0 normal Not Available [facility] [address] [place] [address], [address], 06/04/2025 13:59:39 06/03/20 25 06/04/2025 CBC (INCL UDES DIFF/ PLT) MCV 94.7 fL 82.0 - 99.0 normal Not Available [address], [address], 06/04/2025 13:59:39 06/03/20 25 06/04/2025 CBC (INCL UDES DIFF/ PLT) MCH 32.2 pg 27.2 - 32.6 normal Not Available [address], [address], 06/04/2025 13:59:39 06/03/20 25 06/04/2025 CBC (INCL UDES DIFF/ PLT) MCHC 34.0 g/dL 31.5 - 35.5 normal Not Available [address], [address], 06/04/2025 13:59:39 06/03/20 25 06/04/2025 CBC (INCL UDES DIFF/ PLT) RDW-CV 12.0 % 11.5 - 14.5 normal Not Available [address], [address], 06/04/2025 13:59:39 06/03/20 25 06/04/2025 CBC (INCL UDES DIFF/ PLT) platelet 186 thous and/u L 140 - 350 normal Not Available [address], [address], 06/04/2025 13:59:39 06/03/20 25 06/04/2025 CBC (INCL UDES DIFF/ PLT) MPV 12.3 fL 9.3 - 12.4 normal Not Available [address], [address], 06/04/2025 13:59:39 06/03/20 25 06/04/2025 CBC (INCL UDES DIFF/ PLT) absolute neutrophil 5.77 thous and/u L 1.90 - 7.00 normal Not Available [address], [address], 06/04/2025 13:59:39 06/03/2006/04/2025 CBC (INCL UDES DIFF/ PLT) absolute lymphocyte 1.57 thous and/u L 0.70 - 4.50 normal Not Available [address], [address], 06/04/2025 13:59:39 06/03/2006/04/2025 CBC (INCL UDES DIFF/ PLT) absolute monocyte 0.36 thous and/u L 0.10 - 1.30 normal Not Available [address], [address], 06/04/2025 13:59:39 06/03/20 25 06/04/2025 CBC (INCL UDES DIFF/ PLT) absolute eosinophil 0.18 thous and/u L <0.70 normal Not Available [address], [address], 06/04/2025 13:59:39 06/03/2006/04/2025 CBC (INCL UDES DIFF/ PLT) absolute basophil 0.04 thous and/u L <0.20 normal Not Available [address], [address], 06/04/2025 13:59:39 06/03/2006/04/2025 CBC (INCL UDES DIFF/ PLT) absolute immature granulocyte 0.02 thous and/u L <0.03 normal Not Available [address], [address], 06/04/2025 13:59:39 06/03/2006/04/2025 CT/NG chlamydia trachomatis CT neg negati ve normal This repor t is inten ded for us in clini nell monit oring and manag ement of patie nts. It is not inten ded for use in medic al-le gal appli catio n. Not Available [address], [place], [address], 06/04/2025 14:40:18 06/03/2006/04/2025 CT/NG neisseria gonorrhoeae GC neg negati ve normal This repor t is inten ded for us in clini nell monit oring and manag ement of patie nts. It is not inten ded for use in medic al-le gal appli catio n. Not Available [facility] Jose L [address] [facility], [place], [address], 06/04/2025 14:40:18 06/03/2006/08/2025 GLUCO SE, GESTA ELVIS L SCREE N (50G) -135 CUTOF F glucose, gestational screen (50g)-135 cutoff 117 mg/dL <135 normal Not Available [facility] [address] [address] [place], [address], 06/08/2025 14:40:52 06/03/2006/08/2025 VARIC MARLENVeda BUTTS R VIRUS ANTIB SERENA (IGG) varicella zoster virus antibody (IgG) <1.00 S/co low Signa l to Cut-o ff S/CO Inter preta tion ----- ---- ----- ----- ----- ----- -- <1.00 Negat rosalina - Antib serena not detec cami > or = 1.00 Posit rosalina - Antib serena detec cami A posit rosalian resul t indic ates that the patie nt has antib serena to VZV but does not diffe renti [...] natio n-ind uced immun ity is Varic marlen Zoste r Virus Antib serena Immun ity Scree n, ACIF. Not Available [address] [address] [place], [address], 06/08/2025 14:40:53 06/03/2006/08/2025 HEMOG LOBIN OPATH Y EVALU ATION red blood cell count 4.25 davy on/uL 3.80-5 .10 Not Available [address], [address], 06/08/2025 14:40:54 06/03/2006/08/2025 HEMOG LOBIN OPATH Y EVALU ATION hemoglobin 13.3 g/dL 11.7-1 5.5 Not Available [address] [address] [place], [address], 06/08/2025 14:40:54 06/03/2006/08/2025 HEMOG LOBIN OPATH Y EVALU ATION hematocrit 41.9 % 35.0-4 5.0 Not Available [address] [address] [place], [address], 06/08/2025 14:40:54 06/03/2006/08/2025 HEMOG LOBIN OPATH Y EVALU ATION MCV 98.6 fL 80.0-1 00.0 Not Available [address] [address] [place], [address], 06/08/2025 14:40:54 06/03/20 25 06/08/2025 HEMOG LOBIN OPATH Y EVALU ATION MCH 31.3 pg 27.0-3 3.0 Not Available [address] [address] [place], [address], 06/08/2025 14:40:54 06/03/20 25 06/08/2025 HEMOG LOBIN OPATH Y EVALU ATION RDW 12.4 % 11.0-1 5.0 Not Available [address], [address], 06/08/2025 14:40:54 06/03/2006/08/2025 HEMOG LOBIN OPATH Y EVALU ATION hemoglobin A 97.2 % >96.0 Not Available [address] [place], [address], 06/08/2025 14:40:54 06/03/2006/08/2025 HEMOG LOBIN OPATH Y EVALU ATION hemoglobin F <1.0 % <2.0 Not Available [address], [address], 06/08/2025 14:40:54 06/03/2006/08/2025 HEMOG LOBIN OPATH Y EVALU ATION hemoglobin A2 (quant) 2.8 % 2.0-3. 2 Not Available [address], [address], 06/08/2025 14:40:54 06/03/2006/08/2025 HEMOG LOBIN OPATH Y EVALU ATION interpretati on Jenna l pheno type. Jenna l hemog lobin distr ibuti on, no HgS, HgC or other abnor mal hemog lobin obser larisa. Not Available [address], [address], 06/08/2025 14:40:54 06/03/2006/08/2025 MEASL ES AB (IGG) [...] es virus . For addit ional raúl atkins e refer to http: //formerly [facility] tony.Que stDia gnost ics.c om/fa q/FAQ 162 (This link is being provi ded for infor matio nal/ educa elvis l purpo ses only. ) Not Available [address], [address], 06/08/2025 14:40:54 06/03/2006/08/2025 ANTIB SERENA SCREE N, RBC W/REF L ID, TITER [...] alloi mmuni zed pregn andrei. Not Available [address], [address], 06/08/2025 14:40:55 06/03/2006/08/2025 ABO GROUP AND RH TYPE ABO group O Not Available [address], [address], 06/08/2025 14:40:55 06/03/2006/08/2025 ABO GROUP AND RH TYPE Rh type RH(D) POSITI VE For addit ional infor raúl sanchez e refer to http: //formerly [facility] tony.Que stDia gnost ics.c om/fa q/FAQ 111 (This link is being provi ded for infor matio nal/ educa elvis l purpo ses only. ) Not Available [facility] [address], [address], 06/08/2025 14:40:55 06/03/20 25 06/08/2025 CULTU RE, URINE , ROUTI NE culture, urine, routine SEE NOTE CULTU RE, URINE , ROUTI NE Micro Numbe r: [id number] Test Statu s: Final Speci men Sourc e: Urine Speci men Quali ty: Adequ ate Resul t: No Growt h Not Available [address] [address] [place], [address], 06/08/2025 14:40:56 06/25/2006/28/2025 MATER NAL SERUM AFP interpretati on: Scree n negat rosalina for open NTD. Not Available [address], [address], 06/28/2025 06:27:48 06/25/2006/28/2025 MATER NAL SERUM AFP risk for ontd NOT CALCUL ATED Not Available [address] [place], [address], 06/28/2025 06:27:48 06/25/2006/28/2025 MATER NAL SERUM AFP AFP, serum 35.9 NG/mL Not Available [address] [place], [address], 06/28/2025 06:27:48 06/25/2006/28/2025 MATER NAL SERUM AFP AFP MOM 1.01 Not Available [address], [address], 06/28/2025 06:27:48 06/25/2006/28/2025 MATER NAL SERUM AFP comments: You have indic ated that this is a repea t speci men. While repea ting an eleva cami resul t is appro priat e, an accur ate neura l tube defec t risk has not been calcu lated for this repea t speci men. This patie nt's SOM (justyna mated date of deliv iraida) was used to calcu late the gesta elvis l age. The AFP test resul t indic ates that this patie nt is scree n negat rosalina for open NTD. It shoul d be noted that jenna l test resul ts can never guara ntee the of a jenna l baby and that 2-[facility] have some type of physi nell or menta l defec t, many of which are undet ectab le throu gh any known prena rekha diagn ostic techn ique. Not Available [employer] [address] [address] [place], [address], 06/28/2025 06:27:48 06/25/2006/28/2025 MATER NAL SERUM AFP [...] s melissa ic couns elor or call [phone]( [phone]). Inter preti ve Cutof fs Scree n [...] infor raúl sanchez e refer to http: //rachele jimenez.que stdia gnost ics.c om/fa q/FAQ 74v1 (This link is being provi ded for infor matyassine bradford/ educa elvis l purpo ses only. ) Not Available [employer] [facility] [address] [place], [address], 06/28/2025 06:27:48 06/25/2006/28/2025 MATER NAL SERUM AFP calc'd gestational age 16.3 weeks Not Available [facility] [address], [address], 06/28/2025 06:27:48 06/25/2006/28/2025 MATER NAL SERUM AFP maternal weight 148 lbs Not Available [address], [address], 06/28/2025 06:27:48 06/25/2006/28/2025 MATER NAL SERUM AFP est'd date of delivery 2025 Not Available [address], [address], 06/28/2025 06:27:48 06/25/2006/28/2025 MATER NAL SERUM AFP som determined by LMP Not Available [address], [address], 06/28/2025 06:27:48 06/25/2006/28/2025 MATER NAL SERUM AFP mother's ethnic origin CAUCAS ROSY Not Available [address], [address], 06/28/2025 06:27:48 06/25/2006/28/2025 MATER NAL SERUM AFP number of fetuses 1 Not Available [address], [address], 06/28/2025 06:27:48 06/25/2006/28/2025 MATER NAL SERUM AFP insulin depend diabetic NO Not Available [facility] [address], [address], 06/28/2025 06:27:48 06/25/2006/28/2025 MATER NAL SERUM AFP repeat specimen YES Not Available [facility] [address] [place], [address], 06/28/2025 06:27:48 06/25/2006/28/2025 MATER NAL SERUM AFP Hx of neural tube defects NO Not Available [facility] [address] [place], [address], 06/28/2025 06:27:48 06/25/20 25 06/28/2025 MATER NAL SERUM AFP prev down synd NO Not Available [facility] [address] [place], [address], 06/28/2025 06:27:48 06/25/2006/28/2025 MATER NAL SERUM AFP donor egg NO Not Available [facility] [address] [place], [address], 06/28/2025 06:27:48 06/25/2006/28/2025 MATER NAL SERUM AFP donor age: egg retrieval NOT GIVEN Not Available [address] [address] [place], [address], 06/28/2025 06:27:48 05/07/20 25 05/06/2025 US, trans vagin al No observ ation record ed. [email or web address] Sharl[address], [place], [address], 05/07/2025 09:54:21 06/03/20 25 06/03/2025 US, trans vagin al No observ ation record ed. [email or web address] Sharlene [address], [place], [address], 06/04/2025 11:59:45 06/25/20 25 06/25/2025 US, obste tric, trans vagin al No observ ation record ed. [email or web address] Sharlene [address], [place], [address], 06/26/2025 11:33:24 07/10/20 25 07/10/2025 US, obste tric, trans vagin al No observ ation record ed. [email or web address] Sharlene [address], [place], [address], 07/10/2025 20:00:52 07/30/20 25 07/29/2025 US, obste tric, mater nal evalu ation + anato my No observ ation record ed. [email or web address] Sharlene [address], [place], [address], 07/30/2025 21:56:14 08/13/20 25 08/12/2025 US, obste tric, trans vagin al No observ ation record ed. [email or web address] Sharlene [address], [place], [address], 08/13/2025 08:30:12 Result Notes None recorded. Problems Name Problem SNOMED Code Status Onset Date Resolution Date Notes Provider Name and Address Organization Details Recorded Time Cystic fibrosis screenin g Completed +CF screenin g. FOB negative Crystal lee, [employer] IV 3 15:35:27 High risk pregnanc y [id number] Completed O+/RI/NR x4. Last Pap: No pap on file; plan post collecti on. GTT: Failed; see below POC. GBS: Aneuploi dy screenin g: QNatal WNL. Anatomy Scan: Complete as of 07/02/22 . Crystal lee, [employer] IV 3 15:35:27 Gestatio nal diabetes mellitus [id number] Completed H/O PCOS. Early screenin g recommen [...] Serial growth U/S needed. LD ASA daily [facility] ed. Crystal lee, [employer] IV 3 15:35:27 Cholesta sis of pregnanc y [id number] Completed Bile acids 19 on 09/15/22 ; [...] pt request. BPP 04/26. Pt educated on [facility] and discusse d when to notify HCP/go to L&D. Pt to see MD's for remainde r of pregnanc y and discuss delivery POC. Crystal lee, [facility] [employer] IV 3 15:35:27 Cervical incompet ence [id number] Completed C.L. 1.6 cm with rebekah roman on anatomy. Prometri um Rx'd. S/P MFM Referral . 07/13/22 C.L. 2.3 cm. Recommen dation for vag progeste susanna through 36 wks. Crystal Maciel rosa, [employer] IV 3 15:35:27 Anti-nuc lear factor detected [id number] Completed Saw Rheumato logist in 03/2022. Labs all WNL except for elevated CRP. --> Update 09/24/22: Pt states no official autoimmu ne diagnosi s. Pt encour ed F/U with provider after pregnanc y has ended. Crystal Horanevaristo lee, [employer] IV 3 15:35:27 COVID-19 [id number] Completed Dx in 01/2022. 03/31/22: Pt [facility] ed to take LD ASA daily in 2nd trimeste r and to consider booster MAIKOL. --> Update 09/24/22: Boosters recommen ded, LD ASA daily [facility] ed. Crystal lee, [employer] - [facility] IV 3 15:35:27 Influenz a [id number] Completed Dx 09/07/22 . Discusse d Influenz a vaccine. --> Update 09/24/22: Influenz a vaccine [facility] ed. Crystal lee, [employer] - [facility] IV 3 15:35:27 Varicell a non-immu ne [id number] Completed plan for Varicell a vaccine post . notified 05/03/22. Crystal lee, [place] - [facility] IV 3 15:35:27 Carrier of cystic fibrosis gene mutation [id number] Completed Fam Hx of CF. Pt is a carrier. FOB is not a carrier; his serum testing reviewed and discusse d at 05/17/22 OBV. Crystal lee, [employer] - [facility] IV 3 15:35:27 Family history of trisomy 18 [id number] Completed QNatal WNL. Crystal lee, [employer] - [facility] IV 3 15:35:27 Family history of Spina bifida [id number] Completed Fam H/O Spina Bifida - X 2 on FOB side. 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 RADHA REID EDUARDOKALEN [address] [place], [address], [facility] IV 5 12:20:13 Polycyst ic ovary syndrome [id number] Active 2024 RADHA REID RAEGAN [address] [place], [address], [facility] IV 5 12:20:12 Pregnanc y 71761651 Active 2024 Karina Méndez CNM [address] [place], [address], [facility] IV 5 11:29:02 Carrier of cystic fibrosis gene mutation [id number] Active 2024 Pt reports FOB Jorge Voegle 8 negative carrier through [facility] [[email or web address] RADHA REID [address], [address], [facility] [employer] [facility] IV 5 12:20:01 Carrier of cystic fibrosis gene mutation 382996919 Active 2024 Pt reports FOB Jorge Voegle 8 negative carrier through [employer] RADHA REID, [facility] [address] [place] [address], [address], [facility] IV 5 12:20:01 Gestatio nal diabetes mellitus 19979636 Active 2024 diet controll ed GDM in prior pregnanc y- early 1 hr passed SILVIO SANCHEZ EDUARDO [address] [place] [address], [address], [facility] IV 5 17:58:08 Past pregnanc y history of cholesta sis in pregnanc y [id number] 462252 Active 2024 HASMUKH ALMANZA [address] [place] [address], [address], [facility] IV 5 17:58:17 Problem Notes None recorded. Procedures Surgical History Date Name Laterality Status Provider Name and Address Organization Details Recorded Time 5 Date of Last Pap Smear completed Britney Clemente [place] [facility] IV 05/06/2025 15:51:39 3 NST completed ISAC TALAMANTES MD [address] [place], [address], [facility] IV 10/13/2022 16:33:43 3 NST completed ISAC TALAMANTES MD [address] [facility], [place], [address], [facility] [employer] IV 10/13/2022 16:28:41 extraction of wisdom tooth completed Crystal Maciel [facility] [employer] IV 03/15/2022 15:21:10 Imaging Results None recorded. [...] Updated DateTime 06/03/2025 154.94 cm 27.8 kg/m2 20047.8 g 110/60 mm[Hg] Joyakathia Kathia [facility] [employer] IV 06/03/2025 15:28:17 Date Recorded Body height Body mass index (BMI) Body weight Systolic And Diastolic Provider Name and Address Organization Details Last Updated DateTime 06/25/2025 154.94 cm 28 kg/m2 60899.39 g 116/64 mm[Hg] Venecia Coon [facility] [employer] IV 06/25/2025 11:57:53 Date Recorded Body height Body weight Systolic And Diastolic Provider Name and Address Organization Details Last Updated DateTime 07/10/2025 154.94 cm 77530.7000 78 g 102/60 mm[Hg] Britney Clemente [facility] [employer] IV 07/10/2025 16:39:15 Date Recorded Body weight Body mass index (BMI) Body height Systolic And Diastolic Provider Name and Address Organization Details Last Updated DateTime 07/29/2025 79822.535 824 g 29.3 kg/m2 154.94 cm 118/70 mm[Hg] Asia Maciel [employer] IV 07/29/2025 16:01:11 Date Recorded Body height Body mass index (BMI) Body weight Systolic And Diastolic Provider Name and Address Organization Details Last Updated DateTime 08/12/2025 154.94 cm 29.7 kg/m2 07571.44 g 110/60 mm[Hg] Tom Bae [employer] IV 08/12/2025 12:55:47 Social History Question Answer Notes LastModified by [employer] Details LastModified Time Tobacco Smoking Status Never Smoker Chelsea Jo rosa, [employer] IV 03/31/2022 14:06:06 Are You Blind Or Do You Have Difficulty Seeing? No Information not available 05/17/2022 Are You Deaf Or Do You Have Serious Difficulty Hearing? No Information not available 05/17/2022 What Type Of Diet Are You Following? REGULAR Information not available 03/31/2022 How Many Children Do You Have? 0 [email or web address] Information not available 03/15/2022 What Is Your Relationship Status? Single [email or web address] Information not available 03/15/2022 Are You Sexually Active? Yes [email or web address] Information not available 03/15/2022 Sex: Female Functional Status Question Answer Note LastModified by [employer] Details LastModified Time Do you use any illicit or recreational drugs? No Information not available 05/17/2022 What is your level of alcohol consumption? None Information not available 03/31/2022 Are you currently employed? No [email or web address] Information not available 09/15/2022 Do you or [...] 14:20:07 Father Irritable bowel syndrome Not available 07/1 11/2021 14:06:05 Father Malignant neoplastic disease Not available 03/19 14:06:05 Sister Family history of trisomy 18 [email or web address] Not available 03/31 15:46:06 Mother Carrier of cystic fibrosis gene mutation [email or web address] Not available 2021 15:46:19 Mother Systemic lupus erythematosu s [email or web address] Not available 2022 09:47:54 Medical History Condition Response Other Cancer N High Blood Pressure N Colon Cancer N Cytomegalovirus N Hyperthyroidism N MRSA N Breast Cancer N Herpes (HSV) N Blood Transfusion N Lung Cancer N Depression N Hypothyroidism N Incontinence N Panic Attacks N Neurological Disorder N Deep Vein Thrombosis N Anxiety Disorder N Autoimmune disease Y Arthritis N Tuberculosis/Positive PPD N Shingles N Polycystic Ovarian Syndrome Y Cervical Cancer N Hematuria N Chlamydia N Stroke N Varicosities N Seasonal allergies N Crohn's Disease N Alzheimer's/Dementia N COPD/Emphysema N Endometriosis N HPV/Genital Warts N IBS (Irritable Bowel Syndrome) N History of Abnormal Pap N High Cholesterol N Liver Disease N Kidney Infection N Fibromyalgia N Ulcer N Kidney Disease N HIV N Gallbladder disease N Sickle Cell Disease/Trait N Von Willebrand disease N ADD/ADHD N Eating Disorder N Anemia N Diabetes Mellitus (non-insulin dependent ) N Multiple Sclerosis N Ovarian Problems N Gonorrhea N Frequent Urinary Tract infections N Osteopenia N Headaches/migraines N GERD (reflux) N Ovarian Cancer N Diabetes (insulin dependent) N Seizures/Epilepsy N Fibroids N Asthma N Heart Attack N Lupus N Endometrial Cancer N Rubella N Blood Clotting Disorder N [...] ICD10 Code Diagnosis IMO Codes Diagnosis Note [id number] HASMUKH De León [facility] [address] [place] [address] 03/15/2022 15:11:23 03/15/2022 15:47:50 test positive 765132567 Z32.01 BSUS revealed yolk sac but unable to determine viability d/t early gestationa l age. Will schedule in [place] for formal scan and confirmati on visit. [id number] HASMUKH Teixeira [facility] [address] [place] [address] 03/31/2022 13:58:53 04/01/2022 12:39:14 Uncertain viability of 937212931 O36.80X9 UPT in office was +. LMP: 12/22/2021. BSUS on 03/15/22 unable to view FHT's. TVUS today: 8 2/7 wk IUP. EDC based on U/S. Rx for PNV sent. Pt to schedule NOB appt in 2 weeks. S/P Pfizer vaccines; last dose 01/2021. Routine an tenatal care 928928622 Z34.81 COVID-19 250392724 U07.1 Dx in 01/2022. Pt encouraged to take LD ASA daily in 2nd trimester and to consider booster MAIKOL. Family his tory of trisomy 18 5907316959 9108 Z82.79 PA sent for QNatal. Planning sneak peek if not covered. Family his tory of cystic fibrosis 783766998 Z83.49 CF carrier screening added to NOB labs. Polycystic ovary syndrome 366957193 E28.2 HgA1C and Early 1 hr GTT added to NOB labs. Anti-nucle ar factor detected 155102510 R76.8 Pt saw rheumatolo gist on 03/24/22, and given serum labs to have drawn. Pt encouraged to complete with NOB serum testing before next visit. If r/i for autoimmune disorder, plan referral to MFM at [facility] as Rheumatolo gist already located at [facility]. [id number] Cha Kimbrough CNM [facility] [address] [place] [address] 04/19/2022 14:51:49 04/20/2022 09:12:53 High risk 82378026 O09.90 Routine an tenatal care 965853815 Z34.01 Z34.81 [id number] MELINA SOUZA, [facility] h [address] [place] [address] 05/17/2022 16:38:50 05/21/2022 14:50:32 Gestation period, 14 weeks 51612523 Z3A.14 Normal pre gnancy in multigravida 1471005441 74239 Z34.82 [id number] HASMUKH De León [facility] [address] [place] [address] 06/16/2022 14:44:25 06/16/2022 15:15:23 Routine care 959109306 Z34.02 [id number] MARTHA CARABALLO, [facility] [address] [place] [address] 07/02/2022 16:04:23 07/02/2022 17:55:21 Venereal disease screening 569127154 Z11.3 thick white vaginal discharge rx and swab sent,. Gestation period, 21 weeks 41193795 Z3A.21 anatomy complete, cervix 1.6cm with funneling with fundal pressure.d enies s/s of ptl.MFM referral sent and prometrium started. Short cerv ical length in 048681168 O26.879 plan per roxy. mfm referral and progestero ne daily [id number] MELINA SOUZA, [place] [address] [place] [address] 07/30/2022 15:50:15 07/30/2022 16:53:26 Gestation period, 25 weeks 45057275 Z3A.25 Normal pre gnancy in multigravida 6622963962 47206 Z34.82 [id number] HASMUKH FERNANDEZ-[facility] [address] [place] [address] 08/27/2022 16:07:04 08/30/2022 10:47:39 Routine care 492547073 Z34.83 Depression screening 171 165036 Z13.31 Gestation period, 29 weeks 79232298 Z3A.29 [id number] Cha Kimbrough, DANYA [facility] [address] [place] [address] 09/15/2022 15:10:02 09/15/2022 15:59:38 Gestation period, 32 weeks 9425367 Z3A.32 Pruritic disorder 011819 002 L29.9 Vaginal discharge 185186 006 N89.8 Dark yellow urine 603154 001 R39.89 [id number] Melissa Mccollum HASMUKH Marte [facility] h [address] [place] [address] 09/24/2022 09:48:10 09/24/2022 13:54:13 High risk 65381669 O09.93 1. IUP FWB reassuring by BPP [...] 4 days. Gestationa l diabetes mellitus complicating 2484135944 9106 O24.419 Cholestasi s of 527829087 O26.235 [id number] Sebastián Triplett DO [facility] [address] [place] [address] 10/04/2022 17:12:26 10/06/2022 09:43:52 17560200 Z33.1 [id number] ISAC KWAN MD [facility] [address] [place] [address] 10/07/2022 17:16:44 10/19/2022 12:21:36 High risk 97173882 O09.93 Gestationa l diabetes mellitus complicating 2508369895 9106 O24.419 Cholestasi s of 605670185 O26.619 Gestation period, 36 weeks 10794473 Z3A.36 [id number] ISAC KWAN MD [facility] [address] [place] [address] 10/12/2022 16:57:23 10/19/2022 12:27:55 Gestation period, 36 weeks 15447653 Z3A.36 Routine an tenatal care 169907933 Z34.83 High risk 4720 0007 O09.93 Gestationa l diabetes mellitus complicating 5545263621 9106 O24.419 Cholestasi s of 661256243 O26.659 [id number] Sebastián Triplett DO [facility] [address] [place] [address] 11/11/2022 15:55:22 11/11/2022 17:02:03 state 82129691 Z39.2 [id number] HASMUKH De León [facility] [address] [place] [address] 12/08/2022 15:19:25 12/08/2022 15:57:11 state 06301556 Z39.2 Contracept ion care management 516919236 Z30.9 Maternal p ostpartum depression screening 5721027738 70175 Z13.32 EPDS: Pt educated on normal EPDS scoring, and discussed depression precaution s and when to notify HCP/go to ER. Past pregn andrei history of gestational diabetes mellitus 346573898 Z86.32 [id number] Vnagie Nuñez MD [facility] [address] [place] [address] 12/13/2022 12:41:36 12/14/2022 00:57:49 Mastitis associated with 128469400 O91.23 discussed mastitis assoc with breast feeding. possible blocked duct, urged to continue pumping and massage, warm compresses . Will begin abx and urge follow up 10 - 14 d [id number] HASMUKH ALMANZA [facility] [address] [place] [address] 05/06/2025 15:15:40 05/07/2025 11:23:06 test positive 625565830 Z32.01 119445 - Routine antepartum care reviewed including visit [...] due to high risk previous Vaginal discharge 340318 006 N89.8 14329 [id number] Karina Méndez CNM [facility] [place] [address] [place] [address] 06/03/2025 14:28:35 06/04/2025 09:06:40 High risk 41832009 O09.92 17447350 History of gynecological disorder 125018210 Z87.42 45407620 screening 2437 64441 Z36.89 Gestation period, 13 weeks 41723066 Z3A.13 [id number] .[facility] [id number] HASMUKH FERNANDEZ-[facility] [address] [place] [address] 06/25/2025 11:18:31 06/25/2025 13:13:33 Gestation period, 16 weeks 59269606 Z3A.16 7369793 History of gynecological disorder 055838973 Z87.42 22167990 Carrier of cystic fibrosis gene mutation 211973666 Z14.1 2995396 Screening for disorder 596566454 Z36.0 Normal 9897572 2 Z34.92 49936116 Pt is here for a SANJEEV appointmen t. She is taking vitamins. She has no complaints or questions. Reports feeling movement. Denies vaginal bleeding, abdominal cramps, N/V, contractio ns, or LOF. Denies headache, vision changes, swelling of hands or face, and epigastric pain. Discussed PTL and precaution s given. There are no identifiab le risk factors for pre-term labor. Reminded pt that I do not delivery babies. Will plan for pt to start meeting delivery providers after 28 week visit. [id number] HASMUKH ALMANZA [facility] [address] [place] [address] 07/10/2025 15:57:50 07/11/2025 12:30:37 History of gynecological disorder 662674787 Z87.42 73094154 Gestation period, 18 weeks 73148210 Z3A.18 3247880 care status 24 9550886 Z34.82 45274612 CL WNL- Placenta previa resolvedWi ll recheck cervical length at anatomy scanPTL precaution s reviewedRT C in 2 weeks [id number] HASMUKH ALMANZA [facility] [address] [place] [address] 07/29/2025 15:09:58 07/30/2025 13:17:14 Multigravida 741630552 Z34.82 96808137 Gestation period, 21 weeks 27007189 Z3A.21 5344593 Gestation period, 20 weeks 76297992 Z3A.20 screening 2437 09088 Z36.3 hear t echogenicity on obstetric ultrasound scan 219878833 O28.3 17239089 -Discussed EIF at length with patient and [...] up ultrasound or evaluation is recommende d [id number] Karina Méndez CNM [facility] [address] [place] [address] 08/12/2025 12:24:14 08/12/2025 13:32:28 History of gynecological disorder 173251918 O09.299 45135595 Gestation period, 23 weeks 12602216 Z3A.23 1673359 labor precaution s given. FM counts discussed. [...] Member ID Hung Member ID Guarantor Name 06/24/2025 1 [facility] (MEDICAID HMO) [id number] 0003 Jenniffer Gustafson [id number] Jenniffer Gustafson 08/12/2025 [facility] (MEDICAID HMO) [id number] 0003 Jenniffer Gustafson [id number] Jenniffer Gustafson 08/12/2025 1 [place] Jenniffer Gustafson [id number] Jenniffer Gustafson 08/12/2025 1 [facility] (MEDICAID HMO) [id number] 0003 Jenniffer Gustafson [id number] Jenniffer Gustafson Notes Date Note Type Note [...] nausea, vomiting, headache or visual disturbances. Karina Méndez [facility] [address] [place], [address], [facility] [employer] IV 06/03/2025 15:43:47 06/25/2025 text/html ROS as noted in the HPI Jenniffer is here today for a routine OB visit. She is currently at 16.2 weeks gestation. vitamins: yes She has not felt movement.She denies any complaints of the presence of vaginal bleed, leaking fluid, abdominal cramps, nausea, vomiting, headache or visual disturbances. Pt unable to give urine she already went to the restroom. ROMAINE FERNANDEZ [address] [place], [address], [facility] [employer] IV 06/25/2025 12:23:05 07/10/2025 text/html ROS as noted in the HPI Patient is here today for a routine OB visit. She is currently at 18.3 weeks gestation. vitamins: yes She has not felt movement. She denies any complaints of the presence of vaginal bleed, leaking fluid, abdominal cramps, nausea, vomiting, headache or visual disturbances. HASMUKH ALMANZA [address] [place], [address], [facility] [employer] IV 07/10/2025 19:22:46 07/29/2025 text/html [facility] OB Return VisitReported by PatientROS as noted in the HPI Jenniffer 24 y/o here for routine OB visit, she is 21/1 weeks, denies any vaginal spotting, bleeding, fluid leakage or cramping, movement noted, taking vitamins, on antibiotics for ear infection has 2 days left and does not feel like ear is better , US done today for anatomy HASMUKH ALMANZA [address] [place], [address], [facility] [employer] IV 07/29/2025 18:08:08 08/12/2025 text/html Patient is here today for a routine OB visit. She is currently at 23.1 weeks gestation. vitamins: yes She has felt movement. She denies any complaints of the presence of vaginal bleed, leaking fluid, abdominal cramps, nausea, vomiting, headache or visual disturbances. Karina Méndez, [facility] [address] [facility], [place], [address], [facility] [employer] IV 08/12/2025 18:37:16 OBGyn Episode Ob Episode Information Episode Created Date Number of Fetuses Patient Bloodtype Patient rh Status Prepregnancy Weight lbs Domestic Partner Domestic Partner Phone Father Name Pipe Fitter Status 04/29/20 22 1 O Positive CLOSED Fetus Data First Name Last Name Admitted to NICU Weight (g) Sex Living Outcome Pediatric Complications Fetus ID Race Codes Race Delivery Type [place] false 2954.01 79 F true Full Term [id number] Problems Problem Notes Problem Name Start Date End Date Resolution Snomed Code Not e Cystic fibrosis screening 558623280 +CF screening. FOB negative High risk 73444553 O+/RI/NRx4. Las t Pap: No pap on file; plan post collection. GTT: Failed; see below POC. GBS: Aneuploidy screening: QNatal WNL. Anatomy Scan: Complete as of 07/02/22. Varicella non-immune 602841240 plan for Varice lla vaccine post . notified 05/03/22. Family history of Spina bifida 668750840 Fam H/O Spina B ifida - X 2 on FOB side. Gestational diabetes mellitus 51453947 H/O PCOS. Early screening recommended. HgA1C on [...] daily reinforced. Family history of trisomy 18 [id number] QNatal WNL. Influenza 7056055 Dx 2. Discussed Influenza vaccine.--> Update 09/24/22: Influenza vaccine reinforced. Cervical incompetence 27985869 C.L. 1.6 cm wit h funneling on anatomy. Prometrium Rx'd. S/P MFM Referral. 07/13/22 C.L. 2.3 cm. Recommendation for vag progesterone through 36 wks. Anti-nuclear factor detected 599508536 Saw Rheumato logist in 03/2022. Labs all WNL except for elevated CRP. --> Update 09/24/22: Pt states no official autoimmune diagnosis. Pt encouraged F/U with provider after has ended. Cholestasis of 521251792 Bile acids 19 o n 09/15/22; lab [...] remainder of and discuss delivery POC. COVID-19 948060091 Dx in 02/05 22. 03/31/22: Pt encouraged to take LD ASA daily in 2nd trimester and to consider booster MAIKOL. --> Update 09/24/22: Boosters recommended, LD ASA daily reinforced. Carrier of cystic fibrosis gene mutation 901614041 Fam Hx of CF. P t is [...] Weight in lbs Pre/Post Dialysis Refused Weight 155.23458490102 BP Diastolic BP Location Tested BP Systolic [...] Weight in lbs Pre/Post Dialysis Refused Weight 154.910289554691 BP Diastolic BP Location Tested BP Systolic [...] in lbs Pre/Post Dialysis Refused With clothes 156.356459868145 BP Diastolic BP Location Tested BP Systolic BP Type 78 L arm 116 sitting Fetus Heart Rate Present A 149 Fetus Movement Comments Early 1hr 122Anatomy scan ne xt visitPatient is KOTA+. She saw Personnel Adviser. Labs were drawn with NOB panel. No results in chart. Message sent to obtain results Flowsheet Date 07/02/2022 Gallegos Score Blood Edema Fundus Height Fundus Units Glucose Ketones Leukocytes Nitrite Labor Signs Protein Cervic Dilation Cervic Effacement Cervic Station none none Type Weight in lbs Pre/Post Dialysis Refused Weight 158.216485108640 BP Diastolic BP Location Tested BP Systolic [...] in lbs Pre/Post Dialysis Refused With clothes 164.417549242336 BP Diastolic BP Location Tested BP Systolic [...] in lbs Pre/Post Dialysis Refused With clothes 166.489680035393 BP Diastolic BP Location Tested BP Systolic [...] in lbs Pre/Post Dialysis Refused With clothes 166.006239392685 BP Diastolic BP Location Tested BP Systolic [...] in lbs Pre/Post Dialysis Refused With clothes 169.756776520352 BP Diastolic BP Location Tested BP Systolic BP Type 70 102 sitting Fetus Heart Rate Present A 144 Present Fetus Movement A Yes Comments See Visit Plan. GDMA1 & ICP. BPP 8/8. Flowsheet Date 10/04/2022 Gallegos Score Blood Edema [...] in lbs Pre/Post Dialysis Refused With clothes 170.688983697717 BP Diastolic BP Location Tested BP Systolic [...] in lbs Pre/Post Dialysis Refused With clothes 169.965921358830 BP Diastolic BP Location Tested BP Systolic [...] in lbs Pre/Post Dialysis Refused With clothes 151.299169199046 BP Diastolic BP Location Tested BP Systolic BP Type 72 L arm 110 sitting Fetus Heart Rate Present Fetus Movement Comments Flowsheet Date 12/08/2022 Gallegos Score Blood Edema Fundus Height Fundus Units Glucose Ketones Leukocytes Nitrite Labor Signs Protein Cervic Dilation Cervic Effacement Cervic Station Type Weight in lbs Pre/Post Dialysis Refused Weight 152.082375149694 BP Diastolic BP Location Tested BP Systolic [...] Disease false Other Infection History false Thalassemia (Spanish, Maltese, Mediterranean, Or Background): MCV < 80 false [...] false History of Hepatitis false Arnaldo-Sachs (eg, Jehovah'S Witness, Cajun, Qatari-Goshen) f alse History Of STD, Gonorrhea, Chlamydia, HPV, Syphi lis false Prior GBS-infected child false History of HIV false Personal or Family History o f Neural Tube Defect (Meningomyelocele, Spina Bifida, Or Anencephaly) false Hemophilia Or Other Blood Disorders false Mental Retardation/Autism false [place]'s Chorea false If Yes, Was Person Tested [...] d Regional-Ep idural 37.4 false Cha Kimbrough CNLucía None false 10/24/2022 Discharge Information Feeding Method Contraceptive Method Maternal HG B and HCT Levels Breast Ob Episode Information Episode Created Date Number of Fetuses Patient Bloodtype Patient rh Status Prepregnancy Weight lbs Domestic Partner Domestic Partner Phone Father Name Pipe Fitter Status 06/03/20 25 1 O Positive OPEN Fetus Data First Name Last Name Admitted to NICU Weight (g) Sex Living Outcome Pediatric Complications Fetus ID Race Codes Race Delivery Type [id number] Problems Problem Notes History of cervical shorteni ng with prior Problem Name Start Date End Date Resolution Snomed Code Not e Polycystic ovary syndrome 05/06/2025 263582444 Past history of cholestasis in 07/29/2025 02602469058467906 Gestational diabetes mellitus 07/29/2025 92252705 diet contr olled GDM in prior - early 1 hr passed Carrier of cystic fibrosis gene mutation 06/25/2025 554528185 Pt reports FOB Jorge Dang 03/05/1998 negative [...] Date Ultra Sound Latest Days Gestation 0 [email or web address] 06/03/2025 12/09/19 26 0 Pre-hope Flowsheet Flowsheet Date 06/03/2025 Gallegos Score Blood Edema Fundus Height Fundus Units Glucose Ketones Leukocytes Nitrite Labor Signs Protein Cervic Dilation Cervic Effacement Cervic Station Type Weight in lbs Pre/Post Dialysis Refused With clothes 147.026019113998 BP Diastolic BP Location Tested BP Systolic [...] Weight in lbs Pre/Post Dialysis Refused Weight 148.803124952587 BP Diastolic BP Location Tested BP Systolic [...] in lbs Pre/Post Dialysis Refused With clothes 149.801226604636 BP Diastolic BP Location Tested BP Systolic [...] in lbs Pre/Post Dialysis Refused With clothes 155.038522633465 BP Diastolic BP Location Tested BP Systolic [...] in lbs Pre/Post Dialysis Refused With clothes 157.275606171264 BP Diastolic BP Location Tested BP Systolic [...]
--- OUTSIDE RECORDS SUMMARY | 2025-08-20 17:22 | XMS_ITS | Clinical Summary ---
Author Organization [facility] Address [facility] [place] [address] Care Team Providers Care Tape Deck Installer Name Role Phone Jacinta Herron MD Primary [...] Active Problems Problem Noted Date Diagnosed Date 10/21/2022 Immunizations Immunization Administration Dates Next Due [...] or ex-partner? No 10/21/2022 Social Connection and Isolation Panel Answer Date Recorded In a typical week, how many times do you talk on the phone with family, friends, or neighbors? More than three times a week 10/21/2022 How often do you get togethe r with friends or relatives? More than three times a week 10/21/2022 How often do you attend chur or taoism services? Never 10/21/2022 Do you belong to any clubs o r organizations such as mormon groups, unions, fraternal or athletic groups, or [...] and heating? Not hard at all 10/21/2022 [facility] [place] [facility] - Occupational Stress [...] place to sleep or slept in a correction (including now)? No 10/21/2022 Comments No Sex and Gender Information Value Date Recorded Sex Assigned at Not on file Legal Sex Female 1:54 PM CDT Gender Identity Not on file Sexual Orientation Not on file Last Filed Vital Signs Vital Sign Reading Time Taken Comments Blood Pressure 114/80 10/24/2022 7:05 AM PRODUCTION ADMINISTRATOR Pulse 100 10/24/2022 7:05 AM PRODUCTION ADMINISTRATOR Temperature 36.7 C (98 F) 10/24/2022 7:05 AM PRODUCTION ADMINISTRATOR Respiratory Rate 16 10/24/2022 7:05 AM PRODUCTION ADMINISTRATOR Oxygen Saturation 100% 10/24/2022 7:05 AM PRODUCTION ADMINISTRATOR Inhaled Oxygen Concentration - - Weight 72.6 kg (160 lb) 10/21/2022 8:00 AM PRODUCTION ADMINISTRATOR Height 154.9 cm (5' 1) 10/21/2022 8:00 AM PRODUCTION ADMINISTRATOR Body Mass Index 30.23 10/21/2022 8:00 AM PRODUCTION ADMINISTRATOR Plan of Treatment Health Maintenance Due Date Last Done Comments Cervical Cancer Screening Pap Smear (Age 21 to 29) Every 3 Years 2000 Cervical Cancer Screening 2000 Annual Physical 2003 Chlamydia Screening Females ages 16-24 2016 Hepatitis C 2018 Hepatitis B Vaccines (1 of 3 - 19+ 3-dose series) 2019 COVID-19 Vaccine ( - season) 2025 Influenza Adult (#1) 2025 10/24/2022 DTaP, Tdap and Td Vaccines (7 - Td or Tdap) 10/24/2032 10/24/2022, 02/09/2006, 02/28/2002, Additional history exists Meningococcal Vaccine Aged Out 03/24/2015 No iggy mariana eligible based on patient's age to complete this topic HPV Vaccines Completed 10/31/2019, 09/19, 04/01/2016, Additional history exists Hepatitis A Vaccines Aged Out No long er eligible based on patient's age to complete this topic Meningococcal B Vaccine Aged Out No l onger eligible based on patient's age to complete this topic Pneumococcal Vaccine: Pediatrics (0 to 5 Years) and At-Risk Patients (6 to 49 Years) Aged Out No longer eligible based on patient's age to complete this topic RSV Immunizations Under 20 Months Aged Out No longer eligible based on patient's age to complete this topic Insurance [employer] Advance Directives * Full Code (Latest Code Status on File) Date Activated Date Inactivated Comments 10/21/2022 7:47 AM 10/24/2022 5:35 PM Care Teams Tape Deck Installer Relationship Specialty Start Date End Date Jacinta Herron MD [id number] [facility] [place] [address] [facility] - General OBN 12/31/20
--- OUTSIDE RECORDS SUMMARY | 2025-08-20 17:22 | XMS_ITS | Continuity of Care Document ---
Author Organization [facility] [employer] , [facility] Address [address] [place] [address] Assessment No assessment recorded. Plan of Treatment Reminders Order Date Submit Date Provider Last Modified By Organization Details Last Modified Time Details Appointments OB 28WK EST 2024 01:00P M ANGELICA BARRETT, DO Not available Not available Not available Lab None recorded. Referral None recorded. Procedures None recorded. Surgeries None recorded. Imaging US, obstetric , maternal evaluatio n + anatomy 2024 025 [email or web address] [facility], [address] [place], [address], 07/30/2025 13:17:14 US, obstetric , transvagi nal 2024 025 [email or web address] [facility], [facility] [place], [address], 08/06/2025 10:36:47 Medication Orders None recorded. Patient TargetsNo targets [...] absen ce of diabe amanda Not Available [facility] [place] [facility] [address] [place], [address], 06/04/2025 13:18:14 06/03/20 25 06/04/2025 DRUG ABUSE PANEL 7 W/CON FIRM amphetamines Negati ve negati ve normal Not Available [facility] [place] [address] [place], [address], 06/04/2025 13:18:15 06/03/20 25 06/04/2025 DRUG ABUSE PANEL 7 W/CON FIRM barbiturates Negati ve negati ve normal Not Available [facility] [place] [address] [place], [address], 06/04/2025 13:18:15 06/03/20 25 06/04/2025 DRUG ABUSE PANEL 7 W/CON FIRM benzodiazepi bradly Negati ve negati ve normal Not Available [facility] [address] [place], [address], 06/04/2025 13:18:15 06/03/20 25 06/04/2025 DRUG ABUSE PANEL 7 W/CON FIRM cocaine metabolites Negati ve negati ve normal Not Available [facility] [address] [place], [address], 06/04/2025 13:18:15 06/03/20 25 06/04/2025 DRUG ABUSE PANEL 7 W/CON FIRM cannabinoids Negati ve negati ve normal Not Available [facility] [place] [facility] [address] [place], [address], 06/04/2025 13:18:15 06/03/20 25 06/04/2025 DRUG ABUSE PANEL 7 W/CON FIRM methadone Negati ve negati ve normal Not Available [facility] [address] [place], [address], 06/04/2025 13:18:15 06/03/20 25 06/04/2025 DRUG ABUSE PANEL 7 W/CON FIRM opiates Negati ve negati ve normal Not Available [address], [address], 06/04/2025 13:18:15 06/03/20 25 06/04/2025 DRUG ABUSE PANEL 7 W/CON FIRM creatinine, urine 22 mg/dL 20 - 275 normal Not Available [address], [address], 06/04/2025 13:18:15 06/03/20 25 06/04/2025 OB PANEL - STD BLOOD WORK hep BS Ag Non-Re active non-re active normal Not Available [address], [address], 06/04/2025 13:54:17 06/03/20 25 06/04/2025 OB PANEL - STD BLOOD WORK hep C Ab Non-Re active non-re active normal Not Available [address], [address], 06/04/2025 13:54:17 06/03/20 25 06/04/2025 OB PANEL - STD BLOOD WORK HIV 1/2 Ag/Ab Non-Re active non-re active normal Not Available [address], [address], 06/04/2025 13:54:17 06/03/20 25 06/04/2025 OB PANEL - STD BLOOD WORK syphilis Ab Non-Re active non-re active normal Not Available [address], [address], 06/04/2025 13:54:17 06/03/2006/04/2025 OB PANEL - STD [...] the Rubel la virus . Not Available [address], [address], 06/04/2025 13:54:17 06/03/2006/04/2025 CBC (INCL UDES DIFF/ PLT) WBC 7.9 thous and/u L 4.0 - 9.8 normal Not Available [address], [address], 06/04/2025 13:59:39 06/03/2006/04/2025 CBC (INCL UDES DIFF/ PLT) RBC 4.3 davy on/uL 3.9 - 4.9 normal Not Available [address], [address], 06/04/2025 13:59:39 06/03/2006/04/2025 CBC (INCL UDES DIFF/ PLT) hemoglobin 13.9 g/dL 11.8 - 14.8 normal Not Available [address], [address], 06/04/2025 13:59:39 06/03/2006/04/2025 CBC (INCL UDES DIFF/ PLT) hematocrit 40.9 % 35.5 - 44.0 normal Not Available [address], [address], 06/04/2025 13:59:39 06/03/2006/04/2025 CBC (INCL UDES DIFF/ PLT) MCV 94.7 fL 82.0 - 99.0 normal Not Available [address], [address], 06/04/2025 13:59:39 09/15/20 25 06/04/2025 CBC (INCL UDES DIFF/ PLT) MCH 32.2 pg 27.2 - 32.6 normal Not Available [address], [address], 06/04/2025 13:59:39 06/03/2006/04/2025 CBC (INCL UDES DIFF/ PLT) MCHC 34.0 g/dL 31.5 - 35.5 normal Not Available [address], [address], 06/04/2025 13:59:39 06/03/2006/04/2025 CBC (INCL UDES DIFF/ PLT) RDW-CV 12.0 % 11.5 - 14.5 normal Not Available [address], [address], 06/04/2025 13:59:39 06/03/2006/04/2025 CBC (INCL UDES DIFF/ PLT) platelet 186 thous and/u L 140 - 350 normal Not Available [address], [address], 06/04/2025 13:59:39 06/03/2006/04/2025 CBC (INCL UDES DIFF/ PLT) MPV 12.3 fL 9.3 - 12.4 normal Not Available [address], [address], 06/04/2025 13:59:39 06/03/2006/04/2025 CBC (INCL UDES DIFF/ PLT) absolute neutrophil 5.77 thous and/u L 1.90 - 7.00 normal Not Available [address], [address], 06/04/2025 13:59:39 06/03/2006/04/2025 CBC (INCL UDES DIFF/ PLT) absolute lymphocyte 1.57 thous and/u L 0.70 - 4.50 normal Not Available [address], [address], 06/04/2025 13:59:39 06/03/20 25 06/04/2025 CBC (INCL UDES DIFF/ PLT) absolute monocyte 0.36 thous and/u L 0.10 - 1.30 normal Not Available [address], [address], 06/04/2025 13:59:39 06/03/20 25 06/04/2025 CBC (INCL UDES DIFF/ PLT) absolute eosinophil 0.18 thous and/u L <0.70 normal Not Available [address], [address], 06/04/2025 13:59:39 06/03/20 25 06/04/2025 CBC (INCL UDES DIFF/ PLT) absolute basophil 0.04 thous and/u L <0.20 normal Not Available [address], [address], 06/04/2025 13:59:39 06/03/20 25 06/04/2025 CBC (INCL UDES DIFF/ PLT) absolute immature granulocyte 0.02 thous and/u L <0.03 normal Not Available [address], [address], 06/04/2025 13:59:39 06/03/20 25 06/04/2025 CT/NG chlamydia trachomatis CT neg negati ve normal This repor t is inten ded for us in clini nell monit oring and manag ement of patie nts. It is not inten ded for use in medic al-le gal appli catio n. Not Available [address], [address], 06/04/2025 14:40:18 06/03/2006/04/2025 CT/NG neisseria gonorrhoeae GC neg negati ve normal This repor t is inten ded for us in clini nell monit oring and manag ement of patie nts. It is not inten ded for use in medic al-le gal appli catio n. Not Available [address] [place], [address], 06/04/2025 14:40:18 06/03/2006/08/2025 GLUCO SE, GESTA ELVIS L SCREE N (50G) -135 CUTOF F glucose, gestational screen (50g)-135 cutoff 117 mg/dL <135 normal Not Available [facility] [address] [address] [place], [address], 06/08/2025 14:40:52 06/03/2006/08/2025 VARIC MAURIZIO ZOSTE R [...] Immun ity Scree n, ACIF. Not Available [facility] [address] [place], [address], 06/08/2025 14:40:53 06/03/2006/08/2025 HEMOG LOBIN OPATH Y EVALU ATION red blood cell count 4.25 davy on/uL 3.80-5 .10 Not Available [address], [address], 06/08/2025 14:40:54 06/03/20 25 06/08/2025 HEMOG LOBIN OPATH Y EVALU ATION hemoglobin 13.3 g/dL 11.7-1 5.5 Not Available [address], [address], 06/08/2025 14:40:54 06/03/2006/08/2025 HEMOG LOBIN OPATH Y EVALU ATION hematocrit 41.9 % 35.0-4 5.0 Not Available [address], [address], 06/08/2025 14:40:54 06/03/20 25 06/08/2025 HEMOG LOBIN OPATH Y EVALU ATION MCV 98.6 fL 80.0-1 00.0 Not Available [address], [address], 06/08/2025 14:40:54 06/03/20 25 06/08/2025 HEMOG LOBIN OPATH Y EVALU ATION MCH 31.3 pg 27.0-3 3.0 Not Available [address], [address], 06/08/2025 14:40:54 06/03/20 25 06/08/2025 HEMOG LOBIN OPATH Y EVALU ATION RDW 12.4 % 11.0-1 5.0 Not Available [address], [address], 06/08/2025 14:40:54 06/03/20 25 06/08/2025 HEMOG LOBIN OPATH Y EVALU ATION hemoglobin A 97.2 % >96.0 Not Available [address] [address] [place], [address], 06/08/2025 14:40:54 06/03/2006/08/2025 HEMOG LOBIN OPATH Y EVALU ATION hemoglobin F <1.0 % <2.0 Not Available [facility] [address] [address] [place], [address], 06/08/2025 14:40:54 06/03/2006/08/2025 HEMOG LOBIN OPATH Y EVALU ATION hemoglobin A2 (quant) 2.8 % 2.0-3. 2 Not Available [facility] [address] [address] [place], [address], 06/08/2025 14:40:54 06/03/2006/08/2025 HEMOG LOBIN OPATH Y EVALU ATION interpretati on Jenna l pheno type. Jenna l hemog lobin distr ibuti on, no HgS, HgC or other abnor mal hemog lobin obser larisa. Not Available [address] [address] [place], [address], 06/08/2025 14:40:54 06/03/2006/08/2025 MEASL ES AB (IGG) [...] raúl sanchez e refer to http: //rachele jimenez.Que stDia gnost ics.c om/fa q/FAQ 162 (This link is being provi ded for infor jennifer nal/ educa elvis l purpo ses only. ) Not Available [address] [place], [address], 06/08/2025 14:40:54 06/03/2006/08/2025 ANTIB ANN SCREE N, [...] alloi mmuni zed pregn andrei. Not Available [address], [address], 06/08/2025 14:40:55 06/03/2006/08/2025 ABO GROUP AND RH TYPE ABO group O Not Available [address], [address], 06/08/2025 14:40:55 06/03/2006/08/2025 ABO GROUP AND RH TYPE Rh type RH(D) POSITI VE For addit ional infor raúl sanchez e refer to http: //[facility] reji Sellers stDia gnost ics.c om/fa q/FAQ 111 (This link is being provi ded for infor jennifer bradford/ bryan jc purpo ses only. ) Not Available [address], [address], 06/08/2025 14:40:55 06/03/2006/08/2025 CULTU RE, URINE , ROUTI NE culture, urine, routine SEE NOTE CULTU RE, URINE , ROUTI NE Micro Numbe r: [id number] Test Statu s: Final Speci men Sourc e: Urine Speci men Quali ty: Adequ ate Resul t: No Growt h Not Available [address], [address], 06/08/2025 14:40:56 06/25/2006/28/2025 MATER NAL SERUM AFP interpretati on: Scree n negat rosalina for open NTD. Not Available [facility] [address] [address] [address] , [place], [address], 06/28/2025 06:27:48 06/25/2006/28/2025 MATER NAL SERUM AFP risk for ontd NOT CALCUL ATED Not Available [facility] [address] [address] [address], [place], [address], 06/28/2025 06:27:48 06/25/2006/28/2025 MATER NAL SERUM AFP AFP, serum 35.9 NG/mL Not Available [facility] [address] [address] [place], [address], 06/28/2025 06:27:48 06/25/2006/28/2025 MATER NAL SERUM AFP AFP MOM 1.01 Not Available [facility] [address] [address] [address] , [place], [address], 06/28/2025 06:27:48 06/25/2006/28/2025 MATER NAL SERUM AFP comments: You have indic ated that this is a repea t speci men. While repea ting an eleva cami resul t is appro priat e, an accur ate neura l tube defec t risk has not been calcu lated for this repea t speci men. This patie nt's PARVIZ (justyna mated date of del iraida) was used to calcu late the gesta elvis l age. The AFP test resul t indic ates that this patie nt is scree n negat rosalina for open NTD. It shoul d be noted that jenna l test resul ts can never guara ntee the of a jenna l baby and that 2-3% [facility] have some type of physi nell or menta l defec t, many of which are undet ectab le throu gh any known prena rekha diagn ostic techn ique. Not Available [facility] [address] [place], [address], 06/28/2025 06:27:48 06/25/2006/28/2025 MATER NAL SERUM AFP [...] s melissa ic couns elor or call [phone] INFO( [phone]). Inter preti ve Cutof fs Scree n [...] l purpo ses only. ) Not Available [facility] [address] [address], [place], [address], 06/28/2025 06:27:48 06/25/2006/28/2025 MATER NAL SERUM AFP calc'd gestational age 16.3 weeks Not Available [facility] [address] [address], [place], [address], 06/28/2025 06:27:48 06/25/2006/28/2025 MATER NAL SERUM AFP maternal weight 148 lbs Not Available [facility] [address] [place], [address], 06/28/2025 06:27:48 06/25/2006/28/2025 MATER NAL SERUM AFP est'd date of delivery 2025 Not Available [address] [address] [place], [address], 06/28/2025 06:27:48 06/25/2006/28/2025 MATER NAL SERUM AFP parviz determined by LMP Not Available [address], [address], 06/28/2025 06:27:48 06/25/2006/28/2025 MATER NAL SERUM AFP mother's ethnic origin CAUCAS ROSY Not Available [address], [address], 06/28/2025 06:27:48 06/25/2006/28/2025 MATER NAL SERUM AFP number of fetuses 1 Not Available [address], [address], 06/28/2025 06:27:48 06/25/2006/28/2025 MATER NAL SERUM AFP insulin depend diabetic NO Not Available [address] [address] [place], [address], 06/28/2025 06:27:48 06/25/2006/28/2025 MATER NAL SERUM AFP repeat specimen YES Not Available [address] [address] [place], [address], 06/28/2025 06:27:48 06/25/20 25 06/28/2025 MATER NAL SERUM AFP Hx of neural tube defects NO Not Available [address] [address] [place], [address], 06/28/2025 06:27:48 10/04/07 2506/28/2025 MATER NAL SERUM AFP prev down synd NO Not Available [facility] [address] [place], [address], 06/28/2025 06:27:48 06/25/2006/28/2025 MATER NAL SERUM AFP donor egg NO Not Available [facility] [address] [place], [address], 06/28/2025 06:27:48 06/25/2006/28/2025 MATER NAL SERUM AFP donor age: egg retrieval NOT GIVEN Not Available [address] [address] [place], [address], 06/28/2025 06:27:48 06/03/2006/03/2025 US, trans vagin al No observ ation record ed. [email or web address] Sharlene [address] [place], [place] [address]b [address], [place], [address], 06/04/2025 11:59:45 06/25/2006/25/2025 US, obste tric, trans vagin al No observ ation record ed. [email or web address] Sharl[address], [place], [address], 06/26/2025 11:33:24 07/10/20 25 07/10/2025 US, obste tric, trans vagin al No observ ation record ed. [email or web address] Sharlene [address], [place], [address], 07/10/2025 20:00:52 07/30/2007/29/2025 US, obste tric, mater nal evalu ation + anato my No observ ation record ed. [email or web address] Sharlene [address], [place], [address], 07/30/2025 21:56:14 08/13/20 25 08/12/2025 US, obste tric, trans vagin al No observ ation record ed. [email or web address] Sharlene [address] [place] [address], [place], [address], 08/13/2025 08:30:12 Result Notes None recorded. Problems Name Problem SNOMED Code Status Onset Date Resolution Date Notes Provider Name and Address Organization Details Recorded Time Cystic fibrosis screenin g Completed +CF screenin g. FOB negative Crystal lee, [facility] IV 3 15:35:27 High risk pregnanc y 96991946 Completed O+/RI/NR x4. Last Pap: No pap on file; plan post collecti on. GTT: Failed; see below POC. GBS: Aneuploi dy screenin g: QNatal WNL. Anatomy Scan: Complete as of 07/02/22 . Crystal lee, [facility] IV 3 15:35:27 Gestatio nal diabetes mellitus 87747164 Completed H/O PCOS. Early screenin g recommen [...] Serial growth U/S needed. LD ASA daily [facility] ed. rCystal lee, [facility] IV 3 15:35:27 Cholesta sis of pregnanc y 041196098 Completed Bile acids 19 on 09/15/22 ; [...] and discuss delivery POC. Crystal Maciel rosa, [facility] 3 15:35:27 Cervical incompet ence 23843849 Completed C.L. 1.6 cm with rebekah roman on anatomy. Prometri um Rx'd. S/P MFM Referral . 07/13/22 C.L. 2.3 cm. Recommen dation for vag progeste susanna through 36 wks. Crystal Raheem lee, [facility] 3 15:35:27 Anti-nuc lear factor detected 794109182 Completed Saw Rheumato logist in 03/2022. Labs all WNL except for elevated CRP. --> Update 09/24/22: Pt states no official autoimmu ne diagnosi s. Pt [facility] ed F/U with provider after pregnanc y has ended. Crystal Maciel rosa, [facility] IV 3 15:35:27 COVID-19 332159740 Completed Dx in 01/2022. 03/31/22: Pt [facility] ed to take LD ASA daily in 2nd trimeste r and to consider booster MAIKOL. --> Update 09/24/22: Boosters recommen ded, LD ASA daily [facility] ed. Crystal Raheem lee, [facility] 3 15:35:27 Influenz a 1414232 Completed Dx 09/07/22 . Discusse d Influenz a vaccine. --> Update 09/24/22: Influenz a vaccine [facility] ed. Crystal lee, [facility] IV 3 15:35:27 Varicell a non-immu ne 686184513 Completed plan for Varicell a vaccine post . notified 05/03/22. Crystal lee, [facility] IV 3 15:35:27 Carrier of cystic fibrosis gene mutation 917529071 Completed Fam Hx of CF. Pt is a carrier. FOB is not a carrier; his serum testing reviewed and discusse d at 05/17/22 OBV. Crystal Maciel null, [place] [facility] IV 3 15:35:27 Family history of trisomy 18 [id number] 108 Completed QNatal WNL. Crystal Maciel null, [place] [facility] IV 3 15:35:27 Family history of Spina bifida 133133939 Completed Fam H/O Spina Bifida - X 2 on FOB side. Crystal Maciel null, [place] [facility] IV 3 15:35:27 Pregnanc y 01419664 Completed 202112/08/2022 Karina Méndez CNM [address] [place] [address], [address], [place] [facility] IV 5 11:29:02 Polycyst ic ovary syndrome 944380953 Active 2024 [address], [address], [employer] [facility] IV 5 12:20:13 Polycyst ic ovary syndrome 173176466 Active 2024 [address], [address], [employer] [facility] [employer] [facility] IV 5 12:20:12 Pregnanc y 89817259 Active 2024 Karina Méndez CNM [address] [place] [address], [address], [employer] - [facility] IV 5 11:29:02 Carrier of cystic fibrosis gene mutation 926298171 Active 2024 Pt reports FOB Jorge Voegle 8 negative carrier through [facility] RADHA REID [address], [address], [employer] [facility] IV 5 12:20:01 Carrier of cystic fibrosis gene mutation 113883742 Active 2024 Pt reports FOB Jorge Voegle 8 negative carrier through [facility] RADHA REID, HASMUKH[facility] [place], [address], [facility] [employer] HEALTH IV 5 12:20:01 Gestatio nal diabetes mellitus 18202285 Active 2024 diet controll ed GDM in prior pregnanc y- early 1 hr passed SILVIO SANCHEZ EDUARDO [address] [place] [address], [address], [facility] [employer] [facility] IV 5 17:58:08 Past pregnanc y history of cholesta sis in pregnanc y 46357559826 859578 Active 2024 SILVIO SANCHEZ EDUARDO [address] [place] [address], [address], [facility] IV 5 17:58:17 Problem Notes None recorded. Procedures Surgical History Date Name Laterality Status Provider Name and Address Organization Details Recorded Time 5 Date of Last Pap [facility] [employer] [facility] 05/06/2025 15:51:39 3 NST completed ISAC TALAMANTES MD [address] [place] [address], [address], [facility] [employer] IV 10/13/2022 16:33:43 3 NST completed ISAC TALAMANTES MD [address] [place] [address], [address], [facility] [employer] IV 10/13/2022 16:28:41 extraction of wisdom tooth completed Crystal [facility] [employer] IV 03/15/2022 15:21:10 Imaging Results None recorded. [...] Not Available Vitals Date Recorded Body weight Body mass index (BMI) Body height Systolic And Diastolic Provider Name and Address Organization Details Last Updated DateTime 07/29/2025 48594.535 824 g 29.3 kg/m2 154.94 cm 118/70 mm[Hg] Asia Maciel [facility] 07/29/2025 16:01:11 Social History Question Answer Notes LastModified by Organizat ion Details LastModified Time Tobacco Smoking Status Never Smoker Chelsea Deysi lee, [facility] 03/31/2022 14:06:06 Are You Blind Or Do You Have Difficulty Seeing? No Information not available 05/17/2022 Are You Deaf Or Do You Have Serious Difficulty Hearing? No Information not available 05/17/2022 What Type Of Diet Are You Following? REGULAR Information not available 03/31/2022 How Many Children Do You Have? 0 [email or web address] Information not available 03/15/2022 What Is Your Relationship Status? Single [email or web address] Information not available 03/15/2022 Are You Sexually Active? Yes [email or web address] Information not available 03/15/2022 Sex: Female Functional Status Question Answer Note LastModified by Organizat ion Details LastModified Time Do you use any illicit or recreational drugs? No Information not available 05/17/2022 What is your level of alcohol consumption? None Information not available 03/31/2022 Are you currently employed? No [email or web address] Information not available 09/15/2022 Do you or [...] N Herpes (HSV) N Blood Transfusion N MRSA N Lung Cancer N Hypothyroidism N Depression [...] disease N ADD/ADHD N Eating Disorder N Diabetes [...] ICD10 Code Diagnosis IMO Codes Diagnosis Note [id number] HASMUKH ALMANZA [facility] [address] [place] [address] 07/10/2025 15:57:50 07/11/2025 12:30:37 History of gynecological disorder 929060896 Z87.42 55914910 Gestation period, 18 weeks 15533792 Z3A.18 6058534 care status 24 6544575 Z34.82 07892013 CL WNL- Placenta previa resolvedWi ll recheck cervical length at anatomy scanPTL precaution s reviewedRT C in 2 weeks [id number] HASMUKH ALMANZA [facility] [address] [place] [address] 07/29/2025 15:09:58 07/30/2025 13:17:14 Multigravida 385897273 Z34.82 65800568 Gestation period, 21 weeks 13548060 Z3A.21 1584940 Gestation period, 20 weeks 94523961 Z3A.20 screening 2437 [address] Z36.3 hear t echogenicity on obstetric ultrasound scan 770586138 O28.3 [id number] -Discussed EIF at length with patient and [...] up ultrasound or evaluation is recommende d Health Concerns Section Related Observation LastModified by Organization Detai ls LastModified Time None Recorded Concern Status LastModified by Organization Details LastModified Time None Recorded Payers Encounter Date Sequence Insurance Name Policy Number Policy Hung Covered Member ID Hung Member ID Guarantor Name 07/29/2025 1 [place] Jenniffer Gustafson [id number] Jenniffer Gustafson Notes Date Note Type Note Provider Name and Address Organization Details Recorded Time 07/29/2025 text/html [facility] OB Return VisitReported by PatientROS as noted in the HPI Jenniffer 24 y/o here for routine OB visit, she is 21/1 weeks, denies any vaginal spotting, bleeding, fluid leakage or cramping, movement noted, taking vitamins, on antibiotics for ear infection has 2 days left and does not feel like ear is better , US done today for anatomy SILVIO SANCHEZ, HASMUKH [address] [facility], [place], [address], [facility] [employer] 07/29/2025 18:08:08 OBGyn Episode Ob Episode Information Episode Created Date Number of Fetuses Patient Bloodtype Patient rh Status Prepregnancy Weight lbs Domestic Partner Domestic Partner Phone Father Name Fiscal Services Director Status 06/03/20 25 1 O Positive OPEN Fetus Data First Name Last Name Admitted to NICU Weight (g) Sex Living Outcome Pediatric Complications Fetus ID Race Codes Race Delivery Type [id number] Problems Problem Notes History of cervical shorteni ng with prior Problem Name Start Date End Date Resolution Snomed Code Not e Polycystic ovary syndrome 05/06/2025 908279055 Past history of cholestasis in 07/29/2025 [id number] Gestational diabetes mellitus 07/29/2025 31641641 diet contr olled GDM in prior - early 1 hr passed Carrier of cystic fibrosis gene mutation 06/25/2025 934973199 Pt reports FOB Jorge Dang 03/05/1998 negative [...] Date Ultra Sound Latest Days Gestation 0 [email or web address] 06/03/2025 12/09/19 26 0 Pre- Flowsheet Flowsheet Date 06/03/2025 Gallegos Score Blood Edema Fundus Height Fundus Units Glucose Ketones Leukocytes Nitrite Labor Signs Protein Cervic Dilation Cervic Effacement Cervic Station Type Weight in lbs Pre/Post Dialysis Refused With clothes 147.883579859698 BP Diastolic BP Location Tested BP Systolic [...] Weight in lbs Pre/Post Dialysis Refused Weight 148.139890913395 BP Diastolic BP Location Tested BP Systolic [...] in lbs Pre/Post Dialysis Refused With clothes 149.683413425474 BP Diastolic BP Location Tested BP Systolic [...] in lbs Pre/Post Dialysis Refused With clothes 155.283598447848 BP Diastolic BP Location Tested BP Systolic [...] in lbs Pre/Post Dialysis Refused With clothes [id number] BP Diastolic BP Location Tested BP Systolic [...]
--- OUTSIDE RECORDS SUMMARY | 2025-08-20 17:22 | XMS_ITS | Clinical Summary ---
Author Organization [facility] Address [address] [place] [address] Care Team Providers Care House Piping Inspector Name Role Phone Radha Mahan OMAR-HOT BOX CHECKER Primary Care Provider [phone] Source Comments [facility],non-owned Affiliates and Associated Physician Practices is amultiple site organization consisting of ambulatory clinics and hospital sitesin [place], [place], [place] and [place]. This disclosure is being madepursuant to the Care Everywhere program and may not contain all information available regarding this patient. Last updated 18.[facility] Allergies No known active allergies Medications * [...] on file Legal Sex Female 5:42 AM DIRECTOR OF FIELD COORDINATION Gender Identity Not on file Sexual Orientation Not on file Last Filed Vital Signs Vital Sign Reading Time Taken Comments Blood Pressure 131/64 10/18/2022 1:08 PM DIRECTOR OF FIELD COORDINATION Pulse 115 10/18/2022 1:08 PM DIRECTOR OF FIELD COORDINATION Temperature 37.2 C (98.9 F) 03/24/2022 2:18 PM CDT Respiratory Rate 18 10/11/2022 11:24 AM DIRECTOR OF FIELD COORDINATION Oxygen Saturation 98% 01/16/2018 12:05 PM CDT Inhaled Oxygen Concentration - - Weight 75.8 kg (167 lb) 10/14/2022 10:00 AM DIRECTOR OF FIELD COORDINATION Height 154.9 cm (5' 1) 09/30/2022 1:40 PM DIRECTOR OF FIELD COORDINATION Body Mass Index 31.55 09/30/2022 1:40 PM DIRECTOR OF FIELD COORDINATION Plan of Treatment Health Maintenance Due Date Last Done Comments HPV VACCINE (1 - 3-dose series) 2015 CHLAMYDIA/GONORRHEA SCREENING 2016 HEPATITIS C SCREENING 08/25/2018 DTAP/TDAP/TD VACCINES (1 - Tdap) 2019 HEPATITIS B VACCINE (1 of 3 - 19+ 3-dose series) 2019 PAP SMEAR 2021 DEPRESSION SCREENING 09/19/2024 COVID-19 VACCINE (3 - 2024-2 6 season) 2025 02/08/2021, 01/16/2021 INFLUENZA VACCINE (#1) 2025 10/24/2022 ZOSTER VACCINE (1 of 2) 2050 HIV SCREENING Completed 09/15/2022, 08/26/2022, 04/19/2022 HIB [...] OUT OF STATE MEDICAID - OUT OF [facility] MEDICAID - OUT [place] [address] Care Teams House Piping Inspector Relationship Specialty Start Date End Date Radha Mahan APRN-YONATAN [address] [id number] PCP - General Nurse Practitioner Family 04/14/22
--- OUTSIDE RECORDS SUMMARY | 2025-08-20 17:22 | XMS_ITS | Continuity of Care Document ---
Author Organization [employer] , [facility] Address [address] [place] [address] Assessment No assessment recorded. Plan of Treatment Reminders Order Date Submit Date Provider Last Modified By Organization Details Last Modified Time Details Appointments OB 28WK EST 2024 01:00P M ANGELICA BARRETT, DO Not available Not available Not available Lab afp (alpha-fe toprotein ) panel, maternal screen, serum - N/A 2024 025 [employer], [address] [place], [address], 06/28/2025 06:27:48 Referral None recorded. Procedures None recorded. Surgeries None recorded. Imaging US, obstetric , transvagi nal 2024 025 [email or web address] Not available 06/25/2025 13:13:33 Medication Orders None recorded. Patient TargetsNo targets [...] absen ce of diabe amanda Not Available [place] [address] [place], [address], 06/04/2025 13:18:14 06/03/20 25 06/04/2025 DRUG ABUSE PANEL 7 W/CON FIRM amphetamines Negati ve negati ve normal Not Available [place] [address] [place], [address], 06/04/2025 13:18:15 06/03/20 25 06/04/2025 DRUG ABUSE PANEL 7 W/CON FIRM barbiturates Negati ve negati ve normal Not Available [place] [address] [place], [address], 06/04/2025 13:18:15 06/03/20 25 06/04/2025 DRUG ABUSE PANEL 7 W/CON FIRM benzodiazepi bradly Negati ve negati ve normal Not Available [place] [address] [place], [address], 06/04/2025 13:18:15 06/03/20 25 06/04/2025 DRUG ABUSE PANEL 7 W/CON FIRM cocaine metabolites Negati ve negati ve normal Not Available [place] [address] [place], [address], 06/04/2025 13:18:15 06/03/20 25 06/04/2025 DRUG ABUSE PANEL 7 W/CON FIRM cannabinoids Negati ve negati ve normal Not Available [place] [address] [place], [address], 06/04/2025 13:18:15 06/03/20 25 06/04/2025 DRUG ABUSE PANEL 7 W/CON FIRM methadone Negati ve negati ve normal Not Available [place] [address] [place], [address], 06/04/2025 13:18:15 06/03/20 25 06/04/2025 DRUG ABUSE PANEL 7 W/CON FIRM opiates Negati ve negati ve normal Not Available [place] [address] [place], [address], 06/04/2025 13:18:15 06/03/20 25 06/04/2025 DRUG ABUSE PANEL 7 W/CON FIRM creatinine, urine 22 mg/dL 20 - 275 normal Not Available [address], [address], 06/04/2025 13:18:15 06/03/20 25 06/04/2025 OB PANEL - STD BLOOD WORK hep BS Ag Non-Re active non-re active normal Not Available [address], [address], 06/04/2025 13:54:17 06/03/20 25 06/04/2025 OB PANEL - STD BLOOD WORK hep C Ab Non-Re active non-re active normal Not Available [address], [address], 06/04/2025 13:54:17 06/03/20 25 06/04/2025 OB PANEL - STD BLOOD WORK HIV 1/2 Ag/Ab Non-Re active non-re active normal Not Available [address], [address], 06/04/2025 13:54:17 06/03/2006/04/2025 OB PANEL - STD BLOOD WORK syphilis Ab Non-Re active non-re active normal Not Available [address], [address], 06/04/2025 13:54:17 06/03/2006/04/2025 OB PANEL - STD [...] the Rubel la virus . Not Available [address], [address], 06/04/2025 13:54:17 06/03/2006/04/2025 CBC (INCL UDES DIFF/ PLT) WBC 7.9 thous and/u L 4.0 - 9.8 normal Not Available [address], [address], 06/04/2025 13:59:39 06/03/2006/04/2025 CBC (INCL UDES DIFF/ PLT) RBC 4.3 davy on/uL 3.9 - 4.9 normal Not Available [address], [address], 06/04/2025 13:59:39 06/03/2006/04/2025 CBC (INCL UDES DIFF/ PLT) hemoglobin 13.9 g/dL 11.8 - 14.8 normal Not Available [address], [address], 06/04/2025 13:59:39 06/03/2006/04/2025 CBC (INCL UDES DIFF/ PLT) hematocrit 40.9 % 35.5 - 44.0 normal Not Available [address], [address], 06/04/2025 13:59:39 06/03/2006/04/2025 CBC (INCL UDES DIFF/ PLT) MCV 94.7 fL 82.0 - 99.0 normal Not Available [address], [address], 06/04/2025 13:59:39 06/03/2006/04/2025 CBC (INCL UDES DIFF/ PLT) MCH 32.2 pg 27.2 - 32.6 normal Not Available [address], [address], 06/04/2025 13:59:39 06/03/2006/04/2025 CBC (INCL UDES DIFF/ PLT) MCHC 34.0 g/dL 31.5 - 35.5 normal Not Available [address], [address], 06/04/2025 13:59:39 06/03/2006/04/2025 CBC (INCL UDES DIFF/ PLT) RDW-CV 12.0 % 11.5 - 14.5 normal Not Available [address], [address], 06/04/2025 13:59:39 06/03/2006/04/2025 CBC (INCL UDES DIFF/ PLT) platelet 186 thous and/u L 140 - 350 normal Not Available [address], [address], 06/04/2025 13:59:39 06/03/2006/04/2025 CBC (INCL UDES DIFF/ PLT) MPV 12.3 fL 9.3 - 12.4 normal Not Available [address], [address], 06/04/2025 13:59:39 06/03/2006/04/2025 CBC (INCL UDES DIFF/ PLT) absolute neutrophil 5.77 thous and/u L 1.90 - 7.00 normal Not Available [address], [address], 06/04/2025 13:59:39 06/03/2006/04/2025 CBC (INCL UDES DIFF/ PLT) absolute lymphocyte 1.57 thous and/u L 0.70 - 4.50 normal Not Available [address], [address], 06/04/2025 13:59:39 06/03/2006/04/2025 CBC (INCL UDES DIFF/ PLT) absolute monocyte 0.36 thous and/u L 0.10 - 1.30 normal Not Available [address], [address], 06/04/2025 13:59:39 06/03/20 25 06/04/2025 CBC (INCL UDES DIFF/ PLT) absolute eosinophil 0.18 thous and/u L <0.70 normal Not Available [address], [address], 06/04/2025 13:59:39 06/03/20 25 06/04/2025 CBC (INCL UDES DIFF/ PLT) absolute basophil 0.04 thous and/u L <0.20 normal Not Available [address], [address], 06/04/2025 13:59:39 06/03/20 25 06/04/2025 CBC (INCL UDES DIFF/ PLT) absolute immature granulocyte 0.02 thous and/u L <0.03 normal Not Available [address], [address], 06/04/2025 13:59:39 06/03/20 25 06/04/2025 CT/NG chlamydia trachomatis CT neg negati ve normal This repor t is inten ded for us in clini nell monit oring and manag ement of patie nts. It is not inten ded for use in medic al-le gal appli catio n. Not Available [address], [address], 06/04/2025 14:40:18 06/03/2006/04/2025 CT/NG neisseria gonorrhoeae GC neg negati ve normal This repor t is inten ded for us in clini nell monit oring and manag ement of patie nts. It is not inten ded for use in medic al-le gal appli catio n. Not Available [address], [address], 06/04/2025 14:40:18 06/03/20 25 06/08/2025 GLUCO SE, GESTA ELVIS L SCREE N (50G) -135 CUTOF F glucose, gestational screen (50g)-135 cutoff 117 mg/dL <135 normal Not Available [address] [address] [place], [address], 06/08/2025 14:40:52 06/03/2006/08/2025 VARIC MAURIZIO ZOSTE R [...] Immun ity Scree n, ACIF. Not Available [address] [address] [place], [address], 06/08/2025 14:40:53 06/03/2006/08/2025 HEMOG LOBIN OPATH Y EVALU ATION red blood cell count 4.25 davy on/uL 3.80-5 .10 Not Available [address] [address] [place], [address], 06/08/2025 14:40:54 06/03/2006/08/2025 HEMOG LOBIN OPATH Y EVALU ATION hemoglobin 13.3 g/dL 11.7-1 5.5 Not Available [address] [address] [place], [address], 06/08/2025 14:40:54 06/03/2006/08/2025 HEMOG LOBIN OPATH Y EVALU ATION hematocrit 41.9 % 35.0-4 5.0 Not Available [address] [address] [place], [address], 06/08/2025 14:40:54 06/03/2006/08/2025 HEMOG LOBIN OPATH Y EVALU ATION MCV 98.6 fL 80.0-1 00.0 Not Available [address] [address] [place], [address], 06/08/2025 14:40:54 06/03/2006/08/2025 HEMOG LOBIN OPATH Y EVALU ATION MCH 31.3 pg 27.0-3 3.0 Not Available [address] [address] [place], [address], 06/08/2025 14:40:54 06/03/2006/08/2025 HEMOG LOBIN OPATH Y EVALU ATION RDW 12.4 % 11.0-1 5.0 Not Available [address] [address] [place], [address], 06/08/2025 14:40:54 06/03/2006/08/2025 HEMOG LOBIN OPATH Y EVALU ATION hemoglobin A 97.2 % >96.0 Not Available [address] [address] [place], [address], 06/08/2025 14:40:54 06/03/2006/08/2025 HEMOG LOBIN OPATH Y EVALU ATION hemoglobin F <1.0 % <2.0 Not Available [address] [address] [place], [address], 06/08/2025 14:40:54 06/03/2006/08/2025 HEMOG LOBIN OPATH Y EVALU ATION hemoglobin A2 (quant) 2.8 % 2.0-3. 2 Not Available [address] [address] [place], [address], 06/08/2025 14:40:54 06/03/2006/08/2025 HEMOG LOBIN OPATH Y EVALU ATION interpretati on Jenna l pheno type. Jenna l hemog lobin distr ibuti on, no HgS, HgC or other abnor mal hemog lobin obser larisa. Not Available [address], [address], 06/08/2025 14:40:54 06/03/2006/08/2025 MEASL ES AB (IGG) [...] raúl sanchez e refer to http: //rachele adameQue stDia gnost ics.c om/fa q/FAQ 162 (This link is being provi ded for infor jennifer bradford/ educa elvis l purpo ses only. ) Not Available [address] [address] [place], [address], 06/08/2025 14:40:54 06/03/2006/08/2025 ANTIB ANN SCREE N, [...] alloi mmuni zed pregn andrei. Not Available [address] [address] [place], [address], 06/08/2025 14:40:55 06/03/2006/08/2025 ABO GROUP AND RH TYPE ABO group O Not Available [address] [address] [place], [address], 06/08/2025 14:40:55 06/03/2006/08/2025 ABO GROUP AND RH TYPE Rh type RH(D) POSITI VE For addit ional infor raúl sanchez e refer to http: //[facility] reji Sellers stDia gnost ics.c om/fa q/FAQ 111 (This link is being provi ded for infor jennifer bradford/ educa elvis l purpo ses only. ) Not Available [facility] [address] [address] [place], [address], 06/08/2025 14:40:55 06/03/2006/08/2025 CULTU RE, URINE , ROUTI NE culture, urine, routine SEE NOTE CULTU RE, URINE , ROUTI NE Micro Numbe r: [id number] Test Statu s: Final Speci men Sourc e: Urine Speci men Quali ty: Adequ ate Resul t: No Growt h Not Available [facility] [address] [address] [address], [place], [address], 06/08/2025 14:40:56 06/25/20 25 06/28/2025 MATER NAL SERUM AFP interpretati on: Scree n negat rosalina for open NTD. Not Available [facility] [address] [address] [place], [address], 06/28/2025 06:27:48 06/25/2006/28/2025 MATER NAL SERUM AFP risk for ontd NOT CALCUL ATED Not Available [facility] [address] [address] [place], [address], 06/28/2025 06:27:48 06/25/2006/28/2025 MATER NAL SERUM AFP AFP, serum 35.9 NG/mL Not Available [facility] [address] [address] [place], [address], 06/28/2025 06:27:48 06/25/2006/28/2025 MATER NAL SERUM AFP AFP MOM 1.01 Not Available [facility] [address] [address] [place], [address], 06/28/2025 06:27:48 06/25/2006/28/2025 MATER NAL SERUM AFP comments: You have indic ated that this is a repea t speci men. While repea ting an eleva cami resul t is appro priat e, an accur ate neura l tube defec t risk has not been calcu lated for this repea t speci men. This patie nt's PARVIZ (justyna mated date of ) was used to calcu late the gesta elvis l age. The AFP test resul t indic ates that this patie nt is scree n negat rosalina for open NTD. It shoul d be noted that jenna l test resul ts can never guara ntee the of a jenna l baby and that 2-3% of [facility] rns have some type of physi nell or menta l defec t, many of which are undet ectab le throu gh any known prena rekha diagn ostic techn ique. Not Available [facility] [address] [place], [address], 06/28/2025 06:27:48 06/25/2006/28/2025 MATER NAL SERUM AFP [...] s melissa ic couns elor or call 0000 -GENE INFO( [phone]). Inter preti ve Cutof fs Scree n [...] infor raúl sanchez e refer to http: //[facility] reji jimenez.valarie stdia gnost ics.c om/fa q/FAQ 74v1 (This link is being provi ded for infor jennifer bradford/ educa elvis l purpo ses only. ) Not Available [employer] [facility] [address] [address] [place], [address], 06/28/2025 06:27:48 06/25/2006/28/2025 MATER NAL SERUM AFP calc'd gestational age 16.3 weeks Not Available [facility] [address] [address], [place], [address], 06/28/2025 06:27:48 06/25/2006/28/2025 MATER NAL SERUM AFP maternal weight 148 lbs Not Available [facility] [employer] [facility] [address] [place], [address], 06/28/2025 06:27:48 06/25/2006/28/2025 MATER NAL SERUM AFP est'd date of delivery 2025 Not Available [address], [address], 06/28/2025 06:27:48 06/25/2006/28/2025 MATER NAL SERUM AFP parviz determined by LMP Not Available [address], [address], 06/28/2025 06:27:48 06/25/2006/28/2025 MATER NAL SERUM AFP mother's ethnic origin CAUCAS ROSY Not Available [address], [address], 06/28/2025 06:27:48 06/25/2006/28/2025 MATER NAL SERUM AFP number of fetuses 1 Not Available [address], [address], 06/28/2025 06:27:48 06/25/2006/28/2025 MATER NAL SERUM AFP insulin depend diabetic NO Not Available [address], [address], 06/28/2025 06:27:48 06/25/2006/28/2025 MATER NAL SERUM AFP repeat specimen YES Not Available [address], [address], 06/28/2025 06:27:48 06/25/2006/28/2025 MATER NAL SERUM AFP Hx of neural tube defects NO Not Available [address], [address], 06/28/2025 06:27:48 06/25/20 25 06/28/2025 MATER NAL SERUM AFP prev down synd NO Not Available [address], [address], 06/28/2025 06:27:48 06/25/2006/28/2025 MATER NAL SERUM AFP donor egg NO Not Available [facility] [address] [place], [address], 06/28/2025 06:27:48 06/25/2006/28/2025 MATER NAL SERUM AFP donor age: egg retrieval NOT GIVEN Not Available [facility] [address] [place], [address], 06/28/2025 06:27:48 06/03/2006/03/2025 US, trans vagin al No observ ation record ed. [email or web address] Sharlene [address], [place], [address], 06/04/2025 11:59:45 06/25/2006/25/2025 US, obste tric, trans vagin al No observ ation record ed. [email or web address] Sharlene [address], [place], [address], 06/26/2025 11:33:24 07/10/2007/10/2025 US, obste tric, trans vagin al No observ ation record ed. [email or web address] Sharlene [address], [place], [address], 07/10/2025 20:00:52 07/30/20 25 07/29/2025 US, obste tric, mater nal evalu ation + anato my No observ ation record ed. [email or web address] Sharlene [address], [place], [address], 07/30/2025 21:56:14 08/13/20 25 08/12/2025 US, obste tric, trans vagin al No observ ation record ed. [email or web address] Sharlene [address], [place], [address], 08/13/2025 08:30:12 Result Notes None recorded. Problems Name Problem SNOMED Code Status Onset Date Resolution Date Notes Provider Name and Address Organization Details Recorded Time Cystic fibrosis screenin g Completed +CF screenin g. FOB negative Crystal lee, [employer] IV 3 15:35:27 High risk pregnanc y 23076741 Completed O+/RI/NR x4. Last Pap: No pap on file; plan post collecti on. GTT: Failed; see below POC. GBS: Aneuploi dy screenin g: QNatal WNL. Anatomy Scan: Complete as of 07/02/22 . Crystal lee, [employer] IV 3 15:35:27 Gestatio nal diabetes mellitus 02384243 Completed H/O PCOS. Early screenin g recommen [...] Serial growth U/S needed. LD ASA daily [facility] ed. Crystal lee, [place] [employer] IV 3 15:35:27 Cholesta sis of pregnanc y 252631936 Completed Bile acids 19 on 09/15/22 ; [...] y and discuss delivery POC. Crystal lee, [employer] IV 3 15:35:27 Cervical incompet ence 64592530 Completed C.L. 1.6 cm with rebekah roman on anatomy. Prometri um Rx'd. S/P MFM Referral . 07/13/22 C.L. 2.3 cm. Recommen dation for vag progeste susanna through 36 wks. Crystal Horanman rosa, [employer] IV 3 15:35:27 Anti-nuc lear factor detected 267350715 Completed Saw Rheumato logist in 03/2022. Labs all WNL except for elevated CRP. --> Update 09/24/22: Pt states no official autoimmu ne diagnosi s. Pt contra [facility] ed F/U with provider after pregnanc y has ended. Crystal Maciel rosa, [employer] IV 3 15:35:27 COVID-19 444171974 Completed Dx in 01/2022. 03/31/22: Pt contra [facility] ed to take LD ASA daily in 2nd trimeste r and to consider booster MAIKOL. --> Update 09/24/22: Boosters recommen ded, LD ASA daily [facility] ed. Crystal lee, [employer] IV 3 15:35:27 Influenz a 0522951 Completed Dx 09/07/22 . Discusse d Influenz a vaccine. --> Update 09/24/22: Influenz a vaccine [facility] ed. Crystal Raheem lee, [employer] IV 3 15:35:27 Varicell a non-immu ne 738483603 Completed plan for Varicell a vaccine post . notified 05/03/22. Crystal lee, [employer] IV 3 15:35:27 Carrier of cystic fibrosis gene mutation 040991904 Completed Fam Hx of CF. Pt is a carrier. FOB is not a carrier; his serum testing reviewed and discusse d at 05/17/22 OBV. Crystal lee, [employer] IV 3 15:35:27 Family history of trisomy 18 [id number] 108 Completed QNatal WNL. Crystal Maciel null, [place] [facility] IV 3 15:35:27 Family history of Spina bifida 789671824 Completed [facility] H/O Spina Bifida - X 2 on FOB side. Crystal Maciel null, [place] [facility] IV 3 15:35:27 Pregnanc y 43289412 Completed 202112/08/2022 Karina Méndez CNM [address] [place] [address], [address], [place] [facility] IV 5 11:29:02 Polycyst ic ovary syndrome 966789747 Active 2024 RADHA REID [address], [address], [employer] - [facility] IV 5 12:20:13 Polycyst ic ovary syndrome 154757989 Active [address], [address], [place] [facility] IV 5 12:20:12 Pregnanc y 79810606 Active 2024 Karina Méndez CNM [address] [place] [address], [address], [place] [facility] IV 5 11:29:02 Carrier of cystic fibrosis gene mutation 054881750 Active 2024 Pt reports FOB Jorge Voegle 8 negative carrier through [employer] RADHA REID [address], [address], [place] [employer] - [facility] IV 5 12:20:01 Carrier of cystic fibrosis gene mutation 800971811 Active 2024 Pt reports FOB Jorge Voegle 8 negative carrier through Pato REID [address], [address], [place] [employer] - [facility] IV 5 12:20:01 Gestatio nal diabetes mellitus 10027936 Active 2024 diet controll ed GDM in prior pregnanc y- early 1 hr passed HASMUKH ALMANZA [address] [place] [address], [address], [facility] [employer] [facility] IV 5 17:58:08 Past pregnanc y history of cholesta sis in pregnanc y 24410167910 240255 Active 2024 HASMUKH ALMANZA [address] [place], [address], [facility] [employer] IV 5 17:58:17 Problem Notes None recorded. Procedures Surgical History Date Name Laterality Status Provider Name and Address Organization Details Recorded Time 5 Date of Last Pap [facility]ear [facility] [employer] [facility] 05/06/2025 15:51:39 3 NST completed ISAC TALAMANTES MD [address] [place] [address], [phone], [facility] [employer] IV 10/13/2022 16:33:43 3 NST completed ISAC TALAMANTES MD [address] [place] [address], [address], [facility] [employer] IV 10/13/2022 16:28:41 extraction of wisdom tooth completed Crystal [facility] [employer] IV 03/15/2022 15:21:10 Imaging Results None recorded. [...] Updated DateTime 06/25/2025 154.94 cm 28 kg/m2 90355.39 g 116/64 mm[Hg] Venecia Coon [employer] IV 06/25/2025 11:57:53 Social History Question Answer Notes LastModified by Cennox Details LastModified Time Tobacco Smoking Status Never Smoker Chelsea Jo rosa, [employer] IV 03/31/2022 14:06:06 Are You Blind Or Do You Have Difficulty Seeing? No Information not available 05/17/2022 Are You Deaf Or Do You Have Serious Difficulty Hearing? No Information not available 05/17/2022 What Type Of Diet Are You Following? REGULAR Information not available 03/31/2022 How Many Children Do You Have? 0 Information not available 03/15/2022 What Is Your Relationship Status? Single [email or web address] Information not available 03/15/2022 Are You Sexually Active? Yes [email or web address] Information not available 03/15/2022 Sex: Female Functional Status Question Answer Note LastModified by [employer] Details LastModified Time Do you use any illicit or recreational drugs? No Information not available 05/17/2022 What is your level of alcohol consumption? None Information not available 03/31/2022 Are you currently employed? No Information not available 09/15/2022 Do you or [...] Cervical Cancer N Chlamydia N Hematuria N Varicosities N Stroke N Crohn's Disease N Seasonal allergies N Alzheimer's/Dementia N COPD/Emphysema N Endometriosis N [...] ICD10 Code Diagnosis IMO Codes Diagnosis Note [id number] Karina Méndez CNM [facility] [address] [place] [address] 06/03/2025 14:28:35 06/04/2025 09:06:40 High risk 10692638 O09.92 21308742 History of gynecological disorder 795694911 Z87.42 82019603 screening 2437 48715 Z36.89 Gestation period, 13 weeks 49806845 Z3A.13 [id number] .[facility] [id number] RADHA REID [facility] [address] [place] [address] 06/25/2025 11:18:31 06/25/2025 13:13:33 Gestation period, 16 weeks 25403563 Z3A.16 6076121 History of gynecological disorder 424209980 Z87.42 09075930 Carrier of cystic fibrosis gene mutation 500246283 Z14.1 8272069 Screening for disorder 584867854 Z36.0 Normal 5490264 2 Z34.92 66804986 Pt is here for a SANJEEV appointmen [...] meeting delivery providers after 28 week visit. Health Concerns Section Related Observation LastModified by Organization Detai ls LastModified Time None Recorded Concern Status LastModified by Organization Details LastModified Time None Recorded Payers Encounter Date Sequence Insurance Name Policy Number Policy Hung Covered Member ID Hung Member ID Guarantor Name 06/25/2025 1 [place] Jenniffer Sj [id number] Jenniffer Gustafson Notes Date Note Type Note Provider Name and Address Organization Details Recorded Time 06/25/2025 text/html ROS as noted in the HPI Jenniffer is here today for a routine OB visit. She is currently at 16.2 weeks gestation. vitamins: yes She has not felt movement.She denies any complaints of the presence of vaginal bleed, leaking fluid, abdominal cramps, nausea, vomiting, headache or visual disturbances. Pt unable to give urine she already went to the restroom. RADHA REID, HASMUKH- [address] [facility], [place], [address], [facility] 06/25/2025 12:23:05 OBGyn Episode Ob Episode Information Episode Created Date Number of Fetuses Patient Bloodtype Patient rh Status Prepregnancy Weight lbs Domestic Partner Domestic Partner Phone Father Name Radiator Tester Status 06/03/20 25 1 O Positive OPEN Fetus Data First Name Last Name Admitted to NICU Weight (g) Sex Living Outcome Pediatric Complications Fetus ID Race Codes Race Delivery Type [id number] Problems Problem Notes History of cervical shorteni ng with prior Problem Name Start Date End Date Resolution Snomed Code Not e Polycystic ovary syndrome 05/06/2025 [id number] Past history of cholestasis in 07/29/2025 [id number] Gestational diabetes mellitus 07/29/2025 28780936 diet contr olled GDM in prior - early 1 hr passed Carrier of cystic fibrosis gene mutation 06/25/2025 867277731 Pt reports FOB Jorge Dang 03/05/1998 negative [...] Date Ultra Sound Latest Days Gestation 0 [email or web address] 06/03/2025 12/09/19 26 0 Pre-hope Flowsheet Flowsheet Date 06/03/2025 Gallegos Score Blood Edema Fundus Height Fundus Units Glucose Ketones Leukocytes Nitrite Labor Signs Protein Cervic Dilation Cervic Effacement Cervic Station Type Weight in lbs Pre/Post Dialysis Refused With clothes 147.569347909433 BP Diastolic BP Location Tested BP Systolic [...] Weight in lbs Pre/Post Dialysis Refused Weight 148.470153455112 BP Diastolic BP Location Tested BP Systolic [...] in lbs Pre/Post Dialysis Refused With clothes 149.178084902961 BP Diastolic BP Location Tested BP Systolic [...] in lbs Pre/Post Dialysis Refused With clothes 155.354474101133 BP Diastolic BP Location Tested BP Systolic [...] in lbs Pre/Post Dialysis Refused With clothes 157.698806748276 BP Diastolic BP Location Tested BP Systolic [...]
--- OUTSIDE RECORDS SUMMARY | 2025-08-20 17:22 | XMS_ITS | Continuity of Care Document ---
Author Organization [facility] , [facility] Address [address] [place] [address] Assessment No assessment recorded. Plan of Treatment Reminders Order Date Submit Date Provider Last Modified By Organization Details Last Modified Time Details Appointments OB 28WK EST 2024 01:00P M ANGELICA BARRETT, DO Not available Not available Not available Lab None recorded. Referral None recorded. Procedures None recorded. Surgeries None recorded. Imaging US, obstetric , transvagi nal 2024 025 [email or web address] Not available 07/11/2025 12:30:37 Medication Orders None recorded. Patient TargetsNo targets [...] Diagn osis =6.5% Consi stent with diabe maanda 5.7 6.4% Consi stent with incre ased risk for diabe amanda (pred iabet ic) <5.7% Consi stent with the absen ce of diabe amanda Not Available [facility] [address] [place], [address], 06/04/2025 13:18:14 06/03/20 25 06/04/2025 DRUG ABUSE PANEL 7 W/CON FIRM amphetamines Negati ve negati ve normal Not Available [facility] [address] [place], [address], 06/04/2025 13:18:15 06/03/20 25 06/04/2025 DRUG ABUSE PANEL 7 W/CON FIRM barbiturates Negati ve negati ve normal Not Available [place] [address] [place], [address], 06/04/2025 13:18:15 06/03/20 25 06/04/2025 DRUG ABUSE PANEL 7 W/CON FIRM benzodiazepi bradly Negati ve negati ve normal Not Available [place] [address] [place], [address], 06/04/2025 13:18:15 06/03/20 25 06/04/2025 DRUG ABUSE PANEL 7 W/CON FIRM cocaine metabolites Negati ve negati ve normal Not Available [place] [address] [place], [address], 06/04/2025 13:18:15 06/03/20 25 06/04/2025 DRUG ABUSE PANEL 7 W/CON FIRM cannabinoids Negati ve negati ve normal Not Available [place] [address] [place], [address], 06/04/2025 13:18:15 06/03/20 25 06/04/2025 DRUG ABUSE PANEL 7 W/CON FIRM methadone Negati ve negati ve normal Not Available [place] [address] [place], [address], 06/04/2025 13:18:15 06/03/20 25 06/04/2025 DRUG ABUSE PANEL 7 W/CON FIRM opiates Negati ve negati ve normal Not Available [place] [address] [place], [address], 06/04/2025 13:18:15 06/03/20 25 06/04/2025 DRUG ABUSE PANEL 7 W/CON FIRM creatinine, urine 22 mg/dL 20 - 275 normal Not Available [place] [address] [place], [address], 06/04/2025 13:18:15 06/03/2006/04/2025 OB PANEL - STD BLOOD WORK hep BS Ag Non-Re active non-re active normal Not Available [address], [address], 06/04/2025 13:54:17 06/03/20 25 06/04/2025 OB PANEL - STD BLOOD WORK hep C Ab Non-Re active non-re active normal Not Available [address], [address], 06/04/2025 13:54:17 06/03/2006/04/2025 OB PANEL - STD BLOOD WORK HIV 1/2 Ag/Ab Non-Re active non-re active normal Not Available [address], [address], 06/04/2025 13:54:17 06/03/2006/04/2025 OB PANEL - STD BLOOD WORK syphilis Ab Non-Re active non-re active normal Not Available [address], [address], 06/04/2025 13:54:17 06/03/2006/04/2025 OB PANEL - STD [...] Rubel la virus . Not Available [address], [address], 06/04/2025 13:54:17 06/03/20 25 06/04/2025 CBC (INCL UDES DIFF/ PLT) WBC 7.9 thous and/u L 4.0 - 9.8 normal Not Available [address], [address], 06/04/2025 13:59:39 06/03/2006/04/2025 CBC (INCL UDES DIFF/ PLT) RBC 4.3 davy on/uL 3.9 - 4.9 normal Not Available [address], [address], 06/04/2025 13:59:39 06/03/2006/04/2025 CBC (INCL UDES DIFF/ PLT) hemoglobin 13.9 g/dL 11.8 - 14.8 normal Not Available [address], [address], 06/04/2025 13:59:39 06/03/2006/04/2025 CBC (INCL UDES DIFF/ PLT) hematocrit 40.9 % 35.5 - 44.0 normal Not Available [address], [address], 06/04/2025 13:59:39 06/03/2006/04/2025 CBC (INCL UDES DIFF/ PLT) MCV 94.7 fL 82.0 - 99.0 normal Not Available [address], [address], 06/04/2025 13:59:39 06/03/2006/04/2025 CBC (INCL UDES DIFF/ PLT) MCH 32.2 pg 27.2 - 32.6 normal Not Available [place] [facility] [address] [place] [address], [address], 06/04/2025 13:59:39 06/03/2006/04/2025 CBC (INCL UDES DIFF/ PLT) MCHC 34.0 g/dL 31.5 - 35.5 normal Not Available [place] [facility] [address] [place] [address], [address], 06/04/2025 13:59:39 06/03/2006/04/2025 CBC (INCL UDES DIFF/ PLT) RDW-CV 12.0 % 11.5 - 14.5 normal Not Available [address], [address], 06/04/2025 13:59:39 06/03/2006/04/2025 CBC (INCL UDES DIFF/ PLT) platelet 186 thous and/u L 140 - 350 normal Not Available [address], [address], 06/04/2025 13:59:39 06/03/2006/04/2025 CBC (INCL UDES DIFF/ PLT) MPV 12.3 fL 9.3 - 12.4 normal Not Available [address], [address], 06/04/2025 13:59:39 06/03/2006/04/2025 CBC (INCL UDES DIFF/ PLT) absolute neutrophil 5.77 thous and/u L 1.90 - 7.00 normal Not Available [address], [address], 06/04/2025 13:59:39 06/03/2006/04/2025 CBC (INCL UDES DIFF/ PLT) absolute lymphocyte 1.57 thous and/u L 0.70 - 4.50 normal Not Available [address], [address], 06/04/2025 13:59:39 06/03/2006/04/2025 CBC (INCL UDES DIFF/ PLT) absolute monocyte 0.36 thous and/u L 0.10 - 1.30 normal Not Available [address], [address], 06/04/2025 13:59:39 06/03/2006/04/2025 CBC (INCL UDES DIFF/ PLT) absolute eosinophil 0.18 thous and/u L <0.70 normal Not Available [address], [address], 06/04/2025 13:59:39 06/03/20 25 06/04/2025 CBC (INCL UDES DIFF/ PLT) absolute basophil 0.04 thous and/u L <0.20 normal Not Available [address], [address], 06/04/2025 13:59:39 06/03/20 25 06/04/2025 CBC (INCL UDES DIFF/ PLT) absolute immature granulocyte 0.02 thous and/u L <0.03 normal Not Available [address], [address], 06/04/2025 13:59:39 06/03/20 25 06/04/2025 CT/NG chlamydia trachomatis CT neg negati ve normal This repor t is inten ded for us in clini nell monit oring and manag ement of patie nts. It is not inten ded for use in medic al-le gal appli catio n. Not Available [address], [address], 06/04/2025 14:40:18 06/03/2006/04/2025 CT/NG neisseria gonorrhoeae GC neg negati ve normal This repor t is inten ded for us in clini nell monit oring and manag ement of patie nts. It is not inten ded for use in medic al-le gal appli catio n. Not Available [address], [address], 06/04/2025 14:40:18 06/03/2006/08/2025 GLUCO SE, GESTA ELVIS L SCREE N (50G) -135 CUTOF F glucose, gestational screen (50g)-135 cutoff 117 mg/dL <135 normal Not Available [employer] [facility] [address] [place], [address], 06/08/2025 14:40:52 06/03/2006/08/2025 VARIC MAURIZIO ZOSTE R [...] Immun ity Scree n, ACIF. Not Available [employer] [address] [address] [place], [address], 06/08/2025 14:40:53 06/03/20 25 06/08/2025 HEMOG LOBIN OPATH Y EVALU ATION red blood cell count 4.25 davy on/uL 3.80-5 .10 Not Available [employer] [facility] [address] [place], [address], 06/08/2025 14:40:54 06/03/20 25 06/08/2025 HEMOG LOBIN OPATH Y EVALU ATION hemoglobin 13.3 g/dL 11.7-1 5.5 Not Available [place] [address] [address] [place], [address], 06/08/2025 14:40:54 06/03/2006/08/2025 HEMOG LOBIN OPATH Y EVALU ATION hematocrit 41.9 % 35.0-4 5.0 Not Available [place] [address] [address] [place], [address], 06/08/2025 14:40:54 06/03/2006/08/2025 HEMOG LOBIN OPATH Y EVALU ATION MCV 98.6 fL 80.0-1 00.0 Not Available [place] [address] [address] [place], [address], 06/08/2025 14:40:54 06/03/2006/08/2025 HEMOG LOBIN OPATH Y EVALU ATION MCH 31.3 pg 27.0-3 3.0 Not Available [place] [address] [address] [place], [address], 06/08/2025 14:40:54 06/03/2006/08/2025 HEMOG LOBIN OPATH Y EVALU ATION RDW 12.4 % 11.0-1 5.0 Not Available [place] [address] [address] [place], [address], 06/08/2025 14:40:54 06/03/2006/08/2025 HEMOG LOBIN OPATH Y EVALU ATION hemoglobin A 97.2 % >96.0 Not Available [place] [address] [address] [place], [address], 06/08/2025 14:40:54 06/03/2006/08/2025 HEMOG LOBIN OPATH Y EVALU ATION hemoglobin F <1.0 % <2.0 Not Available [place] [address] [address] [place], [address], 06/08/2025 14:40:54 06/03/20 25 06/08/2025 HEMOG LOBIN OPATH Y EVALU ATION hemoglobin A2 (quant) 2.8 % 2.0-3. 2 Not Available [place] [address] [address] [place], [address], 06/08/2025 14:40:54 06/03/20 25 06/08/2025 HEMOG LOBIN OPATH Y EVALU ATION interpretati on Jenna l pheno type. Jenna l hemog lobin distr ibuti on, no HgS, HgC or other abnor mal hemog lobin obser larisa. Not Available [place] [address] [place], [address], 06/08/2025 14:40:54 06/03/2006/08/2025 MEASL ES AB (IGG) [...] infor raúl sanchez e refer to http: //[facility] reji jimenez.Que stDia gnost ics.c om/fa q/FAQ 162 (This link is being provi ded for infor jennifer bradford/ educa elvis l purpo ses only. ) Not Available [employer] [facility] [address] [place], [address], 06/08/2025 14:40:54 06/03/2006/08/2025 ANTIB ANN SCREE N, [...] alloi mmuni zed pregn andrei. Not Available [place] [address] [address] [place], [address], 06/08/2025 14:40:55 06/03/2006/08/2025 ABO GROUP AND RH TYPE ABO group O Not Available [facility] [place] [address] [address] [place], [address], 06/08/2025 14:40:55 06/03/2006/08/2025 ABO GROUP AND RH TYPE Rh type RH(D) POSITI VE For addit ional infor raúl sanchez e refer to http: //[facility] reji jimenez.Chase stDia gnost ics.c om/fa q/FAQ 111 (This link is being provi ded for infor jennifer bradford/ bryan jc purpo ses only. ) Not Available [employer] [facility] [place] [address] [address] [place], [address], 06/08/2025 14:40:55 06/03/2006/08/2025 CULTU RE, URINE , ROUTI NE culture, urine, routine SEE NOTE CULTU RE, URINE , ROUTI NE Micro Numbe r: [id number] Test Statu s: Final Speci men Sourc e: Urine Speci men Quali ty: Adequ ate Resul t: No Growt h Not Available [facility] [address] [address] [address], [place], [address], 06/08/2025 14:40:56 06/25/2006/28/2025 MATER NAL SERUM AFP interpretati on: Jana jimenez negat rosalina for open NTD. Not Available [facility] [address] [address] [place], [address], 06/28/2025 06:27:48 06/25/2006/28/2025 MATER NAL SERUM AFP risk for ontd NOT CALCUL ATED Not Available [facility] [address] [place], [address], 06/28/2025 06:27:48 06/25/2006/28/2025 MATER NAL SERUM AFP AFP, serum 35.9 NG/mL Not Available [facility] [address] [place], [address], 06/28/2025 06:27:48 06/25/2006/28/2025 MATER NAL SERUM AFP AFP MOM 1.01 Not Available [facility] [address] [place], [address], 06/28/2025 06:27:48 06/25/2006/28/2025 MATER NAL SERUM AFP comments: You have indic ated that this is a repea t speci men. While repea ting an eleva cami resul t is appro priat e, an accur ate neura l tube defec t risk has not been calcu lated for this repea t speci men. This patie nt's PARVIZ (justyna mated date of delnova iraida) was used to calcu late the gesta elvis l age. The AFP test resul t indic ates that this patie nt is scree n negat rosalina for open NTD. It shoul d be noted that jenna l test resul ts can never guara ntee the of a jenna l baby and that 2-3% of [facility] rns have some type of physi nell or menta l defec t, many of which are undet ectab le throu gh any known prena rekha diagn ostic techn ique. Not Available [employer] [facility] [address] [place], [address], 06/28/2025 06:27:48 06/25/2006/28/2025 MATER NAL SERUM AFP [...] s melissa ic couns elor or call [phone]( [phone]). Inter preti ve Cutof fs Scree [...] infor raúl sanchez e refer to http: //[facility] reji robertson stdia gnost ics.c om/fa q/FAQ 74v1 (This link is being provi ded for infor jennifer bradford/ educa elvis l purpo ses only. ) Not Available [employer] [place] [address] [address] [place], [address], 06/28/2025 06:27:48 06/25/2006/28/2025 MATER NAL SERUM AFP calc'd gestational age 16.3 weeks Not Available [employer] [address] [address] [place], [address], 06/28/2025 06:27:48 06/25/2006/28/2025 MATER NAL SERUM AFP maternal weight 148 lbs Not Available [employer] [facility] [address] [place], [address], 06/28/2025 06:27:48 06/25/2006/28/2025 MATER NAL SERUM AFP est'd date of delivery 2025 Not Available [employer] [facility] [address] [place], [address], 06/28/2025 06:27:48 06/25/20 25 06/28/2025 MATER NAL SERUM AFP parviz determined by LMP Not Available [address], [address], 06/28/2025 06:27:48 06/25/20 25 06/28/2025 MATER NAL SERUM AFP mother's ethnic origin CAUCAS ROSY Not Available [address] [place], [address], 06/28/2025 06:27:48 06/25/2006/28/2025 MATER NAL SERUM AFP number of fetuses 1 Not Available [address], [address], 06/28/2025 06:27:48 06/25/2006/28/2025 MATER NAL SERUM AFP insulin depend diabetic NO Not Available [address], [address], 06/28/2025 06:27:48 06/25/2006/28/2025 MATER NAL SERUM AFP repeat specimen YES Not Available [address], [address], 06/28/2025 06:27:48 06/25/20 25 06/28/2025 MATER NAL SERUM AFP Hx of neural tube defects NO Not Available [place] [address] [place], [address], 06/28/2025 06:27:48 06/25/20 25 06/28/2025 MATER NAL SERUM AFP prev down synd NO Not Available [place] [address] [address] [place], [address], 06/28/2025 06:27:48 06/25/20 25 06/28/2025 MATER NAL SERUM AFP donor egg NO Not Available [address], [address], 06/28/2025 06:27:48 06/25/2006/28/2025 MATER NAL SERUM AFP donor age: egg retrieval NOT GIVEN Not Available [facility] [address] [place], [address], 06/28/2025 06:27:48 06/03/2006/03/2025 US, trans vagin al No observ ation record ed. [email or web address] Sharlene [address], [place], [address], 06/04/2025 11:59:45 06/25/2006/25/2025 US, obste tric, trans vagin al No observ ation record ed. [email or web address] Sharlene [address], [place], [address], 06/26/2025 11:33:24 07/10/20 25 07/10/2025 US, obste tric, trans vagin al No observ ation record ed. [email or web address] Sharlene [address], [place], [address], 07/10/2025 20:00:52 07/30/2007/29/2025 US, obste tric, mater nal evalu ation + anato my No observ ation record ed. [email or web address] Sharlene [address], [place], [address], 07/30/2025 21:56:14 08/13/20 25 08/12/2025 US, obste tric, trans vagin al No observ ation record ed. [email or web address] Sharlene [address], [place], [address], 08/13/2025 08:30:12 Result Notes None recorded. Problems Name Problem SNOMED Code Status Onset Date Resolution Date Notes Provider Name and Address Organization Details Recorded Time Cystic fibrosis screenin g Completed +CF screenin g. FOB negative Crystal lee, [facility] IV 3 15:35:27 High risk pregnanc y 45774277 Completed O+/RI/NR x4. Last Pap: No pap on file; plan post collecti on. GTT: Failed; see below POC. GBS: Aneuploi dy screenin g: QNatal WNL. Anatomy Scan: Complete as of 07/02/22 . Crystal lee, [facility] IV 3 15:35:27 Gestatio nal diabetes mellitus 93409625 Completed H/O PCOS. Early screenin g recommen [...] LD ASA daily [facility] ed. Crystal lee, [facility] IV 3 15:35:27 Cholesta sis of pregnanc y 573801208 Completed Bile acids 19 on 09/15/22 ; [...] pt request. BPP 04/26. Pt educated on [facility] and discusse d when to notify HCP/go to L&D. Pt to see MD's for remainde r of pregnanc y and discuss delivery POC. Crystal lee, [facility] IV 3 15:35:27 Cervical incompet ence [id number] Completed C.L. 1.6 cm with rebekah roman on anatomy. Prometri um Rx'd. S/P MFM Referral . 07/13/22 C.L. 2.3 cm. Recommen dation for vag progeste susanna through 36 wks. Crystal lee, [employer] IV 3 15:35:27 Anti-nuc lear factor detected 837593938 Completed Saw Rheumato logist in 03/2022. Labs all WNL except for elevated CRP. --> Update 09/24/22: Pt states no official autoimmu ne diagnosi s. Pt [facility] ed F/U with provider after pregnanc y has ended. Crystal lee, [facility] IV 3 15:35:27 COVID-19 279490164 Completed Dx in 01/2022. 03/31/22: Pt [facility] ed to take LD ASA daily in 2nd trimeste r and to consider booster MAIKOL. --> Update 09/24/22: Boosters recommen ded, LD ASA daily [facility] ed. Crystal lee, [employer] IV 3 15:35:27 Influenz a 9661041 Completed Dx 09/07/22 . Discusse d Influenz a vaccine. --> Update 09/24/22: Influenz a vaccine [facility] ed. Crystal lee, [employer] IV 3 15:35:27 Varicell a non-immu ne [id number] Completed plan for Varicell a vaccine post . notified 05/03/22. Crystal lee [employer] IV 3 15:35:27 Carrier of cystic fibrosis gene mutation 349701459 Completed Fam Hx of CF. Pt is a carrier. FOB is not a carrier; his serum testing reviewed and discusse d at 05/17/22 OBV. Crystal lee [employer] IV 3 15:35:27 Family history of trisomy 18 [id number] 108 Completed QNatal WNL. Crystal lee [employer] IV 3 15:35:27 Family history of Spina bifida 667615257 Completed Fam H/O Spina Bifida - X 2 on FOB side. 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 Active 2024 RADHA REID [address], [address], [facility] IV 5 12:20:13 Polycyst ic ovary syndrome 872652860 Active 2024 RADHA REID [address], [address], [facility] IV 5 12:20:12 Pregnanc y 13823485 Active 2024 Karina Méndez CNM [address] [place] [address], [address], [facility] IV 5 11:29:02 Carrier of cystic fibrosis gene mutation 888419119 Active 2024 Pt reports FOB Jorge Voegle 8 negative carrier through Pato REID [address], [address], [facility] IV 5 12:20:01 Carrier of cystic fibrosis gene mutation 117920095 Active 2024 Pt reports FOB Jorge Voegle 8 negative carrier through [employer] RADHA REID [address], [address], [facility] IV 5 12:20:01 Gestatio nal diabetes mellitus 19955756 Active 2024 diet controll ed GDM in prior pregnanc y- early 1 hr passed SILVIO SANCHEZ [address], [address], [facility] [employer] IV 5 17:58:08 Past pregnanc y history of cholesta sis in pregnanc y 79281268863 549555 Active 2024 HASMUKH ALMANZA [address] [place], [address], [facility] IV 5 17:58:17 Problem Notes None recorded. Procedures Surgical History Date Name Laterality Status Provider Name and Address Organization Details Recorded Time 5 Date of Last Pap Smear completed Britney Clemente [place] [employer] IV 05/06/2025 15:51:39 3 NST completed ISAC TALAMANTES MD [address] [place], [address], [facility] IV 10/13/2022 16:33:43 3 NST completed ISAC TALAMANTES MD [address] [place], [address], [facility] IV 10/13/2022 16:28:41 extraction of wisdom tooth completed Crystal [facility] IV 03/15/2022 15:21:10 Imaging Results None recorded. [...] completed Not Available Not Available Not Available [employer] Ultra Test strips 11/11 completed Not Available [...] Available Vitals Date Recorded Body height Body weight Systolic And Diastolic Provider Name and Address Organization Details Last Updated DateTime 07/10/2025 154.94 cm 84170.4278 78 g 102/60 mm[Hg] [facility] IV 07/10/2025 16:39:15 Social History Question Answer Notes LastModified by Organizat ion Details LastModified Time Tobacco Smoking Status Never Smoker Chelsea [place], [place] [employer] 03/31/2022 14:06:06 Are You Blind Or Do You Have Difficulty Seeing? No Information not available 05/17/2022 Are You Deaf Or Do You Have Serious Difficulty Hearing? No Information not available 05/17/2022 What Type Of Diet Are You Following? REGULAR Information not available 03/31/2022 How Many Children Do You Have? 0 Information not available 03/15/2022 What Is Your Relationship Status? Single [email or web address] Information not available 03/15/2022 Are You Sexually Active? Yes [email or web address] Information not available 03/15/2022 Sex: Female Functional Status Question Answer Note LastModified by Organizat ion Details LastModified Time Do you use any illicit or recreational drugs? No Information not available 05/17/2022 What is your level of alcohol consumption? None Information not available 03/31/2022 Are you currently employed? No [email or web address] Information not available 09/15/2022 Do you or [...] Colon Cancer N Cytomegalovirus N Hyperthyroidism N Herpes (HSV) N Breast Cancer N Blood Transfusion N MRSA N Lung Cancer N Hypothyroidism N Depression N Incontinence N Panic Attacks N Neurological Disorder N Deep Vein Thrombosis N Anxiety Disorder N Autoimmune disease Y Arthritis N Tuberculosis/Positive PPD N Shingles N Polycystic Ovarian Syndrome Y Cervical Cancer N Chlamydia N Hematuria N Stroke N Varicosities N Crohn's Disease N Seasonal allergies N [...] N Diabetes Mellitus (non-insulin dependent ) N Ovarian Problems N Multiple Sclerosis N Gonorrhea N Frequent Urinary Tract infections N Osteopenia N Headaches/migraines N GERD (reflux) N Ovarian Cancer N Diabetes (insulin dependent) N Seizures/Epilepsy N Fibroids N Heart Attack N Asthma N Lupus N Endometrial Cancer N Rubella [...] ICD10 Code Diagnosis IMO Codes Diagnosis Note [id number] [facility] [address] [place] [address] 06/25/2025 11:18:31 06/25/2025 13:13:33 Gestation period, 16 weeks 55551184 Z3A.16 [id number] History of gynecological disorder 486531401 Z87.42 45575758 Carrier of cystic fibrosis gene mutation 611846393 Z14.1 1492414 Screening for disorder 461462105 Z36.0 Normal 1261959 2 Z34.92 [id number] Pt is here for a SANJEEV appointmen [...] meeting delivery providers after 28 week visit. [id number] HASMUKH ALMANZA [facility] [address] [place] [address] 07/10/2025 15:57:50 07/11/2025 12:30:37 History of gynecological disorder 741875508 Z87.42 [id number] Gestation period, 18 weeks 40262491 Z3A.18 2742385 care status 24 4631947 Z34.82 75213101 CL WNL- Placenta previa resolvedWi ll recheck cervical length at anatomy scanPTL precaution s reviewedRT C in 2 weeks Health Concerns Section Related Observation LastModified by Organization Detai ls LastModified Time None Recorded Concern Status LastModified by Organization Details LastModified Time None Recorded Payers Encounter Date Sequence Insurance Name Policy Number Policy Hung Covered Member ID Hung Member ID Guarantor Name 07/10/2025 1 [place] Jenniffer Gustafson [id number] Jenniffer Gustafson Notes Date Note Type Note Provider Name and Address Organization Details Recorded Time 07/10/2025 text/html ROS as noted in the HPI Patient is here today for a routine OB visit. She is currently at 18.3 weeks gestation. vitamins: yes She has not felt movement. She denies any complaints of the presence of vaginal bleed, leaking fluid, abdominal cramps, nausea, vomiting, headache or visual disturbances. HASMUKH ALMANZA [address] [place], [address], [facility] 07/10/2025 19:22:46 OBGyn Episode Ob Episode Information Episode Created Date Number of Fetuses Patient Bloodtype Patient rh Status Prepregnancy Weight lbs Domestic Partner Domestic Partner Phone Father Name Technical Solutions Engineer Status 06/03/20 25 1 O Positive OPEN Fetus Data First Name Last Name Admitted to NICU Weight (g) Sex Living Outcome Pediatric Complications Fetus ID Race Codes Race Delivery Type [id number] Problems Problem Notes History of cervical shorteni ng with prior Problem Name Start Date End Date Resolution Snomed Code Not e Polycystic ovary syndrome 05/06/2025 [id number] Past history of cholestasis in 07/29/2025 [id number] Gestational diabetes mellitus 07/29/2025 [id number] diet contr olled GDM in prior - early 1 hr passed Carrier of cystic fibrosis gene mutation 06/25/2025 [id number] Pt reports FOB Jorge Yohannesegle 03/05/1998 negative carrier through [facility] Calculation [...] in lbs Pre/Post Dialysis Refused With clothes [id number] BP Diastolic BP Location Tested BP Systolic [...] Weight in lbs Pre/Post Dialysis Refused Weight 148.365024402400 BP Diastolic BP Location Tested BP Systolic [...] in lbs Pre/Post Dialysis Refused With clothes 149.770713534962 BP Diastolic BP Location Tested BP Systolic [...] in lbs Pre/Post Dialysis Refused With clothes 155.390877326425 BP Diastolic BP Location Tested BP Systolic [...] in lbs Pre/Post Dialysis Refused With clothes 157.942499149344 BP Diastolic BP Location Tested BP Systolic [...]
[2025-08-20 17:24] VITALS: BP 127/73; PULSE 116; RESP 20; TEMP 36.2; O2SAT 99
--- NOTE | 2025-08-20 17:57 | ED.GENADULT ---
HPI - General Adult General Chief complaint: Ear Stated complaint: Ear Pain Source: patient Mode of arrival: ambulatory Limitations: no limitations History of Present Illness HPI narrative: Patient presents for evaluation of left ear pain. She suspects she has an ear infection. She was evaluated here in July was diagnosed with otitis media. She was given amoxicillin 500 mg which she took for 7 days. Symptoms improved but did not resolve. She then took a flight and [place]. Her ear pain persisted but she did not wish to pursue medical care while she was away from home. she denies any drainage from the ears. She is currently 6 months . She was treated for an ear infection earlier this year with Augmentin. Her symptoms did not improve so she was given amoxicillin. Her symptoms improved with the second course of abx. No fever, chills, sore throat, nausea, vomiting, diarrhea. Related Data Allergies Allergy/AdvReac Type Severity Reaction Status Date / Time No Known Allergies Allergy Verified 08/20/25 17:25 Review of Systems Review of Systems: CONSTITUTIONAL: Denies fever, chills, or sweats. EYES: Denies visual changes, redness, or discharge. ENT: Reports left sided ear pain. Denies hearing loss and drainage from the ear. Denies sore throat. CARDIOVASCULAR: Denies chest pain, palpitations, or edema. RESPIRATORY: Denies cough or dyspnea. GASTROINTESTINAL: Denies abdominal pain, nausea, vomiting, or diarrhea. GENITOURINARY: Denies dysuria or hematuria. SKIN: Denies rash or itching. MUSCULOSKELETAL: Denies back pain, joint pain, or myalgia. NEUROLOGIC: Denies headache, numbness, dizziness, or weakness. PSYCHIATRIC: Denies anxiety or depression. [facility] Past Medical History Medical History No pertinent past medical history Surgical History Surgical History No pertinent past surgical history Family History Family History Mother Family history non-contributory Other Heart disease Social History Social History Smoking status: Never smoker Substance use: former Substance use type: marijuana Gender identity (if verbalized by the patient): Female Sexual Orientation (if Verbalized by the Patient): Straight or Heterosexual Spiritual care concerns: No Exam Narrative: GENERAL: Well-appearing, well-nourished, and in no acute distress. HEAD: Normocephalic, atraumatic. EYES: PERRLA and EOMI. ENT: Nares clear, no rhinorrhea or epistaxis. Mucous membranes moist. Oropharynx without tonsillar hypertrophy exudate or other lesions. There is erythema in clouding of the left TM which is slightly bulging NECK: Supple. No adenopathy or masses. No carotid bruits or JVD CHEST: Clear to auscultation. No respiratory distress. No wheezes rales or rhonchi HEART: Regular rate and rhythm. No murmur heard. Normal peripheral pulses. ABDOMEN: Soft, nontender, nondistended, normal active bowel sounds. EXTREMITIES: Normal range of motion. No edema. SKIN: Warm, dry, no rash. NEURO: No focal deficits. Alert and oriented x3. PSYCH: Normal mood and affect. Course Course Emergency Course: this is a 24-year-old female who presented for evaluation of left-sided ear pain after recently being treated for otitis media. What is interesting is that when she was treated with Augmentin earlier this year, her symptoms did not improve but a 2nd course of plan amoxicillin did help symptoms resolve. She was recently treated with seven days of amoxicillin 500mg. Will increase to the strength of what was effective last, 875mg. Will extend to ten day treatment course. increase fluid intake. Follow-up with primary provider. Go to the ER for worsening symptoms. Patient in agreement with plan of care. Level of Care: Express Care Visit Vital Signs Vital signs: Vital Signs Temperature 36.2 C L 08/20/25 17:24 Pulse Rate 116 H 08/20/25 17:24 Respiratory Rate 20 08/20/25 17:24 Blood Pressure 127/73 08/20/25 17:24 Pulse Oximetry 99 08/20/25 17:24 Oxygen Delivery Room Air 08/20/25 17:24 Temperature 36.2 C L 08/20/25 17:24 Pulse Rate 116 H 08/20/25 17:24 Respiratory Rate 20 12/02/25 17:24 Blood Pressure 127/73 08/20/25 17:24 Pulse Oximetry 99 08/20/25 17:24 Oxygen Delivery Room Air 08/20/25 17:24 MDM Differential Diagnosis Differential Diagnosis: Otitis media with or without tympanic membrane rupture versus retained foreign body versus otitis externa versus other Discharge Plan Discharge Clinical Impression: Otitis media Patient Disposition: Home Condition: Stable Instructions: Antibiotic Form, Ear Infection (GEN) Patient Language: Nepali Prescriptions: New amoxicillin 875 mg tablet 875 mg PO Q12H Qty: 20 0RF Follow-up/Referrals: Hardy Ochoa MD [Physician, Family Practice] Time of Disposition: 17:41
== END 2025-08-20 18:01 | disposition home or self-care (01) ==
PROVIDERS: Emergency Provider Nurse Practitioner
DX: H66.92 Otitis media, unspecified, left ear (principal)
CPT/HCPCS: 99213; G0463